=== PATIENT | female | born 1940 | race Asian ===

== ENCOUNTER → 2018-03-23 06:44 | Outpatient (CLI) | payer MEDICARE, MEDICAID, SELFPAY ==
[2018-03-23 08:31] LABS: Alanine Aminotransferase 22 IU/L (9-52); Albumin 4.2 g/dL (3.5-5.0); Albumin Globulin Ratio 1.2 (1.0-2.8); Alkaline Phosphatase 78 U/L (38-126); Aspartate Aminotransferase 28 IU/L (14-36); BUN Creatinine Ratio 18.9 (6-22); Bilirubin Total 0.5 mg/dL (0.2-1.3); Blood Urea Nitrogen 17 mg/dL (7-17); Calcium 9.2 mg/dL (8.4-10.2); Carbon Dioxide 31 mmol/L (22-32); Chloride 101 mmol/L (98-107); Cholesterol 142 mg/dL (140-199); Estimated Glomerular Filt Rate > 60.0 mL/min (>60); Globulin 3.6 g/dL (1.7-4.1); Glucose 82 mg/dL (80-110); HDL Cholesterol 64 mg/dL (40-60); HEMOLYSIS < 15 (0-50); LDL Cholesterol Calculated 62 mg/dL (<100); Potassium 5.1 mmol/L (3.4-5.1); Sodium 143 mmol/L (137-145); Total Protein 7.8 g/dL (6.3-8.2); Triglycerides 82 mg/dL (35-150)
[2018-03-23 08:46] LABS: Vitamin D 25 Hydroxy (D3) 63.8 ng/mL (30.0-100.0)
== END ==
PROVIDERS: Visit Provider Student in an Organized Health Care Education/Training Program
DX: M81.0 Age-related osteoporosis without current pathological fracture (principal); E05.00 Thyrotoxicosis with diffuse goiter without thyrotoxic crisis or storm; E55.9 Vitamin D deficiency, unspecified; I10 Essential (primary) hypertension; E78.5 Hyperlipidemia, unspecified; Z78.0 Asymptomatic menopausal state; Z79.899 Other long term (current) drug therapy
CPT/HCPCS: 36415; 77080; 80053; 80061; 82306; 84443

== ENCOUNTER → 2018-12-16 06:49 | Outpatient (CLI) | payer MEDICARE, MEDICAID, SELFPAY ==
[2018-12-16 08:34] LABS: BUN Creatinine Ratio 17.8 (6-22); Blood Urea Nitrogen 16 mg/dL (7-17); Carbon Dioxide 31 mmol/L (22-32); Chloride 101 mmol/L (98-107); Cholesterol 130 mg/dL (140-199); Estimated Glomerular Filt Rate > 60.0 mL/min (>60); Glucose 92 mg/dL (80-110); HDL Cholesterol 57 mg/dL (40-60); HEMOLYSIS < 15 (0-50); LDL Cholesterol Calculated 57 mg/dL (<100); Potassium 4.2 mmol/L (3.4-5.1); Sodium 139 mmol/L (137-145); Triglycerides 81 mg/dL (35-150)
[2018-12-16 08:43] LABS: Add Manual Diff / Slide Review NO; Basophils Absolute Auto 0 /uL (0-100); Basophils Percent Auto 0.7 % (0-2); Eosinophils Absolute Auto 100 /uL (0-450); Eosinophils Percent Auto 1.3 % (2-4); Hematocrit 39.6 % (36-46); Lymphocytes Absolute Auto 1100 /uL (1100-4500); Lymphocytes Percent Auto 19.6 % (25-40); Mean Corpuscular HGB Conc 32.9 % (30-36); Mean Corpuscular Hemoglobin 31.4 PG (26-34); Mean Corpuscular Volume 95.5 fL (80-100); Monocytes Absolute Auto 500 /uL (0-900); Monocytes Percent Auto 8.7 % (3-14); Neutrophils Absolute Auto 3800 /uL (1500-7000); Neutrophils Percent Auto 69.7 % (50-75); Platelet Count 146 X10^3/uL (150-400); Red Blood Cell Count 4.15 X10^6/uL (4.0-5.2); Red Cell Distribution Width 13.4 % (11.6-14.8); White Blood Cell Count 5.4 X10^3/uL (4.5-11.0)
== END ==
PROVIDERS: PCP Student in an Organized Health Care Education/Training Program; Visit Provider Internal Medicine Cardiovascular Disease
DX: I10 Essential (primary) hypertension (principal); E78.5 Hyperlipidemia, unspecified
CPT/HCPCS: 36415; 80048; 80061; 85025

== ENCOUNTER → 2019-11-03 11:20 | Outpatient (CLI) | payer MEDICARE, MEDICAID, SELFPAY ==
[2019-11-03 12:38] LABS: BUN Creatinine Ratio 21.2 (6-22); Blood Urea Nitrogen 22 mg/dL (7-17); Calcium 9.6 mg/dL (8.4-10.2); Carbon Dioxide 34 mmol/L (22-32); Chloride 102 mmol/L (98-107); Estimated Glomerular Filt Rate 51.4 mL/min (>60); Glucose 94 mg/dL (80-110); HEMOLYSIS < 15 (0-50); Potassium 4.8 mmol/L (3.4-5.1); Sodium 140 mmol/L (137-145)
== END ==
PROVIDERS: PCP Student in an Organized Health Care Education/Training Program; Referring Provider Student in an Organized Health Care Education/Training Program; Visit Provider Student in an Organized Health Care Education/Training Program
DX: I10 Essential (primary) hypertension (principal)
CPT/HCPCS: 36415; 80048

== ENCOUNTER → 2019-11-24 09:37 | Outpatient (CLI) | payer MEDICARE, MEDICAID, SELFPAY ==
[2019-11-24 10:52] LABS: BUN Creatinine Ratio 22.2 (6-22); Blood Urea Nitrogen 26 mg/dL (7-17); Estimated Glomerular Filt Rate 44.7 mL/min (>60)
== END ==
PROVIDERS: PCP Student in an Organized Health Care Education/Training Program; Referring Provider Student in an Organized Health Care Education/Training Program; Visit Provider Student in an Organized Health Care Education/Training Program
DX: N17.9 Acute kidney failure, unspecified (principal)
CPT/HCPCS: 36415; 82565; 84520

== ENCOUNTER → 2019-12-28 10:15 | Outpatient (CLI) | payer MEDICARE, MEDICAID, SELFPAY ==
--- NOTE | 2019-12-28 10:18 | DI.RAD.S_ITS ---
PROCEDURE: XR CLAVICLE RT INDICATIONS: bone deformity TECHNIQUE: 2 views of the clavicle were acquired. COMPARISON: None. FINDINGS: Bones: No fracture. AC and glenohumeral joint degeneration. Soft tissues: No suspicious soft tissue calcifications. IMPRESSION: Goxs-rr-thewiqwz right shoulder joint degeneration. If the patient's pain or other symptoms persist, consider further evaluation with MRI Dictated by: Doc Yanez M.D. on 12/28/2019 at 11:02 Approved by: Doc Yanez M.D. on 12/28/2019 at 11:04
== END ==
PROVIDERS: PCP Student in an Organized Health Care Education/Training Program; Referring Provider Student in an Organized Health Care Education/Training Program; Visit Provider Student in an Organized Health Care Education/Training Program
DX: M95.8 Other specified acquired deformities of musculoskeletal system (principal); M19.011 Primary osteoarthritis, right shoulder
CPT/HCPCS: 73000

== ENCOUNTER → 2020-01-10 09:57 | Outpatient (CLI) | payer MEDICARE, MEDICAID, SELFPAY ==
[2020-01-10 10:10] LABS: Bacteria Urine None Seen; RBC Urine None Seen (0-5/HPF); WBC Urine None Seen (0-5/HPF)
[2020-01-10 10:46] LABS: Add Manual Diff / Slide Review NO; Basophils Absolute Auto 0 /uL (0-100); Basophils Percent Auto 0.7 % (0-2); Eosinophils Absolute Auto 100 /uL (0-450); Eosinophils Percent Auto 1.4 % (2-4); Hematocrit 39.7 % (36-46); Hemoglobin 13.2 g/dL (12.0-16.0); Lymphocytes Absolute Auto 1100 /uL (1100-4500); Mean Corpuscular HGB Conc 33.3 % (30-36); Mean Corpuscular Hemoglobin 31.9 PG (26-34); Mean Corpuscular Volume 95.9 fL (80-100); Monocytes Absolute Auto 600 /uL (0-900); Monocytes Percent Auto 8.4 % (3-14); Neutrophils Absolute Auto 5000 /uL (1500-7000); Neutrophils Percent Auto 73.5 % (50-75); Platelet Count 152 X10^3/uL (150-400); Red Blood Cell Count 4.14 X10^6/uL (4.0-5.2); Red Cell Distribution Width 13.5 % (11.6-14.8); White Blood Cell Count 6.8 X10^3/uL (4.5-11.0)
[2020-01-10 10:52] LABS: Alanine Aminotransferase 20 IU/L (<35); Albumin 4.2 g/dL (3.5-5.0); Albumin Globulin Ratio 1.2 (1.0-2.8); Alkaline Phosphatase 80 U/L (38-126); Aspartate Aminotransferase 29 IU/L (14-36); BUN Creatinine Ratio 18.5 (6-22); Bilirubin Total 0.6 mg/dL (0.2-1.3); Blood Urea Nitrogen 17 mg/dL (7-17); Calcium 9.2 mg/dL (8.4-10.2); Carbon Dioxide 31 mmol/L (22-32); Chloride 97 mmol/L (98-107); Globulin 3.5 g/dL (1.7-4.1); Glucose 97 mg/dL (80-110); HEMOLYSIS < 15 (0-50); Phosphorous 4.6 mg/dL (2.8-4.1); Potassium 4.7 mmol/L (3.4-5.1); Sodium 135 mmol/L (137-145); Total Protein 7.7 g/dL (6.3-8.2)
[2020-01-10 11:05] LABS: Vitamin D 25 Hydroxy (D3) 80.1 ng/mL (30.0-100.0)
[2020-01-10 11:43] LABS: Appearance Urine UA CLEAR; Bilirubin Urine UA NEGATIVE (NEGATIVE); Color Urine UA YELLOW; Glucose Urine UA NEGATIVE (Negative); Ketones Urine UA NEGATIVE (NEGATIVE); Leukocyte Esterase Urine UA NEGATIVE (NEGATIVE); Nitrite Urine UA NEGATIVE (Negative); Occult Blood Urine UA NEGATIVE (Negative); Protein Urine UA NEGATIVE (Negative); Urobilinogen Urine UA 0.2 E.U./dL (0.2)
[2020-01-10 11:50] LABS: pH Urine UA 7.5 (4.5-8.0)
[2020-01-10 11:52] LABS: Culture Indicated Urine Cult Not Indicated; Urine Comments Microscopic Normal
[2020-01-10 12:11] LABS: Creatinine Urine Random 66.7 mg/dL
[2020-01-10 12:16] LABS: Microalbumi Creatinin Ratio Ur 16.4 ug/mg CR (<30); Microalbumin Urine Random 1.1 mg/dL (0-1.6)
[2020-01-11 07:39] LABS: Parathyroid Hormone Int 30 pg/mL (15-65)
== END ==
PROVIDERS: PCP Student in an Organized Health Care Education/Training Program; Referring Provider Internal Medicine; Visit Provider Internal Medicine
DX: N18.3 Chronic kidney disease, stage 3 (moderate) (principal)
CPT/HCPCS: 36415; 80053; 81001; 82043; 82306; 82570; 83970; 84100; 85025

== ENCOUNTER → 2020-02-09 09:54 | Outpatient (CLI) | payer MEDICARE, MEDICAID, SELFPAY ==
--- NOTE | 2020-02-09 | DI.US.S_ITS ---
PROCEDURE: US RENAL COMPLETE INDICATIONS: CHRONIC KIDNEY DISEASE STAGE 3 TECHNIQUE: Real-time scanning was performed of the kidneys and bladder, with image documentation. COMPARISON: None. FINDINGS: Kidneys: Kidneys are normal in size. The kidneys demonstrate a generalized echogenic appearance, which is consistent with the known history of medical renal disease. Right kidney measures 9.4 cm long; left kidney measures 11 cm long. Right renal cortical thickness is 1.2 cm; left renal cortical thickness is 1.4 cm. Renal cortical echotexture is normal. No nephrolithiasis. No suspicious solid mass lesions. Minimal to mild right-sided hydronephrosis is seen. Bladder: Pre-void bladder volume is 223 mL. Post-void residual is 13 mL. Pre-void images demonstrate no intraluminal masses or stones. On pre-void images, neither of the ureteral jets are noted with color Doppler interrogation. (Of note, ureteral jets may not be detectable in up to 25% of cases due to insufficient differences in specific gravity between ureteral and bladder urine). Miscellaneous: No free pelvic fluid. IMPRESSION: Minimal to mild right-sided hydronephrosis. Mild postvoid residual, 13 cc. Dictated by: Hugh Chino M.D. on 02/09/2020 at 11:21 Approved by: Hugh Chino M.D. on 02/09/2020 at 11:22
== END ==
PROVIDERS: PCP Student in an Organized Health Care Education/Training Program; Referring Provider Student in an Organized Health Care Education/Training Program; Visit Provider Internal Medicine
DX: N18.30 Chronic kidney disease, stage 3 unspecified (principal)
CPT/HCPCS: 76770

== ENCOUNTER → 2020-02-14 10:23 | Outpatient (CLI) | payer MEDICARE, MEDICAID, SELFPAY ==
[2020-02-14 10:58] LABS: RBC Urine None Seen (0-5/HPF)
[2020-02-14 13:25] LABS: Appearance Urine UA CLEAR; Bilirubin Urine UA NEGATIVE (NEGATIVE); Color Urine UA YELLOW; Glucose Urine UA NEGATIVE (Negative); Ketones Urine UA NEGATIVE (NEGATIVE); Leukocyte Esterase Urine UA TRACE (NEGATIVE); Nitrite Urine UA NEGATIVE (Negative); Occult Blood Urine UA NEGATIVE (Negative); Protein Urine UA NEGATIVE (Negative); Urobilinogen Urine UA 0.2 E.U./dL (0.2)
[2020-02-14 13:40] LABS: Bacteria Urine Occasional (0-1); Culture Indicated Urine Specimen Cultured; Squamous Epithelial Cell Urine 0-1 /HPF (0-5/HPF); WBC Urine 1-5/HPF (0-5/HPF)
[2020-02-14 14:17] LABS: Blood Urea Nitrogen 19 mg/dL (7-17); Calcium 9.1 mg/dL (8.4-10.2); Carbon Dioxide 32 mmol/L (22-32); Chloride 100 mmol/L (98-107); Estimated Glomerular Filt Rate 56.9 mL/min (>60); Glucose 85 mg/dL (80-110); HEMOLYSIS < 15 (0-50); Potassium 4.7 mmol/L (3.4-5.1); Sodium 137 mmol/L (137-145)
[2020-02-14 15:39] LABS: Creatinine Urine Random 83.7 mg/dL; Microalbumi Creatinin Ratio Ur 7.1 ug/mg CR (<30); Microalbumin Urine Random 0.6 mg/dL (0-1.6)
== END ==
PROVIDERS: PCP Student in an Organized Health Care Education/Training Program; Referring Provider Internal Medicine; Visit Provider Internal Medicine
DX: N18.31 Chronic kidney disease, stage 3a (principal)
CPT/HCPCS: 36415; 80048; 81001; 82043; 82570; 87086

== ENCOUNTER → 2020-12-27 13:36 | Outpatient (CLI) | payer MEDICARE, MEDICAID, SELFPAY ==
--- NOTE | 2020-12-27 | DI.ECHO.S_ITS ---
[place] +---------+ Hospital +---------+ : : [address] : : : : [id number] : : : : Phone: [phone]---------+ Echocardiogram Report + + :Name: ABRAM ADAMS Study Date: 12/27/2020 Height: 66 in : :[facility] ReadingLocation: Weight: 184 lb : : Gender: Female BSA: 1.9 m2 : :: 1940 Age: 80 yrs BP: 135/90 mmHg: :Reason For Study: OTHER SPECIFIED DISORDERS OF ARTERIES AND : :ARTERIOLS : :Ordering Physician: FRANKLIN, : :LOW Performed By: Angy Ahuja : :Referring: LOW LANDRY : + + Interpretation Summary 1) Normal left ventricular thickness, size, wall motion, and systolic function (EF 55-65%). 2) Normal right ventricular size and function grossly. 3) Both atria are markedly dilated. 4) There is mild to moderate tricuspid regurgitation. 5) There is mild aortic regurgitation. 6) There is mild mitral regurgitation. 7) The ascending aorta is mildly enlarged at 4.2cm. 8) Compared to the Echo done 02/04/2019, tricuspid regurgitation is slightly worse. Procedure: A two-dimensional transthoracic echocardiogram with color flow and Doppler was performed. The study quality was technically adequate. Comparison is made with the echocardiogram of 02/04/2019. The patient was in atrial fibrillation with heart rates between 74-96 bpm during the exam. Left Ventricle: The left ventricle is normal in size and wall thickness. The ejection fraction is estimated to be 60-65%. Diastolic function could not be accurately assessed due to atrial fibrillation. Right Ventricle: The right ventricle is normal in size and function. Atria: Both atria are severely dilated. There is no Doppler evidence for an interatrial shunt. Mitral Valve: The mitral valve leaflets appear mildly thickened, but open well. There is mild mitral regurgitation. Aortic Valve: The aortic valve is trileaflet. The aortic valve opens well. There is no aortic valve stenosis. There is mild aortic regurgitation. Tricuspid Valve: The tricuspid valve leaflets are thin and pliable. There is mild to moderate tricuspid regurgitation. The right ventricular systolic pressure is estimated to be at least 35 mmHg based on an estimated right atrial pressure of 3 mm Hg. Pulmonic Valve: The pulmonic valve leaflets are thin and pliable; valve motion is normal. There is mild pulmonic regurgitation. Great Vessels: The aortic root is normal size. The ascending aorta is mildly enlarged. The IVC is of normal diameter and collapses greater than 50% with a sniff. This suggests a low right atrial pressure of 3 mm Hg. Pericardium/ Pleura There is no pericardial effusion. There is no pleural effusion. MMode/2D Measurements & Calculations LVIDd: 4.6 cm LVOT diam: 2.0 cm LVIDs: 2.9 cm Ao root diam: 3.6 cm FS: 38.2 % asc Aorta Diam: 4.2 cm IVSd: 0.78 cm Ao Arch Diam (Prox Trans): 3.6 cm LVPWd: 1.1 cm LV castaneda. diameter/BSA (cm/m^2): 2.4 LV sys. diameter/BSA (cm/m^2): 1.5 LA A2 area: 46.1 cm2 RA long axis: 8.5 cm LA A4 area: 39.1 cm2 RA area: 47.0 cm2 LA length (vol): 8.7 cm RA vol: 221.6 ml LA vol: 176.6 ml RA : 114.8 ml/m2 LA vol index: 91.5 ml/m2 IVC diam: 2.0 cm RVD1 (basal): 3.7 cm TAPSE: 2.0 cm Doppler Measurements & Calculations Ao V2 max: 126.1 cm/sec LVOT Max José Miguel: 86.9 cm/sec Ao V2 mean: 84.2 cm/sec LV V1 max P.0 mmHg Ao max P.4 mmHg LV V1 VTI: 18.2 cm Ao mean P.2 mmHg LIBBY(I,D): 2.6 cm2 Ao V2 VTI: 22.1 cm LIBBY(V,D): 2.2 cm2 sev ratio: 0.82 LIBBY indexed to BSA (cm^2/m^2): 1.3 MV E max josé miguel: 90.4 cm/sec TR max josé miguel: 281.1 cm/sec MV A max josé miguel: 2.9 cm/sec TR max P.6 mmHg MV E/A: 31.6 PA V2 max: 94.0 cm/sec Med Peak E' José Miguel: 10.2 cm/sec PA V2 mean: 62.4 cm/sec E/E' med: 8.9 PA mean P.8 mmHg Lat Peak E' José Miguel: 11.8 cm/sec PA pr(Accel): 43.0 mmHg E/E' lat: 7.7 E/e' average: 8.3 MV dec time: 0.16 sec SV(OT): 57.5 ml Reading Physician:06:11 PM
== END ==
PROVIDERS: PCP Student in an Organized Health Care Education/Training Program; Referring Provider Internal Medicine Cardiovascular Disease; Visit Provider Internal Medicine Cardiovascular Disease
DX: I77.89 Other specified disorders of arteries and arterioles (principal); I07.1 Rheumatic tricuspid insufficiency; I35.1 Nonrheumatic aortic (valve) insufficiency; I34.0 Nonrheumatic mitral (valve) insufficiency; I51.7 Cardiomegaly
CPT/HCPCS: 93306

== ENCOUNTER → 2021-01-12 09:26 | Outpatient (CLI) | payer MEDICARE, MEDICAID, SELFPAY ==
[2021-01-12 10:13] LABS: Add Manual Diff / Slide Review NO; Basophils Absolute Auto 100 /uL (0-100); Basophils Percent Auto 0.9 % (0-2); Eosinophils Absolute Auto 400 /uL (0-450); Eosinophils Percent Auto 6.2 % (2-4); Hematocrit 40.9 % (36-46); Hemoglobin 13.4 g/dL (12.0-16.0); Lymphocytes Absolute Auto 1200 /uL (1100-4500); Lymphocytes Percent Auto 20.6 % (25-40); Mean Corpuscular HGB Conc 32.7 % (30-36); Mean Corpuscular Hemoglobin 31.5 PG (26-34); Mean Corpuscular Volume 96.1 fL (80-100); Monocytes Absolute Auto 400 /uL (0-900); Monocytes Percent Auto 7.7 % (3-14); Neutrophils Absolute Auto 3700 /uL (1500-7000); Neutrophils Percent Auto 64.6 % (50-75); Platelet Count 150 X10^3/uL (150-400); Red Blood Cell Count 4.26 X10^6/uL (4.0-5.2); White Blood Cell Count 5.7 X10^3/uL (4.5-11.0)
[2021-01-12 10:29] LABS: BUN Creatinine Ratio 21.3 (6-22); Blood Urea Nitrogen 20 mg/dL (7-17); Calcium 9.2 mg/dL (8.4-10.2); Carbon Dioxide 36 mmol/L (22-32); Chloride 100 mmol/L (98-107); Cholesterol 142 mg/dL (140-199); Estimated Glomerular Filt Rate 57.4 mL/min (>60); Glucose 108 mg/dL (80-110); HDL Cholesterol 68 mg/dL (40-60); HEMOLYSIS < 15 (0-50); LDL Cholesterol Calculated 58 mg/dL (<100); Potassium 4.9 mmol/L (3.4-5.1); Sodium 138 mmol/L (137-145); Triglycerides 82 mg/dL (35-150)
== END ==
PROVIDERS: PCP Student in an Organized Health Care Education/Training Program; Referring Provider Internal Medicine Cardiovascular Disease; Visit Provider Internal Medicine Cardiovascular Disease
DX: E78.5 Hyperlipidemia, unspecified (principal); I10 Essential (primary) hypertension
CPT/HCPCS: 36415; 80048; 80061; 85025

== ENCOUNTER → 2021-12-10 08:54 | Outpatient (CLI) | payer MEDICARE, MEDICAID, SELFPAY ==
[2021-12-10 11:09] LABS: Add Manual Diff / Slide Review NO; Basophils Absolute Auto 0 /uL (0-100); Basophils Percent Auto 0.9 % (0-2); Eosinophils Absolute Auto 100 /uL (0-450); Eosinophils Percent Auto 2.5 % (2-4); Hematocrit 40.2 % (36-46); Hemoglobin 13.6 g/dL (12.0-16.0); Lymphocytes Absolute Auto 1200 /uL (1100-4500); Lymphocytes Percent Auto 24.2 % (25-40); Mean Corpuscular HGB Conc 33.9 % (30-36); Mean Corpuscular Hemoglobin 32.1 PG (26-34); Mean Corpuscular Volume 94.7 fL (80-100); Monocytes Absolute Auto 400 /uL (0-900); Monocytes Percent Auto 8.8 % (3-14); Neutrophils Absolute Auto 3200 /uL (1500-7000); Neutrophils Percent Auto 63.6 % (50-75); Platelet Count 143 X10^3/uL (150-400); Red Blood Cell Count 4.24 X10^6/uL (4.0-5.2); Red Cell Distribution Width 13.7 % (11.6-14.8)
[2021-12-10 11:12] LABS: BUN Creatinine Ratio 22.3 (6-22); Blood Urea Nitrogen 21 mg/dL (7-17); Calcium 8.8 mg/dL (8.4-10.2); Carbon Dioxide 35 mmol/L (22-32); Chloride 99 mmol/L (98-107); Cholesterol 149 mg/dL (140-199); Estimated Glomerular Filt Rate > 60 mL/min (>60); Glucose 108 mg/dL (80-110); HDL Cholesterol 60 mg/dL (40-60); HEMOLYSIS < 15 (0-50); LDL Cholesterol Calculated 75 mg/dL (<100); Potassium 4.7 mmol/L (3.4-5.1); Sodium 136 mmol/L (137-145); Triglycerides 70 mg/dL (35-150)
== END ==
PROVIDERS: PCP Student in an Organized Health Care Education/Training Program; Referring Provider Internal Medicine Cardiovascular Disease; Visit Provider Internal Medicine Cardiovascular Disease
DX: I10 Essential (primary) hypertension (principal); E78.5 Hyperlipidemia, unspecified
CPT/HCPCS: 36415; 80048; 80061; 85025

== ENCOUNTER → 2021-12-19 07:40 | Outpatient (CLI) | payer MEDICARE, MEDICAID, SELFPAY ==
--- NOTE | 2021-12-19 | DI.ECHO.S_ITS ---
[place] +---------+ Hospital +---------+ : : [address] : : : : [id number] : : : : Phone: [phone]+ Echocardiogram Report + + :Name: ABRAM ADAMS Study Date: 12/19/2021 Height: 66 in : :[facility] ReadingLocation: Weight: 180 lb : : Gender: Female BSA: 1.9 m2 : :: 1940 Age: 81 yrs BP: 157/93 mmHg: :Reason For Study: CHEST PAIN : :Ordering Physician: FRANKLIN, : :LOW Performed By: Angy Ahuja : :Referring: LOW LANDRY : + + Interpretation Summary 1) Normal left ventricular thickness, size, wall motion, and systolic function (EF 60-65%). 2) Normal right ventricular size and function. 3) Both atria are severely dilated. 4) There is mild tricuspid regurgitation. 5) There is mild aortic regurgitation. 6) There is mild mitral regurgitation. 7) The ascending aorta is mildly enlarged at 4.2cm. 8) Compared to the Echo done 12/27/2020, no significant change. Procedure: A two-dimensional transthoracic echocardiogram with color flow and Doppler was performed. The study quality was technically adequate. Comparison is made with the echocardiogram of 12/27/2020. The patient was in sinus rhythm with heart rates between 62-80 bpm during the exam. Left Ventricle: The left ventricle is normal in size and wall thickness. The ejection fraction is estimated to be 60-65%. Left ventricular systolic function appears normal without focal wall motion abnormalities. Right Ventricle: The right ventricle is normal in size and function. Atria: Both atria are severely dilated. There is no Doppler evidence for an interatrial shunt. Mitral Valve: The mitral valve leaflets appear mildly thickened, but open well. There is mild mitral regurgitation. Aortic Valve: The aortic valve is trileaflet. There is no aortic valve stenosis. There is mild aortic regurgitation. Tricuspid Valve: The tricuspid valve leaflets are thin and pliable. There is mild tricuspid regurgitation. The right ventricular systolic pressure is estimated to be at least 36 mmHg based on an estimated right atrial pressure of 3 mm Hg. Pulmonic Valve: The pulmonic valve leaflets are thin and pliable; valve motion is normal. There is mild pulmonic regurgitation. Great Vessels: The aortic root is normal size. The ascending aorta is mildly enlarged. The IVC is of normal diameter and collapses greater than 50% with a sniff. This suggests a low right atrial pressure of 3 mm Hg. Pericardium/ Pleura There is no pericardial effusion. There is no pleural effusion. MMode/2D Measurements & Calculations LVIDd: 4.7 cm LVOT diam: 2.0 cm LVIDs: 3.0 cm Ao root diam: 3.7 cm FS: 36.2 % asc Aorta Diam: 4.2 cm IVSd: 0.77 cm Ao Arch Diam (Prox Trans): 3.1 cm LVPWd: 1.1 cm LV castaneda. diameter/BSA (cm/m^2): 2.5 LV sys. diameter/BSA (cm/m^2): 1.6 LA A2 area: 34.5 cm2 RA long axis: 8.7 cm LA A4 area: 41.1 cm2 RA area: 39.0 cm2 LA length (vol): 8.6 cm RA vol: 147.8 ml LA vol: 140.0 ml RA : 77.3 ml/m2 LA vol index: 73.2 ml/m2 IVC diam: 1.6 cm RVD1 (basal): 3.4 cm RVD2 (mid): 2.4 cm TAPSE: 1.8 cm Doppler Measurements & Calculations Ao V2 max: 124.3 cm/sec LVOT Max José Miguel: 94.2 cm/sec Ao V2 mean: 81.9 cm/sec LV V1 max P.6 mmHg Ao max P.2 mmHg LV V1 VTI: 19.3 cm Ao mean P.1 mmHg LIBBY(I,D): 2.4 cm2 Ao V2 VTI: 25.9 cm LIBBY(V,D): 2.4 cm2 sev ratio: 0.74 LIBBY indexed to BSA (cm^2/m^2): 1.2 MV E max josé miguel: 96.1 cm/sec TR max josé miguel: 287.8 cm/sec MV A max josé miguel: 1.4 cm/sec TR max P.1 mmHg MV E/A: 66.7 PA V2 max: 69.2 cm/sec Med Peak E' José Miguel: 9.5 cm/sec PA V2 mean: 43.2 cm/sec E/E' med: 10.1 PA mean P.90 mmHg Lat Peak E' José Miguel: 10.5 cm/sec PA pr(Accel): 37.9 mmHg E/E' lat: 9.1 E/e' average: 9.6 MV dec time: 0.16 sec SV(LVOT): 61.0 ml Reading Physician:02:26 PM
--- NOTE | 2021-12-19 | DI.NM.S_ITS ---
PROCEDURE: NM BENNIE PERF SPECT R&S PHARM Rest and pharmacological stress myocardial perfusion SPECT with gated imaging and ejection fraction RADIOPHARMACEUTICAL: 12.9 mCi Tc-99m tetrafosmin IV at rest and 26.1 mCi Tc-99m tetrafosmin IV at peak effect of pharmacological stress. Scl-mng-icenvswq was performed. INDICATIONS: Chest pain, unspecified TECHNIQUE: Radiopharmaceutical was injected at peak stress test, and also at rest. SPECT images were obtained. SPECT myocardial perfusion images were displayed in short axis, horizontal long axis, and vertical long axis views. Gated images were reviewed using BMEYE software. COMPARISON: None. CARDIAC STRESS: A pharmacologic stress test was performed under the supervision of an attending staff, using an infusion of lexiscan 0.4mg IV X1. Hemodynamic data: There is normal blood pressure and heart rate response to pharmacologic stress. Symptoms: The patient denied anginal chest pain. Aminophylline: none EKG: No diagnostic changes of ischemia; no ectopy. FINDINGS: Raw data: There is good myocardial uptake of radiotracer. No significant motion artifacts. Hosi-yv-udizl ratio is 0.32 (normal is less than 0.38 for tetrafosmin tracer). Left ventricle function: Gated images demonstrate normal left ventricular wall thickening. No segmental wall motion abnormalities. No transient ischemic dilation; TID is 0.95 (normal less than 1.3). Left ventricle resting end diastolic volume is 87 mL. Left ventricle stress ejection fraction is 69%; normal range is above 45%. Myocardial perfusion: There is normal distribution of activity in the right and left ventricular myocardium. No fixed or reversible perfusion defects. IMPRESSION: Low risk, normal pharmaceutical nuclear stress test 1) No perfusion evidence of ischemia or infarction. 2) Normal left ventricular size, wall motion, and systolic function (EF post stress 69%). 3) No angina during the study. 4) No ST changes with lexsican. 5) No prior nuclear stress test available for comparison. Dictated by: Jose Landry MD on 12/20/2021 at 13:19 Approved by: Jose Landry MD on 12/20/2021 at 13:20
[2021-12-19 12:07] LABS: COVID19 -Nasal RAPID Negative (Negative)
== END ==
PROVIDERS: PCP Student in an Organized Health Care Education/Training Program; Referring Provider Internal Medicine Cardiovascular Disease; Visit Provider Internal Medicine Cardiovascular Disease
DX: R07.9 Chest pain, unspecified (principal); I77.89 Other specified disorders of arteries and arterioles; I36.1 Nonrheumatic tricuspid (valve) insufficiency; Z20.822 Contact with and (suspected) exposure to COVID-19
CPT/HCPCS: 78452; 87635; 93017; 93306; C9803; A9502; J2785

== ENCOUNTER → 2022-11-22 09:38 | Outpatient (CLI) | payer MEDICARE, MEDICAID, SELFPAY ==
--- NOTE | 2022-11-22 09:38 | DI.RAD.S_ITS ---
Bone Density Report Name: ABRAM ADAMS Age: 82 Sex: Female Ethnicity: Date of : 1940 Indication: postmenopausal; screening for osteoporosis; Referring Provider: KENNETH RUSSELL Study: Bone densitometry was performed. Exam Date: November 22, 2022 Accession number: [id number] Bone Density: Region BMD T-score Z-score Classification AP Spine(L1-L4) 0.901 -1.3 1.4 Osteopenia Femoral Neck (Left) 0.603 -2.2 0.1 Osteopenia Total Hip (Left) 0.758 -1.5 0.6 Osteopenia Femoral Neck (Right) 0.552 -2.7 -0.3 Osteoporosis Total Hip (Right) 0.700 -2.0 0.1 Osteopenia Total Hip Mean 0.729 -1.8 0.4 Osteopenia World Health Organization criteria for BMD impression classify patients as: Normal (T-score at or above -1.0), Osteopenia (T-score between -1.0 and -2.5), or Osteoporosis (T-score at or below -2.5). 10-year Fracture Risk: FRAX not reported because: Some T-score for Spine Total or Hip Total or Femoral Neck at or below -2.5 Treated for osteoporosis Impression: The patient has osteoporosis, based on the Right Femoral Neck T-score. Discussion: It is important to ask patients whether they are taking their medications and to encourage continued and appropriate compliance with their osteoporosis therapies to reduce fracture risk. It is also important to review their risk factors and encourage appropriate calcium and vitamin D intakes, exercise, fall prevention and other lifestyle measures. Follow-Up: Consider a repeat BMD and Vertebral Fracture Assessment (VFA) exam in 2 years or sooner if medically necessary, to reassess this patient's status. Reported by: AYDEE MCGUIRE M.D. on 11/22/2022 10:12:00 AM.
== END ==
PROVIDERS: PCP Pediatrics; Referring Provider Pediatrics; Visit Provider Pediatrics
DX: M81.0 Age-related osteoporosis without current pathological fracture (principal); Z13.820 Encounter for screening for osteoporosis; Z78.0 Asymptomatic menopausal state
CPT/HCPCS: 77080

== ENCOUNTER 2023-01-06 10:36 | Inpatient (IN) | payer MEDICARE, MEDICAID, SELFPAY ==
[2023-01-06] VITALS (127 sets, daily range): BP systolic 89–154; BP diastolic 50–92; PULSE 54–97; RESP 12–40; TEMP 35.8–36.5; O2SAT 84–100; BMI 31.0
--- NOTE | 2023-01-06 10:44 | DI.RAD.S_ITS ---
PROCEDURE: XR CHEST 1V INDICATIONS: SOB TECHNIQUE: One view of the chest was acquired. COMPARISON: None FINDINGS: Surgical changes and devices: None. Lungs and pleura: Mild pulmonary edema. No pleural effusions or pneumothorax. Mediastinum: Mediastinal contours appear normal. Marked cardiomegaly. Bones and chest wall: No suspicious bony lesions. Overlying soft tissues appear unremarkable. IMPRESSION: Marked cardiomegaly, mild pulmonary edema. Comment: If suspect pericardial effusion, consider CT chest or ECHO. Dictated by: Santi Cook M.D. on 01/06/2023 at 11:16 Approved by: Santi Cook M.D. on 01/06/2023 at 11:18
--- NOTE | 2023-01-06 10:55 | ED_ITS ---
HPI - General Adult General Chief complaint: Unresponsive Stated complaint: resp distress / unresponsive. Time Seen by Provider: 01/06/23 10:42 Source: family and EMS Mode of arrival: EMS Limitations: altered mental status History of Present Illness HPI narrative: Patient is an 82-year-old female. He is a full code per her who is at bedside. She has a history of asthma for which she uses daily inhaler and also has a history of CHF. No prior history of heart attack. No prior history of a stroke. She is on anticoagulation. thinks this is because of atrial fibrillation. states that for the past couple days the patient has had increasing problems with shortness of breath on exertion. He states that normally she can get around with just her umbrella that she uses somewhat like a cane or a walking stick. He states that the past couple days she is become very fatigued with any sort of exertion. He stated that she is normally alert and oriented and he told his that when she felt like she needed to come in to be evaluated that is when they would bring her in. He stated that this morning she thought that she needed to come in. They went to the walk-in clinic. Has reported the walk-in clinic that the patient was unresponsive, had oxygen saturations in the 40% range. denies the patient has had any fevers or cough. He thinks that her presentation today is what she has been like over the past couple days. He did not think that she was particularly worse this morning than the past couple days. Related Data Previous Rx's Medication Instructions Recorded albuterol sulfate 90 mcg/actuation 1 puff inhalation Q4-6H PRN 02/13/22 aerosol inhaler (Ventolin HFA) shortness of breath or wheezing #18 grams furosemide 40 mg tablet 40 mg PO DAILY PRN edema/weight 02/13/22 gain #10 tabs carvedilol 25 mg tablet 25 mg PO BID #180 tabs 06/05/22 losartan 100 mg tablet 100 mg PO DAILY #90 tabs 06/05/22 pravastatin 40 mg tablet 40 mg PO DAILY #90 tabs 06/05/22 apixaban 5 mg tablet (Eliquis) See Rx Instructions .Route 08/06/22 .COMPLEX #180 tabs amlodipine 5 mg tablet (Norvasc) 5 mg PO DAILY #90 tabs 10/25/22 diazepam 5 mg tablet 10 mg PO BEDTIME PRN sleep #30 tabs 10/25/22 potassium chloride 10 mEq See Rx Instructions .Route 11/11/22 tablet,extended release .COMPLEX #90 tabs calcium carbonate 500 mg calcium 500 mg PO BID #180 tabs 11/13/22 (1,250 mg) tablet (Oyster Shell Calcium) Allergies Allergy/AdvReac Type Severity Reaction Status Date / Time No Known Drug Allergies Allergy Verified 01/06/23 10:09 Review of Systems Review of Systems Narrative: Review of systems mostly provided by Constitutional Constitutional: Reports system reviewed and no additional complaints, except as documented Cardiovascular Cardiovascular: Reports system reviewed and no additional complaints, except as documented Respiratory Respiratory: Reports system reviewed and no additional complaints, except as documented Gastrointestinal Gastrointestinal: Reports system reviewed and no additional complaints, except as documented Integumentary/Breasts Skin/Breast: Reports system reviewed and no additional complaints, except as documented Neurologic Neurologic: Reports system reviewed and no additional complaints, except as documented Hematologic/Lymphatic On Anticoagulants: Yes Patient History Medical History Acquired clavicle deformity Asthma Cataracts, bilateral (1994) Chronic atrial fibrillation Essential hypertension Gout Hyperlipidemia Hyperthyroidism (1971) Osteoporosis Surgical History Toxic goiter (1971) Family History Father No problems noted. Mother No problems noted. Social History household members: significant other Smoking Status: Never smoker alcohol intake: never substance use type: does not use Smoking Status: Never smoker alcohol intake frequency: 0-2 drinks per day Substance Use Type: does not use Exam Initial Vital Signs Initial Vital Signs: Vital Signs Temperature 96.5 F L 01/06/23 10:38 Pulse Rate 68 01/06/23 10:38 Respiratory Rate 40 H 01/06/23 10:38 Blood Pressure 136/84 01/06/23 10:38 Pulse Oximetry 94 01/06/23 10:38 Oxygen Delivery Method Non -Rebreather 01/06/23 10:38 Oxygen Flow Rate 15 01/06/23 10:38 HENMT Head: normal to inspection and normocephalic Resp Effort & Inspection: no cough and not labored Auscultation: diminished lung sounds and no wheezes Cardio Rate: regular rate Rhythm: regular rhythm GI Inspection: normal to inspection Palpation: No firm Neuro General: patient alert and patient awake Other: Patient does follow commands but occasionally answers in one-word sentences. Extrem Other: Some lower extremity swelling but no gross deformities Procedures Intubation sedative: Etomidate Mg Given: 20 paralytic: Succinylcholine Mg Given: 120 Laryngoscope: other (Video) ET Tube Size: 7.5 ET Tube Uncuffed: No Tube Secured Depth (cm): 25 Tube Secured Location: teeth Tube Placement Confirmation: Visualized tube passing through cords, Equal breath sounds bilaterally, Confirmation by capnometry and Chest Xray Patient Tolerated Procedure: Well Intubation Complications: difficult intubation and hypoxia Additional Comments: Patient did become hypoxic into the upper 60s but responded very well to bag- valve mask. We were able to successfully intubate on 2nd attempt. Scores GCS Sharon coma scale eye opening: Spontaneous Morgan coma scale verbal response: Words Morgan coma scale motor response: Obey commands Morgan coma scale total score: 13 Course Orders Ordered: ED Orders 01/06/23 10:40 Complete Blood Count AUTO DIFF Stat 01/06/23 10:44 XR chest 1V Stat Arterial Blood Gas Stat EKG-12 Lead Stat RT Consult Eval and Treat Now 01/06/23 10:50 Blood Culture Stat Respiratory Panel (Film Array) Stat 01/06/23 11:10 Comprehensive Metabolic Panel Stat Ethanol (ETOH) Stat Lactate (Lactic Acid) Stat Lipase Stat Magnesium Stat NT-proBNP (BNP-Adult 18+) Stat PTT Partial Thromboplastin Luis Stat Procalcitonin Stat Prothrombin Time INR Stat Troponin & CK Cardiac Panel Stat 01/06/23 11:20 XR chest 1V Stat Albuterol/Ipratropium (Albuterol/Ipratropium 3 Ml Ampul) 3 ml INH RTBID ANTONY Chlorhexidine Gluconate (Chlorhexidine Gluconate 15 Ml Cup) 15 ml PO Q6HR ANTONY Famotidine (Famotidine 20 Mg/2 Ml Vial) 20 mg IV DAILY ANTONY Fentanyl (Fentanyl 100 Mcg/2 Ml Inj) 31 mcg 0.35 mcg/kg (31 mcg) IV Q1HR PRN PRN Reason: Pain, Severe (7-10) Heparin Sodium (Porcine) (Heparin 5,000 Unit/Ml Vial) 5,000 unit SUBCUT BID ANTONY Fentanyl 1,000 mcg/ Dextrose 250 mls @ 15.733 mls/hr IV TITRATE ANTONY; Protocol Last Titration: 01/06/23 12:33 Dose: 1 mcg/kg/hr, 22.476 mls/hr Documented By: Admin: 01/06/23 11:50 Dose: 0.7 mcg/kg/hr, 15.733 mls/hr Documented By: ST Sodium Chloride (Normal Saline 0.9%) 1,000 mls @ 75 mls/hr IV BOLUS ONE Stop: 01/07/23 00:39 Last Infusion: 01/06/23 13:20 Dose: 0 mls/hr Documented By: Admin: 01/06/23 12:01 Dose: 75 mls/hr Documented By: ST Propofol (Propofol) 1,000 mg in 100 mls @ 2.697 mls/hr IV TITRATE ANTONY; Protocol Last Admin: 01/06/23 14:55 Dose: 30 mcg/kg/min, 16.182 mls/hr Documented By: ANDREA Ceftriaxone Sodium 2,000 mg/ (Sodium Chloride) 100 mls @ 200 mls/hr IV Q24H [facility] Last Infusion: 01/06/23 15:57 Dose: 0 mls/hr Documented By: Admin: 01/06/23 15:07 Dose: 200 mls/hr Documented By: ANDREA Doxycycline Hyclate 100 mg/ (Sodium Chloride) 100 mls @ 100 mls/hr IV Q12H [facility] Last Infusion: 01/06/23 16:16 Dose: 0 mls/hr Documented By: Admin: 01/06/23 15:11 Dose: 100 mls/hr Documented By: ANDREA Naloxone HCl (Naloxone 0.4 Mg/Ml Vial) 0.2 mg IV Q2MIN PRN PRN Reason: Opiate Reversal Discontinued Medications Bumetanide (Bumetanide 1 Mg/4 Ml Vial) 1 mg IV NOW ONE Stop: 01/06/23 14:21 Last Admin: 01/06/23 15:06 Dose: 1 mg Documented By: ANDREA Chlorhexidine Gluconate (Chlorhexidine Gluconate 15 Ml Cup) 15 ml PO Q6HR [facility] Last Admin: 01/06/23 16:16 Dose: Not Given Documented By: ANDREA Etomidate (Etomidate 2 Mg/Ml 10 Ml Vial) 20 mg IV NOW ONE Stop: 01/06/23 11:12 Last Admin: 01/06/23 11:15 Dose: 20 mg Documented By: CORBIN Etomidate (Etomidate 2 Mg/Ml 10 Ml Vial) 20 mg IV NOW ONE Stop: 01/06/23 11:25 Last Admin: 01/06/23 11:26 Dose: Not Given Documented By: CORBIN Famotidine (Famotidine 20 Mg/2 Ml Vial) 20 mg IV BID [facility] Last Admin: 01/06/23 14:49 Dose: 20 mg Documented By: ANDREA Fentanyl (Fentanyl 100 Mcg/2 Ml Inj) 31 mcg 0.35 mcg/kg (31 mcg) IV Q1HR PRN PRN Reason: Pain, Severe (7-10) Fentanyl (Fentanyl 100 Mcg/2 Ml Inj) 50 mcg IV Q30MIN PRN PRN Reason: pain/agitiation Furosemide 60 mg/ Sodium (Chloride) 56 mls @ 112 mls/hr IV NOW ONE Stop: 01/06/23 11:08 Last Admin: 01/06/23 12:02 Dose: 112 mls/hr Documented By: Propofol (Propofol) 1,000 mg in 100 mls @ 2.697 mls/hr IV TITRATE [facility]; Protocol Last Titration: 01/06/23 14:52 Dose: 7 mcg/kg/min, 3.776 mls/hr Documented By: Titration: 01/06/23 13:08 Dose: 7 mcg/kg/min, 3.776 mls/hr Documented By: Titration: 01/06/23 12:25 Dose: 6 mcg/kg/min, 3.236 mls/hr Documented By: Admin: 01/06/23 11:25 Dose: 5 mcg/kg/min, 2.697 mls/hr Documented By: CORBIN Ondansetron HCl (Ondansetron 4 Mg/2 Ml Inj) 4 mg IV NOW ONE Stop: 01/06/23 10:53 Last Admin: 01/06/23 11:27 Dose: 4 mg Documented By: CORBIN Succinylcholine Chloride (Succinylcholine 200 Mg/10 Ml Vial) 120 mg IV NOW ONE Stop: 01/06/23 11:12 Last Admin: 01/06/23 11:16 Dose: 120 mg Documented By: CORBIN Succinylcholine Chloride (Succinylcholine 200 Mg/10 Ml Vial) 120 mg IV NOW ONE Stop: 01/06/23 11:26 Last Admin: 01/06/23 11:26 Dose: Not Given Documented By: CORBIN Vital Signs Vital signs: Vital Signs - 8 hr 01/06/23 10:38 01/06/23 10:42 01/06/23 10:43 Temperature 96.5 F L Pulse Rate 68 80 Respiratory Rate 40 H 26 H Blood Pressure 136/84 136/84 Pulse Oximetry 94 94 Oxygen Delivery Method Non -Rebreather Oxygen Flow Rate 15 01/06/23 10:43 01/06/23 10:48 01/06/23 10:49 Temperature Pulse Rate 81 88 Respiratory Rate 25 H 31 H Blood Pressure 144/75 H Pulse Oximetry 93 93 Oxygen Delivery Method Oxygen Flow Rate 01/06/23 11:05 01/06/23 11:06 01/06/23 11:06 Temperature Pulse Rate 86 87 Respiratory Rate 27 H 27 H Blood Pressure 154/69 H Pulse Oximetry 87 L 95 Oxygen Delivery Method Oxygen Flow Rate 01/06/23 11:10 01/06/23 11:10 01/06/23 11:12 Temperature Pulse Rate 75 Respiratory Rate 28 H Blood Pressure 149/68 H 142/70 H Pulse Oximetry 94 Oxygen Delivery Method Oxygen Flow Rate 01/06/23 11:12 01/06/23 11:15 01/06/23 11:15 Temperature Pulse Rate 87 96 H Respiratory Rate 22 17 Blood Pressure 143/73 H Pulse Oximetry 91 84 L Oxygen Delivery Method Oxygen Flow Rate 01/06/23 11:19 01/06/23 11:19 01/06/23 11:20 Temperature Pulse Rate 93 H 79 Respiratory Rate 17 16 Blood Pressure 152/71 H Pulse Oximetry 99 100 Oxygen Delivery Method Oxygen Flow Rate 01/06/23 11:21 01/06/23 11:21 01/06/23 11:24 Temperature Pulse Rate 91 H 73 Respiratory Rate 14 12 Blood Pressure 135/60 Pulse Oximetry 100 100 Oxygen Delivery Method Oxygen Flow Rate 01/06/23 11:24 01/06/23 11:25 01/06/23 11:27 Temperature Pulse Rate 78 Respiratory Rate 16 Blood Pressure 132/64 121/65 Pulse Oximetry 100 Oxygen Delivery Method Oxygen Flow Rate 01/06/23 11:27 01/06/23 11:30 01/06/23 11:30 Temperature Pulse Rate 66 68 Respiratory Rate 22 22 Blood Pressure 121/64 Pulse Oximetry 100 99 Oxygen Delivery Method Oxygen Flow Rate 01/06/23 11:34 01/06/23 11:34 01/06/23 11:35 Temperature Pulse Rate 77 75 Respiratory Rate 22 22 Blood Pressure 131/78 Pulse Oximetry 99 98 Oxygen Delivery Method Oxygen Flow Rate 01/06/23 11:40 01/06/23 11:40 01/06/23 11:43 Temperature Pulse Rate 67 Respiratory Rate 22 Blood Pressure 133/92 H 117/59 L Pulse Oximetry 97 Oxygen Delivery Method Oxygen Flow Rate 01/06/23 11:43 01/06/23 11:45 01/06/23 11:46 Temperature Pulse Rate 62 67 66 Respiratory Rate 22 24 22 Blood Pressure Pulse Oximetry 98 98 97 Oxygen Delivery Method Oxygen Flow Rate 01/06/23 11:46 01/06/23 11:50 01/06/23 11:53 Temperature Pulse Rate 68 Respiratory Rate 23 Blood Pressure 110/78 100/58 L Pulse Oximetry 94 Oxygen Delivery Method Oxygen Flow Rate 01/06/23 11:53 01/06/23 11:55 01/06/23 12:00 Temperature Pulse Rate 65 64 Respiratory Rate 22 22 Blood Pressure 98/51 L Pulse Oximetry 91 93 Oxygen Delivery Method Oxygen Flow Rate 01/06/23 12:00 01/06/23 12:05 Temperature Pulse Rate 65 62 Respiratory Rate 22 22 Blood Pressure Pulse Oximetry 92 91 Oxygen Delivery Method Oxygen Flow Rate Medical Decision Making Medical Records Medical records reviewed: Yes I reviewed the patient's medical records. Lab Data 01/06/23 15:30 01/06/23 13:00 Labs: Lab Results 01/06/23 01/06/23 01/06/23 Range/Units 10:40 10:44 10:50 WBC 6.5 (4.5-11.0) X10^3/uL RBC 4.41 (4.0-5.2) X10^6/uL Hgb 14.5 (12.0-16.0) g/dL Hct 43.8 (36-46) % MCV 99.3 (80-100) fL MCH 32.8 (26-34) PG MCHC 33.1 (30-36) % RDW 15.2 H (11.6-14.8) % Plt Count 92 L (150-400) X10^3/uL Neut % (Auto) 75.6 H (50-75) % Lymph % (Auto) 16.0 L (25-40) % Bowie % (Auto) 7.6 (3-14) % Eos % (Auto) 0.2 L (2-4) % Baso % (Auto) 0.6 (0-2) % Neut # (Auto) 4900 (0683-0350) /uL Lymph # (Auto) 1000 L (5370-8952) /uL Bowie # (Auto) 500 (0-900) /uL Eos # (Auto) 0 (0-450) /uL Baso # (Auto) 0 (0-100) /uL PT (10.1-12.7) SECONDS INR (0.9-1.3) APTT (26-36) SECONDS ABG pH 7.11 L* (7.35-7.45) ABG pCO2 114.9 H* (35-45) mmHg ABG pO2 95 (80-100) mmHg ABG HCO3 36 H (23-27) mmol/L ABG Total CO2 40 H (23-27) mmol/L ABG O2 Saturation 93 L (95-100) % ABG Base Excess 7.0 H (-2-3) mmol/L FiO2 100 Sodium (137-145) mmol/L Potassium (3.4-5.1) mmol/L Chloride (98-107) mmol/L Carbon Dioxide (22-32) mmol/L BUN (7-17) mg/dL Creatinine (0.52-1.04) mg/dL Estimated GFR (>60) mL/min BUN/Creatinine Ratio (6-22) Glucose (80-110) mg/dL Lactate (0.7-2.1) mmol/L Calcium (8.4-10.2) mg/dL Magnesium (1.6-2.3) mg/dL Total Bilirubin (0.2-1.3) mg/dL AST (14-36) IU/L ALT (<35) IU/L Alkaline Phosphatase (38-126) U/L Total Creatine Kinase (30-135) U/L Troponin I (0.01-0.034) ng/mL NT-Pro-B Natriuret Pep (<450) pg/mL Total Protein (6.3-8.2) g/dL Albumin (3.5-5.0) g/dL Globulin (1.7-4.1) g/dL Albumin/Globulin Ratio (1.0-2.8) Lipase (23-300) U/L Procalcitonin (<0.5) ng/mL Ethyl Alcohol ( - 10) mg/dL Chlamy pneumoniae PCR Not detected (Not Detect) Adenovirus (PCR) Not detected (Not Detect) B. pertussis DNA (PCR) Not detected (Not Detecte) B.parapertussis DNA PCR Not detected (Not Detecte) Coronavirus OC43 (PCR) Not detected (Not Detect) Coronavirus HKU1 (PCR) Not detected (Not Detect) Coronavirus 229E (PCR) Not detected (Not Detect) SARS-CoV-2 (PCR) Not detected (Not Detecte) Coronavirus NL63 (PCR) Not detected (Not Detect) Human Metapneumovir PCR Not detected (Not Detect) Influenza Type A (PCR) Not detected (Not Detect) Influenza Type B (PCR) Not detected (Not Detect) M. pneumoniae (PCR) Not detected (Not Detect) Parainfluenza 1 (PCR) Not detected (Not Detect) Parainfluenza 2 (PCR) Not detected (Not Detect) Parainfluenza 3 (PCR) Not detected (Not Detect) Parainfluenza 4 (PCR) Not detected (Not Detect) RSV (PCR) Not detected (Not Detect) Entero/Rhino (PCR) Not detected (Not Detect) 01/06/23 01/06/23 01/06/23 Range/Units 11:10 11:10 11:10 WBC (4.5-11.0) X10^3/uL RBC (4.0-5.2) X10^6/uL Hgb (12.0-16.0) g/dL Hct (36-46) % MCV (80-100) fL MCH (26-34) PG MCHC (30-36) % RDW (11.6-14.8) % Plt Count (150-400) X10^3/uL Neut % (Auto) (50-75) % Lymph % (Auto) (25-40) % Bowie % (Auto) (3-14) % Eos % (Auto) (2-4) % Baso % (Auto) (0-2) % Neut # (Auto) (3138-9863) /uL Lymph # (Auto) (4445-3179) /uL Bowie # (Auto) (0-900) /uL Eos # (Auto) (0-450) /uL Baso # (Auto) (0-100) /uL PT 23.4 H (10.1-12.7) SECONDS INR 2.0 H (0.9-1.3) APTT 37 H (26-36) SECONDS ABG pH (7.35-7.45) ABG pCO2 (35-45) mmHg ABG pO2 (80-100) mmHg ABG HCO3 (23-27) mmol/L ABG Total CO2 (23-27) mmol/L ABG O2 Saturation (95-100) % ABG Base Excess (-2-3) mmol/L FiO2 Sodium 128 L (137-145) mmol/L Potassium 5.4 H (3.4-5.1) mmol/L Chloride 88 L (98-107) mmol/L Carbon Dioxide 34 H (22-32) mmol/L BUN 24 H (7-17) mg/dL Creatinine 1.07 H (0.52-1.04) mg/dL Estimated GFR 52 L (>60) mL/min BUN/Creatinine Ratio 22.4 H (6-22) Glucose 236 H (80-110) mg/dL Lactate 1.4 (0.7-2.1) mmol/L Calcium 9.0 (8.4-10.2) mg/dL Magnesium 2.1 (1.6-2.3) mg/dL Total Bilirubin 0.9 (0.2-1.3) mg/dL AST 56 H (14-36) IU/L ALT 69 H (<35) IU/L Alkaline Phosphatase 93 (38-126) U/L Total Creatine Kinase 46 (30-135) U/L Troponin I < 0.012 (0.01-0.034) ng/mL NT-Pro-B Natriuret Pep 3280 H (<450) pg/mL Total Protein 7.7 (6.3-8.2) g/dL Albumin 4.1 (3.5-5.0) g/dL Globulin 3.6 (1.7-4.1) g/dL Albumin/Globulin Ratio 1.1 (1.0-2.8) Lipase 130 (23-300) U/L Procalcitonin 0.06 (<0.5) ng/mL Ethyl Alcohol < 10 ( - 10) mg/dL Chlamy pneumoniae PCR (Not Detect) Adenovirus (PCR) (Not Detect) B. pertussis DNA (PCR) (Not Detecte) B.parapertussis DNA PCR (Not Detecte) Coronavirus OC43 (PCR) (Not Detect) Coronavirus HKU1 (PCR) (Not Detect) Coronavirus 229E (PCR) (Not Detect) SARS-CoV-2 (PCR) (Not Detecte) Coronavirus NL63 (PCR) (Not Detect) Human Metapneumovir PCR (Not Detect) Influenza Type A (PCR) (Not Detect) Influenza Type B (PCR) (Not Detect) M. pneumoniae (PCR) (Not Detect) Parainfluenza 1 (PCR) (Not Detect) Parainfluenza 2 (PCR) (Not Detect) Parainfluenza 3 (PCR) (Not Detect) Parainfluenza 4 (PCR) (Not Detect) RSV (PCR) (Not Detect) Entero/Rhino (PCR) (Not Detect) Imaging Data Chest x-ray: Radiologist's Impression: PROCEDURE:? XR CHEST 1V ? INDICATIONS:? SOB ? TECHNIQUE:? One view of the chest was acquired.? ? COMPARISON:? None ? FINDINGS:? ? Surgical changes and devices:? None.? ? Lungs and pleura:? Mild pulmonary edema.? No pleural effusions or pneumothorax.? ? Mediastinum:? Mediastinal contours appear normal.? Marked cardiomegaly. ? Bones and chest wall:? No suspicious bony lesions.? Overlying soft tissues appear unremarkable.? ? ? IMPRESSION:? Marked cardiomegaly, mild pulmonary edema. ? Comment:? If suspect pericardial effusion, consider CT chest or ECHO. Post intubation chest x-ray: Radiologist's Impression: PROCEDURE:? XR CHEST 1V ? INDICATIONS:? Flu like symptoms ? TECHNIQUE:? One view of the chest was acquired.? ? COMPARISON:? [facility], , XR CHEST 1V, 01/06/2023, 10:49. ? FINDINGS:? ? Surgical changes and devices:? ET tube, NG tube in satisfactory position ? Lungs and pleura:? Mild interstitial pulmonary edema.? No pleural effusions or pneumothorax.? ? Mediastinum:? Mediastinal contours appear normal.? Marked cardiomegaly. ? Bones and chest wall:? No suspicious bony lesions.? Overlying soft tissues appear unremarkable.? ? ? IMPRESSION:? Marked cardiomegaly, mild interstitial pulmonary edema, lines and tubes in satisfactory position. MDM Narrative Medical decision making narrative: Patient did arrive altered but she potentially has been like this for the past couple days per her who is at bedside. She was hypercarbic. Attempted BiPAP however the patient vomited into the BiPAP mask. It was then determined that the patient does need intubation given concern about maintaining airway. She was successfully intubated. She did have a period of hypoxia during this but it improved after the intubation. I discussed the case with Dr. Mahajan hospitalist on-call who will admit for further evaluation. Patient is not in overt heart failure. Her BNP was elevated. No prior to compare. She potentially go several days without taking her Lasix. Her is unsure whether not she is been taking Lasix. Diuresis began here in the ER. Will admit for further evaluation and treatment. Critical Care Time Critical Care Time Critical Care Time: Yes Total Critical Care Time: 40 Attestation: The high probability of a clinically significant, sudden or life threatening deterioration of the [respiratory] system(s) required my full and direct attention, intervention and personal management. The aggregate critical care time was [40] minutes. This time is in addition to time spent performing reported procedures but includes the following: [x] Data Review and interpretation [x] Patient assessment and monitoring of vital signs [x] Documentation [x] Medication orders and management Discharge Plan Departure Patient Disposition: Admitted As Inpatient Clinical Impression: Hypercapnic respiratory failure, Altered mental status Admit Date/Time: 01/06/23 12:08 Admit Provider: Remi Mahajan
[2023-01-06 11:00] LABS: Add Manual Diff / Slide Review NO; Basophils Absolute Auto 0 /uL (0-100); Basophils Percent Auto 0.6 % (0-2); Eosinophils Absolute Auto 0 /uL (0-450); Eosinophils Percent Auto 0.2 % (2-4); Hematocrit 43.8 % (36-46); Hemoglobin 14.5 g/dL (12.0-16.0); Lymphocytes Absolute Auto 1000 /uL (1100-4500); Mean Corpuscular HGB Conc 33.1 % (30-36); Mean Corpuscular Hemoglobin 32.8 PG (26-34); Mean Corpuscular Volume 99.3 fL (80-100); Monocytes Absolute Auto 500 /uL (0-900); Monocytes Percent Auto 7.6 % (3-14); Neutrophils Absolute Auto 4900 /uL (1500-7000); Neutrophils Percent Auto 75.6 % (50-75); Platelet Count 92 X10^3/uL (150-400); Red Blood Cell Count 4.41 X10^6/uL (4.0-5.2); Red Cell Distribution Width 15.2 % (11.6-14.8); White Blood Cell Count 6.5 X10^3/uL (4.5-11.0)
[2023-01-06 11:04] LABS: Fractionated Inspired Oxygen 100; HCO3 ABG 36 mmol/L (23-27); Oxygen Saturation ABG 93 % (95-100); PO2 ABG 95 mmHg (80-100); TCO2 ABG 40 mmol/L (23-27); pH ABG 7.11 (7.35-7.45)
[2023-01-06 11:05] LABS: PCO2 ABG 114.9 mmHg (35-45)
[2023-01-06] MEDS: ETOMIDATE 2 MG/ML 10 ML VIAL 20 MG IV (11:15)
[2023-01-06] MEDS: SUCCINYLCHOLINE 200 MG/10 ML VIAL 120 MG IV (11:16)
--- NOTE | 2023-01-06 11:20 | DI.RAD.S_ITS ---
PROCEDURE: XR CHEST 1V INDICATIONS: Flu like symptoms TECHNIQUE: One view of the chest was acquired. COMPARISON: [facility], CR, XR CHEST 1V, 01/06/2023, 10:49. FINDINGS: Surgical changes and devices: ET tube, NG tube in satisfactory position Lungs and pleura: Mild interstitial pulmonary edema. No pleural effusions or pneumothorax. Mediastinum: Mediastinal contours appear normal. Marked cardiomegaly. Bones and chest wall: No suspicious bony lesions. Overlying soft tissues appear unremarkable. IMPRESSION: Marked cardiomegaly, mild interstitial pulmonary edema, lines and tubes in satisfactory position. Dictated by: Santi Cook M.D. on 01/06/2023 at 11:57 Approved by: Santi Cook M.D. on 01/06/2023 at 11:58
[2023-01-06] MEDS: propofoL 1,000 MG/100 ML VIAL 2.697 MG IV (11:25)
[2023-01-06] MEDS: ONDANSETRON 4 MG/2 ML INJ IV (11:27)
[2023-01-06 11:31] LABS: Prothrombin Time 23.4 SECONDS (10.1-12.7)
[2023-01-06 11:33] LABS: PTT Partial Thromboplastin Tim 37 SECONDS (26-36)
[2023-01-06 11:35] LABS: Alanine Aminotransferase 69 IU/L (<35); Albumin 4.1 g/dL (3.5-5.0); Albumin Globulin Ratio 1.1 (1.0-2.8); Alkaline Phosphatase 93 U/L (38-126); Aspartate Aminotransferase 56 IU/L (14-36); BUN Creatinine Ratio 22.4 (6-22); Bilirubin Total 0.9 mg/dL (0.2-1.3); Blood Urea Nitrogen 24 mg/dL (7-17); Carbon Dioxide 34 mmol/L (22-32); Chloride 88 mmol/L (98-107); Creatine Kinase 46 U/L (30-135); Estimated Glomerular Filt Rate 52 mL/min (>60); Ethanol (ETOH) < 10 mg/dL; Globulin 3.6 g/dL (1.7-4.1); Glucose 236 mg/dL (80-110); HEMOLYSIS < 15 (0-50); Lipase 130 U/L (23-300); Magnesium 2.1 mg/dL (1.6-2.3); Sodium 128 mmol/L (137-145); Total Protein 7.7 g/dL (6.3-8.2)
[2023-01-06 11:36] LABS: Lactate (Lactic Acid) 1.4 mmol/L (0.7-2.1)
[2023-01-06 11:38] LABS: Potassium 5.4 mmol/L (3.4-5.1)
[2023-01-06 11:46] LABS: NT-proBNP (BNP-Adult 18+) 3280 pg/mL (<450); Troponin I < 0.012 ng/mL (0.01-0.034)
[2023-01-06] MEDS: fentaNYL 1,000 MCG in DEXTROSE 5% IN WATER 230 ML 15.733 MCG IV (11:50)
[2023-01-06 11:51] LABS: Procalcitonin 0.06 ng/mL (<0.5)
[2023-01-06] MEDS: SODIUM CHLORIDE 0.9% 1,000 ML 75 ML IV (12:01)
[2023-01-06] MEDS: FUROSEMIDE 60 MG in SODIUM CHLORIDE 0.9% 50 ML 112 MG IV (12:02)
[2023-01-06 12:28] LABS: Adenovirus Not Detected (Not Detect); B. parapertussis Not Detected (Not Detecte); Bordetella pertussis Not Detected (Not Detecte); Chlamydophila pneumoniae Not Detected (Not Detect); Coronavirus 229E Not Detected (Not Detect); Coronavirus HKU1 Not Detected (Not Detect); Coronavirus NL 63 Not Detected (Not Detect); Coronavirus OC43 Not Detected (Not Detect); Human Metapneumovirus Not Detected (Not Detect); Human Rhinovirus/Enterovirus Not Detected (Not Detect); Influenza A Not Detected (Not Detect); Influenza B Not Detected (Not Detect); Mycoplasma pneumoniae Not Detected (Not Detect); Parainfluenza Virus 1 Not Detected (Not Detect); Parainfluenza Virus 2 Not Detected (Not Detect); Parainfluenza Virus 3 Not Detected (Not Detect); Parainfluenza Virus 4 Not Detected (Not Detect); Respiratory Syncytial Virus Not Detected (Not Detect); SARS- CoV-2 Not Detected (Not Detecte)
--- NOTE | 2023-01-06 12:37 | DI.ECHO.S_ITS ---
[facility] +---------+ : : [address] : : : : [id number] : : : : Phone: [phone] Echocardiogram Report + + :Name: ABRAM ADAMS Study Date: 01/06/2023 Height: 67 in : :[facility] ReadingLocation: Weight: 198 lb : : Gender: Female BSA: 2.0 m2 : :: 1940 Age: 82 yrs BP: 117/65 mmHg: :Reason For Study: DYSPNEA : :Ordering Physician: JESUS, : :HALEY Wade Performed By: Angy Ahuja : :Referring: HALEY LEE : + + Interpretation Summary The patient was in atrial fibrillation with controlled ventricular rate during the exam. The left ventricle is normal in size and wall thickness. Left ventricular ejection fraction is estimated to be 55 +/- 5%. The right ventricle is mildly dilated. The right ventricular systolic function is normal. There is severe biatrial enlargement. Both atria have remained unchanged in size since the prior echo exam. There is mild to moderate mitral regurgitation. Compared to the prior echo study, there has been an increase in the severity of mitral regurgitation. There is moderate tricuspid regurgitation. Compared to the prior echo exam, there has been an increase in TR severity. Right ventricular systolic pressure is estimated to be 36 mmHg plus the clinically estimated CVP which cannot be estimated on this exam. The ascending aorta is mildly enlarged. Unchanged from the previous study. There is a trivial pericardial effusion noted. There is a small left-sided pleural effusion. Procedure: A two-dimensional transthoracic echocardiogram with color flow and Doppler was performed. The study quality was technically adequate. Comparison is made with the echocardiogram of 12/19/2021. The heart rate ranged between 59-76 bpm during the study. The patient was in atrial fibrillation with controlled ventricular rate during the exam. Left Ventricle: The left ventricle is normal in size and wall thickness. There is no thrombus. Left ventricular ejection fraction is estimated to be 55 +/- 5%. There are no focal wall motion abnormalities. Diastolic function could not be accurately assessed due to atrial fibrillation. Right Ventricle: The right ventricle is mildly dilated. The right ventricular systolic function is normal. Atria: The left atrium is severely dilated. There is severe biatrial enlargement. Both atria have remained unchanged in size since the prior echo exam. The right atrium is severely dilated. There is no Doppler evidence for an interatrial shunt. Mitral Valve: The mitral valve leaflets appear mildly thickened, but open well. The mitral valve leaflets are mildly calcified. There is mild to moderate mitral regurgitation. Compared to the prior echo study, there has been an increase in the severity of mitral regurgitation. Aortic Valve: The aortic valve is trileaflet. The aortic valve opens well. There is no aortic valve stenosis. There is mild aortic regurgitation. Compared to the prior echo study, there has been no change in the severity of aortic regurgitation. Tricuspid Valve: The tricuspid valve is normal. There is moderate tricuspid regurgitation. Right ventricular systolic pressure is estimated to be 36 mmHg plus the clinically estimated CVP which cannot be estimated on this exam. Compared to the prior echo exam, there has been an increase in TR severity. Pulmonic Valve: The pulmonic valve leaflets are thin and pliable; valve motion is normal. There is mild pulmonic regurgitation. Great Vessels: The aortic root is normal size. The ascending aorta is mildly enlarged. This is unchanged compared to the previous study. Inspiratory collapse cannot be assessed because of mechanical ventilation, thus CVP cannot be estimated.. Pericardium/ Pleura There is a trivial pericardial effusion noted. There are no echocardiographic indications of cardiac tamponade. There is a small left- sided pleural effusion. MMode/2D Measurements & Calculations LVIDd: 5.1 cm LVOT diam: 2.1 cm LVIDs: 3.3 cm Ao root diam: 3.7 cm FS: 34.8 % asc Aorta Diam: 4.2 cm IVSd: 0.82 cm LVPWd: 0.85 cm LV castaneda. diameter/BSA (cm/m^2): 2.5 LV sys. diameter/BSA (cm/m^2): 1.7 LA A2 area: 33.2 cm2 RA long axis: 8.7 cm LA A4 area: 41.4 cm2 RA area: 45.1 cm2 LA length (vol): 8.4 cm RA vol: 198.7 ml LA vol: 138.8 ml RA : 98.7 ml/m2 LA vol index: 68.9 ml/m2 RVD1 (basal): 4.1 cm RVD2 (mid): 3.2 cm TAPSE: 1.9 cm Doppler Measurements & Calculations Ao V2 max: 120.5 cm/sec LVOT Max José Miguel: 86.8 cm/sec Ao V2 mean: 83.4 cm/sec LV V1 max P.0 mmHg Ao max P.8 mmHg LV V1 VTI: 19.0 cm Ao mean P.1 mmHg LIBBY(I,D): 2.7 cm2 Ao V2 VTI: 24.4 cm LIBBY(V,D): 2.5 cm2 sev ratio: 0.78 LIBBY indexed to BSA (cm^2/m^2): 1.4 MV E max josé miguel: 93.5 cm/sec TR max josé miguel: 298.2 cm/sec MV A max josé miguel: 1.5 cm/sec TR max P.6 mmHg MV E/A: 64.4 PA V2 max: 70.9 cm/sec Med Peak E' José Miguel: 9.1 cm/sec PA V2 mean: 55.1 cm/sec E/E' med: 10.3 PA mean P.3 mmHg Lat Peak E' José Miguel: 10.0 cm/sec PA pr(Accel): 53.3 mmHg E/E' lat: 9.4 E/e' average: 9.8 MV dec time: 0.19 sec SV(LVOT): 66.9 ml Reading Physician:05:17 PM
--- NOTE | 2023-01-06 12:48 | PC.NURSE ---
Called report to MARANDA Arias in ICU
[2023-01-06 13:49] LABS: Troponin I < 0.012 ng/mL (0.01-0.034)
--- NOTE | 2023-01-06 13:55 | PC.NURSE ---
1225 and 1308: Pt restless, overbreathing vent, attemping to pull at lines and tubes. Propofol titrated.
--- NOTE | 2023-01-06 13:56 | PC.NURSE ---
1233: Pt restless, bucking vent. Fentanyl titrated.
--- NOTE | 2023-01-06 13:58 | P.HP_ITS ---
History of Present Illness History of Present Illness Chief complaint: resp distress / unresponsive Narrative: Patient is an 86 year old female with a H/O asthma, and CHF who presented to urgent care for 5 days of progressive dyspnea. She was found to be very ill and EMS was called to bring her to the ED. She had an ABG with a pCO2 of 111 and was placed on BiPAP. She failed BiPAP and was intubated. CXR is consistent with pulmonary edema. All history obtained from the emergency physician. The had noted 2 days of exertional dyspnea and also that she takes anticoagulation for possible AFib. The urgent care found her to be unresponsive and hypoxemic with SaO2 in the 40's. He denied any report of fevers, cough, or other URI symptoms to the ED. Previous ECHO (01/03) revealed normal LVEF and severe biatrial enlargement. Myocardial perfusion 01/03 was negative for ischemia. No history is obtainable from the patient as she is intubated. eICU consult placed. Recommends CAP antibiotic coverage for now. [facility] Medical History Acquired clavicle deformity Asthma Cataracts, bilateral (1994) Chronic atrial fibrillation Essential hypertension Gout Hyperlipidemia Hyperthyroidism (1971) Osteoporosis Surgical History Toxic goiter (1971) Family History Father No problems noted. Mother No problems noted. Social History household members: significant other Smoking Status: Never smoker alcohol intake: never substance use type: does not use Meds Home Medications and Allergies Home Medications Medication Instructions Recorded Confirmed Type albuterol sulfate 90 mcg/actuation 1 puff inhalation Q4-6H PRN 02/13/22 01/06/23 Rx aerosol inhaler (Ventolin HFA) shortness of breath or wheezing #18 grams furosemide 40 mg tablet 40 mg PO DAILY PRN edema/weight 02/13/22 01/06/23 Rx gain #10 tabs carvedilol 25 mg tablet 25 mg PO BID #180 tabs 06/05/22 01/06/23 Rx losartan 100 mg tablet 100 mg PO DAILY #90 tabs 06/05/22 01/06/23 Rx pravastatin 40 mg tablet 40 mg PO DAILY #90 tabs 06/05/22 01/06/23 Rx apixaban 5 mg tablet (Eliquis) See Rx Instructions .Route 08/06/22 01/06/23 Rx .COMPLEX #180 tabs amlodipine 5 mg tablet (Norvasc) 5 mg PO DAILY #90 tabs 10/25/22 01/06/23 Rx diazepam 5 mg tablet 10 mg PO BEDTIME PRN sleep #30 tabs 10/25/22 01/06/23 Rx potassium chloride 10 mEq See Rx Instructions .Route 11/11/22 01/06/23 Rx tablet,extended release .COMPLEX #90 tabs calcium carbonate 500 mg calcium 500 mg PO BID #180 tabs 11/13/22 01/06/23 Rx (1,250 mg) tablet (Oyster Shell Calcium) Allergies Allergy/AdvReac Type Severity Reaction Status Date / Time No Known Drug Allergies Allergy Verified 01/06/23 10:09 Review of Systems Review of Systems Narrative: Unobtainable, patient is intubated. Exam Vital Signs (past 8 hours): - 01/06/23 10:38 01/06/23 10:42 01/06/23 10:43 Temperature 96.5 F L Pulse Rate 68 80 Respiratory Rate 40 H 26 H Blood Pressure 136/84 136/84 Pulse Oximetry 94 94 Oxygen Delivery Method Non -Rebreather Oxygen Flow Rate 15 Fraction of Inspired Oxygen 01/06/23 10:43 01/06/23 10:48 01/06/23 10:49 Temperature Pulse Rate 81 88 Respiratory Rate 25 H 31 H Blood Pressure 144/75 H Pulse Oximetry 93 93 Oxygen Delivery Method Oxygen Flow Rate Fraction of Inspired Oxygen 01/06/23 11:05 01/06/23 11:06 01/06/23 11:06 Temperature Pulse Rate 86 87 Respiratory Rate 27 H 27 H Blood Pressure 154/69 H Pulse Oximetry 87 L 95 Oxygen Delivery Method Oxygen Flow Rate Fraction of Inspired Oxygen 01/06/23 11:10 01/06/23 11:10 01/06/23 11:12 Temperature Pulse Rate 75 Respiratory Rate 28 H Blood Pressure 149/68 H 142/70 H Pulse Oximetry 94 Oxygen Delivery Method Oxygen Flow Rate Fraction of Inspired Oxygen 01/06/23 11:12 01/06/23 11:15 01/06/23 11:15 Temperature Pulse Rate 87 96 H Respiratory Rate 22 17 Blood Pressure 143/73 H Pulse Oximetry 91 84 L Oxygen Delivery Method Oxygen Flow Rate Fraction of Inspired Oxygen 01/06/23 11:19 01/06/23 11:19 01/06/23 11:20 Temperature Pulse Rate 93 H 79 Respiratory Rate 17 16 Blood Pressure 152/71 H Pulse Oximetry 99 100 Oxygen Delivery Method Oxygen Flow Rate Fraction of Inspired Oxygen 01/06/23 11:21 01/06/23 11:21 01/06/23 11:24 Temperature Pulse Rate 91 H 73 Respiratory Rate 14 12 Blood Pressure 135/60 Pulse Oximetry 100 100 Oxygen Delivery Method Oxygen Flow Rate Fraction of Inspired Oxygen 01/06/23 11:24 01/06/23 11:25 01/06/23 11:27 Temperature Pulse Rate 78 Respiratory Rate 16 Blood Pressure 132/64 121/65 Pulse Oximetry 100 Oxygen Delivery Method Oxygen Flow Rate Fraction of Inspired Oxygen 01/06/23 11:27 01/06/23 11:30 01/06/23 11:30 Temperature Pulse Rate 66 68 Respiratory Rate 22 22 Blood Pressure 121/64 Pulse Oximetry 100 99 Oxygen Delivery Method Oxygen Flow Rate Fraction of Inspired Oxygen 01/06/23 11:34 01/06/23 11:34 01/06/23 11:35 Temperature Pulse Rate 77 75 Respiratory Rate 22 22 Blood Pressure 131/78 Pulse Oximetry 99 98 Oxygen Delivery Method Oxygen Flow Rate Fraction of Inspired Oxygen 01/06/23 11:40 01/06/23 11:40 01/06/23 11:43 Temperature Pulse Rate 67 Respiratory Rate 22 Blood Pressure 133/92 H 117/59 L Pulse Oximetry 97 Oxygen Delivery Method Oxygen Flow Rate Fraction of Inspired Oxygen 01/06/23 11:43 01/06/23 11:45 01/06/23 11:46 Temperature Pulse Rate 62 67 66 Respiratory Rate 22 24 22 Blood Pressure Pulse Oximetry 98 98 97 Oxygen Delivery Method Oxygen Flow Rate Fraction of Inspired Oxygen 01/06/23 11:46 01/06/23 11:50 01/06/23 11:53 Temperature Pulse Rate 68 Respiratory Rate 23 Blood Pressure 110/78 100/58 L Pulse Oximetry 94 Oxygen Delivery Method Oxygen Flow Rate Fraction of Inspired Oxygen 01/06/23 11:53 01/06/23 11:55 01/06/23 12:00 Temperature Pulse Rate 65 64 Respiratory Rate 22 22 Blood Pressure 98/51 L Pulse Oximetry 91 93 Oxygen Delivery Method Oxygen Flow Rate Fraction of Inspired Oxygen 01/06/23 12:00 01/06/23 12:05 01/06/23 12:10 Temperature Pulse Rate 65 62 63 Respiratory Rate 22 22 22 Blood Pressure Pulse Oximetry 92 91 91 Oxygen Delivery Method Oxygen Flow Rate Fraction of Inspired Oxygen 01/06/23 12:13 01/06/23 12:13 01/06/23 12:15 Temperature Pulse Rate 65 Respiratory Rate 22 Blood Pressure 92/58 L 92/54 L Pulse Oximetry 91 Oxygen Delivery Method Oxygen Flow Rate Fraction of Inspired Oxygen 01/06/23 12:15 01/06/23 12:20 01/06/23 12:25 Temperature Pulse Rate 62 66 Respiratory Rate 22 24 Blood Pressure 99/53 L Pulse Oximetry 92 93 Oxygen Delivery Method Oxygen Flow Rate Fraction of Inspired Oxygen 01/06/23 12:25 01/06/23 12:30 01/06/23 12:30 Temperature Pulse Rate 71 61 Respiratory Rate 22 22 Blood Pressure 93/52 L Pulse Oximetry 92 95 Oxygen Delivery Method Oxygen Flow Rate Fraction of Inspired Oxygen 01/06/23 12:35 01/06/23 12:35 01/06/23 12:40 Temperature Pulse Rate 63 Respiratory Rate 22 Blood Pressure 93/50 L 94/53 L Pulse Oximetry 97 Oxygen Delivery Method Oxygen Flow Rate Fraction of Inspired Oxygen 01/06/23 12:40 01/06/23 12:45 01/06/23 12:45 Temperature Pulse Rate 58 L 58 L Respiratory Rate 22 22 Blood Pressure 107/57 L Pulse Oximetry 97 97 Oxygen Delivery Method Oxygen Flow Rate Fraction of Inspired Oxygen 01/06/23 12:50 01/06/23 12:50 01/06/23 12:55 Temperature Pulse Rate 58 L Respiratory Rate 22 Blood Pressure 105/52 L 112/57 L Pulse Oximetry 96 Oxygen Delivery Method Oxygen Flow Rate Fraction of Inspired Oxygen 01/06/23 12:55 01/06/23 13:00 01/06/23 13:00 Temperature Pulse Rate 60 63 Respiratory Rate 22 22 Blood Pressure 105/58 L Pulse Oximetry 94 95 Oxygen Delivery Method Oxygen Flow Rate Fraction of Inspired Oxygen 01/06/23 13:05 01/06/23 13:05 01/06/23 13:10 Temperature Pulse Rate 65 Respiratory Rate 22 Blood Pressure 119/60 110/55 L Pulse Oximetry 96 Oxygen Delivery Method Oxygen Flow Rate Fraction of Inspired Oxygen 01/06/23 13:10 01/06/23 13:20 01/06/23 13:43 Temperature Pulse Rate 65 63 54 L Respiratory Rate 13 20 20 Blood Pressure 104/61 Pulse Oximetry 95 100 98 Oxygen Delivery Method Oxygen Flow Rate Fraction of Inspired Oxygen 01/06/23 13:44 01/06/23 13:44 01/06/23 13:45 Temperature Pulse Rate 60 59 L Respiratory Rate 20 20 Blood Pressure 117/65 Pulse Oximetry 98 98 Oxygen Delivery Method Oxygen Flow Rate Fraction of Inspired Oxygen 01/06/23 12:43 Temperature Pulse Rate Respiratory Rate Blood Pressure Pulse Oximetry Oxygen Delivery Method Oxygen Flow Rate Fraction of Inspired Oxygen 1.0 Fraction of Inspired Oxygen 1.0 Oxygen Delivery Method Non -Rebreather Oxygen Flow Rate 15 Narrative Exam Narrative: She is intubated and sedated with ET and fonseca in place. A CVL was placed right IJ by anesthesia. Atraumatic head. Symmetric pupils. Conjugate gaze. Neck supple, midline trachea. Lungs clear anteriorly CV RRR without MGR Abdomen ND and with normal BT's Legs free of edema. Good peripheral pulses. Objective Imaging Chest x-ray: My impression: Pulmonary edema. Bilateral infiltrates. Radiologist's impression: CHF with good line placement. ET at ariadne. and NGT in good position. Labs 01/06/23 15:30 01/06/23 13:00 Labs: Laboratory Results - last 24 hr 01/06/23 01/06/23 01/06/23 10:40 10:44 10:50 WBC 6.5 RBC 4.41 Hgb 14.5 Hct 43.8 MCV 99.3 MCH 32.8 MCHC 33.1 RDW 15.2 H Plt Count 92 L Neut % (Auto) 75.6 H Lymph % (Auto) 16.0 L Jennings % (Auto) 7.6 Eos % (Auto) 0.2 L Baso % (Auto) 0.6 Neut # (Auto) 4900 Lymph # (Auto) 1000 L Jennings # (Auto) 500 Eos # (Auto) 0 Baso # (Auto) 0 PT INR APTT ABG pH 7.11 L* ABG pCO2 114.9 H* ABG pO2 95 ABG HCO3 36 H ABG Total CO2 40 H ABG O2 Saturation 93 L ABG Base Excess 7.0 H FiO2 100 Sodium Potassium Chloride Carbon Dioxide BUN Creatinine Estimated GFR BUN/Creatinine Ratio Glucose Lactate Calcium Magnesium Total Bilirubin AST ALT Alkaline Phosphatase Total Creatine Kinase Troponin I NT-Pro-B Natriuret Pep Total Protein Albumin Globulin Albumin/Globulin Ratio Lipase Procalcitonin Ethyl Alcohol Chlamy pneumoniae PCR Not detected Adenovirus (PCR) Not detected B. pertussis DNA (PCR) Not detected B.parapertussis DNA PCR Not detected Coronavirus OC43 (PCR) Not detected Coronavirus HKU1 (PCR) Not detected Coronavirus 229E (PCR) Not detected SARS-CoV-2 (PCR) Not detected Coronavirus NL63 (PCR) Not detected Human Metapneumovir PCR Not detected Influenza Type A (PCR) Not detected Influenza Type B (PCR) Not detected M. pneumoniae (PCR) Not detected Parainfluenza 1 (PCR) Not detected Parainfluenza 2 (PCR) Not detected Parainfluenza 3 (PCR) Not detected Parainfluenza 4 (PCR) Not detected RSV (PCR) Not detected Entero/Rhino (PCR) Not detected 01/06/23 01/06/23 01/06/23 11:10 11:10 11:10 WBC RBC Hgb Hct MCV MCH MCHC RDW Plt Count Neut % (Auto) Lymph % (Auto) Jennings % (Auto) Eos % (Auto) Baso % (Auto) Neut # (Auto) Lymph # (Auto) Jennings # (Auto) Eos # (Auto) Baso # (Auto) PT 23.4 H INR 2.0 H APTT 37 H ABG pH ABG pCO2 ABG pO2 ABG HCO3 ABG Total CO2 ABG O2 Saturation ABG Base Excess FiO2 Sodium 128 L Potassium 5.4 H Chloride 88 L Carbon Dioxide 34 H BUN 24 H Creatinine 1.07 H Estimated GFR 52 L BUN/Creatinine Ratio 22.4 H Glucose 236 H Lactate 1.4 Calcium 9.0 Magnesium 2.1 Total Bilirubin 0.9 AST 56 H ALT 69 H Alkaline Phosphatase 93 Total Creatine Kinase 46 Troponin I < 0.012 NT-Pro-B Natriuret Pep 3280 H Total Protein 7.7 Albumin 4.1 Globulin 3.6 Albumin/Globulin Ratio 1.1 Lipase 130 Procalcitonin 0.06 Ethyl Alcohol < 10 Chlamy pneumoniae PCR Adenovirus (PCR) B. pertussis DNA (PCR) B.parapertussis DNA PCR Coronavirus OC43 (PCR) Coronavirus HKU1 (PCR) Coronavirus 229E (PCR) SARS-CoV-2 (PCR) Coronavirus NL63 (PCR) Human Metapneumovir PCR Influenza Type A (PCR) Influenza Type B (PCR) M. pneumoniae (PCR) Parainfluenza 1 (PCR) Parainfluenza 2 (PCR) Parainfluenza 3 (PCR) Parainfluenza 4 (PCR) RSV (PCR) Entero/Rhino (PCR) 01/06/23 13:00 WBC RBC Hgb Hct MCV MCH MCHC RDW Plt Count Neut % (Auto) Lymph % (Auto) Jennings % (Auto) Eos % (Auto) Baso % (Auto) Neut # (Auto) Lymph # (Auto) Jennings # (Auto) Eos # (Auto) Baso # (Auto) PT INR APTT ABG pH ABG pCO2 ABG pO2 ABG HCO3 ABG Total CO2 ABG O2 Saturation ABG Base Excess FiO2 Sodium Potassium Chloride Carbon Dioxide BUN Creatinine Estimated GFR BUN/Creatinine Ratio Glucose Lactate Calcium Magnesium Total Bilirubin AST ALT Alkaline Phosphatase Total Creatine Kinase Troponin I < 0.012 NT-Pro-B Natriuret Pep Total Protein Albumin Globulin Albumin/Globulin Ratio Lipase Procalcitonin Ethyl Alcohol Chlamy pneumoniae PCR Adenovirus (PCR) B. pertussis DNA (PCR) B.parapertussis DNA PCR Coronavirus OC43 (PCR) Coronavirus HKU1 (PCR) Coronavirus 229E (PCR) SARS-CoV-2 (PCR) Coronavirus NL63 (PCR) Human Metapneumovir PCR Influenza Type A (PCR) Influenza Type B (PCR) M. pneumoniae (PCR) Parainfluenza 1 (PCR) Parainfluenza 2 (PCR) Parainfluenza 3 (PCR) Parainfluenza 4 (PCR) RSV (PCR) Entero/Rhino (PCR) Assessment & Plan Assessment & Plan narrative: 1. Acute hypoxic and hypercarbic respiratory failure, POA and Active. -Vent support with propofol and fentanyl infusions. Oral care, head of bed up. DVT and GI prophylaxis. -dw ICU doc, consider CTPA. 2. Acute pulmonary edema, POA and active. -diuresis with IV lasix 40 Q 12 3. Possible CAP (pneumonia), POA and active. -start antibiotics wtih Ceftriaxone and doxycycline. 4. Hyponatremia, POA and active. -monitor q12hr BMP with diuresis. 5. Thromocytopenia, POA and active. -Monitor. 6. Atrial fibrillation (coumadin), NPOA and stable. -hold warfarin and follow. May need IV rate control. 7. Metabolic encephalopathy, POA and active. -monitor mental status wtih SBT in AM. Full code. is proxy decision maker. Spent 45 min critical care time. Patient critically ill with life threatening medical issues. Time Spent With Patient Time with patient: 30 to 49 minutes with 50% spent counseling/coordinating care Quality VTE Deep Vein Thrombosis/Pulmonary Embolism Present on Admission: No MIPS - Admit I confirm the patient?s Advance Care Plan is present, Code status is documented, Surrogate decision maker is in patient?s record [If Yes, STOP here]: Yes
--- NOTE | 2023-01-06 13:58 | PC.NURSE ---
11:15: RT and MD at bedside, RT setting up BiPAP when pt vomits and becomes unresponsive to stimulus. RSI protocol initiated and pt intubated.
--- NOTE | 2023-01-06 14:09 | PM.CN.EICU ---
History of Present Illness Consult details IF CAMERA ACTIVATED, patient seen via real-time interactive audiovisual communication: Camera activated Date Patient Seen: 01/06/23 Chief complaint: resp distress / unresponsive Reason for consult: Acute on chronic hypercarbia respiratory failure Consent obtained for tele-clinical rn care: Yes Patient Location: ICU Provider location (State): [place] Other participants/roles: Bedside RN Narrative: Patient is a 86 year old female with history of HTN, A fib, asthma, and hyperlipidemia who presents from urgent care with complaints of shortness of breath for the past 5 days. Transferred to ER and found to have pH 7.11/114. She was placed on BiPAP and emergently intubated. CXR showed bilateral airspace disease. Anesthesia consulted fro CVC placement. Intensvisit consulted for vent management. FOR[facility], [facility] Medical History Acquired clavicle deformity Asthma Cataracts, bilateral (1994) Chronic atrial fibrillation Essential hypertension Gout Hyperlipidemia Hyperthyroidism (1971) Osteoporosis Surgical History (Updated 11/13/17 @ 15:29 by Gabrielle Mahajan LPN) Toxic goiter (1971) Family History Father No problems noted. Mother No problems noted. Social History household members: significant other Smoking Status: Never smoker alcohol intake: never substance use type: does not use Current Medications Current Medications Medications: Home Medications albuterol sulfate 90 mcg/actuation aerosol inhaler (Ventolin HFA) 1 puff inhalation Q4-6H PRN shortness of breath or wheezing #18 grams 02/13/22 [Rx Confirmed 01/06/23] furosemide 40 mg tablet 40 mg PO DAILY PRN edema/weight gain #10 tabs 02/13/22 [Rx Confirmed 01/06/23] carvedilol 25 mg tablet 25 mg PO BID #180 tabs 06/05/22 [Rx Confirmed 01/06/23] losartan 100 mg tablet 100 mg PO DAILY #90 tabs 06/05/22 [Rx Confirmed 01/06/23] pravastatin 40 mg tablet 40 mg PO DAILY #90 tabs 06/05/22 [Rx Confirmed 01/06/23] apixaban 5 mg tablet (Eliquis) See Rx Instructions .Route .COMPLEX #180 tabs 08/06/22 [Rx Confirmed 01/06/23] amlodipine 5 mg tablet (Norvasc) 5 mg PO DAILY #90 tabs 10/25/22 [Rx Confirmed 01/06/23] diazepam 5 mg tablet 10 mg PO BEDTIME PRN sleep #30 tabs 10/25/22 [Rx Confirmed 01/06/23] potassium chloride 10 mEq tablet,extended release See Rx Instructions .Route .COMPLEX #90 tabs 11/11/22 [Rx Confirmed 01/06/23] calcium carbonate 500 mg calcium (1,250 mg) tablet (Oyster Shell Calcium) 500 mg PO BID #180 tabs 11/13/22 [Rx Confirmed 01/06/23] Visit Medications (administered) Generic Name Dose Route Start Last Admin Trade Name Kalebq PRN Reason Stop Dose Admin Fentanyl 1,000 mcg/ Dextrose 250 mls @ 15.733 mls/hr 01/06/23 11:30 01/06/23 12:33 IV 1 mcg/kg/hr TITRATE ANTONY 22.476 mls/hr Titration Protocol 0.7 MCG/KG/HR Propofol 1,000 mg in 100 mls @ 2.697 mls/hr 01/06/23 11:30 01/06/23 13:08 Propofol IV 7 mcg/kg/min TITRATE ANTONY 3.776 mls/hr Titration Protocol 5 MCG/KG/MIN Sodium Chloride 1,000 mls @ 75 mls/hr 01/06/23 11:20 01/06/23 12:01 Normal Saline 0.9% IV 01/07/23 00:39 75 mls/hr BOLUS ONE Administration Exam Vital Signs (past 8 hours): - 01/06/23 10:38 01/06/23 10:42 01/06/23 10:43 Temperature 96.5 F L Pulse Rate 68 80 Respiratory Rate 40 H 26 H Blood Pressure 136/84 136/84 Pulse Oximetry 94 94 Oxygen Delivery Method Non -Rebreather Oxygen Flow Rate 15 Fraction of Inspired Oxygen 01/06/23 10:43 01/06/23 10:48 01/06/23 10:49 Temperature Pulse Rate 81 88 Respiratory Rate 25 H 31 H Blood Pressure 144/75 H Pulse Oximetry 93 93 Oxygen Delivery Method Oxygen Flow Rate Fraction of Inspired Oxygen 01/06/23 11:05 01/06/23 11:06 01/06/23 11:06 Temperature Pulse Rate 86 87 Respiratory Rate 27 H 27 H Blood Pressure 154/69 H Pulse Oximetry 87 L 95 Oxygen Delivery Method Oxygen Flow Rate Fraction of Inspired Oxygen 01/06/23 11:10 01/06/23 11:10 01/06/23 11:12 Temperature Pulse Rate 75 Respiratory Rate 28 H Blood Pressure 149/68 H 142/70 H Pulse Oximetry 94 Oxygen Delivery Method Oxygen Flow Rate Fraction of Inspired Oxygen 01/06/23 11:12 01/06/23 11:15 01/06/23 11:15 Temperature Pulse Rate 87 96 H Respiratory Rate 22 17 Blood Pressure 143/73 H Pulse Oximetry 91 84 L Oxygen Delivery Method Oxygen Flow Rate Fraction of Inspired Oxygen 01/06/23 11:19 01/06/23 11:19 01/06/23 11:20 Temperature Pulse Rate 93 H 79 Respiratory Rate 17 16 Blood Pressure 152/71 H Pulse Oximetry 99 100 Oxygen Delivery Method Oxygen Flow Rate Fraction of Inspired Oxygen 01/06/23 11:21 01/06/23 11:21 01/06/23 11:24 Temperature Pulse Rate 91 H 73 Respiratory Rate 14 12 Blood Pressure 135/60 Pulse Oximetry 100 100 Oxygen Delivery Method Oxygen Flow Rate Fraction of Inspired Oxygen 01/06/23 11:24 01/06/23 11:25 01/06/23 11:27 Temperature Pulse Rate 78 Respiratory Rate 16 Blood Pressure 132/64 121/65 Pulse Oximetry 100 Oxygen Delivery Method Oxygen Flow Rate Fraction of Inspired Oxygen 01/06/23 11:27 01/06/23 11:30 01/06/23 11:30 Temperature Pulse Rate 66 68 Respiratory Rate 22 22 Blood Pressure 121/64 Pulse Oximetry 100 99 Oxygen Delivery Method Oxygen Flow Rate Fraction of Inspired Oxygen 01/06/23 11:34 01/06/23 11:34 01/06/23 11:35 Temperature Pulse Rate 77 75 Respiratory Rate 22 22 Blood Pressure 131/78 Pulse Oximetry 99 98 Oxygen Delivery Method Oxygen Flow Rate Fraction of Inspired Oxygen 01/06/23 11:40 01/06/23 11:40 01/06/23 11:43 Temperature Pulse Rate 67 Respiratory Rate 22 Blood Pressure 133/92 H 117/59 L Pulse Oximetry 97 Oxygen Delivery Method Oxygen Flow Rate Fraction of Inspired Oxygen 01/06/23 11:43 01/06/23 11:45 01/06/23 11:46 Temperature Pulse Rate 62 67 66 Respiratory Rate 22 24 22 Blood Pressure Pulse Oximetry 98 98 97 Oxygen Delivery Method Oxygen Flow Rate Fraction of Inspired Oxygen 01/06/23 11:46 01/06/23 11:50 01/06/23 11:53 Temperature Pulse Rate 68 Respiratory Rate 23 Blood Pressure 110/78 100/58 L Pulse Oximetry 94 Oxygen Delivery Method Oxygen Flow Rate Fraction of Inspired Oxygen 01/06/23 11:53 01/06/23 11:55 01/06/23 12:00 Temperature Pulse Rate 65 64 Respiratory Rate 22 22 Blood Pressure 98/51 L Pulse Oximetry 91 93 Oxygen Delivery Method Oxygen Flow Rate Fraction of Inspired Oxygen 01/06/23 12:00 01/06/23 12:05 01/06/23 12:10 Temperature Pulse Rate 65 62 63 Respiratory Rate 22 22 22 Blood Pressure Pulse Oximetry 92 91 91 Oxygen Delivery Method Oxygen Flow Rate Fraction of Inspired Oxygen 01/06/23 12:13 01/06/23 12:13 01/06/23 12:15 Temperature Pulse Rate 65 Respiratory Rate 22 Blood Pressure 92/58 L 92/54 L Pulse Oximetry 91 Oxygen Delivery Method Oxygen Flow Rate Fraction of Inspired Oxygen 01/06/23 12:15 01/06/23 12:20 01/06/23 12:25 Temperature Pulse Rate 62 66 Respiratory Rate 22 24 Blood Pressure 99/53 L Pulse Oximetry 92 93 Oxygen Delivery Method Oxygen Flow Rate Fraction of Inspired Oxygen 01/06/23 12:25 01/06/23 12:30 01/06/23 12:30 Temperature Pulse Rate 71 61 Respiratory Rate 22 22 Blood Pressure 93/52 L Pulse Oximetry 92 95 Oxygen Delivery Method Oxygen Flow Rate Fraction of Inspired Oxygen 01/06/23 12:35 01/06/23 12:35 01/06/23 12:40 Temperature Pulse Rate 63 Respiratory Rate 22 Blood Pressure 93/50 L 94/53 L Pulse Oximetry 97 Oxygen Delivery Method Oxygen Flow Rate Fraction of Inspired Oxygen 01/06/23 12:40 01/06/23 12:45 01/06/23 12:45 Temperature Pulse Rate 58 L 58 L Respiratory Rate 22 22 Blood Pressure 107/57 L Pulse Oximetry 97 97 Oxygen Delivery Method Oxygen Flow Rate Fraction of Inspired Oxygen 01/06/23 12:50 01/06/23 12:50 01/06/23 12:55 Temperature Pulse Rate 58 L Respiratory Rate 22 Blood Pressure 105/52 L 112/57 L Pulse Oximetry 96 Oxygen Delivery Method Oxygen Flow Rate Fraction of Inspired Oxygen 01/06/23 12:55 01/06/23 13:00 01/06/23 13:00 Temperature Pulse Rate 60 63 Respiratory Rate 22 22 Blood Pressure 105/58 L Pulse Oximetry 94 95 Oxygen Delivery Method Oxygen Flow Rate Fraction of Inspired Oxygen 01/06/23 13:05 01/06/23 13:05 01/06/23 13:10 Temperature Pulse Rate 65 Respiratory Rate 22 Blood Pressure 119/60 110/55 L Pulse Oximetry 96 Oxygen Delivery Method Oxygen Flow Rate Fraction of Inspired Oxygen 01/06/23 13:10 01/06/23 13:20 01/06/23 13:43 Temperature Pulse Rate 65 63 54 L Respiratory Rate 13 20 20 Blood Pressure 104/61 Pulse Oximetry 95 100 98 Oxygen Delivery Method Oxygen Flow Rate Fraction of Inspired Oxygen 01/06/23 13:44 01/06/23 13:44 01/06/23 13:45 Temperature Pulse Rate 60 59 L Respiratory Rate 20 20 Blood Pressure 117/65 Pulse Oximetry 98 98 Oxygen Delivery Method Oxygen Flow Rate Fraction of Inspired Oxygen 01/06/23 12:43 Temperature Pulse Rate Respiratory Rate Blood Pressure Pulse Oximetry Oxygen Delivery Method Oxygen Flow Rate Fraction of Inspired Oxygen 1.0 Fraction of Inspired Oxygen 1.0 Oxygen Delivery Method Non -Rebreather Oxygen Flow Rate 15 Narrative Exam Narrative: Intubated and sedated Objective Labs 01/06/23 10:40 01/06/23 11:10 Labs: Laboratory Results - last 24 hr 01/06/23 01/06/23 01/06/23 10:40 10:44 10:50 WBC 6.5 RBC 4.41 Hgb 14.5 Hct 43.8 MCV 99.3 MCH 32.8 MCHC 33.1 RDW 15.2 H Plt Count 92 L Neut % (Auto) 75.6 H Lymph % (Auto) 16.0 L [place] % (Auto) 7.6 Eos % (Auto) 0.2 L Baso % (Auto) 0.6 Neut # (Auto) 4900 Lymph # (Auto) 1000 L [place] # (Auto) 500 Eos # (Auto) 0 Baso # (Auto) 0 PT INR APTT ABG pH 7.11 L* ABG pCO2 114.9 H* ABG pO2 95 ABG HCO3 36 H ABG Total CO2 40 H ABG O2 Saturation 93 L ABG Base Excess 7.0 H FiO2 100 Sodium Potassium Chloride Carbon Dioxide BUN Creatinine Estimated GFR BUN/Creatinine Ratio Glucose Lactate Calcium Magnesium Total Bilirubin AST ALT Alkaline Phosphatase Total Creatine Kinase Troponin I NT-Pro-B Natriuret Pep Total Protein Albumin Globulin Albumin/Globulin Ratio Lipase Procalcitonin Ethyl Alcohol Chlamy pneumoniae PCR Not detected Adenovirus (PCR) Not detected B. pertussis DNA (PCR) Not detected B.parapertussis DNA PCR Not detected Coronavirus OC43 (PCR) Not detected Coronavirus HKU1 (PCR) Not detected Coronavirus 229E (PCR) Not detected SARS-CoV-2 (PCR) Not detected Coronavirus NL63 (PCR) Not detected Human Metapneumovir PCR Not detected Influenza Type A (PCR) Not detected Influenza Type B (PCR) Not detected M. pneumoniae (PCR) Not detected Parainfluenza 1 (PCR) Not detected Parainfluenza 2 (PCR) Not detected Parainfluenza 3 (PCR) Not detected Parainfluenza 4 (PCR) Not detected RSV (PCR) Not detected Entero/Rhino (PCR) Not detected 01/06/23 01/06/23 01/06/23 11:10 11:10 11:10 WBC RBC Hgb Hct MCV MCH MCHC RDW Plt Count Neut % (Auto) Lymph % (Auto) [place] % (Auto) Eos % (Auto) Baso % (Auto) Neut # (Auto) Lymph # (Auto) [place] # (Auto) Eos # (Auto) Baso # (Auto) PT 23.4 H INR 2.0 H APTT 37 H ABG pH ABG pCO2 ABG pO2 ABG HCO3 ABG Total CO2 ABG O2 Saturation ABG Base Excess FiO2 Sodium 128 L Potassium 5.4 H Chloride 88 L Carbon Dioxide 34 H BUN 24 H Creatinine 1.07 H Estimated GFR 52 L BUN/Creatinine Ratio 22.4 H Glucose 236 H Lactate 1.4 Calcium 9.0 Magnesium 2.1 Total Bilirubin 0.9 AST 56 H ALT 69 H Alkaline Phosphatase 93 Total Creatine Kinase 46 Troponin I < 0.012 NT-Pro-B Natriuret Pep 3280 H Total Protein 7.7 Albumin 4.1 Globulin 3.6 Albumin/Globulin Ratio 1.1 Lipase 130 Procalcitonin 0.06 Ethyl Alcohol < 10 Chlamy pneumoniae PCR Adenovirus (PCR) B. pertussis DNA (PCR) B.parapertussis DNA PCR Coronavirus OC43 (PCR) Coronavirus HKU1 (PCR) Coronavirus 229E (PCR) SARS-CoV-2 (PCR) Coronavirus NL63 (PCR) Human Metapneumovir PCR Influenza Type A (PCR) Influenza Type B (PCR) M. pneumoniae (PCR) Parainfluenza 1 (PCR) Parainfluenza 2 (PCR) Parainfluenza 3 (PCR) Parainfluenza 4 (PCR) RSV (PCR) Entero/Rhino (PCR) 01/06/23 13:00 WBC RBC Hgb Hct MCV MCH MCHC RDW Plt Count Neut % (Auto) Lymph % (Auto) [place] % (Auto) Eos % (Auto) Baso % (Auto) Neut # (Auto) Lymph # (Auto) [place] # (Auto) Eos # (Auto) Baso # (Auto) PT INR APTT ABG pH ABG pCO2 ABG pO2 ABG HCO3 ABG Total CO2 ABG O2 Saturation ABG Base Excess FiO2 Sodium Potassium Chloride Carbon Dioxide BUN Creatinine Estimated GFR BUN/Creatinine Ratio Glucose Lactate Calcium Magnesium Total Bilirubin AST ALT Alkaline Phosphatase Total Creatine Kinase Troponin I < 0.012 NT-Pro-B Natriuret Pep Total Protein Albumin Globulin Albumin/Globulin Ratio dLipase Procalcitonin Ethyl Alcohol Chlamy pneumoniae PCR Adenovirus (PCR) B. pertussis DNA (PCR) B.parapertussis DNA PCR Coronavirus OC43 (PCR) Coronavirus HKU1 (PCR) Coronavirus 229E (PCR) SARS-CoV-2 (PCR) Coronavirus NL63 (PCR) Human Metapneumovir PCR Influenza Type A (PCR) Influenza Type B (PCR) M. pneumoniae (PCR) Parainfluenza 1 (PCR) Parainfluenza 2 (PCR) Parainfluenza 3 (PCR) Parainfluenza 4 (PCR) RSV (PCR) Entero/Rhino (PCR) Assessment & Plan Assessment & Plan narrative: NEURO: -- Intubated and sedated -- Start precedex and fentanyl gtt -- RASS goal -1 to 0 -- Seek earluy mobility RESP: # Acute hypercarbia/hypoxemia respiratory failure -- Seciondary to pulmonary edema cw/ superimposed PNA -- Start aggressive diuresis to seek net negative fluid balance -- Start CAP coverage -- Check resp cx -- Daily SAT and SBT -- HOB elevation -- Aspiration precaution -- Goal SpO2 > 88% CVS: # HTN -- Goal SBP<140 -- Holding BP meds given soft BP # Hx of A fib -- Restart eliquis -- High lytes goal ID: # Sepsis -- Unclear source -- Possible related to PNA -- On CAP coverage -- Fillow up cx data ENDO: -- Goal BS < 180 -- On ISS D/w bedside RN
--- NOTE | 2023-01-06 14:18 | DI.RAD.S_ITS ---
PROCEDURE: XR CHEST 1V INDICATIONS: Central line placement TECHNIQUE: One view of the chest was acquired. COMPARISON: [facility], CR, XR CHEST 1V, 01/06/2023, 11:17. FINDINGS: The patient is rotated and scoliotic. Surgical changes and devices: Right IJ central venous line is present. The tip is near the level of the ariadne. An endotracheal tube is newly present and this is also at the level of the ariadne. Nasogastric tube is in place. The tip is not seen as it is inferior to the diaphragm off the inferior portion of the film. Lungs and pleura: Retrocardiac opacity and hazy right infrahilar opacities, similar compared to prior. Mediastinum: Moderate, stable cardiomegaly and prominent central vasculature. Stable aortic contour. Calcified right hilar nodes. Bones and chest wall: No suspicious bony lesions. Overlying soft tissues appear unremarkable. IMPRESSION: 1. Endotracheal tube tip at the level of the ariadne. This should be withdrawn 2 cm. Findings conveyed to the ordering provider via secure chat at 15 25 hours. 2. Right IJ central venous line projecting in the expected location of the SVC given patient rotation. 3. Central vascular congestion and bibasilar opacities suggesting early pulmonary edema. 4. Stable cardiomegaly with findings suggesting CHF. Dictated by: Antonia Shah M.D. on 01/06/2023 at 15:20 Approved by: Antonia Shah M.D. on 01/06/2023 at 15:26
--- NOTE | 2023-01-06 14:38 | PM.AN.INVM ---
Invasive Monitor Note Procedure Procedure: Central Venous Catheter Insertion
[2023-01-06] MEDS: FAMOTIDINE 20 MG/2 ML VIAL IV (14:49)
--- NOTE | 2023-01-06 14:50 | PM.AN.INVM ---
Invasive Monitor Note Procedure Procedure: Central Venous Catheter Insertion Start Time: 14:10 Stop Time: 14:40 Indication: Medical Management Timeout: 14:15 Barrier Precautions Utilized: Cap, Mask, Hand Hygiene, 2% Chlorhexidine Cutaneous Antisepsis, Sterile Gloves, Sterile Gown, Large Sterile Drape Sheet and Maintenance of Sterile Field Vessel Utilized: Internal Jugular Vein: Right Lines Catheters Utilized: 7.5 [place] Triple Lumen Catheter Insertion Site Care: Sterile Occlusive Dressing Applied Clinical indicators suggest catheter tip resides in: Right Internal Jugular Ultrasound Ultrasound Guidance Utilized: Yes Ultrasound was used to identify the vessel. Assessed vessel was patent.: Internal Jugular Vein (Right) Ultrasound was used to visualize vascular needle entry into the: Internal Jugular Vein (Right) Limited exam reveals anatomically normal vessel with no apparent abnormal findings.: Yes Permanent ultrasound image obtained and interpretation documented.: No Complications Complications: none (CXR obtained post-procedure. Line appears in good position; no PTX. All three ports confirmed to draw back and flush without resistance. )
[2023-01-06 14:54] LABS: Alanine Aminotransferase 61 IU/L (<35); Albumin 3.5 g/dL (3.5-5.0); Albumin Globulin Ratio 1.1 (1.0-2.8); Alkaline Phosphatase 78 U/L (38-126); Aspartate Aminotransferase 61 IU/L (14-36); BUN Creatinine Ratio 23.1 (6-22); Bilirubin Total 0.9 mg/dL (0.2-1.3); Blood Urea Nitrogen 25 mg/dL (7-17); Calcium 8.8 mg/dL (8.4-10.2); Carbon Dioxide 33 mmol/L (22-32); Chloride 89 mmol/L (98-107); Estimated Glomerular Filt Rate 52 mL/min (>60); Globulin 3.1 g/dL (1.7-4.1); Glucose 162 mg/dL (80-110); HEMOLYSIS 35 (0-50); Potassium 5.3 mmol/L (3.4-5.1); Sodium 128 mmol/L (137-145); Total Protein 6.6 g/dL (6.3-8.2)
[2023-01-06] MEDS: propofoL 1,000 MG/100 ML VIAL 16.182 MG IV (14:55)
[2023-01-06] MEDS: BUMETANIDE 1 MG/4 ML VIAL IV (15:06)
[2023-01-06] MEDS: cefTRIAXone 2,000 MG in SODIUM CHLORIDE 0.9% 100 ML 200 MG IV (15:07)
[2023-01-06] MEDS: DOXYCYCLINE 100 MG in SODIUM CHLORIDE 0.9% 100 ML IV (15:11)
[2023-01-06 15:36] LABS: Add Manual Diff / Slide Review NO; Basophils Absolute Auto 0 /uL (0-100); Basophils Percent Auto 0.3 % (0-2); Eosinophils Absolute Auto 0 /uL (0-450); Eosinophils Percent Auto 0.1 % (2-4); Hematocrit 40.9 % (36-46); Hemoglobin 13.7 g/dL (12.0-16.0); Lymphocytes Absolute Auto 400 /uL (1100-4500); Lymphocytes Percent Auto 6.7 % (25-40); Mean Corpuscular HGB Conc 33.4 % (30-36); Mean Corpuscular Hemoglobin 32.3 PG (26-34); Mean Corpuscular Volume 96.5 fL (80-100); Monocytes Absolute Auto 400 /uL (0-900); Monocytes Percent Auto 5.6 % (3-14); Neutrophils Absolute Auto 5600 /uL (1500-7000); Neutrophils Percent Auto 87.3 % (50-75); Platelet Count 78 X10^3/uL (150-400); Red Blood Cell Count 4.23 X10^6/uL (4.0-5.2); Red Cell Distribution Width 14.6 % (11.6-14.8); White Blood Cell Count 6.5 X10^3/uL (4.5-11.0)
[2023-01-06 15:51] LABS: Fractionated Inspired Oxygen 50; HCO3 ABG 35 mmol/L (23-27); Oxygen Saturation ABG 93 % (95-100); PCO2 ABG 50.9 mmHg (35-45); PO2 ABG 66 mmHg (80-100); TCO2 ABG 36 mmol/L (23-27); pH ABG 7.44 (7.35-7.45)
[2023-01-06 15:55] LABS: MRSA (Nasal) PCR Not Detected (Not Detect)
--- NOTE | 2023-01-06 18:38 | PC.NURSE ---
Addendum entered by Juana Vásquez R.N. 01/06/23 18:51: Room number mistaken previously, Pt admitted to room 230. Original Note: Admit: Pt admitted to room 231 from ED via ED stretcher, transferred from stretcher to bed with slide board. RT set up ventilator, settings 50 % FiO2, rate 20, PEEP 5. Soft restraints established per provider order to prevent removal of medically necessary equipment by pt. at bedside. Anesthesia at bedside to start central, central line started. Pt fists clenched, eyes watering, knees drawn during placement confirmation chest x-ray. Sedation titrated (see MAR). Frothy, pink secretions via ET tube. Provider aware. Care ongoing. Will continue to monitor.
[2023-01-06] MEDS: ALBUTEROL/IPRATROPIUM 3 ML AMPUL INH (19:00)
[2023-01-06 19:18] LABS: Alanine Aminotransferase 59 IU/L (<35); Albumin 3.4 g/dL (3.5-5.0); Albumin Globulin Ratio 1.2 (1.0-2.8); Alkaline Phosphatase 88 U/L (38-126); Aspartate Aminotransferase 55 IU/L (14-36); BUN Creatinine Ratio 24.3 (6-22); Bilirubin Total 1.1 mg/dL (0.2-1.3); Blood Urea Nitrogen 27 mg/dL (7-17); Carbon Dioxide 34 mmol/L (22-32); Chloride 89 mmol/L (98-107); Estimated Glomerular Filt Rate 50 mL/min (>60); Globulin 2.9 g/dL (1.7-4.1); Glucose 96 mg/dL (80-110); HEMOLYSIS 30 (0-50); Potassium 4.9 mmol/L (3.4-5.1); Sodium 129 mmol/L (137-145); Total Protein 6.3 g/dL (6.3-8.2)
--- NOTE | 2023-01-06 20:19 | PM.ICURNDS ---
- Date Patient Seen: 01/06/23 Time Patient Seen: 20:20 :: This patient was seen via real time interactive two-way audiovisual telecommunication. Note: Repeat ABG showed improved hypercarbia. Cont diuresis as tolerated and check SAT/SBT in the morning. D/w bedside RN.
[2023-01-06 20:40] LABS: Troponin I < 0.012 ng/mL (0.01-0.034)
[2023-01-06] MEDS: fentaNYL 1,000 MCG in DEXTROSE 5% IN WATER 230 ML 33.713 MCG IV (21:00)
[2023-01-06] MEDS: HEPARIN 5,000 UNIT/ML VIAL 5000 UNIT SUBCUT (21:07)
[2023-01-06] MEDS: METOPROLOL IR 25 MG TABLET PO (21:07)
[2023-01-06] MEDS: propofoL 1,000 MG/100 ML VIAL 13.485 MG IV (21:09)
[2023-01-07] VITALS (118 sets, daily range): BP systolic 66–150; BP diastolic 36–104; PULSE 59–164; RESP 0–29; TEMP 36.7–37.7; O2SAT 89–100
[2023-01-07] MEDS: CHLORHEXIDINE GLUCONATE 15 ML CUP PO ×5 (00:23→23:46)
[2023-01-07] MEDS: DOXYCYCLINE 100 MG in SODIUM CHLORIDE 0.9% 100 ML IV ×2 (01:49→15:03)
[2023-01-07] MEDS: propofoL 1,000 MG/100 ML VIAL 16.182 MG IV (01:50)
[2023-01-07 05:30] LABS: Add Manual Diff / Slide Review NO; Basophils Absolute Auto 0 /uL (0-100); Basophils Percent Auto 0.2 % (0-2); Eosinophils Absolute Auto 0 /uL (0-450); Eosinophils Percent Auto 0.2 % (2-4); Hematocrit 38.5 % (36-46); Hemoglobin 12.8 g/dL (12.0-16.0); Lymphocytes Absolute Auto 900 /uL (1100-4500); Lymphocytes Percent Auto 8.4 % (25-40); Mean Corpuscular HGB Conc 33.3 % (30-36); Mean Corpuscular Hemoglobin 32.1 PG (26-34); Mean Corpuscular Volume 96.4 fL (80-100); Monocytes Absolute Auto 700 /uL (0-900); Monocytes Percent Auto 6.2 % (3-14); Neutrophils Absolute Auto 9000 /uL (1500-7000); Platelet Count 77 X10^3/uL (150-400); Red Blood Cell Count 3.99 X10^6/uL (4.0-5.2); Red Cell Distribution Width 14.9 % (11.6-14.8); White Blood Cell Count 10.6 X10^3/uL (4.5-11.0)
[2023-01-07 05:48] LABS: BUN Creatinine Ratio 18.4 (6-22); Blood Urea Nitrogen 27 mg/dL (7-17); Calcium 8.1 mg/dL (8.4-10.2); Carbon Dioxide 35 mmol/L (22-32); Chloride 88 mmol/L (98-107); Estimated Glomerular Filt Rate 36 mL/min (>60); Glucose 76 mg/dL (80-110); HEMOLYSIS 19 (0-50); Potassium 3.6 mmol/L (3.4-5.1); Sodium 128 mmol/L (137-145)
--- NOTE | 2023-01-07 07:00 | DI.RAD.S_ITS ---
PROCEDURE: XR CHEST 1V INDICATIONS: dyspnea TECHNIQUE: One view of the chest was acquired. COMPARISON: [facility], CR, XR CHEST 1V, 01/06/2023, 14:16. [facility], CR, XR CHEST 1V, 01/06/2023, 11:17. FINDINGS: Surgical changes and devices: ET tube terminates in the lower trachea. Enteric tube terminates beyond the field of view. Central line terminates in the SVC. Lungs and pleura: Slightly increased moderate diffuse lung disease. Suspected small effusions are present. Mediastinum: Cardiomegaly Bones and chest wall: No suspicious bony lesions. Overlying soft tissues appear unremarkable. IMPRESSION: Slightly increased diffuse lung disease. ET tube terminates in the lower trachea. Small pleural effusions are suspected. Cardiomegaly. Consider future imaging surveillance to assess for resolution. Dictated by: Marquis Ruiz M.D. on 01/07/2023 at 14:15 Approved by: Marquis Ruiz M.D. on 01/07/2023 at 14:16
--- NOTE | 2023-01-07 08:09 | P.PN_ITS ---
Subjective Subjective Interval history: Intubated, narrative not obtainable. Exam Vital Signs (past 8 hours): - 01/07/23 00:31 01/07/23 00:31 01/07/23 00:34 Temperature Pulse Rate 74 72 Respiratory Rate 15 15 Blood Pressure 87/48 L Pulse Oximetry 93 93 Oxygen Delivery Method Fraction of Inspired Oxygen 01/07/23 01:00 01/07/23 01:00 01/07/23 01:03 Temperature Pulse Rate 74 74 Respiratory Rate 15 15 Blood Pressure 83/49 L Pulse Oximetry 96 96 Oxygen Delivery Method Fraction of Inspired Oxygen 01/07/23 01:03 01/07/23 01:14 01/07/23 00:15 Temperature Pulse Rate 72 73 Respiratory Rate 15 15 Blood Pressure 90/51 L Pulse Oximetry 95 90 L Oxygen Delivery Method Fraction of Inspired Oxygen 01/07/23 00:30 01/07/23 00:45 01/07/23 01:15 Temperature Pulse Rate 75 73 72 Respiratory Rate 15 15 15 Blood Pressure Pulse Oximetry 92 94 95 Oxygen Delivery Method Fraction of Inspired Oxygen 01/07/23 02:00 01/07/23 01:30 01/07/23 01:30 Temperature Pulse Rate 70 73 Respiratory Rate 15 15 Blood Pressure 98/55 L 95/52 L Pulse Oximetry 95 97 Oxygen Delivery Method Fraction of Inspired Oxygen 40 01/07/23 01:45 01/07/23 02:00 01/07/23 02:00 Temperature Pulse Rate 72 76 Respiratory Rate 15 16 Blood Pressure 98/55 L Pulse Oximetry 95 98 Oxygen Delivery Method Fraction of Inspired Oxygen 01/07/23 02:15 01/07/23 03:00 01/07/23 02:31 Temperature Pulse Rate 71 70 Respiratory Rate 15 15 Blood Pressure Pulse Oximetry 94 92 Oxygen Delivery Method Mechanical Ventilation Fraction of Inspired Oxygen 01/07/23 02:31 01/07/23 03:00 01/07/23 03:00 Temperature Pulse Rate 70 Respiratory Rate 15 Blood Pressure 81/43 L 85/43 L Pulse Oximetry 89 L Oxygen Delivery Method Fraction of Inspired Oxygen 01/07/23 03:04 01/07/23 03:04 01/07/23 04:00 Temperature Pulse Rate 72 71 Respiratory Rate 15 15 Blood Pressure 93/47 L Pulse Oximetry 90 L 94 Oxygen Delivery Method Fraction of Inspired Oxygen 01/07/23 04:00 01/07/23 04:26 01/07/23 05:00 Temperature 98.4 F Pulse Rate 70 69 Respiratory Rate 15 15 Blood Pressure 101/53 L Pulse Oximetry 94 95 Oxygen Delivery Method Fraction of Inspired Oxygen 01/07/23 05:00 01/07/23 05:15 01/07/23 06:00 Temperature Pulse Rate 70 Respiratory Rate 15 Blood Pressure 97/51 L 92/52 L Pulse Oximetry 95 Oxygen Delivery Method Fraction of Inspired Oxygen 01/07/23 06:00 01/07/23 07:00 01/07/23 07:00 Temperature Pulse Rate 70 70 Respiratory Rate 15 15 Blood Pressure 72/41 L Pulse Oximetry 94 95 Oxygen Delivery Method Fraction of Inspired Oxygen 01/07/23 07:04 01/07/23 07:04 Temperature Pulse Rate 73 Respiratory Rate 15 Blood Pressure 94/56 L Pulse Oximetry 95 Oxygen Delivery Method Fraction of Inspired Oxygen Fraction of Inspired Oxygen 40 SaO2/FiO2 Ratio 184 Oxygen Delivery Method Mechanical Ventilation Oxygen Flow Rate 15 Narrative Exam Narrative: Intubated and on vent. Sedated and relaxed. OGT in place Atraumatic head, symmetric pupils. Neck supple and midline trachea. Lungs CTA, anterior. Heart RRR, without murmur, gallop, or rub. Abdomen Soft, NT, ND No leg edema. No skin rash. Objective Labs 01/07/23 05:00 01/07/23 05:00 Labs: Laboratory Results - last 24 hr 01/06/23 01/06/23 01/06/23 10:40 10:44 10:50 WBC 6.5 RBC 4.41 Hgb 14.5 Hct 43.8 MCV 99.3 MCH 32.8 MCHC 33.1 RDW 15.2 H Plt Count 92 L Neut % (Auto) 75.6 H Lymph % (Auto) 16.0 L [place] % (Auto) 7.6 Eos % (Auto) 0.2 L Baso % (Auto) 0.6 Neut # (Auto) 4900 Lymph # (Auto) 1000 L [place] # (Auto) 500 Eos # (Auto) 0 Baso # (Auto) 0 PT INR APTT ABG pH 7.11 L* ABG pCO2 114.9 H* ABG pO2 95 ABG HCO3 36 H ABG Total CO2 40 H ABG O2 Saturation 93 L ABG Base Excess 7.0 H FiO2 100 Sodium Potassium Chloride Carbon Dioxide BUN Creatinine Estimated GFR BUN/Creatinine Ratio Glucose Lactate Calcium Magnesium Total Bilirubin AST ALT Alkaline Phosphatase Total Creatine Kinase Troponin I NT-Pro-B Natriuret Pep Total Protein Albumin Globulin Albumin/Globulin Ratio Lipase Procalcitonin Nasal Screen MRSA (PCR) Ethyl Alcohol Chlamy pneumoniae PCR Not detected Adenovirus (PCR) Not detected B. pertussis DNA (PCR) Not detected B.parapertussis DNA PCR Not detected Coronavirus OC43 (PCR) Not detected Coronavirus HKU1 (PCR) Not detected Coronavirus 229E (PCR) Not detected SARS-CoV-2 (PCR) Not detected Coronavirus NL63 (PCR) Not detected Human Metapneumovir PCR Not detected Influenza Type A (PCR) Not detected Influenza Type B (PCR) Not detected M. pneumoniae (PCR) Not detected Parainfluenza 1 (PCR) Not detected Parainfluenza 2 (PCR) Not detected Parainfluenza 3 (PCR) Not detected Parainfluenza 4 (PCR) Not detected RSV (PCR) Not detected Entero/Rhino (PCR) Not detected 01/06/23 01/06/23 01/06/23 11:10 11:10 11:10 WBC RBC Hgb Hct MCV MCH MCHC RDW Plt Count Neut % (Auto) Lymph % (Auto) [place] % (Auto) Eos % (Auto) Baso % (Auto) Neut # (Auto) Lymph # (Auto) [place] # (Auto) Eos # (Auto) Baso # (Auto) PT 23.4 H INR 2.0 H APTT 37 H ABG pH ABG pCO2 ABG pO2 ABG HCO3 ABG Total CO2 ABG O2 Saturation ABG Base Excess FiO2 Sodium 128 L Potassium 5.4 H Chloride 88 L Carbon Dioxide 34 H BUN 24 H Creatinine 1.07 H Estimated GFR 52 L BUN/Creatinine Ratio 22.4 H Glucose 236 H Lactate 1.4 Calcium 9.0 Magnesium 2.1 Total Bilirubin 0.9 AST 56 H ALT 69 H Alkaline Phosphatase 93 Total Creatine Kinase 46 Troponin I < 0.012 NT-Pro-B Natriuret Pep 3280 H Total Protein 7.7 Albumin 4.1 Globulin 3.6 Albumin/Globulin Ratio 1.1 Lipase 130 Procalcitonin 0.06 Nasal Screen MRSA (PCR) Ethyl Alcohol < 10 Chlamy pneumoniae PCR Adenovirus (PCR) B. pertussis DNA (PCR) B.parapertussis DNA PCR Coronavirus OC43 (PCR) Coronavirus HKU1 (PCR) Coronavirus 229E (PCR) SARS-CoV-2 (PCR) Coronavirus NL63 (PCR) Human Metapneumovir PCR Influenza Type A (PCR) Influenza Type B (PCR) M. pneumoniae (PCR) Parainfluenza 1 (PCR) Parainfluenza 2 (PCR) Parainfluenza 3 (PCR) Parainfluenza 4 (PCR) RSV (PCR) Entero/Rhino (PCR) 01/06/23 01/06/23 01/06/23 13:00 13:00 13:40 WBC RBC Hgb Hct MCV MCH MCHC RDW Plt Count Neut % (Auto) Lymph % (Auto) [place] % (Auto) Eos % (Auto) Baso % (Auto) Neut # (Auto) Lymph # (Auto) [place] # (Auto) Eos # (Auto) Baso # (Auto) PT INR APTT ABG pH ABG pCO2 ABG pO2 ABG HCO3 ABG Total CO2 ABG O2 Saturation ABG Base Excess FiO2 Sodium 128 L Potassium 5.3 H Chloride 89 L Carbon Dioxide 33 H BUN 25 H Creatinine 1.08 H Estimated GFR 52 L BUN/Creatinine Ratio 23.1 H Glucose 162 H Lactate Calcium 8.8 Magnesium Total Bilirubin 0.9 AST 61 H ALT 61 H Alkaline Phosphatase 78 Total Creatine Kinase Troponin I < 0.012 NT-Pro-B Natriuret Pep Total Protein 6.6 Albumin 3.5 Globulin 3.1 Albumin/Globulin Ratio 1.1 Lipase Procalcitonin Nasal Screen MRSA (PCR) Not detected Ethyl Alcohol Chlamy pneumoniae PCR Adenovirus (PCR) B. pertussis DNA (PCR) B.parapertussis DNA PCR Coronavirus OC43 (PCR) Coronavirus HKU1 (PCR) Coronavirus 229E (PCR) SARS-CoV-2 (PCR) Coronavirus NL63 (PCR) Human Metapneumovir PCR Influenza Type A (PCR) Influenza Type B (PCR) M. pneumoniae (PCR) Parainfluenza 1 (PCR) Parainfluenza 2 (PCR) Parainfluenza 3 (PCR) Parainfluenza 4 (PCR) RSV (PCR) Entero/Rhino (PCR) 01/06/23 01/06/23 01/06/23 14:45 15:30 15:30 WBC 6.5 RBC 4.23 Hgb 13.7 Hct 40.9 MCV 96.5 MCH 32.3 MCHC 33.4 RDW 14.6 Plt Count 78 L Neut % (Auto) 87.3 H Lymph % (Auto) 6.7 L [place] % (Auto) 5.6 Eos % (Auto) 0.1 L Baso % (Auto) 0.3 Neut # (Auto) 5600 Lymph # (Auto) 400 L [place] # (Auto) 400 Eos # (Auto) 0 Baso # (Auto) 0 PT INR APTT ABG pH 7.44 ABG pCO2 50.9 H ABG pO2 66 L ABG HCO3 35 H ABG Total CO2 36 H ABG O2 Saturation 93 L ABG Base Excess 11.0 H FiO2 50 Sodium 129 L Potassium 4.9 Chloride 89 L Carbon Dioxide 34 H BUN 27 H Creatinine 1.11 H Estimated GFR 50 L BUN/Creatinine Ratio 24.3 H Glucose 96 Lactate Calcium 9.0 Magnesium Total Bilirubin 1.1 AST 55 H ALT 59 H Alkaline Phosphatase 88 Total Creatine Kinase Troponin I NT-Pro-B Natriuret Pep Total Protein 6.3 Albumin 3.4 L Globulin 2.9 Albumin/Globulin Ratio 1.2 Lipase Procalcitonin Nasal Screen MRSA (PCR) Ethyl Alcohol Chlamy pneumoniae PCR Adenovirus (PCR) B. pertussis DNA (PCR) B.parapertussis DNA PCR Coronavirus OC43 (PCR) Coronavirus HKU1 (PCR) Coronavirus 229E (PCR) SARS-CoV-2 (PCR) Coronavirus NL63 (PCR) Human Metapneumovir PCR Influenza Type A (PCR) Influenza Type B (PCR) M. pneumoniae (PCR) Parainfluenza 1 (PCR) Parainfluenza 2 (PCR) Parainfluenza 3 (PCR) Parainfluenza 4 (PCR) RSV (PCR) Entero/Rhino (PCR) 01/06/23 01/07/23 01/07/23 20:00 05:00 05:00 WBC 10.6 D RBC 3.99 L Hgb 12.8 Hct 38.5 MCV 96.4 MCH 32.1 MCHC 33.3 RDW 14.9 H Plt Count 77 L Neut % (Auto) 85.0 H Lymph % (Auto) 8.4 L [place] % (Auto) 6.2 Eos % (Auto) 0.2 L Baso % (Auto) 0.2 Neut # (Auto) 9000 H Lymph # (Auto) 900 L [place] # (Auto) 700 Eos # (Auto) 0 Baso # (Auto) 0 PT INR APTT ABG pH ABG pCO2 ABG pO2 ABG HCO3 ABG Total CO2 ABG O2 Saturation ABG Base Excess FiO2 Sodium 128 L Potassium 3.6 D Chloride 88 L Carbon Dioxide 35 H BUN 27 H Creatinine 1.47 H Estimated GFR 36 L BUN/Creatinine Ratio 18.4 Glucose 76 L Lactate Calcium 8.1 L Magnesium Total Bilirubin AST ALT Alkaline Phosphatase Total Creatine Kinase Troponin I < 0.012 NT-Pro-B Natriuret Pep Total Protein Albumin Globulin Albumin/Globulin Ratio Lipase Procalcitonin Nasal Screen MRSA (PCR) Ethyl Alcohol Chlamy pneumoniae PCR Adenovirus (PCR) B. pertussis DNA (PCR) B.parapertussis DNA PCR Coronavirus OC43 (PCR) Coronavirus HKU1 (PCR) Coronavirus 229E (PCR) SARS-CoV-2 (PCR) Coronavirus NL63 (PCR) Human Metapneumovir PCR Influenza Type A (PCR) Influenza Type B (PCR) M. pneumoniae (PCR) Parainfluenza 1 (PCR) Parainfluenza 2 (PCR) Parainfluenza 3 (PCR) Parainfluenza 4 (PCR) RSV (PCR) Entero/Rhino (PCR) [facility] Medical History Acquired clavicle deformity Asthma Cataracts, bilateral (1994) Chronic atrial fibrillation Essential hypertension Gout Hyperlipidemia Hyperthyroidism (1971) Osteoporosis Surgical History Toxic goiter (1971) Family History Father No problems noted. Mother No problems noted. Social History household members: significant other Smoking Status: Never smoker alcohol intake: never substance use type: does not use Assessment & Plan Assessment & Plan narrative: 1. Acute hypoxic and hypercarbic respiratory failure, POA and Active. -Vent support with propofol and fentanyl infusions. Oral care, head of bed up. DVT and GI prophylaxis. -sedation wean, assess mental status, and SBT. Discuss [facility] doc regarding readiness for extubation. 2. Acute pulmonary edema, POA and active. -diuresis with IV lasix 40 Q 12, will continue. 3. Possible CAP (pneumonia), POA and active. -start antibiotics wtih Ceftriaxone and doxycycline. Continue antibiotics (5 day course). 4. Hyponatremia, POA and active. -monitor q12hr BMP with diuresis. 5. Thromocytopenia, POA and active. -Monitor. PLT 77 today. 6. Atrial fibrillation (coumadin), NPOA and stable. -hold warfarin and follow. May need IV rate control. Daily INR. 7. Metabolic encephalopathy, POA and active. -monitor mental status . Full code. is proxy decision maker. Time Spent With Patient Time with patient: 30 to 49 minutes with 50% spent counseling/coordinating care Quality VTE Deep Vein Thrombosis/Pulmonary Embolism Present on Admission: No
[2023-01-07] MEDS: ALBUTEROL/IPRATROPIUM 3 ML AMPUL INH ×2 (08:15→20:01)
--- NOTE | 2023-01-07 08:30 | PM.PN.EICU ---
Subjective Subjective IF CAMERA ACTIVATED, patient seen via real-time interactive audiovisual communication: Camera activated Date Patient Seen: 01/07/23 Consent obtained for tele-freight claim investigator care: Yes Patient Location: ICU Provider location (State): [place] Other participants/roles: bedside RN, hospitalist Interval history: Diuresed yestereday.- neg neg >2 L. Holding today for hypotension (MAP in 50's) levophed gtt started. Albumin bolus ordered Holding SQ heparin given platelets 77K and some bleeding noted when suctioning oropharynx, mild hgb drop Current Medications Current Medications Medications: Home Medications albuterol sulfate 90 mcg/actuation aerosol inhaler (Ventolin HFA) 1 puff inhalation Q4-6H PRN shortness of breath or wheezing #18 grams 02/13/22 [Rx Confirmed 01/06/23] furosemide 40 mg tablet 40 mg PO DAILY PRN edema/weight gain #10 tabs 02/13/22 [Rx Confirmed 01/06/23] carvedilol 25 mg tablet 25 mg PO BID #180 tabs 06/05/22 [Rx Confirmed 01/06/23] losartan 100 mg tablet 100 mg PO DAILY #90 tabs 06/05/22 [Rx Confirmed 01/06/23] pravastatin 40 mg tablet 40 mg PO DAILY #90 tabs 06/05/22 [Rx Confirmed 01/06/23] apixaban 5 mg tablet (Eliquis) See Rx Instructions .Route .COMPLEX #180 tabs 08/06/22 [Rx Confirmed 01/06/23] amlodipine 5 mg tablet (Norvasc) 5 mg PO DAILY #90 tabs 10/25/22 [Rx Confirmed 01/06/23] diazepam 5 mg tablet 10 mg PO BEDTIME PRN sleep #30 tabs 10/25/22 [Rx Confirmed 01/06/23] potassium chloride 10 mEq tablet,extended release See Rx Instructions .Route .COMPLEX #90 tabs 11/11/22 [Rx Confirmed 01/06/23] calcium carbonate 500 mg calcium (1,250 mg) tablet (Oyster Shell Calcium) 500 mg PO BID #180 tabs 11/13/22 [Rx Confirmed 01/06/23] Visit Medications (administered) Generic Name Dose Route Start Last Admin Trade Name Freq PRN Reason Stop Dose Admin Albuterol/Ipratropium 3 ml 01/06/23 20:00 01/06/23 19:00 Albuterol/Ipratropium 3 Ml Ampul INH 3 ml RTBID ANTONY Administration Chlorhexidine Gluconate 15 ml 01/06/23 18:00 01/07/23 06:22 Chlorhexidine Gluconate 15 Ml Cup PO 15 ml Q6HR ANTONY Administration Heparin Sodium (Porcine) 5,000 unit 01/06/23 21:00 01/06/23 21:07 Heparin 5,000 Unit/Ml Vial SUBCUT 5,000 unit BID ANTONY Administration Fentanyl 1,000 mcg/ Dextrose 250 mls @ 15.733 mls/hr 01/06/23 11:30 01/07/23 08:17 IV 0 mcg/kg/hr TITRATE ANTONY 0 mls/hr Titration Protocol 0.7 MCG/KG/HR Propofol 1,000 mg in 100 mls @ 2.697 mls/hr 01/06/23 12:45 01/07/23 08:13 Propofol IV 15 mcg/kg/min TITRATE ANTONY 8.091 mls/hr Titration Protocol 5 MCG/KG/MIN Ceftriaxone Sodium 2,000 mg/ 100 mls @ 200 mls/hr 01/06/23 14:30 01/06/23 15:57 Sodium Chloride IV Infused Q24H ANTONY Infusion Doxycycline Hyclate 100 mg/ 100 mls @ 100 mls/hr 01/06/23 14:30 01/07/23 02:50 Sodium Chloride IV Infused Q12H ANTONY Infusion Metoprolol Tartrate 25 mg 01/06/23 21:00 01/06/23 21:07 Metoprolol Ir 25 Mg Tablet PO 25 mg BID ANTONY Administration Objective Ventilator Parameters: Ventilator Settings FiO2 45 RT Vent Frequency 15 Ventilator Tidal Volume 420 Exhaled Positive End Expiratory 5 Pressure Ventilator Pressure Support 55 Inspiratory Phase Time 0.8 I:E Ratio 1:4 Patient Position HOB >= 30 degrees Labs 01/07/23 05:00 01/07/23 05:00 Labs: Laboratory Results - last 24 hr 01/06/23 01/06/23 01/06/23 10:40 10:44 10:50 WBC 6.5 RBC 4.41 Hgb 14.5 Hct 43.8 MCV 99.3 MCH 32.8 MCHC 33.1 RDW 15.2 H Plt Count 92 L Neut % (Auto) 75.6 H Lymph % (Auto) 16.0 L [place] % (Auto) 7.6 Eos % (Auto) 0.2 L Baso % (Auto) 0.6 Neut # (Auto) 4900 Lymph # (Auto) 1000 L [place] # (Auto) 500 Eos # (Auto) 0 Baso # (Auto) 0 PT INR APTT ABG pH 7.11 L* ABG pCO2 114.9 H* ABG pO2 95 ABG HCO3 36 H ABG Total CO2 40 H ABG O2 Saturation 93 L ABG Base Excess 7.0 H FiO2 100 Sodium Potassium Chloride Carbon Dioxide BUN Creatinine Estimated GFR BUN/Creatinine Ratio Glucose Lactate Calcium Magnesium Total Bilirubin AST ALT Alkaline Phosphatase Total Creatine Kinase Troponin I NT-Pro-B Natriuret Pep Total Protein Albumin Globulin Albumin/Globulin Ratio Lipase Procalcitonin Nasal Screen MRSA (PCR) Ethyl Alcohol Chlamy pneumoniae PCR Not detected Adenovirus (PCR) Not detected B. pertussis DNA (PCR) Not detected B.parapertussis DNA PCR Not detected Coronavirus OC43 (PCR) Not detected Coronavirus HKU1 (PCR) Not detected Coronavirus 229E (PCR) Not detected SARS-CoV-2 (PCR) Not detected Coronavirus NL63 (PCR) Not detected Human Metapneumovir PCR Not detected Influenza Type A (PCR) Not detected Influenza Type B (PCR) Not detected M. pneumoniae (PCR) Not detected Parainfluenza 1 (PCR) Not detected Parainfluenza 2 (PCR) Not detected Parainfluenza 3 (PCR) Not detected Parainfluenza 4 (PCR) Not detected RSV (PCR) Not detected Entero/Rhino (PCR) Not detected 01/06/23 01/06/23 01/06/23 11:10 11:10 11:10 WBC RBC Hgb Hct MCV MCH MCHC RDW Plt Count Neut % (Auto) Lymph % (Auto) [place] % (Auto) Eos % (Auto) Baso % (Auto) Neut # (Auto) Lymph # (Auto) [place] # (Auto) Eos # (Auto) Baso # (Auto) PT 23.4 H INR 2.0 H APTT 37 H ABG pH ABG pCO2 ABG pO2 ABG HCO3 ABG Total CO2 ABG O2 Saturation ABG Base Excess FiO2 Sodium 128 L Potassium 5.4 H Chloride 88 L Carbon Dioxide 34 H BUN 24 H Creatinine 1.07 H Estimated GFR 52 L BUN/Creatinine Ratio 22.4 H Glucose 236 H Lactate 1.4 Calcium 9.0 Magnesium 2.1 Total Bilirubin 0.9 AST 56 H ALT 69 H Alkaline Phosphatase 93 Total Creatine Kinase 46 Troponin I < 0.012 NT-Pro-B Natriuret Pep 3280 H Total Protein 7.7 Albumin 4.1 Globulin 3.6 Albumin/Globulin Ratio 1.1 Lipase 130 Procalcitonin 0.06 Nasal Screen MRSA (PCR) Ethyl Alcohol < 10 Chlamy pneumoniae PCR Adenovirus (PCR) B. pertussis DNA (PCR) B.parapertussis DNA PCR Coronavirus OC43 (PCR) Coronavirus HKU1 (PCR) Coronavirus 229E (PCR) SARS-CoV-2 (PCR) Coronavirus NL63 (PCR) Human Metapneumovir PCR Influenza Type A (PCR) Influenza Type B (PCR) M. pneumoniae (PCR) Parainfluenza 1 (PCR) Parainfluenza 2 (PCR) Parainfluenza 3 (PCR) Parainfluenza 4 (PCR) RSV (PCR) Entero/Rhino (PCR) 01/06/23 01/06/23 01/06/23 13:00 13:00 13:40 WBC RBC Hgb Hct MCV MCH MCHC RDW Plt Count Neut % (Auto) Lymph % (Auto) [place] % (Auto) Eos % (Auto) Baso % (Auto) Neut # (Auto) Lymph # (Auto) [place] # (Auto) Eos # (Auto) Baso # (Auto) PT INR APTT ABG pH ABG pCO2 ABG pO2 ABG HCO3 ABG Total CO2 ABG O2 Saturation ABG Base Excess FiO2 Sodium 128 L Potassium 5.3 H Chloride 89 L Carbon Dioxide 33 H BUN 25 H Creatinine 1.08 H Estimated GFR 52 L BUN/Creatinine Ratio 23.1 H Glucose 162 H Lactate Calcium 8.8 Magnesium Total Bilirubin 0.9 AST 61 H ALT 61 H Alkaline Phosphatase 78 Total Creatine Kinase Troponin I < 0.012 NT-Pro-B Natriuret Pep Total Protein 6.6 Albumin 3.5 Globulin 3.1 Albumin/Globulin Ratio 1.1 Lipase Procalcitonin Nasal Screen MRSA (PCR) Not detected Ethyl Alcohol Chlamy pneumoniae PCR Adenovirus (PCR) B. pertussis DNA (PCR) B.parapertussis DNA PCR Coronavirus OC43 (PCR) Coronavirus HKU1 (PCR) Coronavirus 229E (PCR) SARS-CoV-2 (PCR) Coronavirus NL63 (PCR) Human Metapneumovir PCR Influenza Type A (PCR) Influenza Type B (PCR) M. pneumoniae (PCR) Parainfluenza 1 (PCR) Parainfluenza 2 (PCR) Parainfluenza 3 (PCR) Parainfluenza 4 (PCR) RSV (PCR) Entero/Rhino (PCR) 01/06/23 01/06/23 01/06/23 14:45 15:30 15:30 WBC 6.5 RBC 4.23 Hgb 13.7 Hct 40.9 MCV 96.5 MCH 32.3 MCHC 33.4 RDW 14.6 Plt Count 78 L Neut % (Auto) 87.3 H Lymph % (Auto) 6.7 L [place] % (Auto) 5.6 Eos % (Auto) 0.1 L Baso % (Auto) 0.3 Neut # (Auto) 5600 Lymph # (Auto) 400 L [place] # (Auto) 400 Eos # (Auto) 0 Baso # (Auto) 0 PT INR APTT ABG pH 7.44 ABG pCO2 50.9 H ABG pO2 66 L ABG HCO3 35 H ABG Total CO2 36 H ABG O2 Saturation 93 L ABG Base Excess 11.0 H FiO2 50 Sodium 129 L Potassium 4.9 Chloride 89 L Carbon Dioxide 34 H BUN 27 H Creatinine 1.11 H Estimated GFR 50 L BUN/Creatinine Ratio 24.3 H Glucose 96 Lactate Calcium 9.0 Magnesium Total Bilirubin 1.1 AST 55 H ALT 59 H Alkaline Phosphatase 88 Total Creatine Kinase Troponin I NT-Pro-B Natriuret Pep Total Protein 6.3 Albumin 3.4 L Globulin 2.9 Albumin/Globulin Ratio 1.2 Lipase Procalcitonin Nasal Screen MRSA (PCR) Ethyl Alcohol Chlamy pneumoniae PCR Adenovirus (PCR) B. pertussis DNA (PCR) B.parapertussis DNA PCR Coronavirus OC43 (PCR) Coronavirus HKU1 (PCR) Coronavirus 229E (PCR) SARS-CoV-2 (PCR) Coronavirus NL63 (PCR) Human Metapneumovir PCR Influenza Type A (PCR) Influenza Type B (PCR) M. pneumoniae (PCR) Parainfluenza 1 (PCR) Parainfluenza 2 (PCR) Parainfluenza 3 (PCR) Parainfluenza 4 (PCR) RSV (PCR) Entero/Rhino (PCR) 01/06/23 01/07/23 01/07/23 20:00 05:00 05:00 WBC 10.6 D RBC 3.99 L Hgb 12.8 Hct 38.5 MCV 96.4 MCH 32.1 MCHC 33.3 RDW 14.9 H Plt Count 77 L Neut % (Auto) 85.0 H Lymph % (Auto) 8.4 L [place] % (Auto) 6.2 Eos % (Auto) 0.2 L Baso % (Auto) 0.2 Neut # (Auto) 9000 H Lymph # (Auto) 900 L [place] # (Auto) 700 Eos # (Auto) 0 Baso # (Auto) 0 PT INR APTT ABG pH ABG pCO2 ABG pO2 ABG HCO3 ABG Total CO2 ABG O2 Saturation ABG Base Excess FiO2 Sodium 128 L Potassium 3.6 D Chloride 88 L Carbon Dioxide 35 H BUN 27 H Creatinine 1.47 H Estimated GFR 36 L BUN/Creatinine Ratio 18.4 Glucose 76 L Lactate Calcium 8.1 L Magnesium Total Bilirubin AST ALT Alkaline Phosphatase Total Creatine Kinase Troponin I < 0.012 NT-Pro-B Natriuret Pep Total Protein Albumin Globulin Albumin/Globulin Ratio Lipase Procalcitonin Nasal Screen MRSA (PCR) Ethyl Alcohol Chlamy pneumoniae PCR Adenovirus (PCR) B. pertussis DNA (PCR) B.parapertussis DNA PCR Coronavirus OC43 (PCR) Coronavirus HKU1 (PCR) Coronavirus 229E (PCR) SARS-CoV-2 (PCR) Coronavirus NL63 (PCR) Human Metapneumovir PCR Influenza Type A (PCR) Influenza Type B (PCR) M. pneumoniae (PCR) Parainfluenza 1 (PCR) Parainfluenza 2 (PCR) Parainfluenza 3 (PCR) Parainfluenza 4 (PCR) RSV (PCR) Entero/Rhino (PCR) Exam Vital Signs (past 8 hours): - 01/07/23 00:31 01/07/23 00:31 01/07/23 00:34 Temperature Pulse Rate 74 72 Respiratory Rate 15 15 Blood Pressure 87/48 L Pulse Oximetry 93 93 Oxygen Delivery Method Fraction of Inspired Oxygen 01/07/23 01:00 01/07/23 01:00 01/07/23 01:03 Temperature Pulse Rate 74 74 Respiratory Rate 15 15 Blood Pressure 83/49 L Pulse Oximetry 96 96 Oxygen Delivery Method Fraction of Inspired Oxygen 01/07/23 01:03 01/07/23 01:14 01/07/23 00:45 Temperature Pulse Rate 72 73 Respiratory Rate 15 15 Blood Pressure 90/51 L Pulse Oximetry 95 94 Oxygen Delivery Method Fraction of Inspired Oxygen 01/07/23 01:15 01/07/23 02:00 01/07/23 01:30 Temperature Pulse Rate 72 70 Respiratory Rate 15 15 Blood Pressure 98/55 L 95/52 L Pulse Oximetry 95 95 Oxygen Delivery Method Fraction of Inspired Oxygen 40 01/07/23 01:30 01/07/23 01:45 01/07/23 02:00 Temperature Pulse Rate 73 72 Respiratory Rate 15 15 Blood Pressure 98/55 L Pulse Oximetry 97 95 Oxygen Delivery Method Fraction of Inspired Oxygen 01/07/23 02:00 01/07/23 02:15 01/07/23 03:00 Temperature Pulse Rate 76 71 Respiratory Rate 16 15 Blood Pressure Pulse Oximetry 98 94 Oxygen Delivery Method Mechanical Ventilation Fraction of Inspired Oxygen 01/07/23 02:31 01/07/23 02:31 01/07/23 03:00 Temperature Pulse Rate 70 Respiratory Rate 15 Blood Pressure 81/43 L 85/43 L Pulse Oximetry 92 Oxygen Delivery Method Fraction of Inspired Oxygen 01/07/23 03:00 01/07/23 03:04 01/07/23 03:04 Temperature Pulse Rate 70 72 Respiratory Rate 15 15 Blood Pressure 93/47 L Pulse Oximetry 89 L 90 L Oxygen Delivery Method Fraction of Inspired Oxygen 01/07/23 04:00 01/07/23 04:00 01/07/23 04:26 Temperature 98.4 F Pulse Rate 71 70 Respiratory Rate 15 15 Blood Pressure 101/53 L Pulse Oximetry 94 94 Oxygen Delivery Method Fraction of Inspired Oxygen 01/07/23 05:00 01/07/23 05:00 01/07/23 05:15 Temperature Pulse Rate 69 70 Respiratory Rate 15 15 Blood Pressure 97/51 L Pulse Oximetry 95 95 Oxygen Delivery Method Fraction of Inspired Oxygen 01/07/23 06:00 01/07/23 06:00 01/07/23 07:00 Temperature Pulse Rate 70 Respiratory Rate 15 Blood Pressure 92/52 L 72/41 L Pulse Oximetry 94 Oxygen Delivery Method Fraction of Inspired Oxygen 01/07/23 07:00 01/07/23 07:04 01/07/23 07:04 Temperature Pulse Rate 70 73 Respiratory Rate 15 15 Blood Pressure 94/56 L Pulse Oximetry 95 95 Oxygen Delivery Method Fraction of Inspired Oxygen Fraction of Inspired Oxygen 40 SaO2/FiO2 Ratio 184 Oxygen Delivery Method Mechanical Ventilation Oxygen Flow Rate 15 Narrative Exam Narrative: intubated, sedated Quality TeleICU VTE Deep Vein Thrombosis/Pulmonary Embolism Present on Admission: No Stress Ulcer Stress ulcer prophylaxis: yes Assessment & Plan Assessment and plan (1) Hypercapnic respiratory failure: Status: Acute (2) Altered mental status: Status: Acute (3) Peripheral edema: Status: Acute (4) Essential hypertension: Status: Chronic (5) Chronic atrial fibrillation: Status: Chronic (6) Pulmonary edema: Status: Acute (7) Asthma: Qualifiers: Asthma severity: mild Asthma persistence: intermittent Asthma complication type: uncomplicated Qualified Code(s): J45.20 - Mild intermittent asthma, uncomplicated Status: Acute Plan NEURO: -- Intubated and sedated -- continue precedex and fentanyl gtt -- RASS goal -1 to 0, daily SAT -- early mobility RESP: # Acute hypercarbia/hypoxemia respiratory failure -- Secondary to pulmonary edema cw/ superimposed PNA -- diuresed > 2L net neg yesterday. Hold today given hypotension and Cr bump. Goal even -- CAP coverage- ceftriaxone and doxy -- f/u resp cx -- Daily SAT and SBT -- HOB elevation -- Aspiration precaution -- Goal SpO2 > 88% --ABG today showing combined resp and metabolic acidosis. RR to 12 on vent, diamox dose x 1. will repeat ABG at 4 PM CVS: # HTN -- Goal SBP<140 -- Holding BP meds given hypotension this morning -- albumin bolus ordered and levophed gtt started. goal map >65 # Hx of A fib -- Can restart eliquis if HGB stable and tolerating SQ Heparin- Heparin on hold given thrombocytopenia (plt 76K) and noted bleeding from oropharynx. Repeat CBC at noon -- lytes goal- K >4, MG >2 40 meq K this am, repeat Mg and K this afternoon ID: # Sepsis -- Possible related to PNA -- On CAP coverage -- F/u cx data -- thrombocytopenia likely secondary to sepsis ENDO: -- Goal BS < 180 -- On ISS PPX: has been on heparin sq, however held this am given thrombocytopenia and some bleeding noted from oropharynx/suctioning trauma if stable and plt improving can likely be restarted SCD's on Protonix ordered for GI ppx, given thrombocytopenia, avoiding H2- D/w bedside RN Time Spent With Patient Time with patient: 30 to 49 minutes with 50% spent counseling/coordinating care
[2023-01-07] MEDS: NOREPINEPHRINE BITARTRATE/D5W 4 MG/250 ML PLAST..BAG 15.619 MG IV (08:53)
[2023-01-07] MEDS: fentaNYL 1,000 MCG in DEXTROSE 5% IN WATER 230 ML 11.238 MCG IV (09:01)
--- NOTE | 2023-01-07 09:02 | PC.NURSE ---
wasted 25ml fentanyl gtt with Jennifer Thakur PharmD
[2023-01-07] MEDS: propofoL 1,000 MG/100 ML VIAL 13.485 MG IV ×2 (09:04→22:00)
[2023-01-07] MEDS: ALBUMIN HUMAN 12.5 GM/50 ML VIAL IV (09:06)
[2023-01-07 09:28] LABS: HCO3 ABG 32 mmol/L (23-27); Oxygen Saturation ABG 96 % (95-100); PCO2 ABG 35.1 mmHg (35-45); PO2 ABG 67 mmHg (80-100); TCO2 ABG 33 mmol/L (23-27)
[2023-01-07 09:29] LABS: Fractionated Inspired Oxygen 45; pH ABG 7.56 (7.35-7.45)
[2023-01-07] MEDS: PANTOPRAZOLE 40 MG VIAL IV (09:47)
--- NOTE | 2023-01-07 10:05 | PC.NURSE ---
BG 108 with am check
[2023-01-07] MEDS: POTASSIUM CHLORIDE 20 MEQ/15 ML UDC 40 MEQ PO (10:26)
[2023-01-07] MEDS: acetaZOLAMIDE 250 MG TABLET PO (10:26)
--- NOTE | 2023-01-07 10:28 | CM.DANOTE ---
DCP: Case received, EMR reviewed and checked on patient. Patient is currently intubated. Spouse arrived, out in the hallway. Was able to obtain information in order to complete DCP assessment. Patient is an 82 year old female who admitted yesterday afternoon to the care of the hospitalist team. PCP: Dr. Marie. Payer: confirmed: [facility]. Patient came to the hospital via ambulance secondary to having increased shortness of breath. Notes indicate that patient is a full code, has history of asthma, uses daily inhaler, also, history of CHF. Notes also indicate per spouse, that patient normally gets around with using her umbrella or cane, or walking stick, but fatigued and more short of breath upon any exertion. He then decided to take her to the walk in clinic, where her sats had been in the 40% range, and unresponsive. She was brought in ambulance. Patient ended up intubated, hypercarbic, BIPAP was attempted, but there were concerns about maintaining her airway. There were some concerns about patient not taking her Lasix, diuresis initiated in the ER. Met briefly with Josué, indicated, he is spouse. He was in the hallway next to patient's room. Patient is currently still intubated. Hospitalist indicated that she could potentially be extubated tomorrow. Confirmed that he and patient both reside in [place]. At her baseline, she does use a cane, or walking stick, stated, she has not driven in years. Did briefly mention this DC Golf Ball Trimmer's role, should she need prison when medically stable, and most likely will have P.T. orders then. P: Will follow patient for needs. Once extubated, and more medically cleared, will likely have P.T. orders, and can see if she will need skilled versus home health. Fide Nichole RN/Outpatient Surgery Rn Discharge Planning/Care Management CM Discharge Assessment Start: 01/07/23 10:24 Freq: Status: Active Protocol: Document 01/07/23 10:24 (Rec: 01/07/23 10:28 [id number]) Discharge Planning Assessment Assigned Bed And Breakfast Cook Fide Nichole RN/Outpatient Surgery Rn Advance Directives? No History Provided By Family Member,Medical Record Prior Living Arrangements Apartment/Condo Household Members significant other Type of transporation used prior to Relies on Others admit Comment Spouse indicated she has not driven in years. Independent with ADL's Yes Is patient alert and oriented? Yes Needs Assistance With Meal Prep,Home Chores / Shopping Caregiver for Another No DME Already Rented / Owned Cane Comment Discussed prison briefly with spouse. Barriers to Discharge No Comment Plan will be home versus prison. Discharge Plan [facility] Facility Transportation Arrangement Spouse or facility, should patient need skilled. Referrals Initiated Other Additional Comment Patient is currently intubated , will have to see once she is extubated, how she does. If patient plan is SNF: Has PASSR been No: It is early to tell is she completed? will need prison Whiteboard Updated in Patient Room with No name and ext. # of Bed And Breakfast Cook Comment Have not yet been in room, multiple staff members, will attempt to add name on board when able. Review Status In Process Next Review Type Continued Stay Review
--- NOTE | 2023-01-07 10:54 | DIET.CONS2 ---
Dietary Inpatient Consultation Note Admission Date: 01/06/2023 12:08 82y F admitted with respiratory distress directly from [facility]. RD consulted for TF reccs. Pt had emesis with placement of BIPAP, became unresponsive and intubated in ED. Pt diuresed yesterday >2L, MAP ~50 holding further diuresis with initiation of pressor support. OG in place, currently on LIS with dark green black bilious output per Nsg. Once MAP>60 recc initiation of continuous enteral nutrition via OG to support nutrition status. Propofol: 35mcg/kg/min (330 calories) Formula: Pivot 1.5 Starting Rate: 20mL/h Goal Rate: 35ml/h Increase feeding rate by 5mL q4h as tolerated to goal rate Free Water Flushes: 200mL q4h (1200mL/d) Goal feed plus fluids and propofol provides: 1590 kcals (24kcal/kg), 79g PRO (1.2g/kg), 145g CHO, 638mL feed water, 1838mL total fluids (22mL/kg actual body weight). Hospitalist/safety and health manager to manage any need for additional fluids secondary to pt being -2L after diuresis yesterday. Diet: 01/06/23 12:31 NPO Diet Diet Modifications: NPO Type: Strict Electronically Signed by: Gertrudis Lee 01/07/23 10:54 Clinical Dietitian [address] [address]
[2023-01-07 12:52] LABS: Add Manual Diff / Slide Review NO; Basophils Absolute Auto 0 /uL (0-100); Basophils Percent Auto 0.5 % (0-2); Eosinophils Absolute Auto 0 /uL (0-450); Eosinophils Percent Auto 0.4 % (2-4); Hematocrit 38.4 % (36-46); Hemoglobin 13.1 g/dL (12.0-16.0); Lymphocytes Absolute Auto 800 /uL (1100-4500); Mean Corpuscular Hemoglobin 32.6 PG (26-34); Mean Corpuscular Volume 95.8 fL (80-100); Monocytes Absolute Auto 800 /uL (0-900); Neutrophils Absolute Auto 8600 /uL (1500-7000); Neutrophils Percent Auto 83.1 % (50-75); Platelet Count 82 X10^3/uL (150-400); Red Blood Cell Count 4.01 X10^6/uL (4.0-5.2); Red Cell Distribution Width 15.3 % (11.6-14.8); White Blood Cell Count 10.3 X10^3/uL (4.5-11.0)
[2023-01-07 13:23] LABS: Magnesium 1.8 mg/dL (1.6-2.3)
[2023-01-07 13:48] LABS: Alanine Aminotransferase 40 IU/L (<35); Albumin 2.9 g/dL (3.5-5.0); Alkaline Phosphatase 67 U/L (38-126); Aspartate Aminotransferase 35 IU/L (14-36); Bilirubin Total 1.5 mg/dL (0.2-1.3); Blood Urea Nitrogen 24 mg/dL (7-17); Calcium 8.5 mg/dL (8.4-10.2); Carbon Dioxide 35 mmol/L (22-32); Chloride 91 mmol/L (98-107); Estimated Glomerular Filt Rate 27 mL/min (>60); Globulin 2.8 g/dL (1.7-4.1); Glucose 90 mg/dL (80-110); HEMOLYSIS < 15 (0-50); Potassium 4.1 mmol/L (3.4-5.1); Sodium 129 mmol/L (137-145); Total Protein 5.7 g/dL (6.3-8.2)
[2023-01-07 13:57] LABS: NT-proBNP (BNP-Adult 18+) 1800 pg/mL (<450)
[2023-01-07] MEDS: cefTRIAXone 2,000 MG in SODIUM CHLORIDE 0.9% 100 ML 200 MG IV (14:06)
--- NOTE | 2023-01-07 14:31 | PC.NURSE ---
Addendum entered by Kelsey Hollingsworth R.N. 01/07/23 18:55: ET tube measured to be at 23 at teeth, measured earlier in the day with RT. Addendum entered by Kelsey Hollingsworth R.N. 01/07/23 18:29: Spoke with pharmacy regarding question/discrepancy between pt current weight and weight for sedation infusion meds per MAR order. Pharmacy said discrepancy not important due to titrating per RASS/pain level, additionally very small difference in med delivered, and to use the weight in the MAR for the pumps. IV pumps reflect pharmacy guidance. Pt resting comfortably, VSS. Original Note: At 0800, pt BP was hypotensive (MAP <65). RN assessed pt and reassessed BP. BP remained hypotensive. RN weaned propofol and fentanyl to help increase the BP and during this process notified hospitalist and tele-ICU provider (BP 76/42 reported). Hospitalist ordered levophed and levophed was started. Albumin was ordered and given for BP and levophed weaned. During weaning of propofol and fentanyl, along with med pass and multiple staff in room (RT, hospitalist, nursing staff) pt began to wake up and RN assessed neuro status/sedation vacation. At this time pt moving/eyes open, RN gave commands, but pt unable to follow commands. With BP stable, propofol and fentanyl titrated to RASS -2. RN received permission from to communicate updates with son. During communication with providers, RN relayed that the restraint order needed to be renewed; provider assessed and placed order. Provider also gave order to hold heparin subcut injection and metoprolol. Communicated with team regarding potassium level. Replaced via OG tube. Throughout day RN started levophed several times when MAP <65, stopped when MAP >65.
[2023-01-07 14:46] LABS: INR 2.1 (0.9-1.3); Prothrombin Time 24.1 SECONDS (10.1-12.7)
[2023-01-07] MEDS: propofoL 1,000 MG/100 ML VIAL 10.788 MG IV (15:10)
[2023-01-07 16:17] LABS: Fractionated Inspired Oxygen 45; HCO3 ABG 30 mmol/L (23-27); Oxygen Saturation ABG 93 % (95-100); PCO2 ABG 37.3 mmHg (35-45); PO2 ABG 60 mmHg (80-100); TCO2 ABG 31 mmol/L (23-27); pH ABG 7.52 (7.35-7.45)
[2023-01-07 17:37] LABS: HEMOLYSIS < 15 (0-50); Potassium 3.4 mmol/L (3.4-5.1)
--- NOTE | 2023-01-07 20:30 | PM.ICURNDS ---
- Date Patient Seen: 01/07/23 Time Patient Seen: 20:30 :: This patient was seen via real time interactive two-way audiovisual telecommunication. Note: ABG showed metabolic alkalosis -> d/w RT and decrease RR to 12 and will repeat ABG in the morning. Diuresed and negative 1.3 liters. Restartedn back on levophed 0.025. Will cont titrating down levophed to seek MAP goal > 65. D/w bedside RN.
[2023-01-07] MEDS: HEPARIN 5,000 UNIT/ML VIAL 5000 UNIT SUBCUT (21:18)
[2023-01-08] VITALS (471 sets, daily range): BP systolic 80–175; BP diastolic 42–82; PULSE 58–153; RESP 0–45; TEMP 36.3–36.9; O2SAT 75–100
[2023-01-08] MEDS: DOXYCYCLINE 100 MG in SODIUM CHLORIDE 0.9% 100 ML IV ×2 (01:51→14:26)
[2023-01-08 05:29] LABS: Add Manual Diff / Slide Review NO; Basophils Absolute Auto 0 /uL (0-100); Basophils Percent Auto 0.4 % (0-2); Eosinophils Absolute Auto 100 /uL (0-450); Hematocrit 40.9 % (36-46); Hemoglobin 13.6 g/dL (12.0-16.0); Lymphocytes Absolute Auto 600 /uL (1100-4500); Lymphocytes Percent Auto 6.1 % (25-40); Mean Corpuscular HGB Conc 33.2 % (30-36); Mean Corpuscular Volume 96.3 fL (80-100); Monocytes Absolute Auto 500 /uL (0-900); Monocytes Percent Auto 5.3 % (3-14); Neutrophils Absolute Auto 8500 /uL (1500-7000); Neutrophils Percent Auto 87.2 % (50-75); Platelet Count 87 X10^3/uL (150-400); Red Blood Cell Count 4.25 X10^6/uL (4.0-5.2); Red Cell Distribution Width 15.3 % (11.6-14.8); White Blood Cell Count 9.8 X10^3/uL (4.5-11.0)
[2023-01-08] MEDS: CHLORHEXIDINE GLUCONATE 15 ML CUP PO ×4 (05:32→23:50)
[2023-01-08] MEDS: propofoL 1,000 MG/100 ML VIAL 13.485 MG IV (05:32)
[2023-01-08 05:47] LABS: Alanine Aminotransferase 34 IU/L (<35); Albumin 2.9 g/dL (3.5-5.0); Albumin Globulin Ratio 0.9 (1.0-2.8); Alkaline Phosphatase 76 U/L (38-126); Aspartate Aminotransferase 28 IU/L (14-36); BUN Creatinine Ratio 15.9 (6-22); Bilirubin Total 1.2 mg/dL (0.2-1.3); Blood Urea Nitrogen 25 mg/dL (7-17); Calcium 8.3 mg/dL (8.4-10.2); Carbon Dioxide 29 mmol/L (22-32); Chloride 96 mmol/L (98-107); Estimated Glomerular Filt Rate 33 mL/min (>60); Globulin 3.1 g/dL (1.7-4.1); Glucose 167 mg/dL (80-110); HEMOLYSIS 18 (0-50); Sodium 132 mmol/L (137-145)
[2023-01-08 08:07] LABS: Procalcitonin 0.46 ng/mL (<0.5)
[2023-01-08] MEDS: HEPARIN 5,000 UNIT/ML VIAL 5000 UNIT SUBCUT ×2 (08:10→20:56)
[2023-01-08] MEDS: PANTOPRAZOLE 40 MG VIAL IV (08:10)
[2023-01-08] MEDS: POTASSIUM CHLORIDE 20 MEQ/15 ML UDC 40 MEQ PO (08:10)
[2023-01-08] MEDS: fentaNYL 1,000 MCG in DEXTROSE 5% IN WATER 230 ML 10.35 MCG IV (08:10)
--- NOTE | 2023-01-08 08:28 | P.PN_ITS ---
Subjective Subjective Interval history: Intubated and sedated. Narrative not available. Exam Vital Signs (past 8 hours): - 01/08/23 00:30 01/08/23 00:30 01/08/23 00:45 Temperature Pulse Rate 73 Respiratory Rate 12 Blood Pressure 133/62 107/53 L Pulse Oximetry 97 Oxygen Delivery Method Fraction of Inspired Oxygen 01/08/23 00:45 01/08/23 01:00 01/08/23 01:00 Temperature Pulse Rate 69 71 Respiratory Rate 12 12 Blood Pressure 109/54 L Pulse Oximetry 95 95 Oxygen Delivery Method Fraction of Inspired Oxygen 01/08/23 01:15 01/08/23 01:15 01/08/23 01:30 Temperature Pulse Rate 68 Respiratory Rate 12 Blood Pressure 103/53 L 109/54 L Pulse Oximetry 95 Oxygen Delivery Method Fraction of Inspired Oxygen 01/08/23 01:30 01/08/23 01:45 01/08/23 01:45 Temperature Pulse Rate 67 66 Respiratory Rate 12 12 Blood Pressure 117/56 L Pulse Oximetry 95 96 Oxygen Delivery Method Fraction of Inspired Oxygen 01/08/23 02:00 01/08/23 02:00 01/08/23 03:00 Temperature Pulse Rate 89 Respiratory Rate 12 Blood Pressure 121/55 L Pulse Oximetry 98 Oxygen Delivery Method Mechanical Ventilation Fraction of Inspired Oxygen 01/08/23 03:00 01/08/23 02:15 01/08/23 02:15 Temperature 98.4 F Pulse Rate 69 75 Respiratory Rate 12 12 Blood Pressure 115/59 L 92/51 L Pulse Oximetry 98 98 Oxygen Delivery Method Fraction of Inspired Oxygen 01/08/23 02:30 01/08/23 02:30 01/08/23 02:34 Temperature Pulse Rate 75 74 Respiratory Rate 12 13 Blood Pressure 80/42 L Pulse Oximetry 98 99 Oxygen Delivery Method Fraction of Inspired Oxygen 01/08/23 02:34 01/08/23 02:45 01/08/23 02:45 Temperature Pulse Rate 73 Respiratory Rate 12 Blood Pressure 91/53 L 100/52 L Pulse Oximetry 99 Oxygen Delivery Method Fraction of Inspired Oxygen 01/08/23 03:00 01/08/23 03:00 01/08/23 03:15 Temperature Pulse Rate 69 Respiratory Rate 12 Blood Pressure 115/59 L 115/58 L Pulse Oximetry 98 Oxygen Delivery Method Fraction of Inspired Oxygen 01/08/23 03:15 01/08/23 03:30 01/08/23 03:30 Temperature Pulse Rate 67 66 Respiratory Rate 12 12 Blood Pressure 121/58 L Pulse Oximetry 96 95 Oxygen Delivery Method Fraction of Inspired Oxygen 01/08/23 03:45 01/08/23 03:45 01/08/23 04:00 Temperature Pulse Rate 68 Respiratory Rate 12 Blood Pressure 128/58 L 132/62 Pulse Oximetry 95 Oxygen Delivery Method Fraction of Inspired Oxygen 01/08/23 04:00 01/08/23 04:15 01/08/23 04:15 Temperature Pulse Rate 64 67 Respiratory Rate 12 12 Blood Pressure 141/65 H Pulse Oximetry 95 95 Oxygen Delivery Method Fraction of Inspired Oxygen 01/08/23 04:30 01/08/23 04:31 01/08/23 04:31 Temperature Pulse Rate 75 78 Respiratory Rate 12 13 Blood Pressure 164/74 H Pulse Oximetry 96 96 Oxygen Delivery Method Fraction of Inspired Oxygen 01/08/23 04:45 01/08/23 04:45 01/08/23 05:00 Temperature Pulse Rate 78 Respiratory Rate 12 Blood Pressure 142/59 H 139/60 Pulse Oximetry 95 Oxygen Delivery Method Fraction of Inspired Oxygen 01/08/23 05:00 01/08/23 05:15 01/08/23 05:16 Temperature Pulse Rate 79 78 78 Respiratory Rate 12 12 12 Blood Pressure Pulse Oximetry 96 95 95 Oxygen Delivery Method Fraction of Inspired Oxygen 01/08/23 05:16 01/08/23 05:30 01/08/23 05:30 Temperature Pulse Rate 79 Respiratory Rate 12 Blood Pressure 84/50 L 92/58 L Pulse Oximetry 96 Oxygen Delivery Method Fraction of Inspired Oxygen 01/08/23 05:45 01/08/23 05:45 01/08/23 06:00 Temperature Pulse Rate 67 Respiratory Rate 12 Blood Pressure 92/55 L 100/52 L Pulse Oximetry 96 Oxygen Delivery Method Fraction of Inspired Oxygen 01/08/23 06:00 01/08/23 06:15 01/08/23 06:15 Temperature Pulse Rate 65 60 Respiratory Rate 12 12 Blood Pressure 103/53 L Pulse Oximetry 95 95 Oxygen Delivery Method Fraction of Inspired Oxygen 01/08/23 06:30 01/08/23 06:30 01/08/23 06:45 Temperature Pulse Rate 61 Respiratory Rate 12 Blood Pressure 113/56 L 113/60 Pulse Oximetry 95 Oxygen Delivery Method Fraction of Inspired Oxygen 01/08/23 06:45 01/08/23 06:46 01/08/23 06:47 Temperature Pulse Rate 60 59 L 62 Respiratory Rate 12 12 12 Blood Pressure Pulse Oximetry 95 95 95 Oxygen Delivery Method Fraction of Inspired Oxygen 01/08/23 06:48 01/08/23 06:49 01/08/23 06:50 Temperature Pulse Rate 58 L 59 L 61 Respiratory Rate 12 12 12 Blood Pressure Pulse Oximetry 95 95 95 Oxygen Delivery Method Fraction of Inspired Oxygen 01/08/23 06:51 01/08/23 06:52 01/08/23 06:53 Temperature Pulse Rate 61 62 63 Respiratory Rate 12 12 12 Blood Pressure Pulse Oximetry 95 95 95 Oxygen Delivery Method Fraction of Inspired Oxygen 01/08/23 06:54 01/08/23 06:55 01/08/23 06:56 Temperature Pulse Rate 60 62 63 Respiratory Rate 12 12 12 Blood Pressure Pulse Oximetry 95 95 95 Oxygen Delivery Method Fraction of Inspired Oxygen 01/08/23 06:57 01/08/23 06:58 01/08/23 06:59 Temperature Pulse Rate 65 61 61 Respiratory Rate 12 12 12 Blood Pressure Pulse Oximetry 95 95 95 Oxygen Delivery Method Fraction of Inspired Oxygen 01/08/23 07:00 01/08/23 07:00 01/08/23 07:01 Temperature Pulse Rate 64 62 Respiratory Rate 12 12 Blood Pressure 120/59 L Pulse Oximetry 95 95 Oxygen Delivery Method Fraction of Inspired Oxygen 01/08/23 07:02 01/08/23 07:03 01/08/23 07:04 Temperature Pulse Rate 61 62 65 Respiratory Rate 12 12 12 Blood Pressure Pulse Oximetry 95 95 95 Oxygen Delivery Method Fraction of Inspired Oxygen 01/08/23 07:05 01/08/23 07:06 01/08/23 07:07 Temperature Pulse Rate 63 64 63 Respiratory Rate 12 12 12 Blood Pressure Pulse Oximetry 95 96 95 Oxygen Delivery Method Fraction of Inspired Oxygen 01/08/23 07:08 01/08/23 07:09 01/08/23 07:10 Temperature Pulse Rate 64 65 63 Respiratory Rate 12 12 12 Blood Pressure Pulse Oximetry 95 96 96 Oxygen Delivery Method Fraction of Inspired Oxygen 01/08/23 07:11 01/08/23 07:12 01/08/23 07:13 Temperature Pulse Rate 65 65 64 Respiratory Rate 12 12 12 Blood Pressure Pulse Oximetry 96 96 96 Oxygen Delivery Method Fraction of Inspired Oxygen 01/08/23 07:14 01/08/23 07:15 01/08/23 07:15 Temperature Pulse Rate 63 63 Respiratory Rate 12 12 Blood Pressure 128/60 Pulse Oximetry 96 96 Oxygen Delivery Method Fraction of Inspired Oxygen 01/08/23 07:16 01/08/23 07:17 01/08/23 07:18 Temperature Pulse Rate 64 65 64 Respiratory Rate 12 12 12 Blood Pressure Pulse Oximetry 96 96 96 Oxygen Delivery Method Fraction of Inspired Oxygen 01/08/23 07:19 01/08/23 07:20 01/08/23 07:21 Temperature Pulse Rate 64 63 61 Respiratory Rate 12 12 12 Blood Pressure Pulse Oximetry 96 96 96 Oxygen Delivery Method Fraction of Inspired Oxygen 01/08/23 07:22 01/08/23 07:23 01/08/23 07:24 Temperature Pulse Rate 63 64 64 Respiratory Rate 12 12 12 Blood Pressure Pulse Oximetry 96 96 96 Oxygen Delivery Method Fraction of Inspired Oxygen 01/08/23 07:25 01/08/23 07:26 01/08/23 07:27 Temperature Pulse Rate 64 64 63 Respiratory Rate 12 12 12 Blood Pressure Pulse Oximetry 96 96 96 Oxygen Delivery Method Fraction of Inspired Oxygen 01/08/23 07:28 01/08/23 07:29 01/08/23 07:30 Temperature Pulse Rate 64 63 Respiratory Rate 12 12 Blood Pressure 129/61 Pulse Oximetry 96 96 Oxygen Delivery Method Fraction of Inspired Oxygen 01/08/23 07:30 01/08/23 07:31 01/08/23 07:32 Temperature Pulse Rate 66 64 64 Respiratory Rate 12 12 12 Blood Pressure Pulse Oximetry 96 96 95 Oxygen Delivery Method Fraction of Inspired Oxygen 01/08/23 07:33 01/08/23 07:34 01/08/23 07:35 Temperature Pulse Rate 63 63 67 Respiratory Rate 12 12 12 Blood Pressure Pulse Oximetry 96 96 96 Oxygen Delivery Method Fraction of Inspired Oxygen 01/08/23 07:36 01/08/23 07:37 01/08/23 07:38 Temperature Pulse Rate 67 65 64 Respiratory Rate 12 12 12 Blood Pressure Pulse Oximetry 96 96 96 Oxygen Delivery Method Fraction of Inspired Oxygen 01/08/23 07:39 01/08/23 07:40 01/08/23 07:41 Temperature Pulse Rate 62 64 62 Respiratory Rate 12 12 12 Blood Pressure Pulse Oximetry 96 96 96 Oxygen Delivery Method Fraction of Inspired Oxygen Fraction of Inspired Oxygen 28 SaO2/FiO2 Ratio 184 Oxygen Delivery Method Mechanical Ventilation Oxygen Flow Rate 15 Narrative Exam Narrative: Intubated and on vent. Sedated and relaxed. OGT in place Atraumatic head, symmetric pupils. Neck supple and midline trachea. Lungs CTA, anterior. Heart RRR, without murmur, gallop, or rub. Abdomen Soft, NT, ND No leg edema. No skin rash. Objective Labs 01/08/23 05:20 01/08/23 05:20 Labs: Laboratory Results - last 24 hr 01/07/23 01/07/23 01/07/23 09:13 12:12 12:12 WBC 10.3 RBC 4.01 Hgb 13.1 Hct 38.4 MCV 95.8 MCH 32.6 MCHC 34.0 RDW 15.3 H Plt Count 82 L Neut % (Auto) 83.1 H Lymph % (Auto) 8.0 L [place] % (Auto) 8.0 Eos % (Auto) 0.4 L Baso % (Auto) 0.5 Neut # (Auto) 8600 H Lymph # (Auto) 800 L [place] # (Auto) 800 Eos # (Auto) 0 Baso # (Auto) 0 PT INR ABG pH 7.56 H ABG pCO2 35.1 ABG pO2 67 L ABG HCO3 32 H ABG Total CO2 33 H ABG O2 Saturation 96 ABG Base Excess 10.0 H FiO2 45 Sodium 129 L Potassium 4.1 Chloride 91 L Carbon Dioxide 35 H BUN 24 H Creatinine 1.84 H Estimated GFR 27 L BUN/Creatinine Ratio 13.0 Glucose 90 Calcium 8.5 Magnesium Total Bilirubin 1.5 H AST 35 ALT 40 H Alkaline Phosphatase 67 NT-Pro-B Natriuret Pep Total Protein 5.7 L Albumin 2.9 L Globulin 2.8 Albumin/Globulin Ratio 1.0 01/07/23 01/07/23 01/07/23 12:12 12:12 12:22 WBC RBC Hgb Hct MCV MCH MCHC RDW Plt Count Neut % (Auto) Lymph % (Auto) [place] % (Auto) Eos % (Auto) Baso % (Auto) Neut # (Auto) Lymph # (Auto) [place] # (Auto) Eos # (Auto) Baso # (Auto) PT 24.1 H INR 2.1 H ABG pH ABG pCO2 ABG pO2 ABG HCO3 ABG Total CO2 ABG O2 Saturation ABG Base Excess FiO2 Sodium Potassium Chloride Carbon Dioxide BUN Creatinine Estimated GFR BUN/Creatinine Ratio Glucose Calcium Magnesium 1.8 Total Bilirubin AST ALT Alkaline Phosphatase NT-Pro-B Natriuret Pep 1800 H Total Protein Albumin Globulin Albumin/Globulin Ratio 01/07/23 01/07/23 01/08/23 16:02 17:25 05:20 WBC 9.8 RBC 4.25 Hgb 13.6 Hct 40.9 MCV 96.3 MCH 32.0 MCHC 33.2 RDW 15.3 H Plt Count 87 L Neut % (Auto) 87.2 H Lymph % (Auto) 6.1 L [place] % (Auto) 5.3 Eos % (Auto) 1.0 L Baso % (Auto) 0.4 Neut # (Auto) 8500 H Lymph # (Auto) 600 L [place] # (Auto) 500 Eos # (Auto) 100 Baso # (Auto) 0 PT INR ABG pH 7.52 H ABG pCO2 37.3 ABG pO2 60 L ABG HCO3 30 H ABG Total CO2 31 H ABG O2 Saturation 93 L ABG Base Excess 7.0 H FiO2 45 Sodium Potassium 3.4 Chloride Carbon Dioxide BUN Creatinine Estimated GFR BUN/Creatinine Ratio Glucose Calcium Magnesium Total Bilirubin AST ALT Alkaline Phosphatase NT-Pro-B Natriuret Pep Total Protein Albumin Globulin Albumin/Globulin Ratio 01/08/23 05:20 WBC RBC Hgb Hct MCV MCH MCHC RDW Plt Count Neut % (Auto) Lymph % (Auto) [place] % (Auto) Eos % (Auto) Baso % (Auto) Neut # (Auto) Lymph # (Auto) [place] # (Auto) Eos # (Auto) Baso # (Auto) PT INR ABG pH ABG pCO2 ABG pO2 ABG HCO3 ABG Total CO2 ABG O2 Saturation ABG Base Excess FiO2 Sodium 132 L Potassium 3.0 L Chloride 96 L Carbon Dioxide 29 BUN 25 H Creatinine 1.57 H Estimated GFR 33 L BUN/Creatinine Ratio 15.9 Glucose 167 H Calcium 8.3 L Magnesium Total Bilirubin 1.2 AST 28 ALT 34 Alkaline Phosphatase 76 NT-Pro-B Natriuret Pep Total Protein 6.0 L Albumin 2.9 L Globulin 3.1 Albumin/Globulin Ratio 0.9 L [facility] Medical History Acquired clavicle deformity Asthma Cataracts, bilateral (1994) Chronic atrial fibrillation Essential hypertension Gout Hyperlipidemia Hyperthyroidism (1971) Osteoporosis Surgical History Toxic goiter (1971) Family History Father No problems noted. Mother No problems noted. Social History household members: significant other Smoking Status: Never smoker alcohol intake: never substance use type: does not use Assessment & Plan Assessment & Plan narrative: 1. Acute hypoxic and hypercarbic respiratory failure, POA and Active. -Vent support with propofol and fentanyl infusions. Oral care, head of bed up. DVT and GI prophylaxis. -sedation wean, assess mental status, and SBT. Discuss [facility] doc regarding readiness for extubation. She was too agitated and hypotensive on 01/07. She is down to FiO2 30 and PEEP 5 today. Hopeful to extube. 2. Acute pulmonary edema, POA and active. -diuresis with IV lasix 40 QAM, will continue. Had to hold 01/07 due to hypotension requiring norepinephrine (liekly sedation related). 3. Possible CAP (pneumonia), POA and active. -start antibiotics wtih Ceftriaxone and doxycycline. Continue antibiotics (5 day course). 4. Hyponatremia, POA and improving. -monitor BMP with diuresis. 5. Thromocytopenia, POA and active (stable). -Monitor. PLT 77 yest and 88 today. 6. P. Atrial fibrillation (coumadin), NPOA and stable. -hold warfarin and follow. May need IV rate control. Daily INR. 7. Metabolic encephalopathy, POA and active. -monitor mental status . 8. KANDACE, new and active. -monitor renal function. Additional plans: - eICU doctor -sedation drop and SBT. Full code. is proxy decision maker. Time Spent With Patient Time with patient: 30 to 49 minutes with 50% spent counseling/coordinating care Quality VTE Deep Vein Thrombosis/Pulmonary Embolism Present on Admission: No
[2023-01-08] MEDS: ALBUTEROL/IPRATROPIUM 3 ML AMPUL INH ×2 (08:30→20:51)
[2023-01-08 08:52] LABS: Fractionated Inspired Oxygen 28; HCO3 ABG 27 mmol/L (23-27); Oxygen Saturation ABG 94 % (95-100); PCO2 ABG 32.8 mmHg (35-45); PO2 ABG 62 mmHg (80-100); TCO2 ABG 28 mmol/L (23-27); pH ABG 7.52 (7.35-7.45)
--- NOTE | 2023-01-08 08:57 | PC.NURSE ---
Addendum entered by Ned Rolon R.N. 01/08/23 14:32: Patient rouses easily, still unable to follow commands. Agitation persists, straining to pull at medical equipment and ET tube. Addendum entered by Ned Rolon R.N. 01/08/23 10:27: Tube feedings restarted per Dr. Garces. Addendum entered by Ned Rolon R.N. 01/08/23 09:28: Patient failed SAT. Unable to follow any commands, extreme agitation. Dr Khalil and Dez made aware. Original Note: Tube feedings held per Dr. Garces.
--- NOTE | 2023-01-08 09:11 | PM.PN.EICU ---
Subjective Subjective IF CAMERA ACTIVATED, patient seen via real-time interactive audiovisual communication: Camera activated Consent obtained for tele-quality control technician care: Yes Patient Location: ICU Provider location (State): [place] Other participants/roles: Bedside RN, patient's family, ICU charge nurse. Interval history: Patient was examined using?two-way?interactive audiovisual equipment. Briefly, an 86 years old female with HTN, A.fib, Asthma, and hyperlipidemia who presented from urgent care with complaint of shortness of breath for 5 days, found to have acute hypercapnic respite failure with pH 7.11, PCO2 140, was placed on BiPAP without much improvement in ultimately required intubated.? Chest x-ray showed findings concerning for pulm edema and superimposed pneumonia.? She was started on diuresis and empiric antibiotics. Overnight, no acute issues reported.? Patient remains on ventilator, currently requiring minimal vent settings with VC plus, rate of 12, tidal volume 390, FiO2 28% and PEEP of 5.? She is on propofol gtt. and fentanyl gtt. for sedation and pain control.? She is also requiring low-dose norepinephrine gtt. to maintain MAP >65.? Remained afebrile.? Off Lasix but maintaing descent urine output (400cc sover last 2 hours).? Morning labs with serum potassium 3.0, replaced with 40 mg of IV KCl. Current Medications Current Medications Medications: Home Medications albuterol sulfate 90 mcg/actuation aerosol inhaler (Ventolin HFA) 1 puff inhalation Q4-6H PRN shortness of breath or wheezing #18 grams 02/13/22 [Rx Confirmed 01/06/23] furosemide 40 mg tablet 40 mg PO DAILY PRN edema/weight gain #10 tabs 02/13/22 [Rx Confirmed 01/06/23] carvedilol 25 mg tablet 25 mg PO BID #180 tabs 06/05/22 [Rx Confirmed 01/06/23] losartan 100 mg tablet 100 mg PO DAILY #90 tabs 06/05/22 [Rx Confirmed 01/06/23] pravastatin 40 mg tablet 40 mg PO DAILY #90 tabs 06/05/22 [Rx Confirmed 01/06/23] apixaban 5 mg tablet (Eliquis) See Rx Instructions .Route .COMPLEX #180 tabs 08/06/22 [Rx Confirmed 01/06/23] amlodipine 5 mg tablet (Norvasc) 5 mg PO DAILY #90 tabs 10/25/22 [Rx Confirmed 01/06/23] diazepam 5 mg tablet 10 mg PO BEDTIME PRN sleep #30 tabs 10/25/22 [Rx Confirmed 01/06/23] potassium chloride 10 mEq tablet,extended release See Rx Instructions .Route .COMPLEX #90 tabs 11/11/22 [Rx Confirmed 01/06/23] calcium carbonate 500 mg calcium (1,250 mg) tablet (Oyster Shell Calcium) 500 mg PO BID #180 tabs 11/13/22 [Rx Confirmed 01/06/23] Visit Medications (administered) Generic Name Dose Route Start Last Admin Trade Name Freq PRN Reason Stop Dose Admin Albuterol/Ipratropium 3 ml 01/06/23 20:00 01/08/23 08:30 Albuterol/Ipratropium 3 Ml Ampul INH 3 ml RTBID ANTONY Administration Chlorhexidine Gluconate 15 ml 01/06/23 18:00 01/08/23 05:32 Chlorhexidine Gluconate 15 Ml Cup PO 15 ml Q6HR ANTONY Administration Heparin Sodium (Porcine) 5,000 unit 01/06/23 21:00 01/08/23 08:10 Heparin 5,000 Unit/Ml Vial SUBCUT 5,000 unit BID ANTONY Administration Propofol 1,000 mg in 100 mls @ 2.697 mls/hr 01/06/23 12:45 01/08/23 08:45 Propofol IV 10 mcg/kg/min TITRATE ANTONY 5.394 mls/hr Titration Protocol 5 MCG/KG/MIN Ceftriaxone Sodium 2,000 mg/ 100 mls @ 200 mls/hr 01/06/23 14:30 01/07/23 14:48 Sodium Chloride IV 01/10/23 14:59 Infused Q24H ANTONY Infusion Doxycycline Hyclate 100 mg/ 100 mls @ 100 mls/hr 01/06/23 14:30 01/08/23 01:51 Sodium Chloride IV 01/11/23 03:29 100 mls/hr Q12H ANTONY Administration NOREPINEPHRINE BITARTRATE/D5W 4 mg in 250 mls @ 31.238 mls/hr 01/07/23 08:24 01/07/23 21:47 Levophed IV 0.04 mcg/kg/min TITRATE ANTONY 12.495 mls/hr Titration Protocol 0.1 MCG/KG/MIN Fentanyl 1,000 mcg/ Dextrose 250 mls @ 14.49 mls/hr 01/08/23 08:00 01/08/23 08:45 IV 0.2 mcg/kg/hr TITRATE ANTONY 4.14 mls/hr Titration Protocol 0.7 MCG/KG/HR Pantoprazole Sodium 40 mg 01/07/23 09:00 01/08/23 08:10 Pantoprazole 40 Mg Vial IV 40 mg DAILY ANTONY Administration Objective Ventilator Parameters: Ventilator Settings FiO2 28 RT Vent Frequency 12 Ventilator Tidal Volume 390 Exhaled Vt/kg IBW 6 Positive End Expiratory 5 Pressure Ventilator Pressure Support 55 Inspiratory Phase Time 1.4 I:E Ratio 1:2.6 Patient Position HOB >= 30 degrees Labs 01/08/23 05:20 01/08/23 05:20 Labs: Laboratory Results - last 24 hr 01/07/23 01/07/23 01/07/23 09:13 12:12 12:12 WBC 10.3 RBC 4.01 Hgb 13.1 Hct 38.4 MCV 95.8 MCH 32.6 MCHC 34.0 RDW 15.3 H Plt Count 82 L Neut % (Auto) 83.1 H Lymph % (Auto) 8.0 L [place] % (Auto) 8.0 Eos % (Auto) 0.4 L Baso % (Auto) 0.5 Neut # (Auto) 8600 H Lymph # (Auto) 800 L [place] # (Auto) 800 Eos # (Auto) 0 Baso # (Auto) 0 PT INR ABG pH 7.56 H ABG pCO2 35.1 ABG pO2 67 L ABG HCO3 32 H ABG Total CO2 33 H ABG O2 Saturation 96 ABG Base Excess 10.0 H FiO2 45 Sodium 129 L Potassium 4.1 Chloride 91 L Carbon Dioxide 35 H BUN 24 H Creatinine 1.84 H Estimated GFR 27 L BUN/Creatinine Ratio 13.0 Glucose 90 Calcium 8.5 Magnesium Total Bilirubin 1.5 H AST 35 ALT 40 H Alkaline Phosphatase 67 NT-Pro-B Natriuret Pep Total Protein 5.7 L Albumin 2.9 L Globulin 2.8 Albumin/Globulin Ratio 1.0 Procalcitonin 01/07/23 01/07/23 01/07/23 12:12 12:12 12:22 WBC RBC Hgb Hct MCV MCH MCHC RDW Plt Count Neut % (Auto) Lymph % (Auto) [place] % (Auto) Eos % (Auto) Baso % (Auto) Neut # (Auto) Lymph # (Auto) [place] # (Auto) Eos # (Auto) Baso # (Auto) PT 24.1 H INR 2.1 H ABG pH ABG pCO2 ABG pO2 ABG HCO3 ABG Total CO2 ABG O2 Saturation ABG Base Excess FiO2 Sodium Potassium Chloride Carbon Dioxide BUN Creatinine Estimated GFR BUN/Creatinine Ratio Glucose Calcium Magnesium 1.8 Total Bilirubin AST ALT Alkaline Phosphatase NT-Pro-B Natriuret Pep 1800 H Total Protein Albumin Globulin Albumin/Globulin Ratio Procalcitonin 01/07/23 01/07/23 01/08/23 16:02 17:25 05:20 WBC 9.8 RBC 4.25 Hgb 13.6 Hct 40.9 MCV 96.3 MCH 32.0 MCHC 33.2 RDW 15.3 H Plt Count 87 L Neut % (Auto) 87.2 H Lymph % (Auto) 6.1 L [place] % (Auto) 5.3 Eos % (Auto) 1.0 L Baso % (Auto) 0.4 Neut # (Auto) 8500 H Lymph # (Auto) 600 L [place] # (Auto) 500 Eos # (Auto) 100 Baso # (Auto) 0 PT INR ABG pH 7.52 H ABG pCO2 37.3 ABG pO2 60 L ABG HCO3 30 H ABG Total CO2 31 H ABG O2 Saturation 93 L ABG Base Excess 7.0 H FiO2 45 Sodium Potassium 3.4 Chloride Carbon Dioxide BUN Creatinine Estimated GFR BUN/Creatinine Ratio Glucose Calcium Magnesium Total Bilirubin AST ALT Alkaline Phosphatase NT-Pro-B Natriuret Pep Total Protein Albumin Globulin Albumin/Globulin Ratio Procalcitonin 01/08/23 01/08/23 01/08/23 05:20 05:20 08:24 WBC RBC Hgb Hct MCV MCH MCHC RDW Plt Count Neut % (Auto) Lymph % (Auto) [place] % (Auto) Eos % (Auto) Baso % (Auto) Neut # (Auto) Lymph # (Auto) [place] # (Auto) Eos # (Auto) Baso # (Auto) PT INR ABG pH 7.52 H ABG pCO2 32.8 L ABG pO2 62 L ABG HCO3 27 ABG Total CO2 28 H ABG O2 Saturation 94 L ABG Base Excess 4.0 H FiO2 28 Sodium 132 L Potassium 3.0 L Chloride 96 L Carbon Dioxide 29 BUN 25 H Creatinine 1.57 H Estimated GFR 33 L BUN/Creatinine Ratio 15.9 Glucose 167 H Calcium 8.3 L Magnesium Total Bilirubin 1.2 AST 28 ALT 34 Alkaline Phosphatase 76 NT-Pro-B Natriuret Pep Total Protein 6.0 L Albumin 2.9 L Globulin 3.1 Albumin/Globulin Ratio 0.9 L Procalcitonin 0.46 Exam Vital Signs (past 8 hours): - 01/08/23 01:15 01/08/23 01:15 01/08/23 01:30 Temperature Pulse Rate 68 Respiratory Rate 12 Blood Pressure 103/53 L 109/54 L Pulse Oximetry 95 Oxygen Delivery Method Fraction of Inspired Oxygen 01/08/23 01:30 01/08/23 01:45 01/08/23 01:45 Temperature Pulse Rate 67 66 Respiratory Rate 12 12 Blood Pressure 117/56 L Pulse Oximetry 95 96 Oxygen Delivery Method Fraction of Inspired Oxygen 01/08/23 02:00 01/08/23 02:00 01/08/23 03:00 Temperature Pulse Rate 89 Respiratory Rate 12 Blood Pressure 121/55 L Pulse Oximetry 98 Oxygen Delivery Method Mechanical Ventilation Fraction of Inspired Oxygen 01/08/23 03:00 01/08/23 02:15 01/08/23 02:15 Temperature 98.4 F Pulse Rate 69 75 Respiratory Rate 12 12 Blood Pressure 115/59 L 92/51 L Pulse Oximetry 98 98 Oxygen Delivery Method Fraction of Inspired Oxygen 01/08/23 02:30 01/08/23 02:30 01/08/23 02:34 Temperature Pulse Rate 75 74 Respiratory Rate 12 13 Blood Pressure 80/42 L Pulse Oximetry 98 99 Oxygen Delivery Method Fraction of Inspired Oxygen 01/08/23 02:34 01/08/23 02:45 01/08/23 02:45 Temperature Pulse Rate 73 Respiratory Rate 12 Blood Pressure 91/53 L 100/52 L Pulse Oximetry 99 Oxygen Delivery Method Fraction of Inspired Oxygen 01/08/23 03:00 01/08/23 03:00 01/08/23 03:15 Temperature Pulse Rate 69 Respiratory Rate 12 Blood Pressure 115/59 L 115/58 L Pulse Oximetry 98 Oxygen Delivery Method Fraction of Inspired Oxygen 01/08/23 03:15 01/08/23 03:30 01/08/23 03:30 Temperature Pulse Rate 67 66 Respiratory Rate 12 12 Blood Pressure 121/58 L Pulse Oximetry 96 95 Oxygen Delivery Method Fraction of Inspired Oxygen 01/08/23 03:45 01/08/23 03:45 01/08/23 04:00 Temperature Pulse Rate 68 Respiratory Rate 12 Blood Pressure 128/58 L 132/62 Pulse Oximetry 95 Oxygen Delivery Method Fraction of Inspired Oxygen 01/08/23 04:00 01/08/23 04:15 01/08/23 04:15 Temperature Pulse Rate 64 67 Respiratory Rate 12 12 Blood Pressure 141/65 H Pulse Oximetry 95 95 Oxygen Delivery Method Fraction of Inspired Oxygen 01/08/23 04:30 01/08/23 04:31 01/08/23 04:31 Temperature Pulse Rate 75 78 Respiratory Rate 12 13 Blood Pressure 164/74 H Pulse Oximetry 96 96 Oxygen Delivery Method Fraction of Inspired Oxygen 01/08/23 04:45 01/08/23 04:45 01/08/23 05:00 Temperature Pulse Rate 78 Respiratory Rate 12 Blood Pressure 142/59 H 139/60 Pulse Oximetry 95 Oxygen Delivery Method Fraction of Inspired Oxygen 01/08/23 05:00 01/08/23 05:15 01/08/23 05:16 Temperature Pulse Rate 79 78 78 Respiratory Rate 12 12 12 Blood Pressure Pulse Oximetry 96 95 95 Oxygen Delivery Method Fraction of Inspired Oxygen 01/08/23 05:16 01/08/23 05:30 01/08/23 05:30 Temperature Pulse Rate 79 Respiratory Rate 12 Blood Pressure 84/50 L 92/58 L Pulse Oximetry 96 Oxygen Delivery Method Fraction of Inspired Oxygen 01/08/23 05:45 01/08/23 05:45 01/08/23 06:00 Temperature Pulse Rate 67 Respiratory Rate 12 Blood Pressure 92/55 L 100/52 L Pulse Oximetry 96 Oxygen Delivery Method Fraction of Inspired Oxygen 01/08/23 06:00 01/08/23 06:15 01/08/23 06:15 Temperature Pulse Rate 65 60 Respiratory Rate 12 12 Blood Pressure 103/53 L Pulse Oximetry 95 95 Oxygen Delivery Method Fraction of Inspired Oxygen 01/08/23 06:30 01/08/23 06:30 01/08/23 06:45 Temperature Pulse Rate 61 Respiratory Rate 12 Blood Pressure 113/56 L 113/60 Pulse Oximetry 95 Oxygen Delivery Method Fraction of Inspired Oxygen 01/08/23 06:45 01/08/23 06:46 01/08/23 06:47 Temperature Pulse Rate 60 59 L 62 Respiratory Rate 12 12 12 Blood Pressure Pulse Oximetry 95 95 95 Oxygen Delivery Method Fraction of Inspired Oxygen 01/08/23 06:48 01/08/23 06:49 01/08/23 06:50 Temperature Pulse Rate 58 L 59 L 61 Respiratory Rate 12 12 12 Blood Pressure Pulse Oximetry 95 95 95 Oxygen Delivery Method Fraction of Inspired Oxygen 01/08/23 06:51 01/08/23 06:52 01/08/23 06:53 Temperature Pulse Rate 61 62 63 Respiratory Rate 12 12 12 Blood Pressure Pulse Oximetry 95 95 95 Oxygen Delivery Method Fraction of Inspired Oxygen 01/08/23 06:54 01/08/23 06:55 01/08/23 06:56 Temperature Pulse Rate 60 62 63 Respiratory Rate 12 12 12 Blood Pressure Pulse Oximetry 95 95 95 Oxygen Delivery Method Fraction of Inspired Oxygen 01/08/23 06:57 01/08/23 06:58 01/08/23 06:59 Temperature Pulse Rate 65 61 61 Respiratory Rate 12 12 12 Blood Pressure Pulse Oximetry 95 95 95 Oxygen Delivery Method Fraction of Inspired Oxygen 01/08/23 07:00 01/08/23 07:00 01/08/23 07:01 Temperature Pulse Rate 64 62 Respiratory Rate 12 12 Blood Pressure 120/59 L Pulse Oximetry 95 95 Oxygen Delivery Method Fraction of Inspired Oxygen 01/08/23 07:02 01/08/23 07:03 01/08/23 07:04 Temperature Pulse Rate 61 62 65 Respiratory Rate 12 12 12 Blood Pressure Pulse Oximetry 95 95 95 Oxygen Delivery Method Fraction of Inspired Oxygen 01/08/23 07:05 01/08/23 07:06 01/08/23 07:07 Temperature Pulse Rate 63 64 63 Respiratory Rate 12 12 12 Blood Pressure Pulse Oximetry 95 96 95 Oxygen Delivery Method Fraction of Inspired Oxygen 01/08/23 07:08 01/08/23 07:09 01/08/23 07:10 Temperature Pulse Rate 64 65 63 Respiratory Rate 12 12 12 Blood Pressure Pulse Oximetry 95 96 96 Oxygen Delivery Method Fraction of Inspired Oxygen 01/08/23 07:11 01/08/23 07:12 01/08/23 07:13 Temperature Pulse Rate 65 65 64 Respiratory Rate 12 12 12 Blood Pressure Pulse Oximetry 96 96 96 Oxygen Delivery Method Fraction of Inspired Oxygen 01/08/23 07:14 01/08/23 07:15 01/08/23 07:15 Temperature Pulse Rate 63 63 Respiratory Rate 12 12 Blood Pressure 128/60 Pulse Oximetry 96 96 Oxygen Delivery Method Fraction of Inspired Oxygen 01/08/23 07:16 01/08/23 07:17 01/08/23 07:18 Temperature Pulse Rate 64 65 64 Respiratory Rate 12 12 12 Blood Pressure Pulse Oximetry 96 96 96 Oxygen Delivery Method Fraction of Inspired Oxygen 01/08/23 07:19 01/08/23 07:20 01/08/23 07:21 Temperature Pulse Rate 64 63 61 Respiratory Rate 12 12 12 Blood Pressure Pulse Oximetry 96 96 96 Oxygen Delivery Method Fraction of Inspired Oxygen 01/08/23 07:22 01/08/23 07:23 01/08/23 07:24 Temperature Pulse Rate 63 64 64 Respiratory Rate 12 12 12 Blood Pressure Pulse Oximetry 96 96 96 Oxygen Delivery Method Fraction of Inspired Oxygen 01/08/23 07:25 01/08/23 07:26 01/08/23 07:27 Temperature Pulse Rate 64 64 63 Respiratory Rate 12 12 12 Blood Pressure Pulse Oximetry 96 96 96 Oxygen Delivery Method Fraction of Inspired Oxygen 01/08/23 07:28 01/08/23 07:29 01/08/23 07:30 Temperature Pulse Rate 64 63 Respiratory Rate 12 12 Blood Pressure 129/61 Pulse Oximetry 96 96 Oxygen Delivery Method Fraction of Inspired Oxygen 01/08/23 07:30 01/08/23 07:31 01/08/23 07:32 Temperature Pulse Rate 66 64 64 Respiratory Rate 12 12 12 Blood Pressure Pulse Oximetry 96 96 95 Oxygen Delivery Method Fraction of Inspired Oxygen 01/08/23 07:33 01/08/23 07:34 01/08/23 07:35 Temperature Pulse Rate 63 63 67 Respiratory Rate 12 12 12 Blood Pressure Pulse Oximetry 96 96 96 Oxygen Delivery Method Fraction of Inspired Oxygen 01/08/23 07:36 01/08/23 07:37 01/08/23 07:38 Temperature Pulse Rate 67 65 64 Respiratory Rate 12 12 12 Blood Pressure Pulse Oximetry 96 96 96 Oxygen Delivery Method Fraction of Inspired Oxygen 01/08/23 07:39 01/08/23 07:40 01/08/23 07:41 Temperature Pulse Rate 62 64 62 Respiratory Rate 12 12 12 Blood Pressure Pulse Oximetry 96 96 96 Oxygen Delivery Method Fraction of Inspired Oxygen 01/08/23 07:56 01/08/23 07:57 01/08/23 07:58 Temperature Pulse Rate 63 64 64 Respiratory Rate 12 12 12 Blood Pressure Pulse Oximetry 95 96 96 Oxygen Delivery Method Fraction of Inspired Oxygen 01/08/23 07:59 01/08/23 08:00 01/08/23 08:00 Temperature Pulse Rate 63 64 Respiratory Rate 12 12 Blood Pressure 121/57 L Pulse Oximetry 96 96 Oxygen Delivery Method Fraction of Inspired Oxygen 01/08/23 08:01 01/08/23 08:02 01/08/23 08:03 Temperature Pulse Rate 64 63 64 Respiratory Rate 12 12 12 Blood Pressure Pulse Oximetry 95 95 95 Oxygen Delivery Method Fraction of Inspired Oxygen 01/08/23 08:04 01/08/23 08:05 01/08/23 08:06 Temperature Pulse Rate 63 65 64 Respiratory Rate 12 12 12 Blood Pressure Pulse Oximetry 95 95 95 Oxygen Delivery Method Fraction of Inspired Oxygen 01/08/23 08:07 01/08/23 08:08 01/08/23 08:09 Temperature Pulse Rate 65 62 66 Respiratory Rate 12 12 12 Blood Pressure Pulse Oximetry 95 95 95 Oxygen Delivery Method Fraction of Inspired Oxygen 01/08/23 08:10 01/08/23 08:11 01/08/23 08:12 Temperature Pulse Rate 62 65 63 Respiratory Rate 12 12 12 Blood Pressure Pulse Oximetry 95 95 95 Oxygen Delivery Method Fraction of Inspired Oxygen 01/08/23 08:13 01/08/23 08:14 01/08/23 08:15 Temperature Pulse Rate 62 61 Respiratory Rate 12 12 Blood Pressure 119/56 L Pulse Oximetry 95 95 Oxygen Delivery Method Fraction of Inspired Oxygen 01/08/23 08:15 01/08/23 08:16 01/08/23 08:17 Temperature Pulse Rate 63 65 66 Respiratory Rate 12 12 12 Blood Pressure Pulse Oximetry 95 95 96 Oxygen Delivery Method Fraction of Inspired Oxygen 01/08/23 08:18 01/08/23 08:19 01/08/23 08:20 Temperature Pulse Rate 66 66 68 Respiratory Rate 12 12 12 Blood Pressure Pulse Oximetry 96 95 95 Oxygen Delivery Method Fraction of Inspired Oxygen 01/08/23 08:21 01/08/23 08:22 01/08/23 08:23 Temperature Pulse Rate 67 68 66 Respiratory Rate 12 12 12 Blood Pressure Pulse Oximetry 95 94 94 Oxygen Delivery Method Fraction of Inspired Oxygen 01/08/23 08:24 01/08/23 08:25 01/08/23 08:26 Temperature Pulse Rate 66 63 63 Respiratory Rate 12 12 12 Blood Pressure Pulse Oximetry 94 94 94 Oxygen Delivery Method Fraction of Inspired Oxygen 01/08/23 08:27 01/08/23 08:28 01/08/23 08:29 Temperature Pulse Rate 67 65 66 Respiratory Rate 12 12 12 Blood Pressure Pulse Oximetry 93 94 93 Oxygen Delivery Method Fraction of Inspired Oxygen 01/08/23 08:30 01/08/23 08:30 01/08/23 08:31 Temperature Pulse Rate 65 64 Respiratory Rate 12 12 Blood Pressure 101/54 L Pulse Oximetry 93 94 Oxygen Delivery Method Fraction of Inspired Oxygen 01/08/23 08:32 01/08/23 08:33 01/08/23 08:34 Temperature Pulse Rate 67 67 65 Respiratory Rate 12 12 12 Blood Pressure Pulse Oximetry 94 94 94 Oxygen Delivery Method Fraction of Inspired Oxygen 01/08/23 08:35 01/08/23 08:36 01/08/23 08:37 Temperature Pulse Rate 66 65 66 Respiratory Rate 12 12 12 Blood Pressure Pulse Oximetry 94 94 94 Oxygen Delivery Method Fraction of Inspired Oxygen 01/08/23 08:38 01/08/23 08:39 01/08/23 08:40 Temperature Pulse Rate 65 65 65 Respiratory Rate 12 12 12 Blood Pressure Pulse Oximetry 95 95 95 Oxygen Delivery Method Fraction of Inspired Oxygen 01/08/23 08:41 01/08/23 08:42 01/08/23 07:00 Temperature Pulse Rate 66 65 Respiratory Rate 12 12 Blood Pressure Pulse Oximetry 95 95 Oxygen Delivery Method Mechanical Ventilation Fraction of Inspired Oxygen Fraction of Inspired Oxygen 28 SaO2/FiO2 Ratio 184 Oxygen Delivery Method Mechanical Ventilation Oxygen Flow Rate 15 Narrative Exam Narrative: Remains intubated, sedated. Comfortable on the vent. Doesn't follow commands. Neuro Other: Moving all 4 extremities. Quality TeleICU VTE Deep Vein Thrombosis/Pulmonary Embolism Present on Admission: No Stress Ulcer Stress ulcer prophylaxis: yes and on full treatment dose Assessment & Plan Assessment & Plan narrative: IMPRESSIONS: # Acute hypercapnic respiratory failure, multifactorial.? Likely from pulm edema with possibly a component of superimposed pneumonia # Acute metabolic encephalopathy # Shock, likely sedation induced # Acute Kidney Injury # Hypokalemia # Hyponatremia, improving # Chronic atrial fibrillation # History of hypertension # History of asthma PLAN: NEUROLOGY/PSYCHIATRY: # Acute encephalopathy, metabolic versus medication (sedation) induced. - On sedation with propofol gtt. and fentanyl gtt. Opens eyes, but does not follow commands. - Discontinue propofol gtt. and switch her to Precedex gtt. to prepare for extubation.? D/c fentanyl IV drip and switch to fentanyl IV pushes for pain control as needed.? RASS goal 0 to -1. - Failed SAT this morning. Minimize sedation as much as possible to reevaluate neuro exam/mental status more frequently. ? PULMONARY: # Acute hypercapnic respiratory failure, requiring mechanical ventilation. - Most of etiology, pulmonary edema with possible superimposed bacterial pneumonia. ? - Remains intubated this morning.? Vent settings reviewed.? On VC+, RR 12, TV 390, FiO2 28% PEEP of 5.? Will obtain stat ABG and adjust vent settings as needed. - C/w vent support per lung protective strategy (Keep TV 6 cc/kg, plat pres < 30, PaO2 60-80 mm Hg, FiO2 goal <60%, SaO2 88-92%) and c/w ABCDE bundle while intubated. - Diuretics on hold due to worsening KANDACE. Restart lasix when appropriate.? Goal to keep net negative fluid balance of -500 cc to -1 L/day.? Use Diamox as needed to counteract Lasix induced metabolic alkalosis. - Failed SAT today. Reevaluate tomorrow am. C/w daily sedation vacation, and spontaneous breathing trial with plan to extubate if meets criteria. - Continue [place] antibiotics ceftriaxone and doxycycline for CAP coverage. - Elevate head of bed to 30?, aspiration precautions, oral care with chlorhexidine - Once extubated, start incentive spirometry, PT/OT, swallow eval, out of bed to chair. ? CARDIOVASCULAR: # Hypotension with shock. - Likely sedation induced but cannot rule out sepsis at this point. - Continue vasopressors (norepinephrine gtt.) to maintain MAP >65. - Order albumin boluses to replace volume as needed. Minimize crystalloids due to concern for worsening pulm edema/fluid overload. - Monitor markers of tissue perfusion (lactate clearance, base deficit, urine out). - Hold antihypertensives. # History of chronic atrial fibrillation: - Heart rate controlled.? On Eliquis at home but currently on hold due to KANDACE.? Continue subcu heparin (hold if platelet count <80). - Plan to resume Eliquis in the next 24 hours if H&H remained stable (bleeding from oropharynx) - Order TTE if no recent echo in the last 3 months. ? GASTROENTEROLOGY: - Tolerating tube feeding.? We will hold tube feeds for possible extubation today. - Protonix for GI prophylaxis. ? RENAL/ELECTROLYTES/ACID-BASE DISORDERS: # Acute kidney injury, likely ATN. - Creatinine slowly steadily uptrending to 1.57 this AM.? Diuretics currently on hold. - F/up BMP to assess for renal functions.? Consider further work-up including renal ultrasound and nephrology consultation if no improvement in renal functions. - Replace lytes as necessary. Strict I & Os. Monitor urine output. - Avoid nephrotoxic agents and renally dose medications. # Hypokalemia, replaced with KCl 40 mEq this morning. # Hyponatremia, improving with serum sodium 132 this AM. ? INFECTIOUTS DISEASE: # Shock, possibly from underlying sepsis secondary superimposed pneumonia. - Follow-up on final blood cultures X 2, sputum cultures, and procalcitonin.? So far cultures negative to date. - Monitor markers of tissue perfusion (lactate clearance, base deficit, mental status, urine out). - Continue empiric antibiotics (ceftriaxone and doxycycline) for CAP coverage pending cultures. - Titrate pressors (Norepinephrine) to keep MAP > 65. Add vasopressin if necessary. - Afebrile, has no leukocytosis.? Monitor WBC and fever curves. ? HEMATOLOGIC/ONCOLOGIC DISORDERS: - Monitor H&H with daily CBC, and transfuse if hemoglobin less than 7.0 ? ENDOCRINE: - No known history of diabetes. - Avoid hypoglycemia, and start SSI if BG > 140. ? # FEN: NPO for now. Replace electrolytes aggressively.? Minimize IV fluids due to pulmonary edema. # Glucose: Fairly controlled. C/w SSI, accucheck q 6 hours. BG goal 140-180 # Prophylaxis: Heparin subcu and SCDs for DVT prophylaxis, Protonix for stress ulcer prophylaxis # Lines/tubes: PIV, Bruce, CVC # CODE STATUS: Full code # Disposition: Remains in ICU. # Prognosis: Guarded ? Above plan was discussed with rounding team including hospitalist, bedside RN, respiratory therapist, dietitian and pharmacist during tele-ICU multidisciplinary rounds this morning.? We will continue to follow.? Please call us if any additional questions.
--- NOTE | 2023-01-08 09:43 | DI.RAD.S_ITS ---
PROCEDURE: XR CHEST 1V INDICATIONS: Intubated patient TECHNIQUE: One view of the chest was acquired. COMPARISON: [facility], CR, XR CHEST 1V, 01/07/2023, 5:58. [facility], CR, XR CHEST 1V, 01/06/2023, 14:16. FINDINGS: Surgical changes and devices: Endotracheal tube tip projects over the midthoracic trachea. Gastric tube passes below diaphragm. Right IJ central venous catheter tip projects over the mid SVC. Lungs and pleura: Moderate pleural effusions with bibasilar atelectasis. Decreasing bilateral mid lung airspace opacities. Mediastinum: Mediastinal contours appear normal. Heart size is normal. Bones and chest wall: No suspicious bony lesions. Overlying soft tissues appear unremarkable. IMPRESSION: Appropriately positioned support devices. Stable moderate pleural effusions with bibasilar atelectasis/consolidation. Decreasing bilateral mid lung zone opacities. Dictated by: Twin Nolan M.D. on 01/08/2023 at 10:08 Approved by: Twin Nolan M.D. on 01/08/2023 at 10:09
[2023-01-08] MEDS: NOREPINEPHRINE BITARTRATE/D5W 4 MG/250 ML PLAST..BAG 12.495 MG IV (10:10)
[2023-01-08] MEDS: dexmedeTOMIDine in 0.9 % NaCL 400 MCG/100 ML PLAST..BAG 10.35 MCG IV (10:11)
--- NOTE | 2023-01-08 11:02 | CM.DPC ---
DCP Cont: Per MD and RN, pt failed breathing trial this morning and not yet stable to attempt extubation today and will restart tube feeding and remain intubated and will attempt breathing trial again tomorrow. Plan: SW to follow for PT/OT eval needed when pt more medically appropriate to determine likely SNF vs HH with spouse and any further identified discharge planning needs. WHITNEY Mary
[2023-01-08] MEDS: fentaNYL 100 MCG/2 ML INJ 25 MCG IV ×2 (13:21→18:47)
[2023-01-08] MEDS: cefTRIAXone 2,000 MG in SODIUM CHLORIDE 0.9% 100 ML 200 MG IV (13:45)
[2023-01-08] MEDS: dexmedeTOMIDine in 0.9 % NaCL 400 MCG/100 ML PLAST..BAG 31.05 MCG IV ×3 (14:08→20:03)
--- NOTE | 2023-01-08 18:54 | PM.ICURNDS ---
- Date Patient Seen: 01/08/23 Time Patient Seen: 18:54 :: This patient was seen via real time interactive two-way audiovisual telecommunication. Note: RN at bedside, along with RT. Patient has been weaning off sedative gtts today in anticipation of extubation in am. She is more awake, but not purposeful enough for extubation currently and is intermittently very agitated. Will continue precedex gtt. Will increase fentanyl PRN frequency, 0.5 mg ativan PRN added as 3rd line option. melatonin ordered for tonight. Will hold all sedation in am for SAT, SBT, anticipate extubation in am
[2023-01-08] MEDS: LORazepam 2 MG/ML INJ 0.5 MG IV (19:20)
[2023-01-08] MEDS: MELATONIN 3 MG TABLET 6 MG PO (20:56)
[2023-01-08] MEDS: dexmedeTOMIDine in 0.9 % NaCL 400 MCG/100 ML PLAST..BAG 20.7 MCG IV (23:51)
[2023-01-09] VITALS (50 sets, daily range): BP systolic 113–149; BP diastolic 58–93; PULSE 56–112; RESP 0–64; TEMP 36.3–36.4; O2SAT 90–98
[2023-01-09] MEDS: LORazepam 2 MG/ML INJ 0.5 MG IV (01:18)
[2023-01-09] MEDS: DOXYCYCLINE 100 MG in SODIUM CHLORIDE 0.9% 100 ML IV ×2 (02:21→15:15)
[2023-01-09] MEDS: dexmedeTOMIDine in 0.9 % NaCL 400 MCG/100 ML PLAST..BAG 20.7 MCG IV (04:29)
[2023-01-09 04:49] LABS: Add Manual Diff / Slide Review NO; Basophils Absolute Auto 0 /uL (0-100); Basophils Percent Auto 0.4 % (0-2); Eosinophils Absolute Auto 200 /uL (0-450); Eosinophils Percent Auto 2.3 % (2-4); Hematocrit 42.9 % (36-46); Hemoglobin 14.4 g/dL (12.0-16.0); Lymphocytes Absolute Auto 700 /uL (1100-4500); Lymphocytes Percent Auto 9.1 % (25-40); Mean Corpuscular HGB Conc 33.5 % (30-36); Mean Corpuscular Hemoglobin 32.2 PG (26-34); Monocytes Absolute Auto 600 /uL (0-900); Monocytes Percent Auto 7.1 % (3-14); Neutrophils Absolute Auto 6500 /uL (1500-7000); Neutrophils Percent Auto 81.1 % (50-75); Platelet Count 90 X10^3/uL (150-400); Red Blood Cell Count 4.46 X10^6/uL (4.0-5.2); Red Cell Distribution Width 15.5 % (11.6-14.8)
[2023-01-09 04:58] LABS: Magnesium 1.6 mg/dL (1.6-2.3)
[2023-01-09 04:59] LABS: Alanine Aminotransferase 29 IU/L (<35); Alkaline Phosphatase 82 U/L (38-126); Aspartate Aminotransferase 25 IU/L (14-36); Bilirubin Total 1.1 mg/dL (0.2-1.3); Calcium 8.3 mg/dL (8.4-10.2); Carbon Dioxide 27 mmol/L (22-32); Chloride 102 mmol/L (98-107); Glucose 125 mg/dL (80-110); Potassium 3.1 mmol/L (3.4-5.1); Sodium 136 mmol/L (137-145)
[2023-01-09 05:01] LABS: Albumin Globulin Ratio 0.9 (1.0-2.8); Blood Urea Nitrogen 17 mg/dL (7-17); Estimated Glomerular Filt Rate 53 mL/min (>60); Globulin 3.4 g/dL (1.7-4.1); HEMOLYSIS 16 (0-50); Total Protein 6.4 g/dL (6.3-8.2)
--- NOTE | 2023-01-09 05:04 | PC.NURSE ---
0500- Patient wakes and is very agitated. Patient able to understand and will nod yes/no. Patient has had 2 doses of Ativan .5mg over this shift. Precedex titrated back up to 1.5 to try and not medicate with Ativan. Will monitor.
[2023-01-09] MEDS: CHLORHEXIDINE GLUCONATE 15 ML CUP PO ×3 (06:07→17:59)
[2023-01-09] MEDS: dexmedeTOMIDine in 0.9 % NaCL 400 MCG/100 ML PLAST..BAG 31.05 MCG IV ×2 (07:34→11:25)
[2023-01-09] MEDS: ALBUTEROL/IPRATROPIUM 3 ML AMPUL INH ×2 (07:42→19:50)
--- NOTE | 2023-01-09 09:50 | PC.NURSE ---
Addendum entered by Ned Rolon R.N. 01/09/23 12:17: Multiple bouts of agitation requiring several staff members in room to prevent patient from harming self and/or damaging medical devices. Patient does not follow commands during these episodes. Propofol drip restarted per Dr. Thomas. Original Note: 0830 - SAT passed. Patient initially agitated and not following commands, slowly relaxed and was generally cooperative as sedation was titrated down. Failed breathing trial per RT, Dr. Perrin in room on portable equipment during breathing trial, decision made to keep patient intubated. remains at bedside.
[2023-01-09] MEDS: POTASSIUM CHLORIDE 20 MEQ/15 ML UDC 40 MEQ PO ×2 (10:15→11:22)
[2023-01-09] MEDS: HEPARIN 5,000 UNIT/ML VIAL 5000 UNIT SUBCUT (10:15)
[2023-01-09] MEDS: PANTOPRAZOLE 40 MG VIAL IV (10:15)
[2023-01-09] MEDS: MAGNESIUM SULFATE 2 GM/50 ML PIGGYBACK IV (10:15)
[2023-01-09] MEDS: fentaNYL 100 MCG/2 ML INJ 25 MCG IV (10:47)
--- NOTE | 2023-01-09 11:01 | P.PN_ITS ---
Subjective Subjective Interval history: Very agitated despite max precedex on the vent. Propofol added. Failed attempt to wean sedation today. Exam Vital Signs (past 8 hours): - 01/09/23 03:30 01/09/23 03:30 01/09/23 04:00 Temperature Pulse Rate 67 74 Respiratory Rate 12 23 Blood Pressure 147/75 H Pulse Oximetry 95 94 Oxygen Delivery Method 01/09/23 04:01 01/09/23 04:01 01/09/23 04:15 Temperature 97.5 F L Pulse Rate 73 Respiratory Rate 21 Blood Pressure 140/79 Pulse Oximetry 95 Oxygen Delivery Method Mechanical Ventilation 01/09/23 04:31 01/09/23 04:31 01/09/23 05:00 Temperature Pulse Rate 71 Respiratory Rate 16 Blood Pressure 130/72 148/93 H Pulse Oximetry 95 Oxygen Delivery Method 01/09/23 05:00 01/09/23 05:30 01/09/23 05:30 Temperature Pulse Rate 94 H 69 Respiratory Rate 24 21 Blood Pressure 137/74 Pulse Oximetry 95 94 Oxygen Delivery Method 01/09/23 06:00 01/09/23 06:01 01/09/23 06:01 Temperature Pulse Rate 84 82 Respiratory Rate 26 H 23 Blood Pressure 144/74 H Pulse Oximetry 94 96 Oxygen Delivery Method 01/09/23 07:32 01/09/23 06:31 01/09/23 06:31 Temperature Pulse Rate 73 Respiratory Rate 23 Blood Pressure 138/71 Pulse Oximetry 94 Oxygen Delivery Method Mechanical Ventilation 01/09/23 07:00 01/09/23 07:03 01/09/23 07:03 Temperature Pulse Rate 109 H 72 Respiratory Rate 64 H 21 Blood Pressure 145/70 H Pulse Oximetry 95 94 Oxygen Delivery Method 01/09/23 07:31 01/09/23 07:31 01/09/23 08:00 Temperature Pulse Rate 64 Respiratory Rate 18 Blood Pressure 132/64 127/74 Pulse Oximetry 95 Oxygen Delivery Method 01/09/23 08:00 01/09/23 09:16 01/09/23 09:00 Temperature Pulse Rate 63 Respiratory Rate 15 Blood Pressure 145/70 H Pulse Oximetry 95 93 Oxygen Delivery Method 01/09/23 09:00 01/09/23 09:30 01/09/23 09:30 Temperature Pulse Rate 81 72 Respiratory Rate 15 24 Blood Pressure 123/62 Pulse Oximetry 95 94 Oxygen Delivery Method 01/09/23 10:00 01/09/23 10:00 Temperature Pulse Rate 70 Respiratory Rate 15 Blood Pressure 132/76 Pulse Oximetry 97 Oxygen Delivery Method Fraction of Inspired Oxygen 0.28 SaO2/FiO2 Ratio 42019 Oxygen Delivery Method Mechanical Ventilation Oxygen Flow Rate 15 Narrative Exam Narrative: Intubated and on vent. Sedated and relaxed. OGT in place Atraumatic head, symmetric pupils. Neck supple and midline trachea. Lungs CTA, anterior. Heart RRR, without murmur, gallop, or rub. Abdomen Soft, NT, ND No leg edema. No skin rash. Objective Labs 01/09/23 04:25 01/09/23 04:25 Labs: Laboratory Results - last 24 hr 01/09/23 01/09/23 01/09/23 04:25 04:25 04:25 WBC 8.0 RBC 4.46 Hgb 14.4 Hct 42.9 MCV 96.0 MCH 32.2 MCHC 33.5 RDW 15.5 H Plt Count 90 L Neut % (Auto) 81.1 H Lymph % (Auto) 9.1 L [place] % (Auto) 7.1 Eos % (Auto) 2.3 Baso % (Auto) 0.4 Neut # (Auto) 6500 Lymph # (Auto) 700 L [place] # (Auto) 600 Eos # (Auto) 200 Baso # (Auto) 0 Sodium 136 L Potassium 3.1 L Chloride 102 Carbon Dioxide 27 BUN 17 Creatinine 1.06 H Estimated GFR 53 L BUN/Creatinine Ratio 16.0 Glucose 125 H Calcium 8.3 L Magnesium 1.6 Total Bilirubin 1.1 AST 25 ALT 29 Alkaline Phosphatase 82 Total Protein 6.4 Albumin 3.0 L Globulin 3.4 Albumin/Globulin Ratio 0.9 L [facility] Medical History Acquired clavicle deformity Asthma Cataracts, bilateral (1994) Chronic atrial fibrillation Essential hypertension Gout Hyperlipidemia Hyperthyroidism (1971) Osteoporosis Surgical History Toxic goiter (1971) Family History Father No problems noted. Mother No problems noted. Social History household members: significant other Smoking Status: Never smoker alcohol intake: never substance use type: does not use Assessment & Plan Assessment & Plan narrative: 1. Acute hypoxic and hypercarbic respiratory failure, POA and Active. -Vent support with propofol and fentanyl infusions. Oral care, head of bed up. DVT and GI prophylaxis. -sedation wean, assess mental status, and SBT. Discuss [facility] doc regarding readiness for extubation. She was too agitated on 01/07 and 01/08. She is down to FiO2 30 and PEEP 5 . Hopeful to extubate tomorrow. 2. Acute pulmonary edema, POA and active. -diuresis with IV lasix 40 QAM. Had to hold 01/07 due to hypotension requiring norepinephrine (liekly sedation related). -echo with EF 55%, mod MR and TR which are worse from prior -holding lasix until renal function improves and BP stable 3. Possible CAP (pneumonia), POA and active. -started antibiotics wtih Ceftriaxone and doxycycline. Continue antibiotics (5 day course). -changed rocephin to cefepime on 01/09 due to sputum culture with GNB 4. Hyponatremia, POA and improving. -monitor BMP with diuresis. 5. Thromocytopenia, POA and active (stable). -Monitor. PLT 77 yest and 88 today. 6. P. Atrial fibrillation (coumadin), NPOA and stable. -hold warfarin and follow. May need IV rate control. Daily INR. 7. Metabolic encephalopathy, POA and active. -monitor mental status -holding ativan and melatonin 8. KANDACE, new and active. Improving -monitor renal function. Full code. is proxy decision maker. Time Spent With Patient Time with patient: 30 to 49 minutes with 50% spent counseling/coordinating care Quality VTE Deep Vein Thrombosis/Pulmonary Embolism Present on Admission: No
--- NOTE | 2023-01-09 11:11 | PM.PN.EICU ---
Subjective Subjective IF CAMERA ACTIVATED, patient seen via real-time interactive audiovisual communication: Camera activated Consent obtained for tele-vice president commercial bank care: Yes Patient Location: ICU Provider location (State): [place] Other participants/roles: Dr. Thomas bedside nursing team Interval history: no acute evnts overnight sat/sbt this am pt with low lung volumes not ready for extubation Current Medications Current Medications Medications: Home Medications albuterol sulfate 90 mcg/actuation aerosol inhaler (Ventolin HFA) 1 puff inhalation Q4-6H PRN shortness of breath or wheezing #18 grams 02/13/22 [Rx Confirmed 01/06/23] furosemide 40 mg tablet 40 mg PO DAILY PRN edema/weight gain #10 tabs 02/13/22 [Rx Confirmed 01/06/23] carvedilol 25 mg tablet 25 mg PO BID #180 tabs 06/05/22 [Rx Confirmed 01/06/23] losartan 100 mg tablet 100 mg PO DAILY #90 tabs 06/05/22 [Rx Confirmed 01/06/23] pravastatin 40 mg tablet 40 mg PO DAILY #90 tabs 06/05/22 [Rx Confirmed 01/06/23] apixaban 5 mg tablet (Eliquis) See Rx Instructions .Route .COMPLEX #180 tabs 08/06/22 [Rx Confirmed 01/06/23] amlodipine 5 mg tablet (Norvasc) 5 mg PO DAILY #90 tabs 10/25/22 [Rx Confirmed 01/06/23] diazepam 5 mg tablet 10 mg PO BEDTIME PRN sleep #30 tabs 10/25/22 [Rx Confirmed 01/06/23] potassium chloride 10 mEq tablet,extended release See Rx Instructions .Route .COMPLEX #90 tabs 11/11/22 [Rx Confirmed 01/06/23] calcium carbonate 500 mg calcium (1,250 mg) tablet (Oyster Shell Calcium) 500 mg PO BID #180 tabs 11/13/22 [Rx Confirmed 01/06/23] Visit Medications (administered) Generic Name Dose Route Start Last Admin Trade Name Freq PRN Reason Stop Dose Admin Albuterol/Ipratropium 3 ml 01/06/23 20:00 01/09/23 07:42 Albuterol/Ipratropium 3 Ml Ampul INH 3 ml RTBID ANTONY Administration Chlorhexidine Gluconate 15 ml 01/06/23 18:00 01/09/23 06:07 Chlorhexidine Gluconate 15 Ml Cup PO 15 ml Q6HR ANTONY Administration Fentanyl 25 mcg 01/08/23 18:53 01/09/23 10:47 Fentanyl 100 Mcg/2 Ml Inj IV 25 mcg Q30MIN PRN Administration Pain, Severe (7-10) Heparin Sodium (Porcine) 5,000 unit 01/06/23 21:00 01/09/23 10:15 Heparin 5,000 Unit/Ml Vial SUBCUT 5,000 unit BID ANTONY Administration Propofol 1,000 mg in 100 mls @ 2.697 mls/hr 01/06/23 12:45 01/08/23 12:19 Propofol IV 0 mcg/kg/min TITRATE ANTONY 0 mls/hr Titration Protocol 5 MCG/KG/MIN Ceftriaxone Sodium 2,000 mg/ 100 mls @ 200 mls/hr 01/06/23 14:30 01/08/23 16:42 Sodium Chloride IV 01/10/23 14:59 Infused Q24H ANTONY Infusion Doxycycline Hyclate 100 mg/ 100 mls @ 100 mls/hr 01/06/23 14:30 01/09/23 04:14 Sodium Chloride IV 01/11/23 03:29 Infused Q12H ANTONY Infusion NOREPINEPHRINE BITARTRATE/D5W 4 mg in 250 mls @ 31.238 mls/hr 01/07/23 08:24 01/08/23 12:05 Levophed IV 0 mcg/kg/min TITRATE ANTONY 0 mls/hr Titration Protocol 0.1 MCG/KG/MIN Fentanyl 1,000 mcg/ Dextrose 250 mls @ 14.49 mls/hr 01/08/23 08:00 01/08/23 13:36 IV 0 mcg/kg/hr TITRATE ANTONY 0 mls/hr Titration Protocol 0.7 MCG/KG/HR dexmedeTOMIDine in 0.9 % NaCL 400 mcg in 100 mls @ 4.14 mls/hr 01/08/23 09:45 01/09/23 10:14 Precedex IV 1 mcg/kg/hr TITRATE ANTONY 20.7 mls/hr Titration Protocol 0.2 MCG/KG/HR Pantoprazole Sodium 40 mg 01/07/23 09:00 01/09/23 10:15 Pantoprazole 40 Mg Vial IV 40 mg DAILY ANTONY Administration Objective Ventilator Parameters: Ventilator Settings FiO2 28 RT Vent Frequency 15 Ventilator Tidal Volume 340 Exhaled Vt/kg IBW 6 Positive End Expiratory 5 Pressure Ventilator Pressure Support 55 Inspiratory Phase Time 0.9 I:E Ratio 1:3.4 Patient Position HOB >= 30 degrees Labs 01/09/23 04:25 01/09/23 04:25 Labs: Laboratory Results - last 24 hr 01/09/23 01/09/23 01/09/23 04:25 04:25 04:25 WBC 8.0 RBC 4.46 Hgb 14.4 Hct 42.9 MCV 96.0 MCH 32.2 MCHC 33.5 RDW 15.5 H Plt Count 90 L Neut % (Auto) 81.1 H Lymph % (Auto) 9.1 L [place] % (Auto) 7.1 Eos % (Auto) 2.3 Baso % (Auto) 0.4 Neut # (Auto) 6500 Lymph # (Auto) 700 L [place] # (Auto) 600 Eos # (Auto) 200 Baso # (Auto) 0 Sodium 136 L Potassium 3.1 L Chloride 102 Carbon Dioxide 27 BUN 17 Creatinine 1.06 H Estimated GFR 53 L BUN/Creatinine Ratio 16.0 Glucose 125 H Calcium 8.3 L Magnesium 1.6 Total Bilirubin 1.1 AST 25 ALT 29 Alkaline Phosphatase 82 Total Protein 6.4 Albumin 3.0 L Globulin 3.4 Albumin/Globulin Ratio 0.9 L Exam Vital Signs (past 8 hours): - 01/09/23 03:30 01/09/23 03:30 01/09/23 04:00 Temperature Pulse Rate 67 74 Respiratory Rate 12 23 Blood Pressure 147/75 H Pulse Oximetry 95 94 Oxygen Delivery Method 01/09/23 04:01 01/09/23 04:01 01/09/23 04:15 Temperature 97.5 F L Pulse Rate 73 Respiratory Rate 21 Blood Pressure 140/79 Pulse Oximetry 95 Oxygen Delivery Method Mechanical Ventilation 01/09/23 04:31 01/09/23 04:31 01/09/23 05:00 Temperature Pulse Rate 71 Respiratory Rate 16 Blood Pressure 130/72 148/93 H Pulse Oximetry 95 Oxygen Delivery Method 01/09/23 05:00 01/09/23 05:30 01/09/23 05:30 Temperature Pulse Rate 94 H 69 Respiratory Rate 24 21 Blood Pressure 137/74 Pulse Oximetry 95 94 Oxygen Delivery Method 01/09/23 06:00 01/09/23 06:01 01/09/23 06:01 Temperature Pulse Rate 84 82 Respiratory Rate 26 H 23 Blood Pressure 144/74 H Pulse Oximetry 94 96 Oxygen Delivery Method 01/09/23 07:32 01/09/23 06:31 01/09/23 06:31 Temperature Pulse Rate 73 Respiratory Rate 23 Blood Pressure 138/71 Pulse Oximetry 94 Oxygen Delivery Method Mechanical Ventilation 01/09/23 07:00 01/09/23 07:03 01/09/23 07:03 Temperature Pulse Rate 109 H 72 Respiratory Rate 64 H 21 Blood Pressure 145/70 H Pulse Oximetry 95 94 Oxygen Delivery Method 01/09/23 07:31 01/09/23 07:31 01/09/23 08:00 Temperature Pulse Rate 64 Respiratory Rate 18 Blood Pressure 132/64 127/74 Pulse Oximetry 95 Oxygen Delivery Method 01/09/23 08:00 01/09/23 09:16 01/09/23 09:00 Temperature Pulse Rate 63 Respiratory Rate 15 Blood Pressure 145/70 H Pulse Oximetry 95 93 Oxygen Delivery Method 01/09/23 09:00 01/09/23 09:30 01/09/23 09:30 Temperature Pulse Rate 81 72 Respiratory Rate 15 24 Blood Pressure 123/62 Pulse Oximetry 95 94 Oxygen Delivery Method 01/09/23 10:00 01/09/23 10:00 Temperature Pulse Rate 70 Respiratory Rate 15 Blood Pressure 132/76 Pulse Oximetry 97 Oxygen Delivery Method Fraction of Inspired Oxygen 0.28 SaO2/FiO2 Ratio 61496 Oxygen Delivery Method Mechanical Ventilation Oxygen Flow Rate 15 Quality TeleICU VTE Deep Vein Thrombosis/Pulmonary Embolism Present on Admission: No Assessment & Plan Assessment & Plan narrative: patient seen on camera chart/labs/imaging reviewed failing sbt this am due to low tidal volumes had multiple doses of ativan overnight 82 year old female admitted to ICU with severe sepsis w/septic shock acute resp failure AMS acute renal failure electrolytes abnormalities currently afebrile, HD stable intubated minimal vent settings plan -neurochecks/seizure precautions -goal RASS -1 -dc ativan -minimize sedation, use short acting if needed -vent supprt -lung protective therapy -check cxr/abg daily -wean to extubate as tolerated, low volume on sbt today, re-eval tomorrow -continue abx -check final cxs -monitor ins/outs -glucose 140-180s -gi/dvt ppx -please call eICU if condition changes Time Spent With Patient Time with patient: 30 to 49 minutes with 50% spent counseling/coordinating care
[2023-01-09] MEDS: propofoL 1,000 MG/100 ML VIAL 7.5 MG IV (12:15)
[2023-01-09] MEDS: cefTRIAXone 2,000 MG in SODIUM CHLORIDE 0.9% 100 ML 200 MG IV (14:07)
[2023-01-09] MEDS: dexmedeTOMIDine in 0.9 % NaCL 400 MCG/100 ML PLAST..BAG 18.63 MCG IV (15:07)
[2023-01-09] MEDS: CEFEPIME 2 GM in SODIUM CHLORIDE 0.9% 100 ML IV (16:50)
--- NOTE | 2023-01-09 20:22 | PM.ICURNDS ---
- :: This patient was seen via real time interactive two-way audiovisual telecommunication. Note: no acute events during the day minimize sedation sat/sbt in am
--- NOTE | 2023-01-09 22:04 | PC.NURSE ---
2200- Tube Feed residual 360cc. MD notified and order to hold TF x4hr then resume. Reglan 5mg IV Q8hr ordered. Will monitor.
[2023-01-09] MEDS: METOCLOPRAMIDE 10 MG/2 ML INJ 5 MG IV (22:51)
[2023-01-09] MEDS: propofoL 1,000 MG/100 ML VIAL 5.394 MG IV (22:55)
[2023-01-09] MEDS: dexmedeTOMIDine in 0.9 % NaCL 400 MCG/100 ML PLAST..BAG IV (22:56)
[2023-01-10] VITALS (81 sets, daily range): BP systolic 62–167; BP diastolic 41–116; PULSE 55–136; RESP 0–100; TEMP 36.6–37.1; O2SAT 85–100
[2023-01-10] MEDS: CHLORHEXIDINE GLUCONATE 15 ML CUP PO ×4 (00:06→23:21)
[2023-01-10] MEDS: DOXYCYCLINE 100 MG in SODIUM CHLORIDE 0.9% 100 ML IV ×2 (02:08→14:45)
[2023-01-10] MEDS: CEFEPIME 2 GM in SODIUM CHLORIDE 0.9% 100 ML IV ×2 (03:43→17:29)
[2023-01-10] MEDS: SODIUM CHLORIDE 0.9% 250 ML 21 ML IV ×2 (04:18→21:26)
[2023-01-10 04:45] LABS: Add Manual Diff / Slide Review NO; Basophils Absolute Auto 0 /uL (0-100); Basophils Percent Auto 0.7 % (0-2); Eosinophils Absolute Auto 200 /uL (0-450); Eosinophils Percent Auto 2.9 % (2-4); Hematocrit 43.3 % (36-46); Hemoglobin 14.6 g/dL (12.0-16.0); Lymphocytes Absolute Auto 600 /uL (1100-4500); Mean Corpuscular HGB Conc 33.7 % (30-36); Mean Corpuscular Volume 95.2 fL (80-100); Monocytes Absolute Auto 600 /uL (0-900); Monocytes Percent Auto 10.4 % (3-14); Neutrophils Absolute Auto 4600 /uL (1500-7000); Platelet Count 87 X10^3/uL (150-400); Red Blood Cell Count 4.55 X10^6/uL (4.0-5.2)
[2023-01-10 04:54] LABS: Alanine Aminotransferase 25 IU/L (<35); Albumin Globulin Ratio 0.9 (1.0-2.8); Alkaline Phosphatase 79 U/L (38-126); Aspartate Aminotransferase 23 IU/L (14-36); BUN Creatinine Ratio 20.8 (6-22); Bilirubin Total 1.1 mg/dL (0.2-1.3); Blood Urea Nitrogen 16 mg/dL (7-17); Calcium 8.6 mg/dL (8.4-10.2); Carbon Dioxide 22 mmol/L (22-32); Chloride 108 mmol/L (98-107); Estimated Glomerular Filt Rate > 60 mL/min (>60); Globulin 3.4 g/dL (1.7-4.1); Glucose 111 mg/dL (80-110); HEMOLYSIS < 15 (0-50); Magnesium 1.9 mg/dL (1.6-2.3); Potassium 3.4 mmol/L (3.4-5.1); Sodium 137 mmol/L (137-145); Total Protein 6.4 g/dL (6.3-8.2)
[2023-01-10] MEDS: METOCLOPRAMIDE 10 MG/2 ML INJ 5 MG IV ×2 (06:20→21:26)
[2023-01-10 06:29] LABS: PCO2 VBG 37.1 mmHg (45-50); PO2 VBG 37 mmHg (35-45); pH VBG 7.38 (7.33-7.43)
[2023-01-10 06:30] LABS: HCO3 VBG 22 mmol/L (24-28); Oxygen Saturation VBG 70 % (70-75); Total CO2 VBG 23 mmol/L (24-29)
[2023-01-10 06:36] LABS: Fractionated Inspired Oxygen 28
[2023-01-10] MEDS: propofoL 1,000 MG/100 ML VIAL 8.091 MG IV (07:25)
[2023-01-10] MEDS: ALBUTEROL/IPRATROPIUM 3 ML AMPUL INH ×2 (07:31→19:15)
[2023-01-10] MEDS: dexmedeTOMIDine in 0.9 % NaCL 400 MCG/100 ML PLAST..BAG 10.35 MCG IV (08:22)
[2023-01-10] MEDS: HEPARIN 5,000 UNIT/ML VIAL 5000 UNIT SUBCUT (09:00)
[2023-01-10] MEDS: PANTOPRAZOLE 40 MG VIAL IV (09:00)
--- NOTE | 2023-01-10 09:13 | PM.PN.EICU ---
Subjective Subjective IF CAMERA ACTIVATED, patient seen via real-time interactive audiovisual communication: Camera activated Consent obtained for tele-agriculture sales account manager care: Yes Patient Location: ICU Provider location (State): [place] Other participants/roles: bedside nursing team RT Dr. Thomas Interval history: no acute events overnight Current Medications Current Medications Medications: Home Medications albuterol sulfate 90 mcg/actuation aerosol inhaler (Ventolin HFA) 1 puff inhalation Q4-6H PRN shortness of breath or wheezing #18 grams 02/13/22 [Rx Confirmed 01/06/23] furosemide 40 mg tablet 40 mg PO DAILY PRN edema/weight gain #10 tabs 02/13/22 [Rx Confirmed 01/06/23] carvedilol 25 mg tablet 25 mg PO BID #180 tabs 06/05/22 [Rx Confirmed 01/06/23] losartan 100 mg tablet 100 mg PO DAILY #90 tabs 06/05/22 [Rx Confirmed 01/06/23] pravastatin 40 mg tablet 40 mg PO DAILY #90 tabs 06/05/22 [Rx Confirmed 01/06/23] apixaban 5 mg tablet (Eliquis) See Rx Instructions .Route .COMPLEX #180 tabs 08/06/22 [Rx Confirmed 01/06/23] amlodipine 5 mg tablet (Norvasc) 5 mg PO DAILY #90 tabs 10/25/22 [Rx Confirmed 01/06/23] diazepam 5 mg tablet 10 mg PO BEDTIME PRN sleep #30 tabs 10/25/22 [Rx Confirmed 01/06/23] potassium chloride 10 mEq tablet,extended release See Rx Instructions .Route .COMPLEX #90 tabs 11/11/22 [Rx Confirmed 01/06/23] calcium carbonate 500 mg calcium (1,250 mg) tablet (Oyster Shell Calcium) 500 mg PO BID #180 tabs 11/13/22 [Rx Confirmed 01/06/23] Visit Medications (administered) Generic Name Dose Route Start Last Admin Trade Name Freq PRN Reason Stop Dose Admin Albuterol/Ipratropium 3 ml 01/06/23 20:00 01/10/23 07:31 Albuterol/Ipratropium 3 Ml Ampul INH 3 ml RTBID ANTONY Administration Chlorhexidine Gluconate 15 ml 01/06/23 18:00 01/10/23 06:20 Chlorhexidine Gluconate 15 Ml Cup PO 15 ml Q6HR ANTONY Administration Fentanyl 25 mcg 01/08/23 18:53 01/09/23 10:47 Fentanyl 100 Mcg/2 Ml Inj IV 25 mcg Q30MIN PRN Administration Pain, Severe (7-10) Propofol 1,000 mg in 100 mls @ 2.697 mls/hr 01/06/23 12:45 01/10/23 08:56 Propofol IV 0 mcg/kg/min TITRATE ANTONY 0 mls/hr Titration Protocol 5 MCG/KG/MIN Doxycycline Hyclate 100 mg/ 100 mls @ 100 mls/hr 01/06/23 14:30 01/10/23 06:27 Sodium Chloride IV 01/11/23 03:29 Infused Q12H ANTONY Infusion dexmedeTOMIDine in 0.9 % NaCL 400 mcg in 100 mls @ 4.14 mls/hr 01/08/23 09:45 01/10/23 08:22 Precedex IV 0.5 mcg/kg/hr TITRATE ANTONY 10.35 mls/hr Administration Protocol 0.2 MCG/KG/HR Cefepime HCl 2 gm/ Sodium 100 mls @ 200 mls/hr 01/09/23 16:00 01/10/23 06:27 Chloride IV Infused Q12H ANTONY Infusion Sodium Chloride 250 mls @ 21 mls/hr 01/10/23 03:45 01/10/23 04:18 Normal Saline 0.9% IV 21 mls/hr Q24H PRN Administration Flush Metoclopramide HCl 5 mg 01/09/23 22:45 01/10/23 06:20 Metoclopramide 10 Mg/2 Ml Inj IV 5 mg Q8HR ANTONY Administration Pantoprazole Sodium 40 mg 01/07/23 09:00 01/09/23 10:15 Pantoprazole 40 Mg Vial IV 40 mg DAILY ANTONY Administration Objective Ventilator Parameters: Ventilator Settings FiO2 28 RT Vent Frequency 14 Ventilator Tidal Volume 240 Exhaled Vt/kg IBW 4.5 Positive End Expiratory 5 Pressure Ventilator Pressure Support 55 Inspiratory Phase Time 0.9 I:E Ratio 1:2.1 Patient Position HOB >= 30 degrees Labs 01/10/23 04:30 01/10/23 04:30 Labs: Laboratory Results - last 24 hr 01/10/23 01/10/23 01/10/23 04:30 04:30 05:30 WBC 6.0 RBC 4.55 Hgb 14.6 Hct 43.3 MCV 95.2 MCH 32.0 MCHC 33.7 RDW 15.0 H Plt Count 87 L Neut % (Auto) 76.0 H Lymph % (Auto) 10.0 L [place] % (Auto) 10.4 Eos % (Auto) 2.9 Baso % (Auto) 0.7 Neut # (Auto) 4600 Lymph # (Auto) 600 L [place] # (Auto) 600 Eos # (Auto) 200 Baso # (Auto) 0 VBG pH 7.38 VBG pCO2 37.1 L VBG pO2 37 VBG HCO3 22 L VBG Total CO2 23 L VBG O2 Saturation 70 VBG Base Excess -3.0 L FiO2 28 Sodium 137 Potassium 3.4 Chloride 108 H Carbon Dioxide 22 BUN 16 Creatinine 0.77 Estimated GFR > 60 BUN/Creatinine Ratio 20.8 Glucose 111 H Calcium 8.6 Magnesium 1.9 Total Bilirubin 1.1 AST 23 ALT 25 Alkaline Phosphatase 79 Total Protein 6.4 Albumin 3.0 L Globulin 3.4 Albumin/Globulin Ratio 0.9 L Exam Vital Signs (past 8 hours): - 01/10/23 04:00 01/10/23 02:00 01/10/23 02:01 Temperature Pulse Rate 68 Respiratory Rate 15 Blood Pressure 124/66 Pulse Oximetry 97 Oxygen Delivery Method Mechanical Ventilation 01/10/23 02:01 01/10/23 03:00 01/10/23 03:00 Temperature Pulse Rate 67 57 L Respiratory Rate 15 15 Blood Pressure 145/79 H Pulse Oximetry 97 97 Oxygen Delivery Method 01/10/23 04:00 01/10/23 04:00 01/10/23 05:00 Temperature Pulse Rate 57 L 62 Respiratory Rate 12 12 Blood Pressure 154/73 H Pulse Oximetry 96 97 Oxygen Delivery Method 01/10/23 05:01 01/10/23 05:01 01/10/23 06:00 Temperature Pulse Rate 59 L 55 L Respiratory Rate 12 12 Blood Pressure 137/70 Pulse Oximetry 97 97 Oxygen Delivery Method 01/10/23 06:01 01/10/23 06:01 01/10/23 07:00 Temperature Pulse Rate 56 L 58 L Respiratory Rate 12 12 Blood Pressure 132/67 Pulse Oximetry 97 97 Oxygen Delivery Method 01/10/23 07:01 01/10/23 07:01 01/10/23 08:00 Temperature Pulse Rate 55 L 64 Respiratory Rate 12 26 H Blood Pressure 131/61 Pulse Oximetry 98 96 Oxygen Delivery Method 01/10/23 08:01 01/10/23 08:01 01/10/23 08:00 Temperature 97.9 F Pulse Rate 65 Respiratory Rate 27 H Blood Pressure 106/56 L Pulse Oximetry 96 Oxygen Delivery Method Mechanical Ventilation Fraction of Inspired Oxygen 0.28 SaO2/FiO2 Ratio 94002 Oxygen Delivery Method Mechanical Ventilation Oxygen Flow Rate 15 Quality TeleICU VTE Deep Vein Thrombosis/Pulmonary Embolism Present on Admission: No Assessment & Plan Assessment & Plan narrative: patient seen on camera chart/labs/imaging reviewed more awake this am currently on SBT 82 year old female admitted to ICU with severe sepsis w/septic shock acute resp failure AMS acute renal failure electrolytes abnormalities currently afebrile, HD stable intubated minimal vent settings on sbt now wbc 14 cxs gram -ve baciili creat 10.7 plan -neurochecks/seizure precautions -goal RASS -1 -avoid long acting benzos -sat/sbt check abg, can extubate, mental status much improved -vent supprt -lung protective therapy -check cxr/abg daily -continue abx, dc doxy -check final cxs, gram -ve bacilli -acute renal failure resolved -monitor ins/outs -glucose 140-180s -gi/dvt ppx -please call eICU if condition changes -d/w Dr. Thomas Time Spent With Patient Time with patient: 30 to 49 minutes with 50% spent counseling/coordinating care
--- NOTE | 2023-01-10 09:41 | PC.NURSE ---
Addendum entered by Ned Rolon R.N. 01/10/23 18:35: OG tube set to LIS pending updated tube feeding orders. Addendum entered by Ned Rolon R.N. 01/10/23 17:09: 1355 - O2 sat. reading 80%, HR 135-145. Patient not responding, eyes fixed. Non-rebreather @15L placed. RT, Dr Cutler, and Dr Thomas called to bedside. O2 dropped and remained at roughly 75%. Call was made to reintubate patient. 1604 - 20mg Etomidate, 100mg succinylcholine administered per Dr. Beatty 1606 - ET (8mm) tube in place, 24cm at the lip 1612 - OG tube placed 1614 - Chest X-ray taken 165 - BP 71/45. Dr Cutler notified, ordered odalys-synephrine. Pharmacy notified and began mixing. Awaiting medication delivery. Addendum entered by Ned Rolon R.N. 01/10/23 15:37: HR 95-135, A. fib. Dr Cutler made aware, no new orders. Addendum entered by Ned Rolon R.N. 01/10/23 11:14: 1105 - Stood patient at bedside for approximately 30 seconds. 2 person assist with gait belt and front wheel walker. Weak and unsteady. Addendum entered by Ned Rolon R.N. 01/10/23 10:17: 1015 - Patient calm and comfortable. Difficult to understand speech, switching between coherent speech and questions to unintelligible noises. Vitals remain stable. Original Note: 899 - Patient passed awakening trial. Following simple commands. Slowly became more and more agitated and combative. Calmed down enough to perform and pass breathing trial. Agitation then ramped up and sustained, requiring multiple staff members to keep patient in bed and pulling at equipment. Dr Thomas called to bedside, Dr Perrin on monitor, call made to extubate patient. 924 - Patient extubated, tolerated well. Patient calmed down, opening eyes, and following simple commands. Placed on 3L [place], O2 95%. Resting comfortably with at bedside. Will continue to monitor.
[2023-01-10] MEDS: POTASSIUM CHLORIDE IN WATER 10 MEQ/100 ML PIGGYBACK 100 MEQ IV ×2 (10:45→12:14)
--- NOTE | 2023-01-10 10:56 | PM.PN.1 ---
Subjective Subjective Interval history: Patient successfully extubated this morning as she was following commands and did well with breathing trial. Sputum cultures resulted with pseudomonas sensitive to cefepime. Addendum: At approx 1600 patient began getting more altered with poor breathing effort and sats dropped to 85% despite oxymask. Decision was made to reintubate so Dr. Beatty from ED came up and successfully reintubated the patient. RT suctioned copious thick mucosy secretions. Exam Vital Signs (past 8 hours): - 01/10/23 04:00 01/10/23 03:00 01/10/23 03:00 Temperature Pulse Rate 57 L Respiratory Rate 15 Blood Pressure 145/79 H Pulse Oximetry 97 Oxygen Delivery Method Mechanical Ventilation 01/10/23 04:00 01/10/23 04:00 01/10/23 05:00 Temperature Pulse Rate 57 L 62 Respiratory Rate 12 12 Blood Pressure 154/73 H Pulse Oximetry 96 97 Oxygen Delivery Method 01/10/23 05:01 01/10/23 05:01 01/10/23 06:00 Temperature Pulse Rate 59 L 55 L Respiratory Rate 12 12 Blood Pressure 137/70 Pulse Oximetry 97 97 Oxygen Delivery Method 01/10/23 06:01 01/10/23 06:01 01/10/23 07:00 Temperature Pulse Rate 56 L 58 L Respiratory Rate 12 12 Blood Pressure 132/67 Pulse Oximetry 97 97 Oxygen Delivery Method 01/10/23 07:01 01/10/23 07:01 01/10/23 08:00 Temperature Pulse Rate 55 L 64 Respiratory Rate 12 26 H Blood Pressure 131/61 Pulse Oximetry 98 96 Oxygen Delivery Method 01/10/23 08:01 01/10/23 08:01 01/10/23 08:00 Temperature 97.9 F Pulse Rate 65 Respiratory Rate 27 H Blood Pressure 106/56 L Pulse Oximetry 96 Oxygen Delivery Method Mechanical Ventilation 01/10/23 09:06 01/10/23 09:00 01/10/23 10:00 Temperature Pulse Rate 70 105 H Respiratory Rate 22 31 H Blood Pressure Pulse Oximetry 97 97 97 Oxygen Delivery Method 01/10/23 10:14 01/10/23 10:14 Temperature Pulse Rate 114 H Respiratory Rate 48 H Blood Pressure 148/97 H Pulse Oximetry 96 Oxygen Delivery Method Fraction of Inspired Oxygen 0.28 SaO2/FiO2 Ratio 96831 Oxygen Delivery Method Mechanical Ventilation Oxygen Flow Rate 15 Narrative Exam Narrative: Intubated and on vent. Sedated and relaxed. OGT in place Atraumatic head, symmetric pupils. Neck supple and midline trachea. Lungs CTA, anterior. Heart RRR, without murmur, gallop, or rub. Abdomen Soft, NT, ND No leg edema. No skin rash. Objective Labs 01/10/23 04:30 01/10/23 04:30 Labs: Laboratory Results - last 24 hr 01/10/23 01/10/23 01/10/23 04:30 04:30 05:30 WBC 6.0 RBC 4.55 Hgb 14.6 Hct 43.3 MCV 95.2 MCH 32.0 MCHC 33.7 RDW 15.0 H Plt Count 87 L Neut % (Auto) 76.0 H Lymph % (Auto) 10.0 L [place] % (Auto) 10.4 Eos % (Auto) 2.9 Baso % (Auto) 0.7 Neut # (Auto) 4600 Lymph # (Auto) 600 L [place] # (Auto) 600 Eos # (Auto) 200 Baso # (Auto) 0 VBG pH 7.38 VBG pCO2 37.1 L VBG pO2 37 VBG HCO3 22 L VBG Total CO2 23 L VBG O2 Saturation 70 VBG Base Excess -3.0 L FiO2 28 Sodium 137 Potassium 3.4 Chloride 108 H Carbon Dioxide 22 BUN 16 Creatinine 0.77 Estimated GFR > 60 BUN/Creatinine Ratio 20.8 Glucose 111 H Calcium 8.6 Magnesium 1.9 Total Bilirubin 1.1 AST 23 ALT 25 Alkaline Phosphatase 79 Total Protein 6.4 Albumin 3.0 L Globulin 3.4 Albumin/Globulin Ratio 0.9 L [facility] Medical History Acquired clavicle deformity Asthma Cataracts, bilateral (1994) Chronic atrial fibrillation Essential hypertension Gout Hyperlipidemia Hyperthyroidism (1971) Osteoporosis Surgical History Toxic goiter (1971) Family History Father No problems noted. Mother No problems noted. Social History household members: significant other Smoking Status: Never smoker alcohol intake: never substance use type: does not use Assessment & Plan Assessment & Plan narrative: 1. Acute hypoxic and hypercarbic respiratory failure, POA and Active. -Vent support with propofol and fentanyl infusions. Oral care, head of bed up. DVT and GI prophylaxis. -extubated successfully the morning of 01/10, then worsened in the afternoon and needed reintubation -now back on vent as of 01/10 -RT pulm toilet due to copious secretions -will be difficult to get off vent at this point, partner Josué aware of this 2. Acute pulmonary edema, POA and active. -diuresis with IV lasix 40 QAM. Had to hold 01/07 due to hypotension requiring norepinephrine (liekly sedation related). -echo with EF 55%, mod MR and TR which are worse from prior -holding lasix until renal function improves and BP stable 3. Pseudomonal pneumonia, POA and active. -started antibiotics wtih Ceftriaxone and doxycycline. -changed rocephin to cefepime on 01/09 due to sputum culture with GNB -sputum showing pseudomonas susceptible to cefepime 4. Hyponatremia, POA and improving. -monitor BMP with diuresis. 5. Thromocytopenia, POA and active (stable). -Monitor. PLT 77 yest and 88 6. P. Atrial fibrillation (coumadin), NPOA and stable. -hold warfarin and follow. May need IV rate control. Daily INR. 7. Metabolic encephalopathy, POA and active. -monitor mental status -holding ativan and melatonin -head CT ordered, no intracranial pathology 8. KANDACE, new and active. Improving -monitor renal function. 9. Possible chronic sinusitis with fungal infection? -per CT maxillary sinuses completely opacified and could represent fungal infection -start fluconazole 100mg daily -will speak with ID Full code. is proxy decision maker. Dispo: Prognosis is guarded. Vented in ICU. Time Spent With Patient Time with patient: 30 to 49 minutes with 50% spent counseling/coordinating care Quality VTE Deep Vein Thrombosis/Pulmonary Embolism Present on Admission: No
--- NOTE | 2023-01-10 12:21 | DIET.PN1 ---
Dietary Progress Note Assessment: Pt extubated today. Awaiting speech therapy clearance and diet assignment. Ht: 170.18 cm Wt: 79.5 kg BMI: 31.0 UBW: Last BM: 01/06/23 (01/06/23 12:10) MNA: 12 Shaquille Score: 14 Diet: 01/07/23 Lunch Tube Feeding Diet Diet Modifications: TF Supplement type: Pivot 1.5 TF mode of delivery: Continuous Starting flow rate mL/hr: 20 Flow rate goal mL/hr: 35 Titration Schedule to reach Goal Rate: increase by 5mL q4h as tolerated Max total daily volume in mL: 2,000 Free fluid: 200 Free Water Frequency: Q4H Comment: start TF when indicated by provider and MAP >60 01/08/23 Lunch Courtesy Tray (Peds, comfort care) Diet Modifications: Nutrition Type of Feeding Tube NG/OG 01/10/23 08:34 Type of Feeding Tube NG/OG 01/09/23 21:54 Type of Feeding Tube NG/OG 01/09/23 12:29 Type of Feeding Tube NG/OG 01/09/23 05:33 Type of Feeding Tube NG/OG 01/08/23 19:11 Labs: RBC 4.55 X10^6/uL (4.0-5.2) 01/10/23 04:30 Hgb 14.6 g/dL (12.0-16.0) 01/10/23 04:30 Hct 43.3 % (36-46) 01/10/23 04:30 Creatinine 0.77 mg/dL (0.52-1.04) 01/10/23 04:30 Lactate 1.4 mmol/L (0.7-2.1) 01/06/23 11:10 NT-Pro-B Natriuret Pep 1800 pg/mL (<450) H 01/07/23 12:12 Nutrition Diagnosis: Interventions: EER: Monitoring/Evaluations: Electronically Signed by: Gertrudis Lee 01/10/23 12:21 Clinical Dietitian [address] [id number]
[2023-01-10] MEDS: ETOMIDATE 2 MG/ML 10 ML VIAL 20 MG IV (16:04)
--- NOTE | 2023-01-10 16:12 | DI.RAD.S_ITS ---
PROCEDURE: XR CHEST 1V INDICATIONS: re-intubated TECHNIQUE: One view of the chest was acquired. COMPARISON: [facility], CR, XR CHEST 1V, 01/08/2023, 9:42. [facility], CR, XR CHEST 1V, 01/07/2023, 5:58. FINDINGS: Surgical changes and devices: Endotracheal tube has been placed in normal position, esophagogastric tube remains positioned with side port below the EG junction and tip within the gastric body. Central line positioning remains normal. Lungs and pleura: Lungs are abnormal with bilateral left greater than right pneumonia. No pleural effusions or pneumothorax. Mediastinum: Mediastinal contours appear normal. Heart size is globally enlarged, to a mild degree.. Bones and chest wall: No suspicious bony lesions. Overlying soft tissues appear unremarkable. IMPRESSION: Endotracheal and esophagogastric tube positioning normal. Central line from right-sided approach extends into the distal SVC. Bilateral pneumonia persists, without improvement or worsening. Dictated by: Jose Lindo M.D. on 01/10/2023 at 16:43 Approved by: Jose Lindo M.D. on 01/10/2023 at 16:45
--- NOTE | 2023-01-10 16:13 | DI.CT.S_ITS ---
PROCEDURE: CT HEAD/BRAIN WO CON INDICATIONS: acute mental status changes TECHNIQUE: Noncontrast 4.5 mm thick angled axial sections acquired from the foramen magnum to the vertex, with coronal and sagittal reformats. For radiation dose reduction, the following was used: automated exposure control, adjustment of mA and/or kV according to patient size. COMPARISON: None. FINDINGS: Image quality: Excellent. CSF spaces: Basal cisterns are patent. No extra-axial fluid collections. Ventricles are normal in size and shape. Brain: No midline shift. No intracranial masses or hemorrhage. Maguire-white matter interface is normal. Moderate cerebral and cerebellar volume loss with multifocal white matter chronic ischemic change noted. Atherosclerotic calcification noted associated with cavernous segments of both internal carotid arteries. Skull and face: Calvarium and visualized facial bones are intact, without suspicious lesions. Bilateral intraocular lens replacements noted. Sinuses: Complete opacification of the bilateral maxillary sinus is present with increased density of internal contents as well as thickening of the maxillary kelly consistent with chronic sinusitis IMPRESSION: Atrophy and chronic ischemic change without intracranial hemorrhage or mass effect. Chronic bilateral maxillary sinusitis. Bilateral maxillary sinuses are completely opacified with high density material suggesting either low water content mucoid material or possibly fungal infection. Approved by: Pramod Serra M.D. on 01/10/2023 at 16:25
[2023-01-10] MEDS: SUCCINYLCHOLINE 200 MG/10 ML VIAL 100 MG IV (16:25)
[2023-01-10] MEDS: propofoL 1,000 MG/100 ML VIAL 7.155 MG IV (16:26)
[2023-01-10] MEDS: PHENYLEPHRINE 20,000 MCG in DEXTROSE 5% IN WATER 250 ML 75 MCG IV (17:26)
[2023-01-10 17:43] LABS: Fractionated Inspired Oxygen 80; HCO3 ABG 21 mmol/L (23-27); Oxygen Saturation ABG 91 % (95-100); PCO2 ABG 48.1 mmHg (35-45); PO2 ABG 70 mmHg (80-100); TCO2 ABG 22 mmol/L (23-27); pH ABG 7.25 (7.35-7.45)
[2023-01-10] MEDS: FLUCONAZOLE 100 MG/50 ML PIGGYBACK IV (18:20)
--- NOTE | 2023-01-10 18:54 | PC.NURSE ---
Non-violent restraint order for 01/09/23 timed for 1549 accidentally cancelled. Working on reactivating order.
--- NOTE | 2023-01-10 19:46 | P.PCN_ITS ---
Procedures Date/Time Date of procedure: 01/10/23 Time of procedure: 16:00 Intubation Time out performed: Yes Sedative: etomidate Mg given: 20 Paralytic: succinylcholine Mg given: 100 Laryngoscope: Varela ET tube size: 7.5 Tube secured depth (cm): 24 Tube secured location: lips Tube placement confirmation: visualized tube passing through cords, equal breath sounds bilaterally, no breath sounds over epigastrium and confirmation by capn ometry Patient tolerated procedure: well Intubation complications: none Additional comments: Called to ICU floor to assist in intubation
--- NOTE | 2023-01-10 21:00 | PM.ICURNDS ---
- :: This patient was seen via real time interactive two-way audiovisual telecommunication. pt seen this evening, she was poorly responsive on NRBM in respiratory dfistress. On my video eval pt was using accessory muscles and clealy encephalopathic. pt was emegertnly intubate.d Currently on propofol and synchronous with vent. BP was labile post intubation and is on neosynephrine now plan vent/sedation bundle trend abg CXR TF trend labs and monitro UO cont empirc abx may need trach eval
[2023-01-10] MEDS: propofoL 1,000 MG/100 ML VIAL 11.925 MG IV (23:57)
[2023-01-11] VITALS (38 sets, daily range): BP systolic 84–153; BP diastolic 51–81; PULSE 52–101; RESP 15–18; TEMP 36.2–36.8; O2SAT 93–97
[2023-01-11] MEDS: DEXTROSE 50 % IN WATER 25 GM/50 ML SYRINGE IV (01:30)
--- NOTE | 2023-01-11 01:56 | PC.NURSE ---
0130- Patient had elevated heart rate 110-120 AFib. Patient 2300 blood glucose was 77. Recheck of blood glucose at [address] Valencia called and order for 1/2 amp D50 received. Tube Feeding restarted Pivot not available so Dr. Valencia ordered Jevity 1.2 at 20cc trickle feed and 100cc/H20 flush every 4hrs. Repeat blood glucose after D50 115. Will monitor.
[2023-01-11] MEDS: DOXYCYCLINE 100 MG in SODIUM CHLORIDE 0.9% 100 ML IV (02:38)
[2023-01-11] MEDS: CEFEPIME 2 GM in SODIUM CHLORIDE 0.9% 100 ML IV ×2 (03:55→15:55)
[2023-01-11 05:05] LABS: Add Manual Diff / Slide Review NO; Basophils Absolute Auto 100 /uL (0-100); Basophils Percent Auto 1.2 % (0-2); Eosinophils Absolute Auto 100 /uL (0-450); Eosinophils Percent Auto 2.1 % (2-4); Hematocrit 39.6 % (36-46); Hemoglobin 13.2 g/dL (12.0-16.0); Lymphocytes Absolute Auto 700 /uL (1100-4500); Lymphocytes Percent Auto 10.8 % (25-40); Mean Corpuscular HGB Conc 33.3 % (30-36); Mean Corpuscular Volume 95.9 fL (80-100); Monocytes Absolute Auto 900 /uL (0-900); Monocytes Percent Auto 15.1 % (3-14); Neutrophils Absolute Auto 4400 /uL (1500-7000); Neutrophils Percent Auto 70.8 % (50-75); Platelet Count 100 X10^3/uL (150-400); Red Blood Cell Count 4.13 X10^6/uL (4.0-5.2); Red Cell Distribution Width 15.5 % (11.6-14.8); White Blood Cell Count 6.2 X10^3/uL (4.5-11.0)
[2023-01-11 05:10] LABS: Alanine Aminotransferase 28 IU/L (<35); Albumin 2.8 g/dL (3.5-5.0); Albumin Globulin Ratio 0.8 (1.0-2.8); Alkaline Phosphatase 81 U/L (38-126); Aspartate Aminotransferase 30 IU/L (14-36); BUN Creatinine Ratio 25.9 (6-22); Bilirubin Total 1.2 mg/dL (0.2-1.3); Blood Urea Nitrogen 21 mg/dL (7-17); Calcium 8.6 mg/dL (8.4-10.2); Carbon Dioxide 21 mmol/L (22-32); Chloride 110 mmol/L (98-107); Estimated Glomerular Filt Rate > 60 mL/min (>60); Globulin 3.3 g/dL (1.7-4.1); Glucose 90 mg/dL (80-110); HEMOLYSIS < 15 (0-50); Magnesium 1.8 mg/dL (1.6-2.3); Potassium 3.7 mmol/L (3.4-5.1); Sodium 136 mmol/L (137-145); Total Protein 6.1 g/dL (6.3-8.2)
[2023-01-11] MEDS: CHLORHEXIDINE GLUCONATE 15 ML CUP PO ×2 (06:20→12:35)
[2023-01-11] MEDS: METOCLOPRAMIDE 10 MG/2 ML INJ 5 MG IV ×3 (06:20→22:01)
[2023-01-11] MEDS: propofoL 1,000 MG/100 ML VIAL 14.31 MG IV ×2 (06:21→22:01)
[2023-01-11] MEDS: ALBUTEROL/IPRATROPIUM 3 ML AMPUL INH ×2 (07:19→19:42)
[2023-01-11 08:06] LABS: HCO3 ABG 19 mmol/L (23-27); Oxygen Saturation ABG 93 % (95-100); PCO2 ABG 30.8 mmHg (35-45); PO2 ABG 67 mmHg (80-100); TCO2 ABG 20 mmol/L (23-27); pH ABG 7.39 (7.35-7.45)
[2023-01-11 08:08] LABS: Fractionated Inspired Oxygen 30
[2023-01-11] MEDS: SODIUM CHLORIDE 0.9% 1,000 ML 250 ML IV (08:14)
--- NOTE | 2023-01-11 08:46 | PM.PN.EICU ---
Subjective Subjective Consent obtained for tele-training and development coordinator care: Yes Patient Location: ICU Current Medications Current Medications Medications: Home Medications albuterol sulfate 90 mcg/actuation aerosol inhaler (Ventolin HFA) 1 puff inhalation Q4-6H PRN shortness of breath or wheezing #18 grams 02/13/22 [Rx Confirmed 01/06/23] furosemide 40 mg tablet 40 mg PO DAILY PRN edema/weight gain #10 tabs 02/13/22 [Rx Confirmed 01/06/23] carvedilol 25 mg tablet 25 mg PO BID #180 tabs 06/05/22 [Rx Confirmed 01/06/23] losartan 100 mg tablet 100 mg PO DAILY #90 tabs 06/05/22 [Rx Confirmed 01/06/23] pravastatin 40 mg tablet 40 mg PO DAILY #90 tabs 06/05/22 [Rx Confirmed 01/06/23] apixaban 5 mg tablet (Eliquis) See Rx Instructions .Route .COMPLEX #180 tabs 08/06/22 [Rx Confirmed 01/06/23] amlodipine 5 mg tablet (Norvasc) 5 mg PO DAILY #90 tabs 10/25/22 [Rx Confirmed 01/06/23] diazepam 5 mg tablet 10 mg PO BEDTIME PRN sleep #30 tabs 10/25/22 [Rx Confirmed 01/06/23] potassium chloride 10 mEq tablet,extended release See Rx Instructions .Route .COMPLEX #90 tabs 11/11/22 [Rx Confirmed 01/06/23] calcium carbonate 500 mg calcium (1,250 mg) tablet (Oyster Shell Calcium) 500 mg PO BID #180 tabs 11/13/22 [Rx Confirmed 01/06/23] Visit Medications (administered) Generic Name Dose Route Start Last Admin Trade Name Freq PRN Reason Stop Dose Admin Albuterol/Ipratropium 3 ml 01/06/23 20:00 01/11/23 07:19 Albuterol/Ipratropium 3 Ml Ampul INH 3 ml RTBID ANTONY Administration Chlorhexidine Gluconate 15 ml 01/10/23 18:00 01/11/23 06:20 Chlorhexidine Gluconate 15 Ml Cup PO 15 ml Q6HR ANTONY Administration Fentanyl 25 mcg 01/08/23 18:53 01/09/23 10:47 Fentanyl 100 Mcg/2 Ml Inj IV 25 mcg Q30MIN PRN Administration Pain, Severe (7-10) Heparin Sodium (Porcine) 5,000 unit 01/10/23 09:00 01/10/23 09:00 Heparin 5,000 Unit/Ml Vial SUBCUT 5,000 unit DAILY ANTONY Administration dexmedeTOMIDine in 0.9 % NaCL 400 mcg in 100 mls @ 4.14 mls/hr 01/08/23 09:45 01/10/23 15:00 Precedex IV 0 mcg/kg/hr TITRATE ANTONY 0 mls/hr Titration Protocol 0.2 MCG/KG/HR Cefepime HCl 2 gm/ Sodium 100 mls @ 200 mls/hr 01/09/23 16:00 01/11/23 06:46 Chloride IV Infused Q12H ANTONY Infusion Sodium Chloride 250 mls @ 21 mls/hr 01/10/23 03:45 01/10/23 21:26 Normal Saline 0.9% IV 21 mls/hr Q24H PRN Administration Flush Propofol 1,000 mg in 100 mls @ 2.385 mls/hr 01/10/23 16:15 01/11/23 06:21 Propofol IV 30 mcg/kg/min TITRATE ANTONY 14.31 mls/hr Administration Protocol 5 MCG/KG/MIN Phenylephrine HCl 20,000 mcg/ 250 mls @ 75 mls/hr 01/10/23 17:04 01/10/23 17:37 Dextrose IV 0 mcg/min TITRATE ANTONY 0 mls/hr Titration Protocol 100 MCG/MIN Fluconazole 100 mg in 50 mls @ 100 mls/hr 01/10/23 17:34 01/10/23 20:27 Diflucan IV Infused Q24H ANTONY Infusion Metoclopramide HCl 5 mg 01/09/23 22:45 01/11/23 06:20 Metoclopramide 10 Mg/2 Ml Inj IV 5 mg Q8HR ANTONY Administration Pantoprazole Sodium 40 mg 01/07/23 09:00 01/10/23 09:00 Pantoprazole 40 Mg Vial IV 40 mg DAILY ANTONY Administration Objective Ventilator Parameters: Ventilator Settings FiO2 30 RT Vent Frequency 15 Ventilator Tidal Volume 360 Exhaled Vt/kg IBW 4.5 Positive End Expiratory 5 Pressure Ventilator Pressure Support 55 Inspiratory Phase Time 0.9 I:E Ratio 1:3 Patient Position HOB >= 30 degrees Labs 01/11/23 04:45 01/11/23 04:45 Labs: Laboratory Results - last 24 hr 01/10/23 01/11/23 01/11/23 17:26 04:45 04:45 WBC 6.2 RBC 4.13 Hgb 13.2 Hct 39.6 MCV 95.9 MCH 32.0 MCHC 33.3 RDW 15.5 H Plt Count 100 L Neut % (Auto) 70.8 Lymph % (Auto) 10.8 L [place] % (Auto) 15.1 H Eos % (Auto) 2.1 Baso % (Auto) 1.2 Neut # (Auto) 4400 Lymph # (Auto) 700 L [place] # (Auto) 900 Eos # (Auto) 100 Baso # (Auto) 100 ABG pH 7.25 L* ABG pCO2 48.1 H ABG pO2 70 L ABG HCO3 21 L ABG Total CO2 22 L ABG O2 Saturation 91 L ABG Base Excess -6.0 L FiO2 80 Sodium 136 L Potassium 3.7 Chloride 110 H Carbon Dioxide 21 L BUN 21 H Creatinine 0.81 Estimated GFR > 60 BUN/Creatinine Ratio 25.9 H Glucose 90 Calcium 8.6 Magnesium 1.8 Total Bilirubin 1.2 AST 30 ALT 28 Alkaline Phosphatase 81 Total Protein 6.1 L Albumin 2.8 L Globulin 3.3 Albumin/Globulin Ratio 0.8 L 01/11/23 07:35 WBC RBC Hgb Hct MCV MCH MCHC RDW Plt Count Neut % (Auto) Lymph % (Auto) [place] % (Auto) Eos % (Auto) Baso % (Auto) Neut # (Auto) Lymph # (Auto) [place] # (Auto) Eos # (Auto) Baso # (Auto) ABG pH 7.39 ABG pCO2 30.8 L ABG pO2 67 L ABG HCO3 19 L ABG Total CO2 20 L ABG O2 Saturation 93 L ABG Base Excess -6.0 L FiO2 30 Sodium Potassium Chloride Carbon Dioxide BUN Creatinine Estimated GFR BUN/Creatinine Ratio Glucose Calcium Magnesium Total Bilirubin AST ALT Alkaline Phosphatase Total Protein Albumin Globulin Albumin/Globulin Ratio Exam Vital Signs (past 8 hours): - 01/11/23 01:00 01/11/23 01:00 01/11/23 01:00 Temperature Pulse Rate 90 Respiratory Rate 16 Blood Pressure 123/55 L Pulse Oximetry 94 Oxygen Delivery Method Mechanical Ventilation 01/11/23 02:00 01/11/23 02:00 01/11/23 03:00 Temperature Pulse Rate 101 H Respiratory Rate 18 Blood Pressure 126/64 128/60 Pulse Oximetry 96 Oxygen Delivery Method 01/11/23 03:00 01/11/23 04:00 01/11/23 04:00 Temperature Pulse Rate 79 79 Respiratory Rate 15 15 Blood Pressure 95/52 L Pulse Oximetry 97 96 Oxygen Delivery Method 01/11/23 04:02 01/11/23 04:02 01/11/23 05:00 Temperature Pulse Rate 75 Respiratory Rate 15 Blood Pressure 94/53 L 92/51 L Pulse Oximetry 95 Oxygen Delivery Method 01/11/23 05:00 01/11/23 05:00 01/11/23 06:00 Temperature Pulse Rate 92 H Respiratory Rate 15 Blood Pressure 99/55 L Pulse Oximetry 97 Oxygen Delivery Method Mechanical Ventilation 01/11/23 06:00 01/11/23 06:00 01/11/23 02:00 Temperature 97.2 F L 98.2 F Pulse Rate 78 Respiratory Rate 15 Blood Pressure Pulse Oximetry 97 Oxygen Delivery Method 01/11/23 07:00 01/11/23 07:00 01/11/23 07:09 Temperature Pulse Rate 79 Respiratory Rate 15 Blood Pressure 84/51 L 135/57 L Pulse Oximetry 96 Oxygen Delivery Method 01/11/23 07:09 01/11/23 08:00 01/11/23 08:01 Temperature Pulse Rate 94 H 92 H 98 H Respiratory Rate 15 15 15 Blood Pressure Pulse Oximetry 96 97 96 Oxygen Delivery Method 01/11/23 08:01 Temperature 98.3 F Pulse Rate Respiratory Rate Blood Pressure 112/57 L Pulse Oximetry Oxygen Delivery Method Fraction of Inspired Oxygen 0.28 SaO2/FiO2 Ratio 80239 Oxygen Delivery Method Mechanical Ventilation Oxygen Flow Rate 15 [facility]/Pulmonary Embolism Present on Admission: No
[2023-01-11] MEDS: HEPARIN 5,000 UNIT/ML VIAL 5000 UNIT SUBCUT (09:09)
[2023-01-11] MEDS: PANTOPRAZOLE 40 MG VIAL IV (09:10)
--- NOTE | 2023-01-11 09:44 | PM.PN.EICU ---
Subjective Subjective IF CAMERA ACTIVATED, patient seen via real-time interactive audiovisual communication: Camera activated Consent obtained for tele-line construction superintendent care: Yes Patient Location: ICU Provider location (State): [place] Other participants/roles: Bedside RN, Respiratory therapist Interval history: Patient was examined using?two-way?interactive audiovisual equipment. Briefly, an 86 years old female with HTN, A.fib, Asthma, and hyperlipidemia who presented from urgent care with complaint of shortness of breath for 5 days, found to have acute hypercapnic respite failure with pH 7.11, PCO2 140, was placed on BiPAP without much improvement in ultimately required intubated.? Chest x-ray showed findings concerning for pulm edema and superimposed pneumonia.? She was started on diuresis and empiric antibiotics. She was requiring low dose norepinephrine gtt but was weaned off and eventually extubated on 01/09 am. However, overnight, she became more obtunded, encephalopathic, desaturated to 85% while on NRB mask. Decision was made to reintubate. She was reintubated approximately at 4:00 am local time. CTH wo contrast with Chronic bilateral maxillary sinusitis.? Bilateral maxillary sinuses are completely opacified with high density material suggesting either low water content mucoid material or possibly fungal infection. After reintubation early this am, patient was able to be weaned to FiO2 30%, PEEP 5 during my assessment at 09:00 am. She is on ACVC+, TV 360, RR 15. On propofol gtt and Fentanyl IV pushes PRN for sedation/pain control. After intubation, she briefly required pressors (neosynephrine) but was weaned off within a couple of hours. Now remains stable from hemodynamic stand point. Restarted on TF at 20cc/hr. Afebrile. Morning labs with serum potassium 3.0, replaced with 40 mg of IV KCl. Current Medications Current Medications Medications: Home Medications albuterol sulfate 90 mcg/actuation aerosol inhaler (Ventolin HFA) 1 puff inhalation Q4-6H PRN shortness of breath or wheezing #18 grams 02/13/22 [Rx Confirmed 01/06/23] furosemide 40 mg tablet 40 mg PO DAILY PRN edema/weight gain #10 tabs 02/13/22 [Rx Confirmed 01/06/23] carvedilol 25 mg tablet 25 mg PO BID #180 tabs 06/05/22 [Rx Confirmed 01/06/23] losartan 100 mg tablet 100 mg PO DAILY #90 tabs 06/05/22 [Rx Confirmed 01/06/23] pravastatin 40 mg tablet 40 mg PO DAILY #90 tabs 06/05/22 [Rx Confirmed 01/06/23] apixaban 5 mg tablet (Eliquis) See Rx Instructions .Route .COMPLEX #180 tabs 08/06/22 [Rx Confirmed 01/06/23] amlodipine 5 mg tablet (Norvasc) 5 mg PO DAILY #90 tabs 10/25/22 [Rx Confirmed 01/06/23] diazepam 5 mg tablet 10 mg PO BEDTIME PRN sleep #30 tabs 10/25/22 [Rx Confirmed 01/06/23] potassium chloride 10 mEq tablet,extended release See Rx Instructions .Route .COMPLEX #90 tabs 11/11/22 [Rx Confirmed 01/06/23] calcium carbonate 500 mg calcium (1,250 mg) tablet (Oyster Shell Calcium) 500 mg PO BID #180 tabs 11/13/22 [Rx Confirmed 01/06/23] Visit Medications (administered) Generic Name Dose Route Start Last Admin Trade Name Freq PRN Reason Stop Dose Admin Albuterol/Ipratropium 3 ml 01/06/23 20:00 01/11/23 07:19 Albuterol/Ipratropium 3 Ml Ampul INH 3 ml RTBID ANTONY Administration Chlorhexidine Gluconate 15 ml 01/10/23 18:00 01/11/23 06:20 Chlorhexidine Gluconate 15 Ml Cup PO 15 ml Q6HR ANTONY Administration Fentanyl 25 mcg 01/08/23 18:53 01/09/23 10:47 Fentanyl 100 Mcg/2 Ml Inj IV 25 mcg Q30MIN PRN Administration Pain, Severe (7-10) Heparin Sodium (Porcine) 5,000 unit 01/10/23 09:00 01/10/23 09:00 Heparin 5,000 Unit/Ml Vial SUBCUT 5,000 unit DAILY ANTONY Administration dexmedeTOMIDine in 0.9 % NaCL 400 mcg in 100 mls @ 4.14 mls/hr 01/08/23 09:45 01/10/23 15:00 Precedex IV 0 mcg/kg/hr TITRATE ANTONY 0 mls/hr Titration Protocol 0.2 MCG/KG/HR Cefepime HCl 2 gm/ Sodium 100 mls @ 200 mls/hr 01/09/23 16:00 01/11/23 06:46 Chloride IV Infused Q12H ANTONY Infusion Sodium Chloride 250 mls @ 21 mls/hr 01/10/23 03:45 01/10/23 21:26 Normal Saline 0.9% IV 21 mls/hr Q24H PRN Administration Flush Propofol 1,000 mg in 100 mls @ 2.385 mls/hr 01/10/23 16:15 01/11/23 06:21 Propofol IV 30 mcg/kg/min TITRATE ANTONY 14.31 mls/hr Administration Protocol 5 MCG/KG/MIN Phenylephrine HCl 20,000 mcg/ 250 mls @ 75 mls/hr 01/10/23 17:04 01/10/23 17:37 Dextrose IV 0 mcg/min TITRATE ANTONY 0 mls/hr Titration Protocol 100 MCG/MIN Fluconazole 100 mg in 50 mls @ 100 mls/hr 01/10/23 17:34 01/10/23 20:27 Diflucan IV Infused Q24H ANTONY Infusion Metoclopramide HCl 5 mg 01/09/23 22:45 01/11/23 06:20 Metoclopramide 10 Mg/2 Ml Inj IV 5 mg Q8HR ANTONY Administration Pantoprazole Sodium 40 mg 01/07/23 09:00 01/10/23 09:00 Pantoprazole 40 Mg Vial IV 40 mg DAILY ANTONY Administration Objective Ventilator Parameters: Ventilator Settings FiO2 30 RT Vent Frequency 15 Ventilator Tidal Volume 360 Exhaled Vt/kg IBW 4.5 Positive End Expiratory 5 Pressure Ventilator Pressure Support 55 Inspiratory Phase Time 0.9 I:E Ratio 1:3 Patient Position HOB >= [address] scan - head: Radiologist's impression: PROCEDURE:? CT HEAD/BRAIN WO CON ? INDICATIONS:? acute mental status changes ? IMPRESSION:? Atrophy and chronic ischemic change without intracranial hemorrhage or mass effect. Chronic bilateral maxillary sinusitis.? Bilateral maxillary sinuses are completely opacified with high density material suggesting either low water content mucoid material or possibly fungal infection. Labs 01/11/23 04:45 01/11/23 04:45 Labs: Laboratory Results - last 24 hr 01/10/23 01/11/23 01/11/23 17:26 04:45 04:45 WBC 6.2 RBC 4.13 Hgb 13.2 Hct 39.6 MCV 95.9 MCH 32.0 MCHC 33.3 RDW 15.5 H Plt Count 100 L Neut % (Auto) 70.8 Lymph % (Auto) 10.8 L [place] % (Auto) 15.1 H Eos % (Auto) 2.1 Baso % (Auto) 1.2 Neut # (Auto) 4400 Lymph # (Auto) 700 L [place] # (Auto) 900 Eos # (Auto) 100 Baso # (Auto) 100 ABG pH 7.25 L* ABG pCO2 48.1 H ABG pO2 70 L ABG HCO3 21 L ABG Total CO2 22 L ABG O2 Saturation 91 L ABG Base Excess -6.0 L FiO2 80 Sodium 136 L Potassium 3.7 Chloride 110 H Carbon Dioxide 21 L BUN 21 H Creatinine 0.81 Estimated GFR > 60 BUN/Creatinine Ratio 25.9 H Glucose 90 Calcium 8.6 Magnesium 1.8 Total Bilirubin 1.2 AST 30 ALT 28 Alkaline Phosphatase 81 Total Protein 6.1 L Albumin 2.8 L Globulin 3.3 Albumin/Globulin Ratio 0.8 L 01/11/23 07:35 WBC RBC Hgb Hct MCV MCH MCHC RDW Plt Count Neut % (Auto) Lymph % (Auto) [place] % (Auto) Eos % (Auto) Baso % (Auto) Neut # (Auto) Lymph # (Auto) [place] # (Auto) Eos # (Auto) Baso # (Auto) ABG pH 7.39 ABG pCO2 30.8 L ABG pO2 67 L ABG HCO3 19 L ABG Total CO2 20 L ABG O2 Saturation 93 L ABG Base Excess -6.0 L FiO2 30 Sodium Potassium Chloride Carbon Dioxide BUN Creatinine Estimated GFR BUN/Creatinine Ratio Glucose Calcium Magnesium Total Bilirubin AST ALT Alkaline Phosphatase Total Protein Albumin Globulin Albumin/Globulin Ratio Exam Vital Signs (past 8 hours): - 01/11/23 01:00 01/11/23 01:00 01/11/23 01:00 Temperature Pulse Rate 90 Respiratory Rate 16 Blood Pressure 123/55 L Pulse Oximetry 94 Oxygen Delivery Method Mechanical Ventilation 01/11/23 02:00 01/11/23 02:00 01/11/23 03:00 Temperature Pulse Rate 101 H Respiratory Rate 18 Blood Pressure 126/64 128/60 Pulse Oximetry 96 Oxygen Delivery Method 01/11/23 03:00 01/11/23 04:00 01/11/23 04:00 Temperature Pulse Rate 79 79 Respiratory Rate 15 15 Blood Pressure 95/52 L Pulse Oximetry 97 96 Oxygen Delivery Method 01/11/23 04:02 01/11/23 04:02 01/11/23 05:00 Temperature Pulse Rate 75 Respiratory Rate 15 Blood Pressure 94/53 L 92/51 L Pulse Oximetry 95 Oxygen Delivery Method 01/11/23 05:00 01/11/23 05:00 01/11/23 06:00 Temperature Pulse Rate 92 H Respiratory Rate 15 Blood Pressure 99/55 L Pulse Oximetry 97 Oxygen Delivery Method Mechanical Ventilation 01/11/23 06:00 01/11/23 06:00 01/11/23 02:00 Temperature 97.2 F L 98.2 F Pulse Rate 78 Respiratory Rate 15 Blood Pressure Pulse Oximetry 97 Oxygen Delivery Method 01/11/23 07:00 01/11/23 07:00 01/11/23 07:09 Temperature Pulse Rate 79 Respiratory Rate 15 Blood Pressure 84/51 L 135/57 L Pulse Oximetry 96 Oxygen Delivery Method 01/11/23 07:09 01/11/23 08:00 01/11/23 08:01 Temperature Pulse Rate 94 H 92 H 98 H Respiratory Rate 15 15 15 Blood Pressure Pulse Oximetry 96 97 96 Oxygen Delivery Method 01/11/23 08:01 Temperature 98.3 F Pulse Rate Respiratory Rate Blood Pressure 112/57 L Pulse Oximetry Oxygen Delivery Method Fraction of Inspired Oxygen 0.28 SaO2/FiO2 Ratio 59132 Oxygen Delivery Method Mechanical Ventilation Oxygen Flow Rate 15 Narrative Exam Narrative: Intubated, sedated, comfortable on the vent. Not following commands. Quality TeleICU VTE Deep Vein Thrombosis/Pulmonary Embolism Present on Admission: No Assessment & Plan Assessment & Plan narrative: IMPRESSIONS: # Acute hypercapnic respiratory failure, multifactorial.? Likely from pulm edema with possibly a component of superimposed pneumonia. Reintubated on 01/10 am. # Acute metabolic encephalopathy # Shock, likely sedation induced, now resolved. # Acute Kidney Injury # Hypokalemia, resolved. # Hyponatremia, improving # Chronic atrial fibrillation # History of hypertension # History of asthma PLAN: NEUROLOGY/PSYCHIATRY: # Acute encephalopathy, metabolic versus medication (sedation) induced. - CTH wo contrast on 01/10 with Chronic bilateral maxillary sinusitis.? Bilateral maxillary sinuses are completely opacified with high density material suggesting either low water content mucoid material or possibly fungal infection. - Started on Fluconazole for suspected fungal infection in the brain. Recommend to f/up above findings with MRI brain. - On sedation with propofol gtt. and fentanyl gtt. Opens eyes, but does not follow commands. RASS goal 0 to -1. - Failed SAT this morning.?Minimize sedation as much as possible to reevaluate neuro exam/mental status more frequently. ? PULMONARY: # Acute hypercapnic respiratory failure, requiring mechanical ventilation. - Required to be reintubated on 01/10 am due to worsening mental status and hypoxia. - Most likely etiology, pulmonary edema with possible superimposed bacterial pneumonia. ? - Remains intubated this morning.? Vent settings reviewed.? On VCAC, RR 15, TV 360, FiO2 30% PEEP of 5.?Post-intubation ABG reviewed (pH 7.39, PCO2 30.8, PaO2 67, Bicarb 19). Adjust vent settings as needed. - C/w vent support per lung protective strategy (Keep TV 6 cc/kg, plat pres < 30, PaO2 60-80 mm Hg, FiO2 goal <60%, SaO2 88-92%) and c/w ABCDE bundle while intubated. - Diuretics on hold due to KANDACE. Restart lasix when appropriate.? Goal to keep net negative fluid balance of -500 cc to -1 L/day.? Use Diamox as needed to counteract Lasix induced metabolic alkalosis. - Failed SAT today.? Reevaluate tomorrow am.? C/w daily sedation vacation, and spontaneous breathing trial with plan to extubate if and when meets criteria. Would ideally wait for MRI brain prior to extubation. - Continue [place] antibiotics Cefepime and Fluconazole. - Elevate head of bed to 30?, aspiration precautions, oral care with chlorhexidine - When extubated, start incentive spirometry, PT/OT, swallow eval, out of bed to chair. ? CARDIOVASCULAR: # Hypotension with shock. - Now resolved. Likely sedation induced but cannot rule out sepsis at this point. - Use vasopressors (norepinephrine gtt.) as needed to maintain MAP >65. - Order albumin boluses to replace volume as needed. Minimize crystalloids due to concern for worsening pulm edema/fluid overload. - Monitor markers of tissue perfusion (lactate clearance, base deficit, urine out). - Hold antihypertensives. # History of chronic atrial fibrillation: - Heart rate controlled.? On Eliquis at home but currently on hold due to KANDACE.? Continue subcu heparin (hold if platelet count <80). - Plan to resume Eliquis in the next 24 hours if H&H remained stable (bleeding from oropharynx) - Order TTE if no recent echo in the last 3 months. ? GASTROENTEROLOGY: - C/w tube feeding.? Per bedside RN, high residuals. On 20cc/hr. - Protonix for GI prophylaxis. ? RENAL/ELECTROLYTES/ACID-BASE DISORDERS: # Acute kidney injury, likely ATN. - Now Resolved. Creatinine down to 0.80 this AM.? Diuretics currently on hold. - F/up with daily BMP to assess for renal functions.? - Replace lytes as necessary. Strict I & Os. Monitor urine output. - Avoid nephrotoxic agents and renally dose medications. ? INFECTIOUTS DISEASE: # Shock, possibly from underlying sepsis secondary superimposed pneumonia / Maxillary sinuisities. - Sputum c/s with Psedomonas sensistive to Cefepime. - Follow-up on final blood cultures X 2, tredn procalcitonin.? - Monitor markers of tissue perfusion (lactate clearance, base deficit, mental status, urine out). - Continue empiric antibiotics (Cefepime) for Pseudomonas PNA and Fluconazole for ?fungal infection in maxillary sinuses. - Use pressors (Norepinephrine) as needed to keep MAP > 65. - Afebrile, has no leukocytosis.? Monitor WBC and fever curves. ? HEMATOLOGIC/ONCOLOGIC DISORDERS: - Monitor H&H with daily CBC, and transfuse if hemoglobin less than 7.0 ? ENDOCRINE: - No known history of diabetes. - Avoid hypoglycemia, and start SSI if BG > 140. ? # FEN: C/w TF. Replace electrolytes aggressively.? Minimize IV fluids due to pulmonary edema. # Glucose: Fairly controlled. C/w SSI, accucheck q 6 hours. BG goal 140-180 # Prophylaxis: Heparin subcu and SCDs for DVT prophylaxis, Protonix for stress ulcer prophylaxis # Lines/tubes: PIV, Bruce, CVC # CODE STATUS: Full code # Disposition: Remains in ICU. # Prognosis: Guarded ? Above plan was discussed with rounding team including hospitalist, bedside RN, respiratory therapist, dietitian and pharmacist during tele-ICU multidisciplinary rounds this morning.? We will continue to follow.? Please call us if any additional questions.
[2023-01-11] MEDS: dexmedeTOMIDine in 0.9 % NaCL 400 MCG/100 ML PLAST..BAG IV (10:34)
[2023-01-11] MEDS: propofoL 1,000 MG/100 ML VIAL 16.695 MG IV (11:44)
--- NOTE | 2023-01-11 15:49 | CM.DPC ---
DCP Cont Patient is currently intubated, and full code, did not have successful extubation yesterday. Patient is not , lives with partner, so next of kin is being contacted. Her son is in [facility], but is contacting patient's brother who is in [place], and attempting to get him to fly out here, hopefully in the next day or two, so she can be changed to DNR. Plan will be to then extubate her and keep her comfortable. P: DCP to continue to be available. Plan is for brother to come out here and change code status, and extubate. Patient currently is full code. Fide Nichole RN/[place] Program Coordinator
[2023-01-11] MEDS: SODIUM CHLORIDE 0.9% 250 ML 21 ML IV (15:59)
[2023-01-11] MEDS: propofoL 1,000 MG/100 ML VIAL 19.08 MG IV (16:06)
--- NOTE | 2023-01-11 17:58 | PM.PN.1 ---
Subjective Subjective Interval history: Patient still on vent. Precedex added to propofol due to agitation. Poor prognosis relayed to partner Josué and patient's sons who are on their way from out of state to see her. Exam Vital Signs (past 8 hours): - 01/11/23 10:00 01/11/23 10:00 01/11/23 11:00 Temperature Pulse Rate 86 Respiratory Rate 15 Blood Pressure 109/56 L 96/53 L Pulse Oximetry 95 Oxygen Delivery Method 01/11/23 11:00 01/11/23 12:00 01/11/23 12:00 Temperature Pulse Rate 77 75 Respiratory Rate 15 15 Blood Pressure 96/55 L Pulse Oximetry 97 97 Oxygen Delivery Method 01/11/23 12:18 01/11/23 13:00 01/11/23 13:00 Temperature 97.7 F Pulse Rate 67 Respiratory Rate 15 Blood Pressure 92/51 L Pulse Oximetry 93 Oxygen Delivery Method 01/11/23 13:00 01/11/23 14:00 01/11/23 14:00 Temperature Pulse Rate 63 Respiratory Rate 15 Blood Pressure 108/57 L Pulse Oximetry 95 Oxygen Delivery Method Mechanical Ventilation 01/11/23 15:00 01/11/23 15:00 01/11/23 16:00 Temperature 97.9 F Pulse Rate 66 Respiratory Rate 15 Blood Pressure 111/55 L 115/59 L Pulse Oximetry 94 Oxygen Delivery Method 01/11/23 16:00 01/11/23 17:00 01/11/23 17:00 Temperature Pulse Rate 64 62 Respiratory Rate 15 15 Blood Pressure 110/59 L Pulse Oximetry 94 96 Oxygen Delivery Method Fraction of Inspired Oxygen 0.28 SaO2/FiO2 Ratio 34819 Oxygen Delivery Method Mechanical Ventilation Oxygen Flow Rate 15 Narrative Exam Narrative: Intubated and on vent. Sedated and relaxed. OGT in place Atraumatic head, symmetric pupils. Neck supple and midline trachea. Lungs CTA, anterior. Heart RRR, without murmur, gallop, or rub. Abdomen Soft, NT, ND No leg edema. No skin rash. Objective Labs 01/11/23 04:45 01/11/23 04:45 Labs: Laboratory Results - last 24 hr 01/11/23 01/11/23 01/11/23 04:45 04:45 07:35 WBC 6.2 RBC 4.13 Hgb 13.2 Hct 39.6 MCV 95.9 MCH 32.0 MCHC 33.3 RDW 15.5 H Plt Count 100 L Neut % (Auto) 70.8 Lymph % (Auto) 10.8 L [place] % (Auto) 15.1 H Eos % (Auto) 2.1 Baso % (Auto) 1.2 Neut # (Auto) 4400 Lymph # (Auto) 700 L [place] # (Auto) 900 Eos # (Auto) 100 Baso # (Auto) 100 ABG pH 7.39 ABG pCO2 30.8 L ABG pO2 67 L ABG HCO3 19 L ABG Total CO2 20 L ABG O2 Saturation 93 L ABG Base Excess -6.0 L FiO2 30 Sodium 136 L Potassium 3.7 Chloride 110 H Carbon Dioxide 21 L BUN 21 H Creatinine 0.81 Estimated GFR > 60 BUN/Creatinine Ratio 25.9 H Glucose 90 Calcium 8.6 Magnesium 1.8 Total Bilirubin 1.2 AST 30 ALT 28 Alkaline Phosphatase 81 Total Protein 6.1 L Albumin 2.8 L Globulin 3.3 Albumin/Globulin Ratio 0.8 L PFSH Medical History Acquired clavicle deformity Asthma Cataracts, bilateral (1994) Chronic atrial fibrillation Essential hypertension Gout Hyperlipidemia Hyperthyroidism (1971) Osteoporosis Surgical History Toxic goiter (1971) Family History Father No problems noted. Mother No problems noted. Social History household members: significant other Smoking Status: Never smoker alcohol intake: never substance use type: does not use Assessment & Plan Assessment & Plan narrative: 1. Acute hypoxic and hypercarbic respiratory failure, POA and Active. -Vent support with propofol and fentanyl infusions. Oral care, head of bed up. DVT and GI prophylaxis. -extubated successfully the morning of 01/10, then worsened in the afternoon and needed reintubation -now back on vent as of 01/10 -RT pulm toilet due to copious secretions -will be difficult to get off vent at this point, partner Josué aware of this 2. Acute pulmonary edema, POA and active. -diuresis with IV lasix 40 QAM. Had to hold 01/07 due to hypotension requiring norepinephrine (liekly sedation related). -echo with EF 55%, mod MR and TR which are worse from prior -holding lasix until renal function improves and BP stable 3. Pseudomonal pneumonia, POA and active. -started antibiotics wtih Ceftriaxone and doxycycline. -changed rocephin to cefepime on 01/09 due to sputum culture with GNB -sputum showing pseudomonas susceptible to cefepime 4. Hyponatremia, POA and improving. -monitor BMP with diuresis. 5. Thromocytopenia, POA and active (stable). -Monitor. PLT 77 yest and 87 6. P. Atrial fibrillation (coumadin), NPOA and stable. -hold warfarin and follow. May need IV rate control. Daily INR. 7. Metabolic encephalopathy, POA and active. -monitor mental status -holding ativan and melatonin -head CT ordered, no intracranial pathology -patient may have anoxic injury from hypoxia prior to intubation, unable to obtain MRI to confirm at this hospital -now back on sedatives due to agitation on the vent 8. KANDACE, new and active. Improving -monitor renal function. 9. Possible chronic sinusitis with fungal infection? -per CT maxillary sinuses completely opacified and could represent fungal infection -start fluconazole 100mg daily -will speak with ID Full code. is proxy decision maker. Dispo: Patient's family understands poor prognosis. Sons are flying in from out of state. She will likely be extubated to comfort at that time. Time Spent With Patient Time with patient: 30 to 49 minutes with 50% spent counseling/coordinating care Quality VTE Deep Vein Thrombosis/Pulmonary Embolism Present on Admission: No
[2023-01-11] MEDS: FLUCONAZOLE 100 MG/50 ML PIGGYBACK IV (17:59)
--- NOTE | 2023-01-11 20:21 | PM.ICURNDS ---
- Date Patient Seen: 01/11/23 Time Patient Seen: 20:22 :: This patient was seen via real time interactive two-way audiovisual telecommunication. Note: Remains intubated and sedated. Currently on propofol 30 mcg and precedex 0.6 mcg. Failed SAT this morning. Will continue to minimize to sedatives and check daily SAT/cam ICU. Seek PT/OT and early mobility as tolerated. If remains hemodynamically stable then will start gentle diuresis to seek net negative fluid balance. D/w bedside MARANDA Schneider.
[2023-01-11] MEDS: dexmedeTOMIDine in 0.9 % NaCL 400 MCG/100 ML PLAST..BAG 12.42 MCG IV (22:00)
[2023-01-12] VITALS (37 sets, daily range): BP systolic 113–170; BP diastolic 59–86; PULSE 54–85; RESP 15–16; TEMP 36.2–36.5; O2SAT 94–98
[2023-01-12] MEDS: CHLORHEXIDINE GLUCONATE 15 ML CUP PO ×4 (00:04→23:57)
[2023-01-12] MEDS: propofoL 1,000 MG/100 ML VIAL 9.54 MG IV ×3 (02:49→22:53)
[2023-01-12] MEDS: CEFEPIME 2 GM in SODIUM CHLORIDE 0.9% 100 ML IV ×2 (04:10→16:13)
[2023-01-12] MEDS: SODIUM CHLORIDE 0.9% 250 ML 21 ML IV (04:14)
[2023-01-12 04:49] LABS: Add Manual Diff / Slide Review NO; Basophils Absolute Auto 100 /uL (0-100); Eosinophils Absolute Auto 200 /uL (0-450); Eosinophils Percent Auto 3.8 % (2-4); Hematocrit 40.7 % (36-46); Hemoglobin 13.6 g/dL (12.0-16.0); Lymphocytes Absolute Auto 800 /uL (1100-4500); Lymphocytes Percent Auto 12.5 % (25-40); Mean Corpuscular HGB Conc 33.3 % (30-36); Mean Corpuscular Hemoglobin 32.1 PG (26-34); Mean Corpuscular Volume 96.2 fL (80-100); Monocytes Absolute Auto 800 /uL (0-900); Monocytes Percent Auto 12.8 % (3-14); Neutrophils Absolute Auto 4200 /uL (1500-7000); Neutrophils Percent Auto 69.9 % (50-75); Platelet Count 110 X10^3/uL (150-400); Red Blood Cell Count 4.23 X10^6/uL (4.0-5.2); Red Cell Distribution Width 15.8 % (11.6-14.8)
[2023-01-12 04:53] LABS: Alanine Aminotransferase 32 IU/L (<35); Albumin 2.8 g/dL (3.5-5.0); Albumin Globulin Ratio 0.8 (1.0-2.8); Alkaline Phosphatase 89 U/L (38-126); Aspartate Aminotransferase 37 IU/L (14-36); BUN Creatinine Ratio 21.5 (6-22); Bilirubin Total 1.3 mg/dL (0.2-1.3); Blood Urea Nitrogen 17 mg/dL (7-17); Calcium 8.5 mg/dL (8.4-10.2); Carbon Dioxide 21 mmol/L (22-32); Chloride 113 mmol/L (98-107); Estimated Glomerular Filt Rate > 60 mL/min (>60); Globulin 3.4 g/dL (1.7-4.1); Glucose 125 mg/dL (80-110); HEMOLYSIS < 15 (0-50); Magnesium 1.7 mg/dL (1.6-2.3); Potassium 3.5 mmol/L (3.4-5.1); Sodium 139 mmol/L (137-145); Total Protein 6.2 g/dL (6.3-8.2)
[2023-01-12] MEDS: dexmedeTOMIDine in 0.9 % NaCL 400 MCG/100 ML PLAST..BAG 12.42 MCG IV (05:44)
[2023-01-12] MEDS: METOCLOPRAMIDE 10 MG/2 ML INJ 5 MG IV ×3 (05:44→21:25)
--- NOTE | 2023-01-12 05:50 | PC.NURSE ---
0545- Patient is less sedate now Rass is -2. Patient will withdraw to pain and grimace when stimulated. No stool and bowel tones are hypoactive but present. Secreatio
--- NOTE | 2023-01-12 05:55 | PC.NURSE ---
0645-Patient Rass is -2. Lungs remain coarse with occ. wheezes. 2+ dependent edema. Patient is afebrile. Will monitor.
--- NOTE | 2023-01-12 07:29 | P.PN_ITS ---
Subjective Subjective Interval history: Patient not following commands. Had to go back on propofol due to agitation. Possible seizure activity seen so given keppra load. Sons are en route from [place]. Exam Vital Signs (past 8 hours): - 01/12/23 00:00 01/12/23 00:00 01/12/23 01:00 Temperature Pulse Rate 57 L Respiratory Rate 15 Blood Pressure 153/72 H Pulse Oximetry 94 Oxygen Delivery Method Mechanical Ventilation 01/12/23 01:00 01/12/23 01:00 01/12/23 02:00 Temperature Pulse Rate 57 L Respiratory Rate 15 Blood Pressure 148/76 H 156/77 H Pulse Oximetry 94 Oxygen Delivery Method 01/12/23 02:00 01/12/23 03:00 01/12/23 03:00 Temperature Pulse Rate 59 L 62 Respiratory Rate 15 15 Blood Pressure 130/64 Pulse Oximetry 95 95 Oxygen Delivery Method 01/12/23 04:00 01/12/23 04:00 01/12/23 05:00 Temperature 97.3 F L Pulse Rate 58 L Respiratory Rate 15 Blood Pressure 147/72 H Pulse Oximetry 95 Oxygen Delivery Method Mechanical Ventilation 01/12/23 04:59 01/12/23 05:00 01/12/23 05:00 Temperature Pulse Rate 70 68 Respiratory Rate 15 15 Blood Pressure 113/63 Pulse Oximetry 97 97 Oxygen Delivery Method 01/12/23 06:00 01/12/23 06:00 Temperature Pulse Rate 60 Respiratory Rate 15 Blood Pressure 129/70 Pulse Oximetry 97 Oxygen Delivery Method Fraction of Inspired Oxygen 0.28 SaO2/FiO2 Ratio 72499 Oxygen Delivery Method Mechanical Ventilation Oxygen Flow Rate 15 Narrative Exam Narrative: Intubated and on vent. Sedated and intermittently agitated. OGT in place Atraumatic head, symmetric pupils. Neck supple and midline trachea. Lungs CTA, anterior. Heart RRR, without murmur, gallop, or rub. Abdomen Soft, NT, ND No leg edema. No skin rash. Objective Labs 01/12/23 04:30 01/12/23 04:30 Labs: Laboratory Results - last 24 hr 01/11/23 01/12/23 01/12/23 07:35 04:30 04:30 WBC 6.0 RBC 4.23 Hgb 13.6 Hct 40.7 MCV 96.2 MCH 32.1 MCHC 33.3 RDW 15.8 H Plt Count 110 L Neut % (Auto) 69.9 Lymph % (Auto) 12.5 L [place] % (Auto) 12.8 Eos % (Auto) 3.8 Baso % (Auto) 1.0 Neut # (Auto) 4200 Lymph # (Auto) 800 L [place] # (Auto) 800 Eos # (Auto) 200 Baso # (Auto) 100 ABG pH 7.39 ABG pCO2 30.8 L ABG pO2 67 L ABG HCO3 19 L ABG Total CO2 20 L ABG O2 Saturation 93 L ABG Base Excess -6.0 L FiO2 30 Sodium 139 Potassium 3.5 Chloride 113 H Carbon Dioxide 21 L BUN 17 Creatinine 0.79 Estimated GFR > 60 BUN/Creatinine Ratio 21.5 Glucose 125 H Calcium 8.5 Magnesium 1.7 Total Bilirubin 1.3 AST 37 H ALT 32 Alkaline Phosphatase 89 Total Protein 6.2 L Albumin 2.8 L Globulin 3.4 Albumin/Globulin Ratio 0.8 L PFSH Medical History Acquired clavicle deformity Asthma Cataracts, bilateral (1994) Chronic atrial fibrillation Essential hypertension Gout Hyperlipidemia Hyperthyroidism (1971) Osteoporosis Surgical History Toxic goiter (1971) Family History Father No problems noted. Mother No problems noted. Social History household members: significant other Smoking Status: Never smoker alcohol intake: never substance use type: does not use Assessment & Plan Assessment & Plan narrative: 1. Acute hypoxic and hypercarbic respiratory failure, POA and Active. -Vent support with propofol and fentanyl infusions. Oral care, head of bed up. DVT and GI prophylaxis. -extubated successfully the morning of 01/10, then worsened in the afternoon and needed reintubation -now back on vent as of 01/10 -RT pulm toilet due to copious secretions -will be difficult to get off vent at this point, partner Josué aware of this -sons coming in from [place] and understand her prognosis is poor 2. Acute pulmonary edema, POA and active. -diuresis with IV lasix 40 QAM. Had to hold 01/07 due to hypotension requiring norepinephrine (liekly sedation related). -echo with EF 55%, mod MR and TR which are worse from prior 3. Pseudomonal pneumonia, POA and active. -started antibiotics wtih Ceftriaxone and doxycycline. -changed rocephin to cefepime on 01/09 due to sputum culture with GNB -sputum showing pseudomonas susceptible to cefepime -copious secretions being suctioned 4. Hyponatremia, POA and improving. -monitor BMP with diuresis. 5. Thromocytopenia, POA and active (stable). -Monitor. PLT 78 yest and 88 6. P. Atrial fibrillation (coumadin), NPOA and stable. -hold warfarin and follow. May need IV rate control. Daily INR. 7. Metabolic encephalopathy, POA and active. -monitor mental status -holding ativan and melatonin -head CT ordered, no intracranial pathology -patient may have anoxic injury from hypoxia prior to intubation, unable to obtain MRI to confirm at this hospital -now back on sedatives due to agitation on the vent 8. KANDACE, new and active. Improving -monitor renal function. 9. Possible chronic sinusitis with fungal infection? -per CT maxillary sinuses completely opacified and could represent fungal infection -start fluconazole 100mg daily -will speak with ID Full code. is proxy decision maker. Dispo: Patient's family understands poor prognosis. Sons are flying in from [place] and will arrive on Fri. She will likely be extubated to comfort at that time. Time Spent With Patient Time with patient: 30 to 49 minutes with 50% spent counseling/coordinating care Quality VTE Deep Vein Thrombosis/Pulmonary Embolism Present on Admission: No
[2023-01-12] MEDS: MAGNESIUM SULFATE 2 GM/50 ML PIGGYBACK IV (08:25)
[2023-01-12] MEDS: PANTOPRAZOLE 40 MG VIAL IV (08:28)
[2023-01-12] MEDS: HEPARIN 5,000 UNIT/ML VIAL 5000 UNIT SUBCUT (08:28)
--- NOTE | 2023-01-12 09:00 | PM.PN.EICU ---
Subjective Subjective IF CAMERA ACTIVATED, patient seen via real-time interactive audiovisual communication: Camera activated Consent obtained for tele-communications department chairperson care: Yes Patient Location: ICU Provider location (State): [place] Other participants/roles: Bedside RN Interval history: [address] [address] Teleintensivist Progress Note Patient: Wilma Jackson MR#: [id number] : 1940 Acct:[id number] Age/Sex: 82 / F ? Date of Service: 01/06/23 Provider:?Stanislav Garces Subjective Subjective IF CAMERA ACTIVATED, patient seen via real-time interactive audiovisual communication: Camera activated Consent obtained for tele-communications department chairperson care: Yes Patient Location: ICU Provider location (State): [place] Other participants/roles: Bedside RN, Respiratory therapist Interval history: Patient was examined using?two-way?interactive audiovisual equipment. Briefly, an 86 years old female with HTN, A.fib, Asthma, and hyperlipidemia who presented from urgent care with complaint of shortness of breath for 5 days, found to have acute hypercapnic respite failure with pH 7.11, PCO2 140, failed BiPAP ultimately required intubated.? Chest x-ray showed findings concerning for pulm edema and superimposed pneumonia.? She was started on diuresis and empiric antibiotics. She was requiring low dose norepinephrine gtt but was weaned off and eventually extubated on 01/09 am. However, overnight, she became more obtunded, encephalopathic, desaturated to 85% while on NRB mask. She was reintubated approximately at 4:00 am on 01/11.? CTH wo contrast with Chronic bilateral maxillary sinusitis.? Bilateral maxillary sinuses are completely opacified with high density material suggesting either low water content mucoid material or possibly fungal infection. Overnight, no acute issues. This morning, remains intubated, on minimal vent settings. On VC/AC, FiO2 30%, PEEP 5, RR 15, TV 360cc during my assessment at 09:00 am. On propofol gtt. Precedex gtt. Currently, not on Fentanyl IV pushes PRN for ain control. Weaned off pressors (neosynephrine). Now remains stable from hemodynamic stand point. Tolerating TF at 20cc/hr.?Per RN, when sedation reduced this am, mental status remains poor. ? Current Medications Current Medications Medications: Home Medications albuterol sulfate 90 mcg/actuation aerosol inhaler (Ventolin HFA) 1 puff inhalation Q4-6H PRN shortness of breath or wheezing #18 grams 02/13/22 [Rx Confirmed 01/06/23] furosemide 40 mg tablet 40 mg PO DAILY PRN edema/weight gain #10 tabs 02/13/22 [Rx Confirmed 01/06/23] carvedilol 25 mg tablet 25 mg PO BID #180 tabs 06/05/22 [Rx Confirmed 01/06/23] losartan 100 mg tablet 100 mg PO DAILY #90 tabs 06/05/22 [Rx Confirmed 01/06/23] pravastatin 40 mg tablet 40 mg PO DAILY #90 tabs 06/05/22 [Rx Confirmed 01/06/23] apixaban 5 mg tablet (Eliquis) See Rx Instructions .Route .COMPLEX #180 tabs 08/06/22 [Rx Confirmed 01/06/23] amlodipine 5 mg tablet (Norvasc) 5 mg PO DAILY #90 tabs 10/25/22 [Rx Confirmed 01/06/23] diazepam 5 mg tablet 10 mg PO BEDTIME PRN sleep #30 tabs 10/25/22 [Rx Confirmed 01/06/23] potassium chloride 10 mEq tablet,extended release See Rx Instructions .Route .COMPLEX #90 tabs 11/11/22 [Rx Confirmed 01/06/23] calcium carbonate 500 mg calcium (1,250 mg) tablet ([place] Calcium) 500 mg PO BID #180 tabs 11/13/22 [Rx Confirmed 01/06/23] Visit Medications (administered) Generic Name Dose Route Start Last Admin Trade Name Freq PRN Reason Stop Dose Admin Albuterol/Ipratropium 3 ml 01/06/23 20:00 01/11/23 19:42 Albuterol/Ipratropium 3 Ml Ampul INH 3 ml RTBID ANTONY Administration Chlorhexidine Gluconate 15 ml 01/10/23 18:00 01/12/23 05:44 Chlorhexidine Gluconate 15 Ml Cup PO 15 ml Q6HR ANTONY Administration Fentanyl 25 mcg 01/08/23 18:53 01/09/23 10:47 Fentanyl 100 Mcg/2 Ml Inj IV 25 mcg Q30MIN PRN Administration Pain, Severe (7-10) Heparin Sodium (Porcine) 5,000 unit 01/10/23 09:00 01/12/23 08:28 Heparin 5,000 Unit/Ml Vial SUBCUT 5,000 unit DAILY ANTONY Administration Heparin Sodium (Porcine) 50 unit 01/11/23 09:41 01/12/23 04:39 Heparin Flush (Cl/Picc/Mid-Line) 50 Unit/5 Ml Syringe IV 50 unit PRN PRN Administration Flush dexmedeTOMIDine in 0.9 % NaCL 400 mcg in 100 mls @ 4.14 mls/hr 01/08/23 09:45 01/12/23 05:44 Precedex IV 0.6 mcg/kg/hr TITRATE ANTONY 12.42 mls/hr Administration Protocol 0.2 MCG/KG/HR Cefepime HCl 2 gm/ Sodium 100 mls @ 200 mls/hr 01/09/23 16:00 01/12/23 08:44 Chloride IV Infused Q12H ANTONY Infusion Sodium Chloride 250 mls @ 21 mls/hr 01/10/23 03:45 01/12/23 04:14 Normal Saline 0.9% IV 21 mls/hr Q24H PRN Administration Flush Propofol 1,000 mg in 100 mls @ 2.385 mls/hr 01/10/23 16:15 01/12/23 08:59 Propofol IV 15 mcg/kg/min TITRATE ANTONY 7.155 mls/hr Titration Protocol 5 MCG/KG/MIN Fluconazole 100 mg in 50 mls @ 100 mls/hr 01/10/23 17:34 01/11/23 19:35 Diflucan IV Infused Q24H ANTONY Infusion NOREPINEPHRINE BITARTRATE/D5W 4 mg in 250 mls @ 29.775 mls/hr 01/11/23 13:30 01/11/23 19:34 Levophed IV Not Given TITRATE ANTONY Protocol 0.1 MCG/KG/MIN Magnesium Sulfate 2 gm in 50 mls @ 25 mls/hr 01/12/23 08:15 01/12/23 08:25 Magnesium Sulfate IV 01/12/23 10:14 25 mls/hr NOW ONE Administration Metoclopramide HCl 5 mg 01/09/23 22:45 01/12/23 05:44 Metoclopramide 10 Mg/2 Ml Inj IV 5 mg Q8HR ANTONY Administration Pantoprazole Sodium 40 mg 01/07/23 09:00 01/12/23 08:28 Pantoprazole 40 Mg Vial IV 40 mg DAILY ANTONY Administration Objective Ventilator Parameters: Ventilator Settings FiO2 30 RT Vent Frequency 15 Ventilator Tidal Volume 360 Exhaled Vt/kg IBW 4.5 Positive End Expiratory 5 Pressure Ventilator Pressure Support 55 Inspiratory Phase Time 0.9 I:E Ratio 1:3.4 Patient Position HOB >= 30 degrees Labs 01/12/23 04:30 01/12/23 04:30 Labs: Laboratory Results - last 24 hr 01/12/23 01/12/23 04:30 04:30 WBC 6.0 RBC 4.23 Hgb 13.6 Hct 40.7 MCV 96.2 MCH 32.1 MCHC 33.3 RDW 15.8 H Plt Count 110 L Neut % (Auto) 69.9 Lymph % (Auto) 12.5 L [place] % (Auto) 12.8 Eos % (Auto) 3.8 Baso % (Auto) 1.0 Neut # (Auto) 4200 Lymph # (Auto) 800 L [place] # (Auto) 800 Eos # (Auto) 200 Baso # (Auto) 100 Sodium 139 Potassium 3.5 Chloride 113 H Carbon Dioxide 21 L BUN 17 Creatinine 0.79 Estimated GFR > 60 BUN/Creatinine Ratio 21.5 Glucose 125 H Calcium 8.5 Magnesium 1.7 Total Bilirubin 1.3 AST 37 H ALT 32 Alkaline Phosphatase 89 Total Protein 6.2 L Albumin 2.8 L Globulin 3.4 Albumin/Globulin Ratio 0.8 L Exam Vital Signs (past 8 hours): - 01/12/23 02:00 01/12/23 02:00 01/12/23 03:00 Temperature Pulse Rate 59 L Respiratory Rate 15 Blood Pressure 156/77 H 130/64 Pulse Oximetry 95 Oxygen Delivery Method 01/12/23 03:00 01/12/23 04:00 01/12/23 04:00 Temperature 97.3 F L Pulse Rate 62 58 L Respiratory Rate 15 15 Blood Pressure 147/72 H Pulse Oximetry 95 95 Oxygen Delivery Method 01/12/23 05:00 01/12/23 04:59 01/12/23 05:00 Temperature Pulse Rate 70 Respiratory Rate 15 Blood Pressure 113/63 Pulse Oximetry 97 Oxygen Delivery Method Mechanical Ventilation 01/12/23 05:00 01/12/23 06:00 01/12/23 06:00 Temperature Pulse Rate 68 60 Respiratory Rate 15 15 Blood Pressure 129/70 Pulse Oximetry 97 97 Oxygen Delivery Method 01/12/23 07:00 01/12/23 07:00 01/12/23 08:00 Temperature Pulse Rate 56 L Respiratory Rate 15 Blood Pressure 140/80 151/78 H Pulse Oximetry 98 Oxygen Delivery Method 01/12/23 08:00 01/12/23 08:26 Temperature 97.6 F Pulse Rate 61 Respiratory Rate 15 Blood Pressure Pulse Oximetry 98 Oxygen Delivery Method Fraction of Inspired Oxygen 0.28 SaO2/FiO2 Ratio 39418 Oxygen Delivery Method Mechanical Ventilation Oxygen Flow Rate 15 Narrative Exam Narrative: Remains intubated, sedated, comfortable on the vent. Quality TeleICU VTE Deep Vein Thrombosis/Pulmonary Embolism Present on Admission: No Assessment & Plan Assessment & Plan narrative: IMPRESSIONS: # Acute hypercapnic respiratory failure, multifactorial.? Likely from pulm edema with possibly a component of superimposed pneumonia. Reintubated on 01/11 am. # Acute metabolic encephalopathy # Shock, likely sedation induced, now resolved. # Acute Kidney Injury # Hypokalemia, resolved. # Hyponatremia, improving # Chronic atrial fibrillation # History of hypertension # History of asthma PLAN: NEUROLOGY/PSYCHIATRY: # Acute encephalopathy, metabolic versus medication (sedation) induced. - CTH wo contrast on 01/10 with Chronic bilateral maxillary sinusitis.? Bilateral maxillary sinuses are completely opacified with high density material suggesting either low water content mucoid material or possibly fungal infection. - Started on Fluconazole for suspected fungal infection in the brain. Recommend to f/up above findings with MRI brain when feasible. - On sedation with propofol gtt.Precedex gtt. Will discontinue Propofol gtt and addfentanyl IV pushes for additional sedation/pain control. Opens eyes, but does not follow commands. RASS goal 0 to -1. - Failed SAT this morning.?Minimize sedation as much as possible to reevaluate neuro exam/mental status more frequently. ? PULMONARY: # Acute hypercapnic respiratory failure, requiring mechanical ventilation. - Required to be reintubated on 01/11 am due to worsening mental status and hypoxia. - Most likely etiology, pulmonary edema with possible superimposed bacterial pneumonia. ? - Remains intubated this morning.? Vent settings reviewed.? On VC/AC, RR 15, TV 360, FiO2 30% PEEP of 5.?Post-intubation ABG reviewed (pH 7.39, PCO2 30.8, PaO2 67, Bicarb 19). Adjust vent settings as needed. - C/w vent support per lung protective strategy (Keep TV 6 cc/kg, plat pres < 30, PaO2 60-80 mm Hg, FiO2 goal <60%, SaO2 88-92%) and c/w ABCDE bundle while intubated. - Currently auto-diuresing (1600cc urine output overnight). Diuretics on hold. oal to keep net negative fluid balance of -500 cc to -1 L/day.? Use Diamox as needed to counteract Lasix induced metabolic alkalosis. - Failed SAT today.? Reevaluate tomorrow am.? C/w daily sedation vacation, and spontaneous breathing trial with plan to extubate if and when meets criteria.? Would ideally wait for MRI brain prior to extubation. - Continue [place] antibiotics Cefepime and Fluconazole. - Elevate head of bed to 30?, aspiration precautions, oral care with chlorhexidine - When extubated, start incentive spirometry, PT/OT, swallow eval, out of bed to chair. ? CARDIOVASCULAR: # Hypotension with shock. - Now resolved. Likely sedation induced but cannot rule out sepsis at this point. - Use vasopressors (norepinephrine gtt.) as needed to maintain MAP >65. - Order albumin boluses to replace volume as needed. Minimize crystalloids due to concern for worsening pulm edema/fluid overload. - Monitor markers of tissue perfusion (lactate clearance, base deficit, urine out). - Hold antihypertensives. # History of chronic atrial fibrillation: - Heart rate controlled.? On Eliquis at home but currently on hold due to KANDACE.? Continue subcu heparin (hold if platelet count <80). - Plan to resume Eliquis in the next 24 hours if H&H remained stable (bleeding from oropharynx) - Order TTE if no recent echo in the last 3 months. ? GASTROENTEROLOGY: - C/w tube feeding.? Per bedside RN, high residuals. On 20cc/hr. - Protonix for GI prophylaxis. ? RENAL/ELECTROLYTES/ACID-BASE DISORDERS: # Acute kidney injury, likely ATN. - Now Resolved. Creatinine down to 0.80 this AM.? Diuretics currently on hold. - F/up with daily BMP to assess for renal functions.? - Replace lytes as necessary. Strict I & Os. Monitor urine output. - Avoid nephrotoxic agents and renally dose medications. ? INFECTIOUTS DISEASE: # Shock, possibly from underlying sepsis secondary superimposed pneumonia / Maxillary sinuisities. - Sputum c/s with Psedomonas sensistive to Cefepime. - Follow-up on final blood cultures X 2, tredn procalcitonin.? - Monitor markers of tissue perfusion (lactate clearance, base deficit, mental status, urine out). - Continue empiric antibiotics (Cefepime) for Pseudomonas PNA and Fluconazole for ?fungal infection in maxillary sinuses. - Use pressors (Norepinephrine) as needed to keep MAP > 65. - Afebrile, has no leukocytosis.? Monitor WBC and fever curves. ? HEMATOLOGIC/ONCOLOGIC DISORDERS: - Monitor H&H with daily CBC, and transfuse if hemoglobin less than 7.0 ? ENDOCRINE: - No known history of diabetes. - Avoid hypoglycemia, and start SSI if BG > 140. ? # FEN: C/w TF, advance as tolerated. Replace electrolytes aggressively.? Minimize IV fluids due to pulmonary edema. # Glucose: Fairly controlled. C/w SSI, accucheck q 6 hours. BG goal 140-180 # Prophylaxis: Heparin subcu and SCDs for DVT prophylaxis, Protonix for stress ulcer prophylaxis # Lines/tubes: PIV, Bruce, CVC # CODE STATUS: Full code # Disposition: Remains in ICU. # Prognosis: Guarded ? Above plan was discussed with rounding team including hospitalist, bedside RN, respiratory therapist, dietitian and pharmacist during tele-ICU multidisciplinary rounds this morning.? We will continue to follow.? Please call us if any additional questions.
--- NOTE | 2023-01-12 09:14 | PC.NURSE ---
Addendum entered by Heather Sanchez R.N. 01/14/23 09:24: Plan with family is to hold pt intubated and sedated until son Joseph can get here from [facility]. Plan is to change pts code status prior to extubation on 01/15. Addendum entered by Heather Sanchez R.N. 01/12/23 14:02: Pt really not following commands as previously thought, she does nod head but it is not really responding to requests, unable to track with eyes, not following commands to squeeze hands, wiggle toes, etc. Pt has become more agitated, pulling at lines and restraints, thrashing in bed. Dr Thomas updated on pt and recommended titrating Propofol back up for pt comfort. VSS, will continue to monitor Addendum entered by Heather Sanchez R.N. 01/12/23 11:57: Pt responding to stimulation with head nods, and slight squeeze of hand, called Dr Thomas to bedside and was not able to see any of the pts responses. Will continue to monitor Addendum entered by Heather Sanchez R.N. 01/12/23 10:33: Spoke to Pt Son who is coming from [facility], as of right now, he and his family will not be able to get to the hospital before early Friday, all flights are booked. Original Note: 0910 Current RASS -2, (Quickly changed to +1) Vent settings Fi02 30%, TV 360, RR 15 PEEP 5, lungs are coarse with occasional wheezes, afebrile, +2 generalized dependant edema, sedation is Propofol at 15 mcg/kg/min (per e-ICU will begin titrating propofol to off) Precedex is 0.6 mcg/kg/hr and will begin using fentanyl IVP for pain control, pt pupils are non-reactive, pt roused and began moving chin up and down in a repetitive motion, nodding head no but not sure if it was purposeful, (possible seizure activity), unable to respond by squeezing hand or nodding in response to questions. Notified Dr Thomas of changes, will come to beside to evaluate, no new orders at this time, will continue to monitor. Dr Thomas at bedside, will try a loading dose of Keppra for possible seizure activity
[2023-01-12] MEDS: fentaNYL 100 MCG/2 ML INJ 25 MCG IV ×3 (09:46→21:25)
[2023-01-12] MEDS: levETIRAcetam 1,000 MG in SODIUM CHLORIDE 0.9% 100 ML 440 MG IV (09:54)
[2023-01-12] MEDS: ALBUTEROL/IPRATROPIUM 3 ML AMPUL INH ×2 (09:56→19:51)
[2023-01-12] MEDS: POTASSIUM CHLORIDE IN WATER 10 MEQ/100 ML PIGGYBACK 100 MEQ IV ×2 (10:22→11:45)
[2023-01-12] MEDS: dexmedeTOMIDine in 0.9 % NaCL 400 MCG/100 ML PLAST..BAG 16.56 MCG IV ×2 (12:40→18:41)
--- NOTE | 2023-01-12 15:49 | CM.DPC ---
Patient remains complexly critically ill, awaiting GOC with son from [facility] who may not arrive until Friday according to bedside MARANDA Romero. Other son is in [place] and may not be able to fly. CM team available for progression of care support when family are available. Patients SO is at bedside with her. No request for spiritual care support at this time.
[2023-01-12] MEDS: FLUCONAZOLE 100 MG/50 ML PIGGYBACK IV (17:22)
[2023-01-12] MEDS: dexmedeTOMIDine in 0.9 % NaCL 400 MCG/100 ML PLAST..BAG 12.015 MCG IV (20:09)
--- NOTE | 2023-01-12 20:50 | PM.ICURNDS ---
- :: This patient was seen via real time interactive two-way audiovisual telecommunication. pt remains intubated andf sedated on rpopofol and precedex. currntly on TF, no plan for SBT at this time given high chance of failure. [facility] for further GOC discussions. continue current care plan for now d/.w MARANDA
[2023-01-13] VITALS (53 sets, daily range): BP systolic 79–176; BP diastolic 42–109; PULSE 55–149; RESP 15–30; TEMP 36.4–37; O2SAT 90–100
[2023-01-13] MEDS: CEFEPIME 2 GM in SODIUM CHLORIDE 0.9% 100 ML IV ×3 (03:20→19:45)
[2023-01-13] MEDS: dexmedeTOMIDine in 0.9 % NaCL 400 MCG/100 ML PLAST..BAG 8.01 MCG IV (04:11)
[2023-01-13] MEDS: SODIUM CHLORIDE 0.9% 250 ML 21 ML IV ×2 (05:13→18:19)
[2023-01-13] MEDS: fentaNYL 100 MCG/2 ML INJ 25 MCG IV (05:14)
[2023-01-13] MEDS: METOCLOPRAMIDE 10 MG/2 ML INJ 5 MG IV ×3 (05:14→22:15)
[2023-01-13] MEDS: CHLORHEXIDINE GLUCONATE 15 ML CUP PO ×3 (05:15→17:26)
[2023-01-13 05:48] LABS: Magnesium 1.9 mg/dL (1.6-2.3)
[2023-01-13 05:49] LABS: Alanine Aminotransferase 40 IU/L (<35); Albumin 2.7 g/dL (3.5-5.0); Albumin Globulin Ratio 0.8 (1.0-2.8); Alkaline Phosphatase 128 U/L (38-126); Aspartate Aminotransferase 48 IU/L (14-36); BUN Creatinine Ratio 22.5 (6-22); Blood Urea Nitrogen 16 mg/dL (7-17); Calcium 7.8 mg/dL (8.4-10.2); Carbon Dioxide 20 mmol/L (22-32); Chloride 110 mmol/L (98-107); Estimated Glomerular Filt Rate > 60 mL/min (>60); Globulin 3.4 g/dL (1.7-4.1); Glucose 134 mg/dL (80-110); HEMOLYSIS 24 (0-50); Potassium 3.7 mmol/L (3.4-5.1); Sodium 137 mmol/L (137-145); Total Protein 6.1 g/dL (6.3-8.2)
[2023-01-13 05:51] LABS: Add Manual Diff / Slide Review NO; Basophils Absolute Auto 100 /uL (0-100); Basophils Percent Auto 0.9 % (0-2); Eosinophils Absolute Auto 200 /uL (0-450); Eosinophils Percent Auto 3.7 % (2-4); Hematocrit 39.7 % (36-46); Lymphocytes Absolute Auto 900 /uL (1100-4500); Lymphocytes Percent Auto 14.6 % (25-40); Mean Corpuscular HGB Conc 32.7 % (30-36); Mean Corpuscular Hemoglobin 31.5 PG (26-34); Mean Corpuscular Volume 96.4 fL (80-100); Monocytes Absolute Auto 700 /uL (0-900); Monocytes Percent Auto 11.4 % (3-14); Neutrophils Absolute Auto 4100 /uL (1500-7000); Neutrophils Percent Auto 69.4 % (50-75); Platelet Count 97 X10^3/uL (150-400); Red Blood Cell Count 4.12 X10^6/uL (4.0-5.2); Red Cell Distribution Width 15.1 % (11.6-14.8)
[2023-01-13] MEDS: propofoL 1,000 MG/100 ML VIAL 9.54 MG IV (06:45)
--- NOTE | 2023-01-13 08:04 | DI.RAD.S_ITS ---
PROCEDURE: XR CHEST 1V INDICATIONS: reassess after failing breathing trials TECHNIQUE: One view of the chest was acquired. COMPARISON: [facility], CR, XR CHEST 1V, 01/10/2023, 16:09. [facility], CR, XR CHEST 1V, 01/08/2023, 9:42. FINDINGS: Surgical changes and devices: Endotracheal tube is seen with the tip at the ariadne. Nasogastric tube is seen with the side port and tip in the stomach. Lungs and pleura: Lungs are clear. Interstitial prominence is unchanged compared to the prior study and is likely chronic. No pleural effusions or pneumothorax. Mediastinum: Mediastinal contours appear normal. Heart size is normal. Bones and chest wall: No suspicious bony lesions. Overlying soft tissues appear unremarkable. IMPRESSION: 1. Endotracheal tube is at the level of the ariadne, recommend withdrawal 2-3 cm. 2. Nasogastric tube appears well positioned. 3. Chronic appearing interstitial prominence in the lungs but no acute abnormality. Dictated by: Sundar Esparza M.D. on 01/13/2023 at 9:21 Approved by: Sundar Esparza M.D. on 01/13/2023 at 9:27
[2023-01-13] MEDS: ALBUTEROL/IPRATROPIUM 3 ML AMPUL INH ×2 (08:29→19:10)
--- NOTE | 2023-01-13 08:34 | PM.PN.1 ---
Subjective Subjective Date Patient Seen: 01/13/23 Time Patient Seen: 08:30 Interval history: Patient awakening with sedation vacation this morning. Intermittently follows commands. Being treated for pneumonia, volume overload, possible fungal infection as well. Continues to have lots of secretions. Repeat chest xray today compared to 01/10 similar in appearance, perhaps a bit less fluid. Discussed with teleintensivist, hesitant to extubate today, will continue to limit sedation medications as much as possible in attempts to have her ready for extubation over the coming days. Exam Vital Signs (past 8 hours): - 01/13/23 01:00 01/13/23 01:01 01/13/23 01:01 Temperature 97.7 F Pulse Rate 87 80 Respiratory Rate 15 15 Blood Pressure 121/55 L Pulse Oximetry 97 97 01/13/23 02:00 01/13/23 02:00 01/13/23 03:00 Temperature Pulse Rate 65 Respiratory Rate 15 Blood Pressure 116/60 134/69 Pulse Oximetry 96 01/13/23 03:00 01/13/23 04:00 01/13/23 04:00 Temperature Pulse Rate 60 59 L Respiratory Rate 15 15 Blood Pressure 140/79 Pulse Oximetry 97 97 01/13/23 05:00 01/13/23 05:00 01/13/23 06:00 Temperature Pulse Rate 69 Respiratory Rate 15 Blood Pressure 109/59 L 118/61 Pulse Oximetry 95 01/13/23 06:00 01/13/23 07:00 01/13/23 07:00 Temperature Pulse Rate 59 L 55 L Respiratory Rate 15 15 Blood Pressure 137/73 Pulse Oximetry 97 97 01/13/23 08:00 Temperature 97.5 F L Pulse Rate 55 L Respiratory Rate 15 Blood Pressure 140/69 Pulse Oximetry 97 Fraction of Inspired Oxygen 0.30 SaO2/FiO2 Ratio [id number] Oxygen Delivery Method Mechanical Ventilation Oxygen Flow Rate 15 Narrative Exam Narrative: Intubated and on vent. Sedated, on vacation this AM intermittently follows commands. OGT in place Atraumatic head, symmetric pupils. Neck supple and midline trachea. Lungs CTA, anterior. Heart RRR, without murmur, gallop, or rub. Abdomen Soft, NT, ND No leg edema. No skin rash. Objective Labs 01/13/23 05:30 01/13/23 05:30 Labs: Laboratory Results - last 24 hr 01/13/23 01/13/23 01/13/23 05:30 05:30 05:30 WBC 6.0 RBC 4.12 Hgb 13.0 Hct 39.7 MCV 96.4 MCH 31.5 MCHC 32.7 RDW 15.1 H Plt Count 97 L Neut % (Auto) 69.4 Lymph % (Auto) 14.6 L [place] % (Auto) 11.4 Eos % (Auto) 3.7 Baso % (Auto) 0.9 Neut # (Auto) 4100 Lymph # (Auto) 900 L [place] # (Auto) 700 Eos # (Auto) 200 Baso # (Auto) 100 Sodium 137 Potassium 3.7 Chloride 110 H Carbon Dioxide 20 L BUN 16 Creatinine 0.71 Estimated GFR > 60 BUN/Creatinine Ratio 22.5 H Glucose 134 H Calcium 7.8 L Magnesium 1.9 Total Bilirubin 1.0 AST 48 H ALT 40 H Alkaline Phosphatase 128 H Total Protein 6.1 L Albumin 2.7 L Globulin 3.4 Albumin/Globulin Ratio 0.8 L [facility] Medical History Acquired clavicle deformity Asthma Cataracts, bilateral (1994) Chronic atrial fibrillation Essential hypertension Gout Hyperlipidemia Hyperthyroidism (1971) Osteoporosis Surgical History Toxic goiter (1971) Family History Father No problems noted. Mother No problems noted. Social History household members: significant other Smoking Status: Never smoker alcohol intake: never substance use type: does not use Assessment & Plan Assessment & Plan narrative: 1. Septic shock with hypotension, Acute hypoxic and hypercarbic respiratory failure, thrombocytopenia.a POA and Active. -Vent support with propofol and fentanyl infusions. Limit as much as possible. Trialing abilify today along with precedex to see if improvement in delirium. Oral care, head of bed up. DVT and GI prophylaxis. -extubated successfully the morning of 01/10, then worsened in the afternoon and needed reintubation -now back on vent as of 01/10 -RT pulm toilet due to copious secretions -will be difficult to get off vent at this point, partner Josué aware of this -sons coming in from [facility] and understand her prognosis is poor --diuresis with IV lasix 40 QAM, initially. Had to hold 01/07 due to hypotension requiring norepinephrine and has continued to hold. Will not restart today as clinically does not appear volume overloaded on exam. -increase cefepime with improved renal function to 2g q8 for pseudomonas pneumonia -remains on fluconazole for possible fungal etiology as well per tele-exit booth agent service, appreciate their assistance with management. 2. Acute pulmonary edema, POA and active. -echo with EF 55%, mod MR and TR which are worse from prior. -diuresis has been held 01/07 for hypotension requiring levophed. -consider resuming today, though does not appear overloaded on exam and CXR with improved appearance. 3. Pseudomonal pneumonia, POA and active. -started antibiotics wtih Ceftriaxone and doxycycline. -changed rocephin to cefepime on 01/09 due to sputum culture with pseudomonas, increased with improving renal function today to 2g q8 hr. -copious secretions being suctioned 4. Hyponatremia, POA and improving. -following with daily BMP, low sodium now resolved. 5. Thromocytopenia, POA and active (stable). -likely due to sepsis. Improving thus far. 6. P. Atrial fibrillation (coumadin), NPOA and stable. -hold warfarin and follow. May need IV rate control. Daily INR. 7. Metabolic encephalopathy, POA and active. -monitor mental status -holding ativan and melatonin -head CT ordered, no intracranial pathology -patient may have anoxic injury from hypoxia prior to intubation, unable to obtain MRI to confirm at this hospital -now back on sedatives due to agitation on the vent 8. KANDACE, new and active. Improving -monitor renal function. 9. Possible chronic sinusitis with fungal infection? -per CT maxillary sinuses completely opacified and could represent fungal infection -started empirically on IV fluconazole 100mg daily, will continue today. Full code. is proxy decision maker. Dispo: Patient's family understands poor prognosis. Sons are flying in from [facility] and will arrive on Fri. May transition to comfort at that time depending on progress. Will continue to work on limiting sedation in hopes of extubation. I spent 35 minutes providing critical care management this patient. This excludes time spent in performing separately billed procedures. Time Spent With Patient Time with patient: 30 to 49 minutes with 50% spent counseling/coordinating care Quality VTE Deep Vein Thrombosis/Pulmonary Embolism Present on Admission: No MIPS - Admit I confirm the patient?s Advance Care Plan is present, Code status is documented, Surrogate decision maker is in patient?s record [If Yes, STOP here]: Yes
[2023-01-13] MEDS: PANTOPRAZOLE 40 MG VIAL IV (08:38)
[2023-01-13] MEDS: HEPARIN 5,000 UNIT/ML VIAL 5000 UNIT SUBCUT (08:38)
--- NOTE | 2023-01-13 09:31 | PM.PN.EICU ---
Subjective Subjective IF CAMERA ACTIVATED, patient seen via real-time interactive audiovisual communication: Camera activated Consent obtained for tele-obstetrics nurse practitioner care: Yes Patient Location: ICU Provider location (State): [place] Other participants/roles: Bedside RN and RT Interval history: -- No acute issues overnight -- Remains encephalopathic and agitated when off propofol -- Added abilify -- Net negative 1.1 liters over the last 24 hours -- On PEEP 5 and FiO2 30% Current Medications Current Medications Medications: Home Medications albuterol sulfate 90 mcg/actuation aerosol inhaler (Ventolin HFA) 1 puff inhalation Q4-6H PRN shortness of breath or wheezing #18 grams 02/13/22 [Rx Confirmed 01/06/23] furosemide 40 mg tablet 40 mg PO DAILY PRN edema/weight gain #10 tabs 02/13/22 [Rx Confirmed 01/06/23] carvedilol 25 mg tablet 25 mg PO BID #180 tabs 06/05/22 [Rx Confirmed 01/06/23] losartan 100 mg tablet 100 mg PO DAILY #90 tabs 06/05/22 [Rx Confirmed 01/06/23] pravastatin 40 mg tablet 40 mg PO DAILY #90 tabs 06/05/22 [Rx Confirmed 01/06/23] apixaban 5 mg tablet (Eliquis) See Rx Instructions .Route .COMPLEX #180 tabs 08/06/22 [Rx Confirmed 01/06/23] amlodipine 5 mg tablet (Norvasc) 5 mg PO DAILY #90 tabs 10/25/22 [Rx Confirmed 01/06/23] diazepam 5 mg tablet 10 mg PO BEDTIME PRN sleep #30 tabs 10/25/22 [Rx Confirmed 01/06/23] potassium chloride 10 mEq tablet,extended release See Rx Instructions .Route .COMPLEX #90 tabs 11/11/22 [Rx Confirmed 01/06/23] calcium carbonate 500 mg calcium (1,250 mg) tablet (Oyster Shell Calcium) 500 mg PO BID #180 tabs 11/13/22 [Rx Confirmed 01/06/23] Visit Medications (administered) Generic Name Dose Route Start Last Admin Trade Name Freq PRN Reason Stop Dose Admin Albuterol/Ipratropium 3 ml 01/06/23 20:00 01/13/23 08:29 Albuterol/Ipratropium 3 Ml Ampul INH 3 ml RTBID ANTONY Administration Chlorhexidine Gluconate 15 ml 01/10/23 18:00 01/13/23 05:15 Chlorhexidine Gluconate 15 Ml Cup PO 15 ml Q6HR ANTONY Administration Fentanyl 25 mcg 01/08/23 18:53 01/13/23 05:14 Fentanyl 100 Mcg/2 Ml Inj IV 25 mcg Q30MIN PRN Administration Pain, Severe (7-10) Heparin Sodium (Porcine) 5,000 unit 01/10/23 09:00 01/13/23 08:38 Heparin 5,000 Unit/Ml Vial SUBCUT 5,000 unit DAILY ANTONY Administration Heparin Sodium (Porcine) 50 unit 01/11/23 09:41 01/13/23 08:38 Heparin Flush (Cl/Picc/Mid-Line) 50 Unit/5 Ml Syringe IV 50 unit PRN PRN Administration Flush Sodium Chloride 250 mls @ 21 mls/hr 01/10/23 03:45 01/13/23 05:13 Normal Saline 0.9% IV 21 mls/hr Q24H PRN Administration Flush Propofol 1,000 mg in 100 mls @ 2.385 mls/hr 01/10/23 16:15 01/13/23 08:25 Propofol IV 10 mcg/kg/min TITRATE ANTONY 4.77 mls/hr Titration Protocol 5 MCG/KG/MIN Fluconazole 100 mg in 50 mls @ 100 mls/hr 01/10/23 17:34 01/12/23 17:22 Diflucan IV 100 mls/hr Q24H ANTONY Administration NOREPINEPHRINE BITARTRATE/D5W 4 mg in 250 mls @ 29.775 mls/hr 01/11/23 13:30 01/11/23 19:34 Levophed IV Not Given TITRATE ANTONY Protocol 0.1 MCG/KG/MIN dexmedeTOMIDine in 0.9 % NaCL 400 mcg in 100 mls @ 4.005 mls/hr 01/12/23 20:00 01/13/23 04:11 Precedex IV 0.4 mcg/kg/hr TITRATE ANTONY 8.01 mls/hr Administration Protocol 0.2 MCG/KG/HR Metoclopramide HCl 5 mg 01/09/23 22:45 01/13/23 05:14 Metoclopramide 10 Mg/2 Ml Inj IV 5 mg Q8HR ANTONY Administration Pantoprazole Sodium 40 mg 01/07/23 09:00 01/13/23 08:38 Pantoprazole 40 Mg Vial IV 40 mg DAILY ANTONY Administration Objective Ventilator Parameters: Ventilator Settings FiO2 30 RT Vent Frequency 15 Ventilator Tidal Volume 360 Exhaled Vt/kg IBW 4.5 Positive End Expiratory 5 Pressure Ventilator Pressure Support 55 Inspiratory Phase Time 0.9 I:E Ratio 1:3:4 Patient Position HOB >= 30 degrees Labs 01/13/23 05:30 01/13/23 05:30 Labs: Laboratory Results - last 24 hr 01/13/23 01/13/23 01/13/23 05:30 05:30 05:30 WBC 6.0 RBC 4.12 Hgb 13.0 Hct 39.7 MCV 96.4 MCH 31.5 MCHC 32.7 RDW 15.1 H Plt Count 97 L Neut % (Auto) 69.4 Lymph % (Auto) 14.6 L [place] % (Auto) 11.4 Eos % (Auto) 3.7 Baso % (Auto) 0.9 Neut # (Auto) 4100 Lymph # (Auto) 900 L [place] # (Auto) 700 Eos # (Auto) 200 Baso # (Auto) 100 Sodium 137 Potassium 3.7 Chloride 110 H Carbon Dioxide 20 L BUN 16 Creatinine 0.71 Estimated GFR > 60 BUN/Creatinine Ratio 22.5 H Glucose 134 H Calcium 7.8 L Magnesium 1.9 Total Bilirubin 1.0 AST 48 H ALT 40 H Alkaline Phosphatase 128 H Total Protein 6.1 L Albumin 2.7 L Globulin 3.4 Albumin/Globulin Ratio 0.8 L Exam Vital Signs (past 8 hours): - 01/13/23 02:00 01/13/23 02:00 01/13/23 03:00 Temperature Pulse Rate 65 Respiratory Rate 15 Blood Pressure 116/60 134/69 Pulse Oximetry 96 01/13/23 03:00 01/13/23 04:00 01/13/23 04:00 Temperature Pulse Rate 60 59 L Respiratory Rate 15 15 Blood Pressure 140/79 Pulse Oximetry 97 97 01/13/23 05:00 01/13/23 05:00 01/13/23 06:00 Temperature Pulse Rate 69 Respiratory Rate 15 Blood Pressure 109/59 L 118/61 Pulse Oximetry 95 01/13/23 06:00 01/13/23 07:00 01/13/23 07:00 Temperature Pulse Rate 59 L 55 L Respiratory Rate 15 15 Blood Pressure 137/73 Pulse Oximetry 97 97 01/13/23 08:00 Temperature 97.5 F L Pulse Rate 55 L Respiratory Rate 15 Blood Pressure 140/69 Pulse Oximetry 97 Fraction of Inspired Oxygen 0.30 SaO2/FiO2 Ratio 94393 Oxygen Delivery Method Mechanical Ventilation Oxygen Flow Rate 15 Narrative Exam Narrative: Intubated, on precedex 0.4 mcg. Not following commands. Moving head from side to side. GCS 9+. Quality TeleICU VTE Deep Vein Thrombosis/Pulmonary Embolism Present on Admission: No Assessment & Plan Assessment & Plan narrative: NEURO: # Acute encephalopathy -- Secondary to sepsis and ICU delirium -- On precedex 0.4 mcg - Will minimize sedatives -- Seek early mobility -- Cont frequent reorientation -- Added abilify RESP: # Acute hypoxemia respiratory failure -- Secondary to PNA w/ superimposed pulmonary edema -- Cont gentle diuresis to seek net negative fluid balance -- On cefepime for pseudmonas PNA -- HOB elevation -- SBT when passed SAT -- Seek early mobility as tolerated -- Aspiration precaution -- Goal SpO2 > 88% CVS: # HTN -- Secondary to agitation -- Consider restarting oral BP meds if remains above 160 -- Goal SBP < 160 ID: # Pseudmonas PNA -- On cefepime X 7 days ENDO: -- Goal BS < 180 -- On ISS VTE: Heparin SQ SUP: PPI D/w bedside RN/RT/Dr. Morales. Time Spent With Patient Time with patient: 30 to 49 minutes with 50% spent counseling/coordinating care
[2023-01-13] MEDS: ARIPiprazole 10 MG TABLET 5 MG PO (09:58)
--- NOTE | 2023-01-13 10:22 | CM.DPC ---
DCP Cont. Reviewed chart and team rounds for status updates. Pt continues to remain intubated, her 2-sons are travelling from [place] and [place], respectively. Plan is for a goals of care family meeting to determine continued plan of care. DCP will continue to monitor.
[2023-01-13] MEDS: dexmedeTOMIDine in 0.9 % NaCL 400 MCG/100 ML PLAST..BAG 28.035 MCG IV ×2 (11:24→14:21)
--- NOTE | 2023-01-13 12:30 | RT ---
Pt ET tube withdrawn 2 cm upon recommendation of CXR read. Checked initial intubation CXR and charting and confirmed at some point ET tube had been advanced to 26cm from 24cm. ET tube now sits at 24cm @ the teeth/gum.
[2023-01-13] MEDS: fentaNYL 100 MCG/2 ML INJ 50 MCG IV ×2 (13:22→17:36)
--- NOTE | 2023-01-13 14:01 | PC.NURSE ---
Off propofol since 0900 for weaning trial. Precidex increases to 1.4 per eICU Tabatha JC given however pt continues to be agitated and not following commands. Propofol reinstated to achieve RASS -1-2. Will atempt another wean trial in the AM
--- NOTE | 2023-01-13 16:53 | DIET.CONS2 ---
Dietary Inpatient Consultation Note Admission Date: 01/06/2023 12:08 Pt failed SBT over weekend. Pivot 1.5 unavailable, pt changed to formula Jevity 1.2. Recc continuing TF at goal until GOC is clear. Diet: 01/07/23 Lunch Tube Feeding Diet Diet Modifications: TF Supplement type: Jevity 1.2 TF mode of delivery: Continuous Starting flow rate mL/hr: 20 Flow rate goal mL/hr: 35 Titration Schedule to reach Goal Rate: increase by 5mL q4h as tolerated Max total daily volume in mL: 2,000 Free fluid: 200 Free Water Frequency: Q4H Comment: start TF when indicated by provider and MAP >60 01/08/23 Lunch Courtesy Alvaro (Peds, comfort care) Diet Modifications: Electronically Signed by: Gertrudis Lee 01/13/23 16:53 Clinical Dietitian [address] [address]
[2023-01-13] MEDS: FLUCONAZOLE 100 MG/50 ML PIGGYBACK IV (16:58)
[2023-01-13] MEDS: dexmedeTOMIDine in 0.9 % NaCL 400 MCG/100 ML PLAST..BAG 24.03 MCG IV (17:39)
[2023-01-13] MEDS: HYDRALAZINE 20 MG/ML VIAL 10 MG IV (22:15)
[2023-01-13] MEDS: dexmedeTOMIDine in 0.9 % NaCL 400 MCG/100 ML PLAST..BAG IV (22:15)
[2023-01-13] MEDS: NYSTATIN SUSP 500,000 UNIT/5 ML UDC 500000 UNIT PO (22:22)
[2023-01-14] VITALS (43 sets, daily range): BP systolic 96–167; BP diastolic 52–96; PULSE 60–74; RESP 0–27; TEMP 36.3–37.1; O2SAT 93–100
[2023-01-14] MEDS: CHLORHEXIDINE GLUCONATE 15 ML CUP PO ×5 (00:30→23:05)
[2023-01-14] MEDS: propofoL 1,000 MG/100 ML VIAL 20 MG IV ×2 (00:30→22:45)
[2023-01-14] MEDS: dexmedeTOMIDine in 0.9 % NaCL 400 MCG/100 ML PLAST..BAG 20.025 MCG IV ×5 (03:30→22:45)
[2023-01-14] MEDS: CEFEPIME 2 GM in SODIUM CHLORIDE 0.9% 100 ML IV ×3 (03:30→19:45)
[2023-01-14 05:50] LABS: Add Manual Diff / Slide Review NO; Basophils Absolute Auto 100 /uL (0-100); Basophils Percent Auto 1.1 % (0-2); Eosinophils Absolute Auto 200 /uL (0-450); Eosinophils Percent Auto 4.6 % (2-4); Hematocrit 42.4 % (36-46); Hemoglobin 14.2 g/dL (12.0-16.0); Lymphocytes Absolute Auto 900 /uL (1100-4500); Lymphocytes Percent Auto 17.2 % (25-40); Mean Corpuscular HGB Conc 33.5 % (30-36); Mean Corpuscular Volume 95.5 fL (80-100); Monocytes Absolute Auto 700 /uL (0-900); Monocytes Percent Auto 12.6 % (3-14); Neutrophils Absolute Auto 3400 /uL (1500-7000); Neutrophils Percent Auto 64.5 % (50-75); Platelet Count 131 X10^3/uL (150-400); Red Blood Cell Count 4.44 X10^6/uL (4.0-5.2); Red Cell Distribution Width 15.2 % (11.6-14.8); White Blood Cell Count 5.3 X10^3/uL (4.5-11.0)
[2023-01-14 06:01] LABS: INR 1.2 (0.9-1.3); Prothrombin Time 13.9 SECONDS (10.1-12.7)
[2023-01-14 06:05] LABS: Alanine Aminotransferase 53 IU/L (<35); Albumin Globulin Ratio 0.8 (1.0-2.8); Alkaline Phosphatase 141 U/L (38-126); Aspartate Aminotransferase 58 IU/L (14-36); BUN Creatinine Ratio 20.8 (6-22); Bilirubin Total 1.1 mg/dL (0.2-1.3); Blood Urea Nitrogen 15 mg/dL (7-17); Calcium 8.6 mg/dL (8.4-10.2); Carbon Dioxide 21 mmol/L (22-32); Chloride 110 mmol/L (98-107); Estimated Glomerular Filt Rate > 60 mL/min (>60); Globulin 3.7 g/dL (1.7-4.1); Glucose 111 mg/dL (80-110); HEMOLYSIS < 15 (0-50); Potassium 3.5 mmol/L (3.4-5.1); Sodium 138 mmol/L (137-145); Total Protein 6.7 g/dL (6.3-8.2)
[2023-01-14] MEDS: propofoL 1,000 MG/100 ML VIAL 25 MG IV ×2 (06:30→08:08)
[2023-01-14] MEDS: METOCLOPRAMIDE 10 MG/2 ML INJ 5 MG IV ×3 (06:37→21:00)
[2023-01-14] MEDS: SODIUM CHLORIDE 0.9% 250 ML 21 ML IV (06:39)
--- NOTE | 2023-01-14 08:30 | PM.PN.EICU ---
Subjective Subjective IF CAMERA ACTIVATED, patient seen via real-time interactive audiovisual communication: Camera activated Date Patient Seen: 01/14/23 Consent obtained for tele-museum registrar care: Yes Patient Location: ICU Provider location (State): [place] Other participants/roles: bedside RN, RT, pharmacist Interval history: patient remains intubated for altered mental status. Abilify added yesterday vent settings 30% fio2, peep 5 Family coming tomorrow from [facility]. plan is to turn off sedation and extubate after they arrive - they are planning for code status to be changed to DNI/DNR prior to extubation Current Medications Current Medications Medications: Home Medications albuterol sulfate 90 mcg/actuation aerosol inhaler (Ventolin HFA) 1 puff inhalation Q4-6H PRN shortness of breath or wheezing #18 grams 02/13/22 [Rx Confirmed 01/06/23] furosemide 40 mg tablet 40 mg PO DAILY PRN edema/weight gain #10 tabs 02/13/22 [Rx Confirmed 01/06/23] carvedilol 25 mg tablet 25 mg PO BID #180 tabs 06/05/22 [Rx Confirmed 01/06/23] losartan 100 mg tablet 100 mg PO DAILY #90 tabs 06/05/22 [Rx Confirmed 01/06/23] pravastatin 40 mg tablet 40 mg PO DAILY #90 tabs 06/05/22 [Rx Confirmed 01/06/23] apixaban 5 mg tablet (Eliquis) See Rx Instructions .Route .COMPLEX #180 tabs 08/06/22 [Rx Confirmed 01/06/23] amlodipine 5 mg tablet (Norvasc) 5 mg PO DAILY #90 tabs 10/25/22 [Rx Confirmed 01/06/23] diazepam 5 mg tablet 10 mg PO BEDTIME PRN sleep #30 tabs 10/25/22 [Rx Confirmed 01/06/23] potassium chloride 10 mEq tablet,extended release See Rx Instructions .Route .COMPLEX #90 tabs 11/11/22 [Rx Confirmed 01/06/23] calcium carbonate 500 mg calcium (1,250 mg) tablet (Oyster Shell Calcium) 500 mg PO BID #180 tabs 11/13/22 [Rx Confirmed 01/06/23] Visit Medications (administered) Generic Name Dose Route Start Last Admin Trade Name Freq PRN Reason Stop Dose Admin Albuterol/Ipratropium 3 ml 01/06/23 20:00 01/13/23 19:10 Albuterol/Ipratropium 3 Ml Ampul INH 3 ml RTBID ANTONY Administration Aripiprazole 5 mg 01/13/23 09:30 01/13/23 09:58 Aripiprazole 10 Mg Tablet PO 5 mg DAILY ANTONY Administration Chlorhexidine Gluconate 15 ml 01/10/23 18:00 01/14/23 06:37 Chlorhexidine Gluconate 15 Ml Cup PO 15 ml Q6HR ANTONY Administration Fentanyl 25 mcg 01/08/23 18:53 01/13/23 05:14 Fentanyl 100 Mcg/2 Ml Inj IV 25 mcg Q30MIN PRN Administration Pain, Severe (7-10) Fentanyl 50 mcg 01/12/23 12:07 01/13/23 17:36 Fentanyl 100 Mcg/2 Ml Inj IV 50 mcg Q1H PRN Administration Pain, Severe (7-10) Heparin Sodium (Porcine) 5,000 unit 01/10/23 09:00 01/13/23 08:38 Heparin 5,000 Unit/Ml Vial SUBCUT 5,000 unit DAILY ANTONY Administration Heparin Sodium (Porcine) 50 unit 01/11/23 09:41 01/13/23 08:38 Heparin Flush (Cl/Picc/Mid-Line) 50 Unit/5 Ml Syringe IV 50 unit PRN PRN Administration Flush Hydralazine HCl 10 mg 01/13/23 22:00 01/13/23 22:15 Hydralazine 20 Mg/Ml Vial IV 10 mg Q4HR PRN Administration Hypertension Sodium Chloride 250 mls @ 21 mls/hr 01/10/23 03:45 01/14/23 06:39 Normal Saline 0.9% IV 21 mls/hr Q24H PRN Administration Flush Propofol 1,000 mg in 100 mls @ 2.385 mls/hr 01/10/23 16:15 01/14/23 08:08 Propofol IV 52.41 mcg/kg/min TITRATE ANTONY 25 mls/hr Administration Protocol 5 MCG/KG/MIN Fluconazole 100 mg in 50 mls @ 100 mls/hr 01/10/23 17:34 01/13/23 18:15 Diflucan IV Infused Q24H ATNONY Infusion NOREPINEPHRINE BITARTRATE/D5W 4 mg in 250 mls @ 29.775 mls/hr 01/11/23 13:30 01/11/23 19:34 Levophed IV Not Given TITRATE ANTONY Protocol 0.1 MCG/KG/MIN dexmedeTOMIDine in 0.9 % NaCL 400 mcg in 100 mls @ 4.005 mls/hr 01/12/23 20:00 01/14/23 08:08 Precedex IV 1 mcg/kg/hr TITRATE ANTONY 20.025 mls/hr Administration Protocol 0.2 MCG/KG/HR Cefepime HCl 2 gm/ Sodium 100 mls @ 200 mls/hr 01/13/23 12:00 01/14/23 04:30 Chloride IV Infused Q8H ANTONY Infusion Metoclopramide HCl 5 mg 01/09/23 22:45 01/14/23 06:37 Metoclopramide 10 Mg/2 Ml Inj IV 5 mg Q8HR ANTONY Administration Nystatin 500,000 unit 01/13/23 22:00 01/13/23 22:22 Nystatin Susp 500,000 Unit/5 Ml Udc PO 500,000 unit QID ANTONY Administration Pantoprazole Sodium 40 mg 01/07/23 09:00 01/13/23 08:38 Pantoprazole 40 Mg Vial IV 40 mg DAILY ANTONY Administration Objective Ventilator Parameters: Ventilator Settings FiO2 21 RT Vent Frequency 15 Ventilator Tidal Volume 360 Exhaled Vt/kg IBW 4.5 Positive End Expiratory 5 Pressure Ventilator Pressure Support 55 Inspiratory Phase Time 0.9 I:E Ratio 1:3 Patient Position HOB >= 30 degrees Labs 01/14/23 05:35 01/14/23 05:35 Labs: Laboratory Results - last 24 hr 01/14/23 01/14/23 01/14/23 05:35 05:35 05:35 WBC 5.3 RBC 4.44 Hgb 14.2 Hct 42.4 MCV 95.5 MCH 32.0 MCHC 33.5 RDW 15.2 H Plt Count 131 L Neut % (Auto) 64.5 Lymph % (Auto) 17.2 L [place] % (Auto) 12.6 Eos % (Auto) 4.6 H Baso % (Auto) 1.1 Neut # (Auto) 3400 Lymph # (Auto) 900 L [place] # (Auto) 700 Eos # (Auto) 200 Baso # (Auto) 100 PT 13.9 H D INR 1.2 Sodium 138 Potassium 3.5 Chloride 110 H Carbon Dioxide 21 L BUN 15 Creatinine 0.72 Estimated GFR > 60 BUN/Creatinine Ratio 20.8 Glucose 111 H Calcium 8.6 Total Bilirubin 1.1 AST 58 H ALT 53 H Alkaline Phosphatase 141 H Total Protein 6.7 Albumin 3.0 L Globulin 3.7 Albumin/Globulin Ratio 0.8 L Exam Vital Signs (past 8 hours): - 01/14/23 01:00 01/14/23 01:00 01/14/23 02:00 Temperature Pulse Rate 67 Respiratory Rate 15 Blood Pressure 116/59 L 130/67 Pulse Oximetry 95 Oxygen Delivery Method 01/14/23 02:00 01/14/23 03:00 01/14/23 03:00 Temperature Pulse Rate 68 68 Respiratory Rate 15 15 Blood Pressure 117/60 Pulse Oximetry 95 94 Oxygen Delivery Method 01/14/23 03:00 01/14/23 04:00 01/14/23 04:00 Temperature Pulse Rate 65 Respiratory Rate 15 Blood Pressure 133/73 Pulse Oximetry 94 Oxygen Delivery Method Mechanical Ventilation 01/14/23 05:00 01/14/23 05:00 01/14/23 05:13 Temperature 98.8 F Pulse Rate 66 Respiratory Rate 15 Blood Pressure 147/83 H Pulse Oximetry 95 Oxygen Delivery Method 01/14/23 06:00 01/14/23 06:00 01/14/23 07:00 Temperature Pulse Rate 68 Respiratory Rate 15 Blood Pressure 143/63 H 128/62 Pulse Oximetry 94 Oxygen Delivery Method 01/14/23 07:00 01/14/23 07:00 01/14/23 08:00 Temperature 97.3 F L Pulse Rate 67 Respiratory Rate 15 Blood Pressure 138/70 Pulse Oximetry 94 Oxygen Delivery Method 01/14/23 08:00 Temperature Pulse Rate 60 Respiratory Rate 15 Blood Pressure Pulse Oximetry 95 Oxygen Delivery Method Fraction of Inspired Oxygen 0.30 SaO2/FiO2 Ratio 50641 Oxygen Delivery Method Mechanical Ventilation Oxygen Flow Rate 15 Narrative Exam Narrative: intubated. sedated in no distress this am intermittently moving around but not purposeful Quality TeleICU VTE Deep Vein Thrombosis/Pulmonary Embolism Present on Admission: No Stress Ulcer Stress ulcer prophylaxis: yes Assessment & Plan Assessment & Plan narrative: NEURO: # Acute encephalopathy -- Secondary to sepsis and ICU delirium -- head ct neg 01/10 -- unable to get MRI at [facility] to r/o HIE -- consider EEG to r/o NCSE, though less likely as when sedation is off patient does reportedly follow some commands. sx more c/w hyperactive delirium - Will minimize sedatives?- currently on propofol/precedex as needed. Goal RASS 0 to -1 -- Seek early mobility -- Cont frequent reorientation -- continue abilify, added on 01/13 -- would need to consider trach in coming days if mental status not improve to facilitate weaning off of sedatives and PT- however patient's status has been d/w family and per RN they are coming to bedside tomorrow to see patient, and plan for terminal extubation with change in code status to DNR/DNI RESP: # Acute hypoxemia respiratory failure- improved. -- Secondary to PNA w/ superimposed pulmonary edema -- Cont gentle diuresis PRN to seek net negative to even fluid balance -- On cefepime for pseudmonas PNA- repeat sputum culture today -- HOB elevation -- will trial PSV today -- Seek early mobility as tolerated -- Aspiration precaution -- Goal SpO2 > 88% -- family planning terminal extubation tomorrow CVS: # HTN -- Secondary to agitation, intermittent -- Consider restarting oral BP meds if remains above 160 -- Goal SBP < 160 ID: # Pseudmonas PNA -- On cefepime X 7 days --continue fluconazole started for c/f sinusitis/fungal infection - opacified maxillary sinus on CT ENDO: -- Goal BS < 180 -- On ISS VTE: Heparin SQ, currently ordered daily SQ. Can increase dosing today, plt 131K SUP: PPI Time Spent With Patient Time with patient: 30 to 49 minutes with 50% spent counseling/coordinating care
[2023-01-14] MEDS: ALBUTEROL/IPRATROPIUM 3 ML AMPUL INH ×2 (08:48→18:10)
[2023-01-14] MEDS: HEPARIN 5,000 UNIT/ML VIAL 5000 UNIT SUBCUT ×2 (09:50→20:10)
[2023-01-14] MEDS: PANTOPRAZOLE 40 MG VIAL IV (09:50)
[2023-01-14] MEDS: ARIPiprazole 10 MG TABLET 5 MG PO (09:50)
[2023-01-14] MEDS: NYSTATIN SUSP 500,000 UNIT/5 ML UDC 500000 UNIT PO ×4 (09:50→20:10)
[2023-01-14] MEDS: POTASSIUM CHLORIDE IN WATER 10 MEQ/100 ML PIGGYBACK 100 MEQ IV ×4 (09:51→14:04)
[2023-01-14 10:01] LABS: Magnesium 1.8 mg/dL (1.6-2.3)
[2023-01-14 10:01] LABS: Triglycerides 158 mg/dL (35-150)
--- NOTE | 2023-01-14 10:30 | PC.NURSE ---
Propofol titrated down, per Dr Mclaughlin's recommendation propofol note turned off, Precedex infusing at 1.0 mcg/kg/hr, attempted pressure support only to see if pt would initiate breaths, she failed with no breaths initiated, Propofol titrated back to 25 mcg/kg/min. Dr Morales updated on pt status. We are waiting until son Joseph arrives tomorrow, plan is to change code status prior to extubating pt, with that plan in mind well will begin titrating Propofol through the night, until it is off in the morning, using Fentanyl pushes to help with agitation and pain. Jevity 1.2 is running at 20cc due to high residuals at 35cc, Dr Morales to make changes to tube feed order to reflect changes. SO Josué at bedside, no further needs at this time, will continue to monitor
--- NOTE | 2023-01-14 11:28 | P.PN_ITS ---
Subjective Subjective Interval history: Continues to fail sedation vacations. Awaiting family before discussion of goals of care prior to decision for possible trach/PEG or palliative extubation with DNR. Remains hemodynamically stable otherwise. Exam Vital Signs (past 8 hours): - 01/14/23 04:00 01/14/23 04:00 01/14/23 05:00 Temperature Pulse Rate 65 Respiratory Rate 15 Blood Pressure 133/73 147/83 H Pulse Oximetry 94 Oxygen Delivery Method Fraction of Inspired Oxygen 01/14/23 05:00 01/14/23 05:13 01/14/23 06:00 Temperature 98.8 F Pulse Rate 66 Respiratory Rate 15 Blood Pressure 143/63 H Pulse Oximetry 95 Oxygen Delivery Method Fraction of Inspired Oxygen 01/14/23 06:00 01/14/23 07:00 01/14/23 07:00 Temperature Pulse Rate 68 67 Respiratory Rate 15 15 Blood Pressure 128/62 Pulse Oximetry 94 94 Oxygen Delivery Method Fraction of Inspired Oxygen 01/14/23 07:00 01/14/23 08:00 01/14/23 08:00 Temperature 97.3 F L Pulse Rate 60 Respiratory Rate 15 Blood Pressure 138/70 Pulse Oximetry 95 Oxygen Delivery Method Fraction of Inspired Oxygen 01/14/23 08:50 01/14/23 07:00 01/14/23 09:00 Temperature Pulse Rate Respiratory Rate Blood Pressure 114/58 L Pulse Oximetry 95 Oxygen Delivery Method Mechanical Ventilation Mechanical Ventilation Fraction of Inspired Oxygen 21 01/14/23 09:00 01/14/23 10:00 01/14/23 10:00 Temperature Pulse Rate 69 72 Respiratory Rate 15 15 Blood Pressure 136/66 Pulse Oximetry 95 94 Oxygen Delivery Method Fraction of Inspired Oxygen 01/14/23 11:00 01/14/23 11:00 Temperature Pulse Rate 60 Respiratory Rate 15 Blood Pressure 154/82 H Pulse Oximetry 95 Oxygen Delivery Method Fraction of Inspired Oxygen Fraction of Inspired Oxygen 21 SaO2/FiO2 Ratio 452 Oxygen Delivery Method Mechanical Ventilation Oxygen Flow Rate 15 Narrative Exam Narrative: Intubated and on vent. Sedated, on vacation this AM but no intentional movements OGT in place Atraumatic head, symmetric pupils. Neck supple and midline trachea. Lungs CTA, anterior. Heart RRR, without murmur, gallop, or rub. Abdomen Soft, NT, ND No leg edema. No skin rash. Objective Labs 01/14/23 05:35 01/14/23 05:35 Labs: Laboratory Results - last 24 hr 01/14/23 01/14/23 01/14/23 05:35 05:35 05:35 WBC 5.3 RBC 4.44 Hgb 14.2 Hct 42.4 MCV 95.5 MCH 32.0 MCHC 33.5 RDW 15.2 H Plt Count 131 L Neut % (Auto) 64.5 Lymph % (Auto) 17.2 L [place] % (Auto) 12.6 Eos % (Auto) 4.6 H Baso % (Auto) 1.1 Neut # (Auto) 3400 Lymph # (Auto) 900 L [place] # (Auto) 700 Eos # (Auto) 200 Baso # (Auto) 100 PT 13.9 H D INR 1.2 Sodium 138 Potassium 3.5 Chloride 110 H Carbon Dioxide 21 L BUN 15 Creatinine 0.72 Estimated GFR > 60 BUN/Creatinine Ratio 20.8 Glucose 111 H Calcium 8.6 Magnesium Total Bilirubin 1.1 AST 58 H ALT 53 H Alkaline Phosphatase 141 H Total Protein 6.7 Albumin 3.0 L Globulin 3.7 Albumin/Globulin Ratio 0.8 L Triglycerides 01/14/23 01/14/23 05:35 05:36 WBC RBC Hgb Hct MCV MCH MCHC RDW Plt Count Neut % (Auto) Lymph % (Auto) [place] % (Auto) Eos % (Auto) Baso % (Auto) Neut # (Auto) Lymph # (Auto) [place] # (Auto) Eos # (Auto) Baso # (Auto) PT INR Sodium Potassium Chloride Carbon Dioxide BUN Creatinine Estimated GFR BUN/Creatinine Ratio Glucose Calcium Magnesium 1.8 Total Bilirubin AST ALT Alkaline Phosphatase Total Protein Albumin Globulin Albumin/Globulin Ratio Triglycerides 158 H [facility] Medical History Acquired clavicle deformity Asthma Cataracts, bilateral (1994) Chronic atrial fibrillation Essential hypertension Gout Hyperlipidemia Hyperthyroidism (1971) Osteoporosis Surgical History Toxic goiter (1971) Family History Father No problems noted. Mother No problems noted. Social History household members: significant other Smoking Status: Never smoker alcohol intake: never substance use type: does not use Assessment & Plan Assessment & Plan narrative: 1. Septic shock with hypotension, Acute hypoxic and hypercarbic respiratory failure, thrombocytopenia. POA and Active. -Vent support with propofol and fentanyl infusions. Limit as much as possible. Trialing abilify today along with precedex to see if improvement in delirium. Oral care, head of bed up. DVT and GI prophylaxis. -extubated successfully the morning of 01/10, then worsened in the afternoon and needed reintubation -now back on vent as of 01/10 -RT pulm toilet due to copious secretions -will be difficult to get off vent at this point, partner Josué aware of this -sons coming in from [place] and understand her prognosis is poor --diuresis with IV lasix 40 QAM, initially. Had to hold 01/07 due to hypotension requiring norepinephrine and has continued to hold. Will not restart today as clinically does not appear volume overloaded on exam. -increased cefepime with improved renal function to 2g q8 for pseudomonas pneumonia -remains on fluconazole for possible fungal etiology as well per tele-card reader service, appreciate their assistance with management. 2. Acute pulmonary edema, POA and active. -echo with EF 55%, mod MR and TR which are worse from prior. -diuresis has been held 01/07 for hypotension requiring levophed. -consider resuming, though does not appear overloaded on exam and CXR with improved appearance. 3. Pseudomonal pneumonia, POA and active. -started antibiotics wtih Ceftriaxone and doxycycline. -changed rocephin to cefepime on 01/09 due to sputum culture with pseudomonas, increased with improving renal function today to 2g q8 hr. -copious secretions being suctioned 4. Hyponatremia, POA and improving. -following with daily BMP, low sodium now resolved. 5. Thromocytopenia, POA and active (stable). -likely due to sepsis. Improving thus far. 6. P. Atrial fibrillation (coumadin), NPOA and stable. -hold warfarin and follow. May need IV rate control. Daily INR. 7. Metabolic encephalopathy, POA and active. -monitor mental status -holding ativan and melatonin -head CT ordered, no intracranial pathology -patient may have anoxic injury from hypoxia prior to intubation, unable to obtain MRI to confirm at this hospital -now back on sedatives due to agitation on the vent 8. KANDACE,. resolved -monitor renal function. 9. Possible chronic sinusitis with fungal infection? -per CT maxillary sinuses completely opacified and could represent fungal infection -started empirically on IV fluconazole 100mg daily, will continue today. Full code. is proxy decision maker. Dispo: Patient's family understands poor prognosis. Sons are flying in from [place] and will arrive on Fri. May transition to comfort at that time depending on progress. Will continue to work on limiting sedation in hopes of extubation. I spent 30 minutes providing critical care management this patient. This excludes time spent in performing separately billed procedures. Time Spent With Patient Time with patient: 30 to 49 minutes with 50% spent counseling/coordinating care Quality VTE Deep Vein Thrombosis/Pulmonary Embolism Present on Admission: No
[2023-01-14] MEDS: FLUCONAZOLE 100 MG/50 ML PIGGYBACK IV (17:44)
--- NOTE | 2023-01-14 20:06 | PM.ICURNDS ---
- Date Patient Seen: 01/14/23 Time Patient Seen: 20:07 :: This patient was seen via real time interactive two-way audiovisual telecommunication. Note: Remains encephalopathic and not following commands. Agitated when propofol titrate down to 15 mcg. Currently on precedex 1 mcg and propofol 20 mcg. Will continue titrating precedex and propofol to seek RASS goial -1 to 0. D/w bedside RN.
[2023-01-15] VITALS (53 sets, daily range): BP systolic 147–175; BP diastolic 72–97; PULSE 62–128; RESP 1–21; TEMP 36.9–37.3; O2SAT 92–96
[2023-01-15] MEDS: CEFEPIME 2 GM in SODIUM CHLORIDE 0.9% 100 ML IV ×2 (03:15→11:55)
[2023-01-15] MEDS: dexmedeTOMIDine in 0.9 % NaCL 400 MCG/100 ML PLAST..BAG 20.025 MCG IV ×2 (03:20→07:56)
[2023-01-15] MEDS: propofoL 1,000 MG/100 ML VIAL 20 MG IV (03:21)
[2023-01-15] MEDS: CHLORHEXIDINE GLUCONATE 15 ML CUP PO ×3 (05:30→17:18)
[2023-01-15] MEDS: METOCLOPRAMIDE 10 MG/2 ML INJ 5 MG IV ×2 (05:30→15:32)
[2023-01-15 05:53] LABS: BUN Creatinine Ratio 20.3 (6-22); Blood Urea Nitrogen 14 mg/dL (7-17); Carbon Dioxide 22 mmol/L (22-32); Chloride 109 mmol/L (98-107); Estimated Glomerular Filt Rate > 60 mL/min (>60); Glucose 113 mg/dL (80-110); HEMOLYSIS 17 (0-50); Potassium 3.9 mmol/L (3.4-5.1); Sodium 138 mmol/L (137-145)
[2023-01-15 06:01] LABS: Add Manual Diff / Slide Review NO; Basophils Absolute Auto 0 /uL (0-100); Basophils Percent Auto 0.9 % (0-2); Eosinophils Absolute Auto 200 /uL (0-450); Eosinophils Percent Auto 4.5 % (2-4); Hematocrit 43.8 % (36-46); Hemoglobin 14.6 g/dL (12.0-16.0); Lymphocytes Absolute Auto 1000 /uL (1100-4500); Lymphocytes Percent Auto 20.7 % (25-40); Mean Corpuscular HGB Conc 33.4 % (30-36); Mean Corpuscular Volume 95.8 fL (80-100); Monocytes Absolute Auto 600 /uL (0-900); Monocytes Percent Auto 11.9 % (3-14); Neutrophils Absolute Auto 3000 /uL (1500-7000); Platelet Count 149 X10^3/uL (150-400); Red Blood Cell Count 4.57 X10^6/uL (4.0-5.2); Red Cell Distribution Width 15.1 % (11.6-14.8); White Blood Cell Count 4.9 X10^3/uL (4.5-11.0)
[2023-01-15 06:04] LABS: Magnesium 1.7 mg/dL (1.6-2.3)
[2023-01-15 06:21] LABS: INR 1.2 (0.9-1.3); Prothrombin Time 14.3 SECONDS (10.1-12.7)
[2023-01-15] MEDS: SODIUM CHLORIDE 0.9% 250 ML 21 ML IV (07:58)
[2023-01-15] MEDS: NYSTATIN SUSP 500,000 UNIT/5 ML UDC 500000 UNIT PO ×2 (09:12→17:18)
[2023-01-15] MEDS: PANTOPRAZOLE 40 MG VIAL IV (09:12)
[2023-01-15] MEDS: HEPARIN 5,000 UNIT/ML VIAL 5000 UNIT SUBCUT (09:13)
[2023-01-15] MEDS: ALBUTEROL/IPRATROPIUM 3 ML AMPUL INH (09:52)
--- NOTE | 2023-01-15 09:52 | PM.PN.EICU ---
Subjective Subjective IF CAMERA ACTIVATED, patient seen via real-time interactive audiovisual communication: Camera activated Consent obtained for tele-water superintendent care: Yes Patient Location: ICU Provider location (State): [place] Other participants/roles: Bedside nursing team Dr. Morales Interval history: no acute events overnight Current Medications Current Medications Medications: Home Medications albuterol sulfate 90 mcg/actuation aerosol inhaler (Ventolin HFA) 1 puff inhalation Q4-6H PRN shortness of breath or wheezing #18 grams 02/13/22 [Rx Confirmed 01/06/23] furosemide 40 mg tablet 40 mg PO DAILY PRN edema/weight gain #10 tabs 02/13/22 [Rx Confirmed 01/06/23] carvedilol 25 mg tablet 25 mg PO BID #180 tabs 06/05/22 [Rx Confirmed 01/06/23] losartan 100 mg tablet 100 mg PO DAILY #90 tabs 06/05/22 [Rx Confirmed 01/06/23] pravastatin 40 mg tablet 40 mg PO DAILY #90 tabs 06/05/22 [Rx Confirmed 01/06/23] apixaban 5 mg tablet (Eliquis) See Rx Instructions .Route .COMPLEX #180 tabs 08/06/22 [Rx Confirmed 01/06/23] amlodipine 5 mg tablet (Norvasc) 5 mg PO DAILY #90 tabs 10/25/22 [Rx Confirmed 01/06/23] diazepam 5 mg tablet 10 mg (2 x 5 mg) PO BEDTIME PRN sleep #30 tabs 10/25/22 [Rx Confirmed 01/06/23] potassium chloride 10 mEq tablet,extended release See Rx Instructions .Route .COMPLEX #90 tabs 11/11/22 [Rx Confirmed 01/06/23] calcium carbonate 500 mg calcium (1,250 mg) tablet (Oyster Shell Calcium) 500 mg PO BID #180 tabs 11/13/22 [Rx Confirmed 01/06/23] Visit Medications (administered) Generic Name Dose Route Start Last Admin Trade Name Freq PRN Reason Stop Dose Admin Albuterol/Ipratropium 3 ml 01/06/23 20:00 01/14/23 18:10 Albuterol/Ipratropium 3 Ml Ampul INH 3 ml RTBID ANTONY Administration Aripiprazole 5 mg 01/13/23 09:30 01/15/23 08:47 Aripiprazole 10 Mg Tablet PO Not Given DAILY ANTONY Chlorhexidine Gluconate 15 ml 01/10/23 18:00 01/15/23 05:30 Chlorhexidine Gluconate 15 Ml Cup PO 15 ml Q6HR ANTONY Administration Fentanyl 25 mcg 01/08/23 18:53 01/13/23 05:14 Fentanyl 100 Mcg/2 Ml Inj IV 25 mcg Q30MIN PRN Administration Pain, Severe (7-10) Fentanyl 50 mcg 01/12/23 12:07 01/13/23 17:36 Fentanyl 100 Mcg/2 Ml Inj IV 50 mcg Q1H PRN Administration Pain, Severe (7-10) Heparin Sodium (Porcine) 50 unit 01/11/23 09:41 01/13/23 08:38 Heparin Flush (Cl/Picc/Mid-Line) 50 Unit/5 Ml Syringe IV 50 unit PRN PRN Administration Flush Heparin Sodium (Porcine) 5,000 unit 01/14/23 09:44 01/15/23 09:13 Heparin 5,000 Unit/Ml Vial SUBCUT 5,000 unit BID ANTONY Administration Sodium Chloride 250 mls @ 21 mls/hr 01/10/23 03:45 01/15/23 07:58 Normal Saline 0.9% IV 21 mls/hr Q24H PRN Administration Flush Propofol 1,000 mg in 100 mls @ 2.385 mls/hr 01/10/23 16:15 01/15/23 08:44 Propofol IV 0 mcg/kg/min TITRATE ANTONY 0 mls/hr Titration Protocol 5 MCG/KG/MIN Fluconazole 100 mg in 50 mls @ 100 mls/hr 01/10/23 17:34 01/14/23 19:00 Diflucan IV Infused Q24H ANTONY Infusion NOREPINEPHRINE BITARTRATE/D5W 4 mg in 250 mls @ 29.775 mls/hr 01/11/23 13:30 01/11/23 19:34 Levophed IV Not Given TITRATE ANTONY Protocol 0.1 MCG/KG/MIN dexmedeTOMIDine in 0.9 % NaCL 400 mcg in 100 mls @ 4.005 mls/hr 01/12/23 20:00 01/15/23 07:58 Precedex IV 1.2 mcg/kg/hr TITRATE ANTONY 24.03 mls/hr Titration Protocol 0.2 MCG/KG/HR Cefepime HCl 2 gm/ Sodium 100 mls @ 200 mls/hr 01/13/23 12:00 01/15/23 04:20 Chloride IV Infused Q8H ANTONY Infusion Metoclopramide HCl 5 mg 01/09/23 22:45 01/15/23 05:30 Metoclopramide 10 Mg/2 Ml Inj IV 5 mg Q8HR ANTONY Administration Nystatin 500,000 unit 01/13/23 22:00 01/15/23 09:12 Nystatin Susp 500,000 Unit/5 Ml Udc PO 500,000 unit QID ANTONY Administration Pantoprazole Sodium 40 mg 01/07/23 09:00 01/15/23 09:12 Pantoprazole 40 Mg Vial IV 40 mg DAILY ANTONY Administration Objective Ventilator Parameters: Ventilator Settings FiO2 21 RT Vent Frequency 15 Ventilator Tidal Volume 360 Exhaled Vt/kg IBW 4.5 Positive End Expiratory 5 Pressure Ventilator Pressure Support 55 Inspiratory Phase Time 0.90 I:E Ratio 1:1.4 Patient Position HOB >= 30 degrees Labs 01/15/23 05:30 01/15/23 05:30 Labs: Laboratory Results - last 24 hr 01/14/23 01/14/23 01/15/23 05:35 05:36 05:30 WBC 4.9 RBC 4.57 Hgb 14.6 Hct 43.8 MCV 95.8 MCH 32.0 MCHC 33.4 RDW 15.1 H Plt Count 149 L Neut % (Auto) 62.0 Lymph % (Auto) 20.7 L [place] % (Auto) 11.9 Eos % (Auto) 4.5 H Baso % (Auto) 0.9 Neut # (Auto) 3000 Lymph # (Auto) 1000 L [place] # (Auto) 600 Eos # (Auto) 200 Baso # (Auto) 0 PT 14.3 H INR 1.2 Sodium 138 Potassium 3.9 Chloride 109 H Carbon Dioxide 22 BUN 14 Creatinine 0.69 Estimated GFR > 60 BUN/Creatinine Ratio 20.3 Glucose 113 H Calcium 9.0 Magnesium 1.8 1.7 Triglycerides 158 H Exam Vital Signs (past 8 hours): - 01/15/23 02:00 01/15/23 02:00 01/15/23 02:30 Temperature Pulse Rate 67 63 Respiratory Rate 15 15 Blood Pressure 155/84 H Pulse Oximetry 94 94 Oxygen Delivery Method 01/15/23 03:00 01/15/23 03:00 01/15/23 03:00 Temperature Pulse Rate 68 Respiratory Rate 15 Blood Pressure 155/87 H Pulse Oximetry 93 Oxygen Delivery Method Mechanical Ventilation 01/15/23 03:30 01/15/23 03:48 01/15/23 03:48 Temperature Pulse Rate 65 64 Respiratory Rate 15 15 Blood Pressure 153/78 H Pulse Oximetry 94 93 Oxygen Delivery Method 01/15/23 03:49 01/15/23 04:00 01/15/23 04:00 Temperature 99.1 F Pulse Rate 63 63 Respiratory Rate 15 15 Blood Pressure 153/78 H 147/72 H Pulse Oximetry 94 94 Oxygen Delivery Method 01/15/23 04:30 01/15/23 05:00 01/15/23 05:00 Temperature Pulse Rate 64 62 Respiratory Rate 15 15 Blood Pressure 157/74 H Pulse Oximetry 94 93 Oxygen Delivery Method 01/15/23 05:30 01/15/23 06:00 01/15/23 06:00 Temperature Pulse Rate 64 63 Respiratory Rate 15 15 Blood Pressure 162/76 H Pulse Oximetry 94 93 Oxygen Delivery Method 01/15/23 06:30 01/15/23 06:52 01/15/23 07:00 Temperature Pulse Rate 65 73 Respiratory Rate 15 15 Blood Pressure Pulse Oximetry 95 95 Oxygen Delivery Method Mechanical Ventilation 01/15/23 07:00 01/15/23 07:01 01/15/23 07:30 Temperature Pulse Rate 68 69 Respiratory Rate 15 15 Blood Pressure 164/89 H Pulse Oximetry 95 94 Oxygen Delivery Method 01/15/23 08:00 01/15/23 08:00 01/15/23 08:30 Temperature Pulse Rate 73 86 Respiratory Rate 15 19 Blood Pressure 157/75 H Pulse Oximetry 93 93 Oxygen Delivery Method 01/15/23 09:00 01/15/23 09:00 Temperature Pulse Rate 79 Respiratory Rate 15 Blood Pressure 175/80 H Pulse Oximetry 93 Oxygen Delivery Method Fraction of Inspired Oxygen 21 SaO2/FiO2 Ratio 452 Oxygen Delivery Method Mechanical Ventilation Oxygen Flow Rate 15 Quality TeleICU VTE Deep Vein Thrombosis/Pulmonary Embolism Present on Admission: No Assessment & Plan Assessment & Plan narrative: patient seen on camera chart/labs/imaging reviewed opening eyes moves extremities 82 year old female admitted to ICU with severe sepsis w/septic shock acute resp failure AMS acute renal failure electrolytes abnormalities currently afebrile, HD stable intubated minimal vent settings labs wnl abg pending plan -neurochecks/seizure precautions -dc all sedation and sedative meds -consider xfer for neuro eval to consider neuromuscular disease process. -LP/MRI -would likely still need/peg trach for prolonged weaning -goal RASS -1 -continue with vent support -lung protective therapy -continue cefepime/flucanozole -monitor ins/outs -glucose 140-180s -gi/dvt ppx -please call eICU if condition changes -d/w Dr. Morales Time Spent With Patient Time with patient: 30 to 49 minutes with 50% spent counseling/coordinating care
[2023-01-15] MEDS: fentaNYL 100 MCG/2 ML INJ 50 MCG IV (09:59)
[2023-01-15] MEDS: dexmedeTOMIDine in 0.9 % NaCL 400 MCG/100 ML PLAST..BAG 40.05 MCG IV ×2 (10:58→13:12)
[2023-01-15] MEDS: LORazepam 2 MG/ML INJ IV (11:26)
--- NOTE | 2023-01-15 12:58 | DI.CT.S_ITS ---
PROCEDURE: CT HEAD/BRAIN WO CON INDICATIONS: failing breathing trials, ? anoxic injury or large CVA TECHNIQUE: Noncontrast 4.5 mm thick angled axial sections acquired from the foramen magnum to the vertex, with coronal and sagittal reformats. For radiation dose reduction, the following was used: automated exposure control, adjustment of mA and/or kV according to patient size. COMPARISON: [facility], CT, CT HEAD/BRAIN WO CON, 01/10/2023, 16:32. FINDINGS: Image quality: Excellent. CSF spaces: Basal cisterns are patent. No extra-axial fluid collections. The ventricles are symmetric in size and shape. Brain: No intracranial bleeds or masses. There is cerebral volume loss for age, with resultant ventricular and sulcal prominence. There are periventricular and deep white matter chronic small vessel ischemic changes. There is intracranial internal carotid artery atherosclerosis. 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 When discovered in isolation, this is considered to be a developmental variant of no clinical consequence. Skull and face: Calvarium and visualized facial bones appear intact, without suspicious lesions. Sinuses: There is complete opacification of the maxillary sinuses. There is medial bowing and demineralization of the medial kelly of the maxillary sinuses. The paranasal sinuses otherwise appear clear. No abnormal fluid is seen within the mastoid air cells. IMPRESSION: No significant brain abnormality is identified, similar to prior. If there is strong clinical suspicion for an acute stroke, please consider a brain MRI for further evaluation, as it is more sensitive (assuming that there is no contraindication to MRI). Additional findings: Complete opacification of the maxillary sinuses, regarded to be chronic Dictated by: Hugh Chino M.D. on 01/15/2023 at 13:01 Approved by: Hugh Chino M.D. on 01/15/2023 at 13:02
--- NOTE | 2023-01-15 14:36 | PC.NURSE ---
1415 Transfer efforts initiated as requested by Dr. Morales.
--- NOTE | 2023-01-15 14:54 | PC.NURSE ---
Addendum entered by Heather Sanchez R.N. 01/15/23 19:46: 1945 Transport team arrive to transport pt to [place], all belongings with SO Josué including rings, pt being transported sedated and intubated with restraints to keep pt from pulling at tubes and lines. No further pt contact at this time Addendum entered by Heather Sanchez R.N. 01/15/23 17:30: Pt to transfer to [place], ICU room 336, ETA transport team at 1920, VSS will continue to monitor Original Note: 10 am Propofol and tube feeding titrated off in anticipation of possible extubation following family meeting 1015 Pt agitated, per Dr Morales titrate Precedex up, titrated to 2.0 mcg/kg/hr for agitation, unable to get pt to respond with any purpose. 1045 Pt remains agitated, Dr Morales ordered 2mg Ativan as pt takes 5 mg Diazepam at home for anxiety, pt responded well, still no purposeful movements or interactions. Pt opens eyes, does not track, no PERRLA noted, will move hands open and closed, not sure it is in response to being asked to squeeze hand, eyes fixed skyward, pt does blink, but no response to threat in all visual [place]. SO Josué has arrived at bedside and states that Sons and daughter in law will arrive shortly. 1145 Family has arrived 1215 Family meeting with this nurse, Dr Morales and family, all options were discussed, it was decided to obtain a follow-up head CT to see if there are any changes. 1300 Propofol restarted in anticipation of transport to CT, Pt transported to CT with Charge Nurse Charla, yehuda ansari, Jordi from [place] and Jordi from [place] 1355 Returned back to room [address] Morales at bedside to discuss findings of CT, family has decided to have pt transferred to higher level of care for MRI and Neuro consult. Dr Morales and Charge nurse to begin searching for accepting hospitals.
--- NOTE | 2023-01-15 15:23 | P.PN_ITS ---
Subjective Subjective Interval history: Continues to fail sedation vacations. Family arrived today. Patient continues to have intermittent responsiveness, though it is not entirely clear if purposeful or not. She quickly becomes agitated with sedation off. I spent 30 minutes In long discussion with family about goals of care and advanced care planning. they would like additional information, including discussion about transfer for formal neurology evaluation to make an informed decision regarding her diagnosis and if there is any chance of recovery. Attempted repeat head CT today to evaluate to see if anoxia evident or a large CVA but was unremarkable. Would benefit from MRI which cannot be performed here on a ventilated patient. They are hesitant to proceed with palliative extubation at this time. Exam Vital Signs (past 8 hours): - 01/15/23 07:30 01/15/23 08:00 01/15/23 08:00 Pulse Rate 69 73 Respiratory Rate 15 15 Blood Pressure 157/75 H Pulse Oximetry 94 93 Oxygen Delivery Method Fraction of Inspired Oxygen 01/15/23 08:30 01/15/23 09:00 01/15/23 09:00 Pulse Rate 86 79 Respiratory Rate 19 15 Blood Pressure 175/80 H Pulse Oximetry 93 93 Oxygen Delivery Method Fraction of Inspired Oxygen 01/15/23 09:30 01/15/23 09:52 01/15/23 10:00 Pulse Rate 83 128 H 88 Respiratory Rate 16 17 16 Blood Pressure Pulse Oximetry 93 92 93 Oxygen Delivery Method Mechanical Ventilation Fraction of Inspired Oxygen 21 01/15/23 10:01 01/15/23 10:01 01/15/23 10:30 Pulse Rate 86 94 H Respiratory Rate 16 15 Blood Pressure 158/75 H Pulse Oximetry 93 93 Oxygen Delivery Method Fraction of Inspired Oxygen 01/15/23 11:00 01/15/23 11:00 01/15/23 11:01 Pulse Rate 97 H Respiratory Rate 15 Blood Pressure 162/97 H Pulse Oximetry 93 Oxygen Delivery Method Mechanical Ventilation Fraction of Inspired Oxygen 01/15/23 11:01 01/15/23 11:30 01/15/23 12:00 Pulse Rate 118 H 83 80 Respiratory Rate 15 15 15 Blood Pressure Pulse Oximetry 93 92 93 Oxygen Delivery Method Fraction of Inspired Oxygen 01/15/23 12:00 01/15/23 12:30 01/15/23 13:00 Pulse Rate 77 Respiratory Rate 15 Blood Pressure 169/79 H 171/81 H Pulse Oximetry 94 Oxygen Delivery Method Fraction of Inspired Oxygen 01/15/23 13:00 01/15/23 13:57 01/15/23 13:57 Pulse Rate 85 79 Respiratory Rate 15 15 Blood Pressure 155/85 H Pulse Oximetry 94 94 Oxygen Delivery Method Fraction of Inspired Oxygen 01/15/23 14:00 01/15/23 14:00 01/15/23 14:30 Pulse Rate 79 74 Respiratory Rate 15 21 Blood Pressure 153/84 H Pulse Oximetry 94 95 Oxygen Delivery Method Fraction of Inspired Oxygen 01/15/23 15:00 01/15/23 15:00 Pulse Rate 74 Respiratory Rate 15 Blood Pressure 166/82 H Pulse Oximetry 94 Oxygen Delivery Method Fraction of Inspired Oxygen Fraction of Inspired Oxygen 21 SaO2/FiO2 Ratio 438 Oxygen Delivery Method Mechanical Ventilation Oxygen Flow Rate 15 Narrative Exam Narrative: Intubated and on vent. Sedated, on vacation this AM with occasional appropriate head nod and command following. OGT in place Atraumatic head, symmetric pupils. Neck supple and midline trachea. Lungs CTA, anterior. Heart RRR, without murmur, gallop, or rub. Abdomen Soft, NT, ND No leg edema. No skin rash. Objective Labs 01/15/23 05:30 01/15/23 05:30 Labs: Laboratory Results - last 24 hr 01/15/23 05:30 WBC 4.9 RBC 4.57 Hgb 14.6 Hct 43.8 MCV 95.8 MCH 32.0 MCHC 33.4 RDW 15.1 H Plt Count 149 L Neut % (Auto) 62.0 Lymph % (Auto) 20.7 L [place] % (Auto) 11.9 Eos % (Auto) 4.5 H Baso % (Auto) 0.9 Neut # (Auto) 3000 Lymph # (Auto) 1000 L [place] # (Auto) 600 Eos # (Auto) 200 Baso # (Auto) 0 PT 14.3 H INR 1.2 Sodium 138 Potassium 3.9 Chloride 109 H Carbon Dioxide 22 BUN 14 Creatinine 0.69 Estimated GFR > 60 BUN/Creatinine Ratio 20.3 Glucose 113 H Calcium 9.0 Magnesium 1.7 PFSH Medical History Acquired clavicle deformity Asthma Cataracts, bilateral (1994) Chronic atrial fibrillation Essential hypertension Gout Hyperlipidemia Hyperthyroidism (1971) Osteoporosis Surgical History Toxic goiter (1972) Family History Father No problems noted. Mother No problems noted. Social History household members: significant other Smoking Status: Never smoker alcohol intake: never substance use type: does not use Assessment & Plan Assessment & Plan narrative: #advanced care planning. I had prolonged discussion of about 30 minutes with family (spouse, 2 sons, and daughter in law) today about presentation and current diagnostic dilemma. Her mental status continues to wax and wane, though times even when she is responsive she only intermittently follows commands. Though each morning she has done a bit more. Multiple etiologies for this were discussed, including continued encephalopathy from sepsis and delirium, infection, anoxic brain injury, stroke, and neuromuscular processes possibly leading to diaphragmatic paralysis. Her infectious and cardiogenic sources appear nearly resolved yet she remains difficult to extubate due to continued failing of sedation trials. Head CT on 01/10 and again today show no obvious etiologies. Given uncertainty, family would like additional information about her prognosis, though this remains difficult as the etiology for her presentation remains uncertain. They are hesitant to persue trach and peg, especially if there is a low chance of recovery. They are in agreement that transfer for neurological consultation to add additional information would be helpful. Will work on discussion with other facilities today for possible transfer or neurology discussion. 1. Septic shock with hypotension, Acute hypoxic and hypercarbic respiratory failure, thrombocytopenia and metabolic encephalopathy. -Vent support with propofol and fentanyl infusions. Limit as much as possible. Trialing abilify today along with precedex to see if improvement in delirium. Oral care, head of bed up. DVT and GI prophylaxis. -extubated successfully the morning of 01/10, then worsened in the afternoon and needed reintubation due to apnea. -now back on vent as of 01/10. Continues to fail breathing trials. -RT pulm toilet due to copious secretions -will be difficult to get off vent at this point, partner Josué aware of this. Advanced care planning discussed below. -Given rapid decline on admission, along with marked hypoxia and hypercapnea on admission and apnea, it could be consistent with a neuromusclar etiology for her presentation. -Repeated head CT on 10/4, no obvious CVA or anoxic injury. --diuresis with IV lasix 40 QAM, initially. Had to hold 01/07 due to hypotension requiring norepinephrine and has continued to hold. Will not restart today as clinically does not appear volume overloaded on exam. -increased cefepime with improved renal function to 2g q8 for pseudomonas pneumonia -remains on fluconazole for possible fungal etiology as well per tele- landscape photographer service, appreciate their assistance with management. 2. Acute pulmonary edema, probable acute on chronic diastolic heart failure. improved -echo with EF 55%, mod MR and TR which are worse from prior. -diuresis has been held 01/07 for hypotension requiring levophed. -consider resuming, though does not appear overloaded on exam and CXR with improved appearance. 3. Pseudomonal pneumonia, POA and active. -started antibiotics wtih Ceftriaxone and doxycycline. -changed rocephin to cefepime on 01/09 due to sputum culture with pseudomonas, increased with improving renal function today to 2g q8 hr. -copious secretions being suctioned though improving. 4. Hyponatremia, POA and improving. -following with daily BMP, low sodium now resolved. 5. Thromocytopenia, POA and active (stable). -likely due to sepsis. Improving thus far. 6. P. Atrial fibrillation (coumadin), NPOA and stable. -hold warfarin and follow. May need IV rate control. Daily INR. 7. Metabolic encephalopathy, POA and active. -monitor mental status -holding ativan and melatonin -head CT ordered, no intracranial pathology -patient may have anoxic injury from hypoxia prior to intubation, unable to obtain MRI to confirm at this hospital -now back on sedatives due to agitation on the vent 8. KANDACE,. resolved -monitor renal function. 9. Possible chronic sinusitis with fungal infection? -per CT maxillary sinuses completely opacified and could represent fungal infection -started empirically on IV fluconazole 100mg daily, will continue today. Full code. is proxy decision maker. Dispo: Possible transfer for neurology consultation, additional imaging including ability to perform brain MRI. I spent 45 minutes providing critical care management this patient. This excludes time spent in performing separately billed procedures (advanced care planning noted above). Time Spent With Patient Time with patient: 30 to 49 minutes with 50% spent counseling/coordinating care Quality VTE Deep Vein Thrombosis/Pulmonary Embolism Present on Admission: No
--- NOTE | 2023-01-15 16:13 | PM.DS.1 ---
History of Present Illness History of Present Illness Date Patient Seen: 01/15/23 Time Patient Seen: 16:13 Chief complaint: resp distress / unresponsive Narrative: Per admitting provider, Patient is an 86 year old female with a H/O asthma, and CHF who presented to urgent care for 5 days of progressive dyspnea. She was found to be very ill and EMS was called to bring her to the ED. She had an ABG with a pCO2 of 111 and was placed on BiPAP. She failed BiPAP and was intubated. CXR is consistent with pulmonary edema. All history obtained from the emergency physician. The had noted 2 days of exertional dyspnea and also that she takes anticoagulation for possible AFib. The urgent care found her to be unresponsive and hypoxemic with SaO2 in the 40's. He denied any report of fevers, cough, or other URI symptoms to the ED. Previous ECHO (01/03) revealed normal LVEF and severe biatrial enlargement. Myocardial perfusion 01/03 was negative for ischemia. No history is obtainable from the patient as she is intubated. eICU consult placed. Recommends CAP antibiotic coverage for now. Discharge Providers Provider Date of admission: 01/06/23 12:08 Discharge Date: 01/15/23 Primary care physician: Renan Campos MD Consults: 01/06/23 12:29 Consult to Tele-clinical staff anesthesiologist Routine Comment: Consulting Provider: [facility] [employer] Reason for consultation: Hedge Trimmer services Has provider been notified: Yes 01/06/23 12:39 Consult to Dietitian, Adult Routine Comment: Reason For Exam: Enteral feedings Consult to Dietitian, Adult Routine Comment: Reason For Exam: Patient on Ventilator and NPO 01/06/23 14:19 Consult to Dietitian, Adult Routine Comment: Reason For Exam: Patient on Ventilator and NPO Discharge provider: Diego Morales DO Summary Hospital Course Discharge Diagnosis: Please see hospital course by problem list noted below Hospital Course: #advanced care planning. I had prolonged discussion of about 30 minutes with family (spouse, 2 sons, and daughter in law) today about presentation and current diagnostic dilemma. Her mental status continues to wax and wane, though times even when she is responsive she only intermittently follows commands and it is not entirely clear if this is purposeful. Though each morning she has done a bit more. Multiple etiologies for this were discussed, including continued encephalopathy from sepsis and delirium including ICU delirium, infection, anoxic brain injury, stroke, and neuromuscular processes. Her infectious and cardiogenic sources appear nearly resolved and remains on minimal vent settings yet she remains difficult to extubate due to continued failing of sedation trials. Head CT on 01/10 and again today show no obvious etiologies. Given uncertainty, family would like additional information about her prognosis, though this remains difficult as the etiology for her presentation remains uncertain. They are hesitant to persue trach and peg, especially if there is a low chance of recovery. They are in agreement that transfer for neurological consultation to add additional information would be helpful. Discussed with clinical staff anesthesiologist at [facility], agreeable for transfer to their facility. 1. Septic shock with hypotension, Acute hypoxic and hypercarbic respiratory failure, KANDACE, thrombocytopenia and metabolic encephalopathy. Nearly all resolved except for encephalopathy and resulting respiratory failure. -patient was intubated in the ER on 01/06 for hypercapnic and hypoxemic respiratory failure. -extubated successfully the morning of 01/10, then worsened in the afternoon after about 2 hours and needed reintubation due to apnea. Now continues to fail breathing trials with no initiation of spontaneous breathing. With sedation vacations she continues to be quite agitated. -Vent support with propofol and fentanyl initially for sedation. Now trying to limit as much as possible. Trialing abilify along with precedex to see if improvement in delirium. Over the last two days have been transitioning to precedex with intermittent propofol, less often small 25 mcg fentanyl pushes. -Patient also takes valium 5 mg BID prn at home -RT pulm toilet due to copious secretions, which have been improving. -Given rapid decline on admission, along with marked hypoxia and hypercapnea on admission and apnea, it could be consistent with a neuromusclar etiology for her presentation, but many more likely differentials discussed above. -Repeated head CT on 01/15, no obvious CVA or anoxic injury. --diuresis with IV lasix 40 QAM, initially. Had to hold 01/07 due to hypotension requiring norepinephrine and has continued to hold as volume status appears euvolemic. She is on minimal supportive vent settings as primary issue remains inability to initiate a breath. -increased cefepime on 01/13 with improved renal function to 2g q8 for pseudomonas pneumonia (end date for cefepime 7 day course is 01/16) -remains on fluconazole for possible fungal etiology (started 01/12) as well per tele-clinical staff anesthesiologist service, appreciate their assistance with management. 2. Acute pulmonary edema, probable acute on chronic diastolic heart failure. improved -echo with EF 55%, mod MR and TR which are worse from prior. -diuresis was held since 01/07 for hypotension requiring levophed. -consider resuming furosemide, though does not appear overloaded on exam and CXR with improved appearance last on 01/13. Remains on minimal vent settings. 3. Pseudomonal pneumonia, POA and active. -started antibiotics wtih Ceftriaxone and doxycycline initially. -changed rocephin to cefepime on 01/09 due to sputum culture with pseudomonas, increased 01/13 with improving renal function today to 2g q8 hr. Today is day 6 7 of antibiotic therapy. -copious secretions being suctioned though improving. 4. Hyponatremia, POA and improving. -following with daily BMP, low sodium now resolved. 5. Thromocytopenia, POA and active (stable). -likely due to sepsis. Improving thus far. Plt 149 today. 6. P. Atrial fibrillation (coumadin), NPOA and stable. -anticoagulation has been held since admission. Continued to hold today given plan for repeat head CT. Consider resuming via Lovenox injections or home apixaban at accepting facility. 7. Metabolic encephalopathy, POA and active. -head CT ordered, no intracranial pathology on 01/10 after re-intubation. Repeated on 01/15 given continued decline. If able, recommend MRI to evaulate for hypoxic injury or possible CVA. -patient may have anoxic injury from hypoxia prior to intubation, or reintubation. continued encephalopathy and delirium, or other etiologies discussed above. unable to obtain MRI to confirm at this hospital -now back on propofol and precedex for transfer. 8. KANDACE,. resolved -monitor renal function. Current Cr 0.69 on today's labs. 9. Possible chronic sinusitis with fungal infection? -per CT maxillary sinuses completely opacified and could represent fungal infection. -started empirically on IV fluconazole 100mg daily per tele-clinical staff anesthesiologist service, continues today started on 01/12. Consider cessation at accepting facility. Repeat CT on 01/15 continued opacification of sinuses. Lines - R central line (placed on admission 01/06), fonseca, ETT, OG tube. Code: Remains full Vent Settings (stable for days) - FiO2 21%, PEEP 5, Tv 360 RR 15 Contacts: Josué Bosch (significant other) (Primary #) (Secondary #) Joseph (youngest son) - [phone] Transfer to ICU at [facility], accepting physician is control room operator clinical staff anesthesiologist. Time Spent with Patient Time spent: Greater than 30 minutes Exam Vital Signs (past 8 hours): - 01/15/23 08:30 01/15/23 09:00 01/15/23 09:00 Pulse Rate 86 79 Respiratory Rate 19 15 Blood Pressure 175/80 H Pulse Oximetry 93 93 Oxygen Delivery Method Fraction of Inspired Oxygen 01/15/23 09:30 01/15/23 09:52 01/15/23 10:00 Pulse Rate 83 128 H 88 Respiratory Rate 16 17 16 Blood Pressure Pulse Oximetry 93 92 93 Oxygen Delivery Method Mechanical Ventilation Fraction of Inspired Oxygen 21 01/15/23 10:01 01/15/23 10:01 01/15/23 10:30 Pulse Rate 86 94 H Respiratory Rate 16 15 Blood Pressure 158/75 H Pulse Oximetry 93 93 Oxygen Delivery Method Fraction of Inspired Oxygen 01/15/23 11:00 01/15/23 11:00 01/15/23 11:01 Pulse Rate 97 H Respiratory Rate 15 Blood Pressure 162/97 H Pulse Oximetry 93 Oxygen Delivery Method Mechanical Ventilation Fraction of Inspired Oxygen 01/15/23 11:01 01/15/23 11:30 01/15/23 12:00 Pulse Rate 118 H 83 80 Respiratory Rate 15 15 15 Blood Pressure Pulse Oximetry 93 92 93 Oxygen Delivery Method Fraction of Inspired Oxygen 01/15/23 12:00 01/15/23 12:30 01/15/23 13:00 Pulse Rate 77 Respiratory Rate 15 Blood Pressure 169/79 H 171/81 H Pulse Oximetry 94 Oxygen Delivery Method Fraction of Inspired Oxygen 01/15/23 13:00 01/15/23 13:57 01/15/23 13:57 Pulse Rate 85 79 Respiratory Rate 15 15 Blood Pressure 155/85 H Pulse Oximetry 94 94 Oxygen Delivery Method Fraction of Inspired Oxygen 01/15/23 14:00 01/15/23 14:00 01/15/23 14:30 Pulse Rate 79 74 Respiratory Rate 15 21 Blood Pressure 153/84 H Pulse Oximetry 94 95 Oxygen Delivery Method Fraction of Inspired Oxygen 01/15/23 15:00 01/15/23 15:00 01/15/23 15:30 Pulse Rate 74 72 Respiratory Rate 15 15 Blood Pressure 166/82 H Pulse Oximetry 94 95 Oxygen Delivery Method Fraction of Inspired Oxygen 01/15/23 16:00 01/15/23 16:00 Pulse Rate 69 Respiratory Rate 15 Blood Pressure 168/87 H Pulse Oximetry 95 Oxygen Delivery Method Fraction of Inspired Oxygen Fraction of Inspired Oxygen 21 SaO2/FiO2 Ratio 438 Oxygen Delivery Method Mechanical Ventilation Oxygen Flow Rate 15 Narrative Exam Narrative: Intubated and on vent. Sedated, pinpoint pupils, unable to tell if reactive OGT in place Atraumatic head, symmetric pupils but pinpoint. Neck supple and midline trachea. Lungs CTA, anterior. Heart RRR, without murmur, gallop, or rub. Abdomen Soft, NT, ND No leg edema. No skin rash. Objective Labs 01/15/23 05:30 01/15/23 05:30 Labs: Laboratory Results - last 24 hr 01/15/23 05:30 WBC 4.9 RBC 4.57 Hgb 14.6 Hct 43.8 MCV 95.8 MCH 32.0 MCHC 33.4 RDW 15.1 H Plt Count 149 L Neut % (Auto) 62.0 Lymph % (Auto) 20.7 L [place] % (Auto) 11.9 Eos % (Auto) 4.5 H Baso % (Auto) 0.9 Neut # (Auto) 3000 Lymph # (Auto) 1000 L [place] # (Auto) 600 Eos # (Auto) 200 Baso # (Auto) 0 PT 14.3 H INR 1.2 Sodium 138 Potassium 3.9 Chloride 109 H Carbon Dioxide 22 BUN 14 Creatinine 0.69 Estimated GFR > 60 BUN/Creatinine Ratio 20.3 Glucose 113 H Calcium 9.0 Magnesium 1.7 PFSH Medical History Acquired clavicle deformity Asthma Cataracts, bilateral (1994) Chronic atrial fibrillation Essential hypertension Gout Hyperlipidemia Hyperthyroidism (1971) Osteoporosis Surgical History Toxic goiter (1971) Family History Father No problems noted. Mother No problems noted. Social History household members: significant other Smoking Status: Never smoker alcohol intake: never substance use type: does not use Discharge Plan Discharge Plan Patient Disposition: [facility] Provider Discharge Comment: Please see discharge summary Visit Report/Discharge Packet Instructions: Naloxone for Opiate Overdose - [facility] Stand Alone Forms: Naloxone Standing Order [facility] Discharge Data Primary Care Provider: Renan Campos VTE Deep Vein Thrombosis/Pulmonary Embolism Present on Admission: No
[2023-01-15] MEDS: propofoL 1,000 MG/100 ML VIAL 4.77 MG IV (16:24)
[2023-01-15] MEDS: FLUCONAZOLE 100 MG/50 ML PIGGYBACK IV (17:18)
[2023-01-15] MEDS: propofoL 1,000 MG/100 ML VIAL 7.155 MG IV (19:17)
[2023-01-15] MEDS: dexmedeTOMIDine in 0.9 % NaCL 400 MCG/100 ML PLAST..BAG 30.038 MCG IV (19:17)
== END 2023-01-15 19:49 | disposition short-term general hospital (02) | DRG 870 ==
LOC: ED 11:25 → AC 12:10 → ICU 13:19
PROVIDERS: Anesthesiology Critical Care Medicine; Internal Medicine; Internal Medicine Critical Care Medicine; Internal Medicine Pulmonary Disease; Student in an Organized Health Care Education/Training Program; Admitting Provider Hospitalist; Emergency Provider Emergency Medicine; PCP Pediatrics; Referring Provider Emergency Medicine; Visit Provider Hospitalist
DX: A41.52 Sepsis due to Pseudomonas (principal); G93.41 Metabolic encephalopathy; J96.02 Acute respiratory failure with hypercapnia; J18.9 Pneumonia, unspecified organism; J96.01 Acute respiratory failure with hypoxia; R65.21 Severe sepsis with septic shock; I50.33 Acute on chronic diastolic (congestive) heart failure; N17.9 Acute kidney failure, unspecified; E87.1 Hypo-osmolality and hyponatremia; I48.21 Permanent atrial fibrillation; B96.5 Pseudomonas (aeruginosa) (mallei) (pseudomallei) as the cause of diseases classified elsewhere; D69.59 Other secondary thrombocytopenia; J32.9 Chronic sinusitis, unspecified; I11.0 Hypertensive heart disease with heart failure; Z79.01 Long term (current) use of anticoagulants
CPT/HCPCS: 36415; 36592; 36600; 70450; 71045; 80048; 80053; 80320; 82550; 82805; 82962; 83605; 83690; 83735; 83880; 84132; 84145; 84478; 84484; 85025; 85610; 85730; 87040; 87070; 87077; 87186; 87205; 87633; 87797; 93306; 94002; 94003; 94010; 94640; 94799; 96374; 96375; 99233; 99285; 99291; C9113; J0330; J0360; J0692; J0696; J1450; J1642; J1644; J1940; J1953; J2060; J2405; J2704; J2765; J3010; J3475; P9041

== ENCOUNTER → 2023-05-10 17:57 | Outpatient (CLI) | payer MEDICARE, MEDICAID, SELFPAY ==
[2023-01-06 12:10] VITALS: BMI 31.0
[2023-01-15 14:02] VITALS: RESP 1
[2023-01-15 18:14] VITALS: PULSE 68; RESP 15; O2SAT 95
[2023-05-10 18:42] LABS: Influenza A - CEPHEID Flu A NEGATIVE (NEGATIVE); Influenza B - CEPHEID Flu B NEGATIVE (NEGATIVE); Respiratory Syncytial Virus Negative (Negative)
[2023-05-10 18:49] LABS: COVID-19 CEPHEID 4-PLEX PCR POSITIVE (Negative)
== END ==
PROVIDERS: PCP Family Medicine; Visit Provider Physician Assistant
DX: R05.1 Acute cough (principal)
CPT/HCPCS: 0241U

== ENCOUNTER 2023-05-11 15:35 | Emergency (ER) | payer MEDICARE, MEDICAID, SELFPAY ==
[2023-01-06 12:10] VITALS: BMI 31.0
[2023-01-15 14:02] VITALS: RESP 1
[2023-01-15 18:14] VITALS: PULSE 68; RESP 15; O2SAT 95
[2023-05-11 15:47] VITALS: BP 161/88; PULSE 90; RESP 20; TEMP 37.2; O2SAT 94; BMI 28.0
--- NOTE | 2023-05-11 17:03 | ED.URI ---
HPI - URI/Sore Throat <Shin Drake PA-C - Last Filed: 05/11/23 17:35> General Chief Complaint: Upper Respiratory Symptoms Stated Complaint: was here yesterday symptoms have worsened Time Seen by Provider: 05/11/23 15:37 Source: patient and family Mode of arrival: Ambulatory History of Present Illness HPI Narrative: This is a 82-year-old female presenting to the emergency department due to Two days of cough and tactile fevers reports significant coughing overnight causing her to come in. She was seen in the walk-in clinic yesterday and tested for COVID, flu, RSV. Has been taking Robitussin without significant relief. Related Data Home Medications Medication Instructions Recorded Confirmed carvedilol 25 mg tablet 12.5 mg PO BID 03/07/23 05/10/23 Previous Rx's Medication Instructions Recorded losartan 100 mg tablet 100 mg PO DAILY #90 tabs 06/05/22 potassium chloride 10 mEq See Rx Instructions .Route 11/11/22 tablet,extended release .COMPLEX #90 tabs calcium carbonate 500 mg calcium 500 mg PO BID #180 tabs 11/13/22 (1,250 mg) tablet (Oyster Shell Calcium) amlodipine 5 mg tablet (Norvasc) 5 mg PO DAILY #90 tabs 02/24/23 furosemide 40 mg tablet 40 mg PO DAILY PRN edema/weight 02/24/23 gain #10 tabs albuterol sulfate 90 mcg/actuation 1 puff PO Q4-6H PRN for wheezing 02/25/23 aerosol inhaler #8.5 grams ramelteon 8 mg tablet 8 mg PO BEDTIME PRN sleep #30 tabs 03/05/23 apixaban 5 mg tablet (Eliquis) See Rx Instructions .Route 03/11/23 .COMPLEX #180 tabs benzonatate 100 mg capsule 100 mg PO BID PRN cough #30 caps 05/11/23 Allergies Allergy/AdvReac Type Severity Reaction Status Date / Time No Known Drug Allergies Allergy Verified 05/11/23 15:55 Review of Systems <Shin Drake PA-C - Last Filed: 05/11/23 17:35> Review of Systems Narrative: GENERAL: Denies chills, fatigue, malaise, fever, sweats. HEENT: Denies sinus pain, ear pain, sore throat, difficulty swallowing, dizziness. RESPIRATORY: Reports cough Denies dyspnea, , wheezing, hemoptysis, sputum. CARDIOVASCULAR: Denies chest pain, palpitations, orthopnea, edema, GASTROINTESTINAL: Denies nausea, vomiting, abdominal pain, diarrhea, constipation, melena. : Denies dysuria, frequency, incontinence, hematuria, urinary retention. MUSCULOSKELETAL: denies weakness, joint pain, or bony pain SKIN: Denies rash, skin lesions, or other NEUROLOGIC: Denies weakness, headache, numbness, change in speech, confusion, seizures, incoordination. PSYCHIATRIC: No concerning psychosocial issues. 12 point review of systems is negative except for those stated above Patient History <Shin Drake PA-C - Last Filed: 05/11/23 17:35> Medical History (Updated 05/11/23 @ 17:34 by Shin Drake PA-C) Pulmonary edema (01/06/23) Altered mental status (01/06/23) Hypercapnic respiratory failure (01/06/23) Peripheral edema (01/06/23) Acquired clavicle deformity Asthma Gout Cataracts, bilateral (1994) Toxic goiter (1971) Hyperthyroidism (1971) Osteoporosis Essential hypertension Hyperlipidemia Chronic atrial fibrillation Family History Father No problems noted. Mother No problems noted. Social History household members: significant other Smoking Status: Never smoker alcohol intake: never substance use type: does not use Smoking Status: Never smoker alcohol intake frequency: 0-2 drinks per day Substance Use Type: does not use Exam <Shin Drake PA-C - Last Filed: 05/11/23 17:35> Narrative Exam Narrative: GENERAL: Well-developed patient, in mild distress. HEAD: Atraumatic. Normocephalic. EYES: Pupils equal round and reactive. Extraocular motions intact. No scleral icterus. No injection or drainage. ENT: Nose without bleeding, purulent drainage. Throat without erythema, tonsillar hypertrophy or exudate. Airway patent. NECK: Trachea midline. Non tender EXTREMITIES: No edema or joint tenderness. NEURO: AOx3. SKIN: No rash or erythema of visible areas CARDIOVASCULAR: Regular rate and rhythm without murmurs, gallops, or rubs. RESPIRATORY: Clear to auscultation. Breath sounds equal bilaterally. No wheezes, rales, or rhonchi. GASTROINTESTINAL: Abdomen soft, non-tender, nondistended. BACK: Nontender without deformity or crepitance. No flank tenderness. Initial Vital Signs Initial Vital Signs: Vital Signs Temperature 98.9 F 05/11/23 15:47 Pulse Rate 90 05/11/23 15:47 Respiratory Rate 20 05/11/23 15:47 Blood Pressure 161/88 H 05/11/23 15:47 Pulse Oximetry 94 05/11/23 15:47 Oxygen Delivery Method Room Air 05/11/23 15:47 <Darien Rushing DO - Last Filed: 05/11/23 17:40> Initial Vital Signs Initial Vital Signs: Vital Signs Temperature 98.9 F 05/11/23 15:47 Pulse Rate 90 05/11/23 15:47 Respiratory Rate 20 05/11/23 15:47 Blood Pressure 161/88 H 05/11/23 15:47 Pulse Oximetry 94 05/11/23 15:47 Oxygen Delivery Method Room Air 05/11/23 15:47 Course <LANI Rae Last Filed: 05/11/23 17:35> Vital Signs Vital signs: Vital Signs - 8 hr 05/11/23 15:47 05/11/23 17:23 Temperature 98.9 F 99.3 F Pulse Rate 90 83 Respiratory Rate 20 18 Blood Pressure 161/88 H 149/69 H Pulse Oximetry 94 96 Oxygen Delivery Method Room Air Room Air <DO Eve Guzman Last Filed: 05/11/23 17:40> Vital Signs Vital signs: Vital Signs - 8 hr 05/11/23 15:47 05/11/23 17:23 Temperature 98.9 F 99.3 F Pulse Rate 90 83 Respiratory Rate 20 18 Blood Pressure 161/88 H 149/69 H Pulse Oximetry 94 96 Oxygen Delivery Method Room Air Room Air MDM - URI/Sore Throat <LANI Rae Last Filed: 05/11/23 17:35> MDM Narrative Medical decision making narrative: ED course: This is a 82-year-old female presents to the emergency department due to a cough and fever for 2 days. Yesterday she was seen in the walk-in clinic and ordered a COVID flu RSV test. On examination of the results patient tested positive for COVID. Paxlovid considered but patient takes multiple medications that interact with this. Recommended supportive care. Vitals within normal limits. CC: Cough Complicating co-morbidities: AFib, hypertension, asthma Data collected from: Previous notes Medical records reviewed: Patient was seen in the walk-in clinic yesterday. History of hypertension and asthma. History of pulmonary edema, hypercapnic respiratory failure, hyperthyroidism, hypertension, chronic AFib. Patient was swabbed for COVID and tested positive. Differential considered, but not limited to: COVID, flu, RSV Exam documented above, pertinent findings include: Normal exam Lab Test results independently reviewed as above. Pertinent findings: Tested positive for COVID Imaging studies independently reviewed: None Scores Used: None MIPS Elements: None Consultations: None Treatments: None Re-evaluations: None Discussion: Discussed plan with the patient was comfortable with the plan Diagnosis: COVID Disposition: see below, along with detailed discharge instructions that have been reviewed with patient as well as indications for ED re-evaluation and additional outpatient follow up Discharge Plan Departure Patient Disposition: Home Clinical Impression: COVID Instructions: DI for COVID-19 (Suspected or Confirmed ) Activity Restrictions/Additional Instructions: Thank you for coming to the [facility] Emergency Department today. As discussed you tested positive for COVID-19 yesterday during her walk-in clinic visit. Please use Robitussin DM for the cough tonight. Please take the oral medications as prescribed when you are able to pick them up tomorrow. Please return to the emergency department if you develop any worsening shortness of breath, chest pain, or any other concerning signs or symptoms. I hope you feel better soon. Please follow up with your primary care provider within a week if your symptoms continue. If you do not have a primary care provider please contact the [facility] Resource line at [phone]. They will ask some questions about your medical history and help you get set up with a provider in the community. Prescriptions: New benzonatate 100 mg capsule 100 mg PO BID PRN (Reason: cough) Qty: 30 0RF No Action ramelteon 8 mg tablet 8 mg PO BEDTIME PRN (Reason: sleep) Qty: 30 1RF carvedilol 25 mg tablet 12.5 mg PO BID losartan 100 mg tablet 100 mg PO DAILY Qty: 90 2RF potassium chloride 10 mEq tablet extended release See Rx Instructions .ROUTE .COMPLEX Qty: 90 2RF Dose Instruction: TAKE 1 TABLET BY MOUTH DAILY Rx Instructions: TAKE 1 TABLET BY MOUTH DAILY calcium carbonate [Oyster Shell Calcium] 500 mg calcium (1,250 mg) tablet 500 mg PO BID Qty: 180 1RF amlodipine [Norvasc] 5 mg tablet 5 mg PO DAILY Qty: 90 3RF furosemide 40 mg tablet 40 mg PO DAILY PRN (Reason: edema/weight gain) Qty: 10 11RF Rx Instructions: Take 1 tab by mouth as needed for Edema//3lb weight gain albuterol sulfate 90 mcg/actuation HFA aerosol inhaler 1 puff PO Q4-6H PRN (Reason: for wheezing) Qty: 8.5 5RF Eliquis 5 mg tablet See Rx Instructions .ROUTE .COMPLEX Qty: 180 1RF Dose Instruction: TAKE 1 TABLET BY MOUTH TWICE DAILY Rx Instructions: TAKE 1 TABLET BY MOUTH TWICE DAILY Referrals: Carlos Eduardo Eid MD [Primary Care Provider] - Stand Alone Forms: Patient Portal/[facility] ED Sign-out <Darien Rushing, DO - Last Filed: 05/11/23 17:40> Cosign ED Attending Cosignature Attestation: Dr Rushing Co-Sign Statement: I was available for consultation during this patient's emergency department visit. This chart is signed by myself for administrative purposes only. I did not have direct contact with this patient during this visit. They were seen independently by the APC.
[2023-05-11 17:23] VITALS: BP 149/69; PULSE 83; RESP 18; TEMP 37.4; O2SAT 96
== END 2023-05-11 17:45 | disposition home or self-care (01) ==
PROVIDERS: Emergency Provider Physician Assistant Medical; PCP Family Medicine
DX: U07.1 COVID-19 (principal)
CPT/HCPCS: 99281; 99283

== ENCOUNTER → 2023-05-17 09:50 | Outpatient (CLI) | payer MEDICARE, MEDICAID, SELFPAY ==
[2023-01-06 12:10] VITALS: BMI 31.0
[2023-01-15 14:02] VITALS: RESP 1
[2023-01-15 18:14] VITALS: PULSE 68; RESP 15; O2SAT 95
[2023-05-17 10:30] LABS: Add Manual Diff / Slide Review NO; Basophils Absolute Auto 0 /uL (0-100); Basophils Percent Auto 0.6 % (0-2); Eosinophils Absolute Auto 600 /uL (0-450); Eosinophils Percent Auto 14.9 % (2-4); Hematocrit 41.8 % (36-46); Hemoglobin 13.9 g/dL (12.0-16.0); Lymphocytes Absolute Auto 1400 /uL (1100-4500); Lymphocytes Percent Auto 34.6 % (25-40); Mean Corpuscular HGB Conc 33.3 % (30-36); Mean Corpuscular Hemoglobin 32.2 PG (26-34); Mean Corpuscular Volume 96.6 fL (80-100); Monocytes Absolute Auto 500 /uL (0-900); Neutrophils Absolute Auto 1600 /uL (1500-7000); Neutrophils Percent Auto 37.9 % (50-75); Platelet Count 127 X10^3/uL (150-400); Red Blood Cell Count 4.33 X10^6/uL (4.0-5.2); Red Cell Distribution Width 13.9 % (11.6-14.8); White Blood Cell Count 4.1 X10^3/uL (4.5-11.0)
[2023-05-17 10:43] LABS: BUN Creatinine Ratio 26.7 (6-22); Blood Urea Nitrogen 20 mg/dL (7-17); Calcium 9.4 mg/dL (8.4-10.2); Carbon Dioxide 29 mmol/L (22-32); Chloride 101 mmol/L (98-107); Estimated Glomerular Filt Rate > 60 mL/min (>60); Glucose 111 mg/dL (80-110); HEMOLYSIS < 15 (0-50); Potassium 4.6 mmol/L (3.4-5.1); Sodium 136 mmol/L (137-145)
== END ==
PROVIDERS: PCP Family Medicine; Referring Provider Internal Medicine Cardiovascular Disease; Visit Provider Internal Medicine Cardiovascular Disease
DX: I10 Essential (primary) hypertension (principal)
CPT/HCPCS: 36415; 80048; 85025

== ENCOUNTER → 2023-07-30 09:41 | Outpatient (CLI) | payer MEDICARE, MEDICAID, SELFPAY ==
[2023-01-06 12:10] VITALS: BMI 31.0
[2023-01-15 14:02] VITALS: RESP 1
[2023-01-15 18:14] VITALS: PULSE 68; RESP 15; O2SAT 95
[2023-07-30 11:04] LABS: BUN Creatinine Ratio 25.6 (6-22); Blood Urea Nitrogen 22 mg/dL (7-17); Calcium 9.2 mg/dL (8.4-10.2); Carbon Dioxide 34 mmol/L (22-32); Chloride 100 mmol/L (98-107); Estimated Glomerular Filt Rate > 60 mL/min (>60); Glucose 84 mg/dL (80-110); HEMOLYSIS < 15 (0-50); Potassium 4.9 mmol/L (3.4-5.1); Sodium 137 mmol/L (137-145)
== END ==
LOC: LAB 09:43
PROVIDERS: PCP Family Medicine; Referring Provider Family Medicine; Visit Provider Family Medicine
DX: E87.6 Hypokalemia (principal)
CPT/HCPCS: 36415; 80048

== ENCOUNTER 2023-09-08 15:39 | Emergency (ER) | payer MEDICARE, MEDICAID, SELFPAY ==
[2023-01-06 12:10] VITALS: BMI 31.0
[2023-01-15 14:02] VITALS: RESP 1
[2023-01-15 18:14] VITALS: PULSE 68; RESP 15; O2SAT 95
[2023-09-08 15:43] VITALS: BP 169/79; PULSE 85; RESP 20; TEMP 36.6; O2SAT 94; BMI 28.7
--- NOTE | 2023-09-08 15:55 | PC.NURSE ---
This RN talked to provider about patient and agreed upon putting in chest pain order set to cover the broad spectrum of symptoms that patient is complaining of.
--- NOTE | 2023-09-08 15:57 | DI.RAD.S_ITS ---
PROCEDURE: XR CHEST 1V INDICATIONS: chest pain TECHNIQUE: One view of the chest was acquired. COMPARISON: [facility], CR, XR CHEST 1V, 01/13/2023, 8:00. FINDINGS: Surgical changes and devices: None. Lungs and pleura: Lungs are clear. No pleural effusions or pneumothorax. Mediastinum: Mediastinal contours appear normal. Heart size is enlarged. Aortic arch is calcified indicating atherosclerosis. Bones and chest wall: No suspicious bony lesions. Overlying soft tissues appear unremarkable. IMPRESSION: Cardiomegaly. No focal airspace consolidation. Approved by: Batsheva Jain M.D.,Ph.D. on 09/08/2023 at 15:59
[2023-09-08 16:16] LABS: Add Manual Diff / Slide Review NO; Basophils Absolute Auto 100 /uL (0-100); Eosinophils Absolute Auto 100 /uL (0-450); Eosinophils Percent Auto 1.8 % (2-4); Hematocrit 39.1 % (36-46); Hemoglobin 13.1 g/dL (12.0-16.0); Lymphocytes Absolute Auto 1200 /uL (1100-4500); Lymphocytes Percent Auto 18.3 % (25-40); Mean Corpuscular HGB Conc 33.5 % (30-36); Mean Corpuscular Hemoglobin 32.6 PG (26-34); Mean Corpuscular Volume 97.5 fL (80-100); Monocytes Absolute Auto 600 /uL (0-900); Monocytes Percent Auto 9.3 % (3-14); Neutrophils Absolute Auto 4400 /uL (1500-7000); Neutrophils Percent Auto 69.6 % (50-75); Platelet Count 158 X10^3/uL (150-400); Red Blood Cell Count 4.01 X10^6/uL (4.0-5.2); Red Cell Distribution Width 13.6 % (11.6-14.8); White Blood Cell Count 6.4 X10^3/uL (4.5-11.0)
[2023-09-08 16:24] LABS: INR 1.3 (0.9-1.3); Prothrombin Time 14.4 SECONDS (9.4-12.5)
[2023-09-08 16:26] LABS: PTT Partial Thromboplastin Tim 41 SECONDS (25.1-36.5)
[2023-09-08 16:28] LABS: Alanine Aminotransferase 32 IU/L (<35); Albumin 4.1 g/dL (3.5-5.0); Albumin Globulin Ratio 1.1 (1.0-2.8); Alkaline Phosphatase 99 U/L (38-126); Aspartate Aminotransferase 41 IU/L (14-36); BUN Creatinine Ratio 24.1 (6-22); Bilirubin Total 0.7 mg/dL (0.2-1.3); Blood Urea Nitrogen 19 mg/dL (7-17); Calcium 8.4 mg/dL (8.4-10.2); Carbon Dioxide 30 mmol/L (22-32); Chloride 94 mmol/L (98-107); Creatine Kinase 79 U/L (30-135); Estimated Glomerular Filt Rate > 60 mL/min (>60); Globulin 3.6 g/dL (1.7-4.1); Glucose 157 mg/dL (80-110); HEMOLYSIS < 15 (0-50); Lipase 114 U/L (23-300); Magnesium 1.9 mg/dL (1.6-2.3); Potassium 4.3 mmol/L (3.4-5.1); Sodium 128 mmol/L (137-145); Total Protein 7.7 g/dL (6.3-8.2)
[2023-09-08 16:39] LABS: Troponin I < 0.012 ng/mL (0.01-0.034)
[2023-09-08 19:39] VITALS: PULSE 87; O2SAT 82
[2023-09-08 19:40] VITALS: BP 182/86; PULSE 80; O2SAT 82
--- NOTE | 2023-09-08 20:08 | ED.DIZZY ---
HPI - Dizziness General Chief Complaint: Dizziness Stated Complaint: dizziness, hbp 220/190, nausea, left arm weakness Time Seen by Provider: 09/08/23 19:35 Source: patient Mode of arrival: Ambulatory History of Present Illness HPI Narrative: 82-year-old female with history of hypertension presents for evaluation of dizziness, elevated blood pressure, nausea yesterday. Triage note reports left arm weakness, however patient denies this to me on my evaluation. Patient states that her blood pressure is usually 130 5-145 systolic, however last night she noticed a blood pressure as high as systolic 220. Patient describes her dizziness yesterday as lightheadedness. Patient states that she feels normal today and has no symptoms, she states that she was here ?to make sure I am okay?. Patient reports numerous recent stressors, stating that 2 close family members have in the last several weeks. Related Data Previous Rx's Medication Instructions Recorded losartan 100 mg tablet 100 mg PO DAILY #90 tabs 06/05/22 potassium chloride 10 mEq See Rx Instructions .Route 11/11/22 tablet,extended release .COMPLEX #90 tabs amlodipine 5 mg tablet (Norvasc) 5 mg PO DAILY #90 tabs 02/24/23 albuterol sulfate 90 mcg/actuation 1 puff PO Q4-6H PRN for wheezing 02/25/23 aerosol inhaler #8.5 grams benzonatate 100 mg capsule 100 mg PO BID PRN cough #30 caps 05/11/23 carvedilol 25 mg tablet 12.5 mg (1/2 x 25 mg) PO BID #90 05/23/23 tabs calcium carbonate 500 mg calcium 500 mg PO BID #180 tabs 06/05/23 (1,250 mg) tablet (Oyster Shell Calcium) duloxetine 30 mg capsule,delayed 30 mg PO DAILY #30 caps 06/05/23 release daridorexant 25 mg tablet 25 mg PO BEDTIME #30 tabs 08/05/23 apixaban 5 mg tablet (Eliquis) 5 mg PO BID #180 tabs 09/02/23 diazepam 5 mg tablet See Rx Instructions PO BEDTIME PRN 09/05/23 anxiety #30 tabs furosemide 40 mg tablet 40 mg PO DAILY PRN edema/weight 09/05/23 gain #30 tabs Allergies Allergy/AdvReac Type Severity Reaction Status Date / Time No Known Drug Allergies Allergy Verified 09/05/23 10:27 Review of Systems Review of Systems Narrative: See HPI Patient History Medical History COVID Pulmonary edema (01/06/23) Altered mental status (01/06/23) Hypercapnic respiratory failure (01/06/23) Peripheral edema (01/06/23) Acquired clavicle deformity Asthma Gout Cataracts, bilateral (1994) Toxic goiter (1971) Hyperthyroidism (1971) Osteoporosis Essential hypertension Hyperlipidemia Chronic atrial fibrillation Family History Father No problems noted. Mother No problems noted. Social History household members: significant other Smoking Status: Never smoker alcohol intake: never substance use type: does not use Smoking Status: Never smoker alcohol intake frequency: 0-2 drinks per day Substance Use Type: does not use Exam Initial Vital Signs Initial Vital Signs: Vital Signs Temperature 97.8 F 09/08/23 15:43 Pulse Rate 85 09/08/23 15:43 Respiratory Rate 20 09/08/23 15:43 Blood Pressure 169/79 H 09/08/23 15:43 Pulse Oximetry 94 09/08/23 15:43 Oxygen Delivery Method Room Air 09/08/23 15:43 Const: Awake, alert, no acute distress, nontoxic appearing Cardiac: regular rate, regular rhythm RESP: unlabored, clear bilaterally, no wheezing GI: Soft, nontender, nondistended, no rebound, no guarding MSK: Atraumatic, full range of motion, pulses equal Skin: Warm, Dry, intact, no rashes Neuro: AO x3, CN II-XII grossly intact, moves all extremities Course Orders Ordered: Discontinued Medications Aspirin (Aspirin 81 Mg Chew Tab) 324 mg PO NOW ONE Stop: 09/08/23 15:57 Last Admin: 09/08/23 20:24 Dose: Not Given Documented By: VASQUEZ Sodium Chloride (Normal Saline 0.9%) 1,000 mls @ 1,000 mls/hr IV BOLUS ONE Stop: 09/08/23 20:58 Last Infusion: 09/08/23 20:49 Dose: Infused Documented By: Admin: 09/08/23 20:24 Dose: 1,000 mls/hr Documented By: VASQUEZ Vital Signs Vital signs: Vital Signs - 8 hr 09/08/23 19:39 09/08/23 19:40 09/08/23 19:40 Pulse Rate 87 80 Respiratory Rate Blood Pressure 182/86 H Pulse Oximetry 82 L 82 L Oxygen Delivery Method 09/08/23 20:50 Pulse Rate 85 Respiratory Rate 21 Blood Pressure 151/71 H Pulse Oximetry 93 Oxygen Delivery Method Room Air MDM - Dizziness Lab Data 09/08/23 16:06 09/08/23 16:06 Labs: Lab Results 09/08/23 Range/Units 16:06 WBC 6.4 (4.5-11.0) X10^3/uL RBC 4.01 (4.0-5.2) X10^6/uL Hgb 13.1 (12.0-16.0) g/dL Hct 39.1 (36-46) % MCV 97.5 (80-100) fL MCH 32.6 (26-34) PG MCHC 33.5 (30-36) % RDW 13.6 (11.6-14.8) % Plt Count 158 (150-400) X10^3/uL Neut % (Auto) 69.6 (50-75) % Lymph % (Auto) 18.3 L (25-40) % [place] % (Auto) 9.3 (3-14) % Eos % (Auto) 1.8 L (2-4) % Baso % (Auto) 1.0 (0-2) % Neut # (Auto) 4400 (7972-0642) /uL Lymph # (Auto) 1200 (4243-6321) /uL [place] # (Auto) 600 (0-900) /uL Eos # (Auto) 100 (0-450) /uL Baso # (Auto) 100 (0-100) /uL PT 14.4 H (9.4-12.5) SECONDS INR 1.3 (0.9-1.3) APTT 41 H (25.1-36.5) SECONDS Sodium 128 L (137-145) mmol/L Potassium 4.3 (3.4-5.1) mmol/L Chloride 94 L (98-107) mmol/L Carbon Dioxide 30 (22-32) mmol/L BUN 19 H (7-17) mg/dL Creatinine 0.79 (0.52-1.04) mg/dL Estimated GFR > 60 (>60) mL/min BUN/Creatinine Ratio 24.1 H (6-22) Glucose 157 H (80-110) mg/dL Calcium 8.4 (8.4-10.2) mg/dL Magnesium 1.9 (1.6-2.3) mg/dL Total Bilirubin 0.7 (0.2-1.3) mg/dL AST 41 H (14-36) IU/L ALT 32 (<35) IU/L Alkaline Phosphatase 99 (38-126) U/L Total Creatine Kinase 79 (30-135) U/L Troponin I < 0.012 (0.01-0.034) ng/mL Total Protein 7.7 (6.3-8.2) g/dL Albumin 4.1 (3.5-5.0) g/dL Globulin 3.6 (1.7-4.1) g/dL Albumin/Globulin Ratio 1.1 (1.0-2.8) Lipase 114 (23-300) U/L Urine Dip Bedside Urine Glucose Negative Bedside Urine Bilirubin - Negative Bedside Urine Ketone - Negative Urine Specific [place] 1.005 Bedside Urine Occult Blood - Negative Bedside Urine pH 7.0 Bedside Urine Protein - Negative Bedside Urine Urobilinogen - Negative Bedside Urine Nitrite - Negative Bedside Urine Leukocytes - Negative Esterase Imaging Data Chest x-ray: Radiologist's Impression: PROCEDURE: XR CHEST 1V INDICATIONS: chest pain TECHNIQUE: One view of the chest was acquired. COMPARISON: [facility], , XR CHEST 1V, 01/13/2023, 8:00. FINDINGS: Surgical changes and devices: None. Lungs and pleura: Lungs are clear. No pleural effusions or pneumothorax. Mediastinum: Mediastinal contours appear normal. Heart size is enlarged. Aortic arch is calcified indicating atherosclerosis. Bones and chest wall: No suspicious bony lesions. Overlying soft tissues appear unremarkable. IMPRESSION: Cardiomegaly. No focal airspace consolidation. Approved by: Batsheva Jain M.D.,Ph.D. on 09/08/2023 at 15:59 ECG Data Interpretation: Atrial fibrillation rate of 76 beats per minute, no ST T wave changes, no STEMI MDM Narrative Medical decision making narrative: Well-appearing patient with elevated blood pressure 1 day ago, asymptomatic today. Patient states she was here more for peace of mind, she has not had symptoms since she woke up this morning. Mildly hypertensive on arrival, however without any intervention blood pressure decreased to 150 systolic, which is close to patient's reported baseline. She was no focal neurologic deficits, she was ambulatory without assistance in the emergency department, abdomen soft, nontender, lungs clear to auscultation bilaterally. Laboratory work is reviewed, significant for very mild hyponatremia with sodium 128, however this is lower than the patient's usual sodium (135-139). Patient states that she has been restricting her salt intake due to lower extremity edema. Patient given small bolus of IV fluids, she was counseled that she may briefly increase her salt intake, however this may contribute to her blood pressure. ED return precautions discussed at bedside. PCP follow up advised. Discharge Plan Departure Patient Disposition: Home Clinical Impression: Hyponatremia Hypertension Qualifiers: Hypertension type: unspecified Qualified Code(s): I10 - Essential (primary) hypertension Instructions: DI for Dizziness-Nonvertigo Activity Restrictions/Additional Instructions: Your laboratory work today only shows a very mild low sodium. Follow up with your primary care physician. Take all of your medications as prescribed. Prescriptions: No Action daridorexant 25 mg tablet 25 mg PO BEDTIME Qty: 30 2RF duloxetine 30 mg capsule,delayed release(DR/EC) 30 mg PO DAILY Qty: 30 2RF diazepam 5 mg tablet See Rx Instructions PO BEDTIME PRN (Reason: anxiety) Qty: 30 0RF Rx Instructions: 1/2-1 tab orally bedtime PRN; furosemide 40 mg tablet 40 mg PO DAILY PRN (Reason: edema/weight gain) Qty: 30 11RF Rx Instructions: Take 1 tab by mouth as needed for edema or more than 3lb weight gain losartan 100 mg tablet 100 mg PO DAILY Qty: 90 2RF potassium chloride 10 mEq tablet extended release See Rx Instructions .ROUTE .COMPLEX Qty: 90 2RF Dose Instruction: TAKE 1 TABLET BY MOUTH DAILY Rx Instructions: TAKE 1 TABLET BY MOUTH DAILY amlodipine [Norvasc] 5 mg tablet 5 mg PO DAILY Qty: 90 3RF albuterol sulfate 90 mcg/actuation HFA aerosol inhaler 1 puff PO Q4-6H PRN (Reason: for wheezing) Qty: 8.5 5RF carvedilol 25 mg tablet 12.5 mg PO BID Qty: 90 3RF calcium carbonate [Oyster Shell Calcium] 500 mg calcium (1,250 mg) tablet 500 mg PO BID Qty: 180 1RF Eliquis 5 mg tablet 5 mg PO BID Qty: 180 1RF benzonatate 100 mg capsule 100 mg PO BID PRN (Reason: cough) Qty: 30 0RF Referrals: Carlos Eduardo Eid MD [Primary Care Provider] - Stand Alone Forms: Patient Portal/[facility]
[2023-09-08] MEDS: SODIUM CHLORIDE 0.9% 1,000 ML 1000 ML IV (20:24)
[2023-09-08 20:50] VITALS: BP 151/71; PULSE 85; RESP 21; O2SAT 93
== END 2023-09-08 20:52 | disposition home or self-care (01) ==
PROVIDERS: Emergency Medicine; Emergency Provider Emergency Medicine; PCP Family Medicine
DX: E87.1 Hypo-osmolality and hyponatremia (principal); I10 Essential (primary) hypertension
CPT/HCPCS: 71045; 80053; 81003; 82550; 83690; 83735; 84484; 85025; 85610; 85730; 93005; 99284

== ENCOUNTER → 2024-05-19 10:46 | Outpatient (CLI) | payer MEDICARE, MEDICAID, SELFPAY ==
[2023-01-06 12:10] VITALS: BMI 31.0
[2023-01-15 14:02] VITALS: RESP 1
[2023-01-15 18:14] VITALS: PULSE 68; RESP 15; O2SAT 95
[2024-05-19 12:13] LABS: Hematocrit 44.5 % (36-46); Hemoglobin 14.5 g/dL (12.0-16.0); Mean Corpuscular HGB Conc 32.6 % (30-36); Mean Corpuscular Hemoglobin 32.2 PG (26-34); Mean Corpuscular Volume 98.8 fL (80-100); Platelet Count 145 X10^3/uL (150-400); Red Cell Distribution Width 14.1 % (11.6-14.8); White Blood Cell Count 4.6 X10^3/uL (4.5-11.0)
[2024-05-19 12:35] LABS: BUN Creatinine Ratio 18.8 (6-22); Blood Urea Nitrogen 19 mg/dL (7-17); Carbon Dioxide 35 mmol/L (22-32); Chloride 92 mmol/L (98-107); Estimated Glomerular Filt Rate 56 mL/min (>60); Glucose 149 mg/dL (80-110); HEMOLYSIS < 15 (0-50); Potassium 4.6 mmol/L (3.4-5.1); Sodium 134 mmol/L (137-145)
== END ==
PROVIDERS: PCP Family Medicine; Referring Provider Internal Medicine Cardiovascular Disease; Visit Provider Internal Medicine Cardiovascular Disease
DX: E78.5 Hyperlipidemia, unspecified (principal)
CPT/HCPCS: 36415; 80048; 85027

== ENCOUNTER → 2024-05-22 09:53 | Outpatient (CLI) | payer MEDICARE, MEDICAID, SELFPAY ==
[2023-01-06 12:10] VITALS: BMI 31.0
[2023-01-15 14:02] VITALS: RESP 1
[2023-01-15 18:14] VITALS: PULSE 68; RESP 15; O2SAT 95
[2024-05-22 10:37] LABS: Hemoglobin 14.9 g/dL (12.0-16.0); Mean Corpuscular HGB Conc 33.1 % (30-36); Mean Corpuscular Hemoglobin 32.6 PG (26-34); Mean Corpuscular Volume 98.6 fL (80-100); Platelet Count 149 X10^3/uL (150-400); Red Blood Cell Count 4.57 X10^6/uL (4.0-5.2); White Blood Cell Count 4.8 X10^3/uL (4.5-11.0)
[2024-05-22 11:01] LABS: Creatinine Urine Random 95.64 mg/dL
[2024-05-22 11:06] LABS: Microalbumin Urine Random 4.1 mg/dL (0-1.6)
[2024-05-22 11:33] LABS: Alanine Aminotransferase 37 IU/L (<35); Albumin 4.1 g/dL (3.5-5.0); Alkaline Phosphatase 87 U/L (38-126); Aspartate Aminotransferase 36 IU/L (14-36); BUN Creatinine Ratio 20.5 (6-22); Bilirubin Total 0.9 mg/dL (0.2-1.3); Blood Urea Nitrogen 18 mg/dL (7-17); Carbon Dioxide 33 mmol/L (22-32); Chloride 97 mmol/L (98-107); Cholesterol 161 mg/dL (140-199); Estimated Glomerular Filt Rate > 60 mL/min (>60); Potassium 4.9 mmol/L (3.4-5.1); Sodium 134 mmol/L (137-145); Triglycerides 80 mg/dL (35-150)
[2024-05-22 11:35] LABS: Albumin Globulin Ratio 1.3 (1.0-2.8); Calcium 9.1 mg/dL (8.4-10.2); Globulin 3.1 g/dL (1.7-4.1); Glucose 112 mg/dL (80-110); HDL Cholesterol 72 mg/dL (40-60); HEMOLYSIS 20 (0-50); LDL Cholesterol Calculated 73 mg/dL (<100); Total Protein 7.2 g/dL (6.3-8.2)
== END ==
PROVIDERS: PCP Family Medicine; Referring Provider Internal Medicine Cardiovascular Disease; Visit Provider Internal Medicine Cardiovascular Disease
DX: E78.5 Hyperlipidemia, unspecified (principal); I10 Essential (primary) hypertension; E78.00 Pure hypercholesterolemia, unspecified
CPT/HCPCS: 36415; 80053; 80061; 82043; 82570; 85027

== ENCOUNTER 2024-06-08 22:58 | Inpatient (IN) | payer MEDICARE, MEDICAID, SELFPAY ==
[2023-01-06 12:10] VITALS: BMI 31.0
[2023-01-15 14:02] VITALS: RESP 1
[2023-01-15 18:14] VITALS: PULSE 68; RESP 15; O2SAT 95
[2024-06-08 23:00] VITALS: BP 160/80; PULSE 80; RESP 24; TEMP 36.7; O2SAT 96; BMI 27.6
--- NOTE | 2024-06-08 23:01 | DI.RAD.S_ITS ---
PROCEDURE: XR CHEST 1V INDICATIONS: sob TECHNIQUE: One view of the chest was acquired. COMPARISON: [facility], CR, XR CHEST 1V, 09/08/2023, 16:19. [facility], CR, XR CHEST 1V, 01/13/2023, 8:00. FINDINGS: Surgical changes and devices: None. Lungs and pleura: Lungs are clear. No pleural effusions or pneumothorax. Mediastinum: Mediastinal contours appear normal. Heart size is enlarged, stable. Bones and chest wall: No suspicious bony lesions. Overlying soft tissues appear unremarkable. IMPRESSION: Stable cardiomegaly. No acute pulmonary process. Dictated by: Lico Kraft M.D. on 06/08/2024 at 23:13 Approved by: Lico Kraft M.D. on 06/08/2024 at 23:13
--- NOTE | 2024-06-08 23:01 | EKG_ITS ---
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
[2024-06-08 23:02] VITALS: PULSE 81; O2SAT 95
--- NOTE | 2024-06-08 23:03 | ED_ITS ---
HPI - SOB/Dyspnea General Chief Complaint: Shortness of Breath/Dyspnea Stated Complaint: SOB-Vomiting Blood Time Seen by Provider: 06/08/24 23:01 History of Present Illness HPI Narrative: Patient is an 83-year-old female with a history of COPD CHF AFib on Eliquis comes into the ED via EMS from home for evaluation of shortness of breath and alleged hemoptysis. According to medics patient was 90% on room air but placed her on CPAP for work of breathing. Patient states that she was having some shortness of breath earlier yesterday worsening today therefore called EMS. Time of evaluation patient is speaking in full sentences protecting airway, not requiring any supplemental oxygen. She denies any recent travel no known sick contacts she denies any headache visual disturbances chest pain fever chills nausea vomiting abdominal pain or any other GI/ symptoms. Related Data Home Medications Medication Instructions Recorded Confirmed empagliflozin 10 mg tablet mg PO DAILY 05/28/24 05/28/24 (Jardiance) Previous Rx's Medication Instructions Recorded losartan 100 mg tablet 100 mg PO DAILY #90 tabs 06/05/22 furosemide 40 mg tablet 40 mg PO DAILY PRN edema/weight 09/05/23 gain #30 tabs potassium chloride 10 mEq 10 meq PO DAILY #90 tabs 09/16/23 tablet,extended release apixaban 5 mg tablet (Eliquis) 5 mg PO BID #180 tabs 02/26/24 calcium carbonate (Oyster Shell 500 mg PO BID #180 tabs 02/26/24 Calcium 500) diazepam 5 mg tablet See Rx Instructions .Route 04/08/24 .COMPLEX #30 tabs albuterol sulfate 90 mcg/actuation 1 puff PO Q4-6H PRN for wheezing 04/20/24 aerosol inhaler #8.5 grams amlodipine 5 mg tablet (Norvasc) 5 mg PO DAILY #90 tabs 05/14/24 carvedilol 25 mg tablet 12.5 mg (1/2 x 25 mg) PO BID #90 05/14/24 tabs inhalat.spacing dev,large mask #1 ea 05/28/24 (BreatheRite Spacer and Mask, Adult) beclomethasone dipropionate 40 1 inh inhalation BID #10.6 grams 06/03/24 mcg/actuation HFA breath activated aerosol (Qvar RediHaler) Allergies Allergy/AdvReac Type Severity Reaction Status Date / Time No Known Drug Allergies Allergy Verified 05/28/24 12:07 Review of Systems Review of Systems Narrative: General: Denies fever, chills, weight loss HEENT: Denies headache, eye drainage, eye irritation, head trauma, sore throat, voice change Cardiovascular: Denies any chest pain, palpitations, shortness of breath, tachycardia Respiratory: Positive cough shortness of breath, hemoptysis GI/: Denies any abdominal pain, nausea, vomiting, diarrhea, bright red blood per rectum, melanotic stools, urinary frequency, urinary retention, dysuria, hematuria MSK: Denies any joint pain, muscle pains, swelling Skin: Denies any rashes, lesions, discoloration Neuro: Denies any headache, lightheadedness, dizziness, fainting, weakness Psych: Denies SI/HI Patient History Medical History (Updated 06/09/24 @ 01:30 by Diego Zambrano DO) COVID Pulmonary edema (01/06/23) Altered mental status (01/06/23) Hypercapnic respiratory failure (01/06/23) Peripheral edema (01/06/23) Acquired clavicle deformity Asthma Gout Cataracts, bilateral (1994) Toxic goiter (1971) Hyperthyroidism (1971) Osteoporosis Essential hypertension Hyperlipidemia Chronic atrial fibrillation Family History Father No problems noted. Mother No problems noted. Social History household members: significant other Smoking Status: Never smoker alcohol intake: never substance use type: does not use Smoking Status: Never smoker alcohol intake frequency: 0-2 drinks per day Exam Narrative Exam Narrative: General: Cooperative, comfortable, well-developed, not in acute distress HEENT: Normocephalic, atraumatic, PERRLA, normal sclera, eyelids normal, Neck: Active full range of motion, atraumatic Chest: Normal to inspection, negative crepitus, no overlying erythema ecchymosis Respiratory: Patient on 2 L nasal cannula, speaking full sentences however dyspneic with conversation, expiratory wheezes in all lung [place], Cardiology: Regular rate rhythm negative gallop, murmur, rubs GI/: Normal to inspection, soft, nonrigid, no tenderness to palpation, exam deferred MSK: Full range of active range of motion of all 4 extremities, atraumatic Skin: No rashes lesions noted Neuro: Alert awake oriented x3, moves all 4 extremities spontaneously, cranial nerves intact, able to answer all questions appropriately follows commands appropriately Psych: Cooperative, negative suicidal or homicidal ideations Initial Vital Signs Initial Vital Signs: Vital Signs Temperature 98.1 F 06/08/24 23:00 Pulse Rate 80 06/08/24 23:00 Respiratory Rate 24 06/08/24 23:00 Blood Pressure 160/80 H 06/08/24 23:00 Pulse Oximetry 96 06/08/24 23:00 Oxygen Delivery Method Room Air 06/08/24 23:00 Course Orders Ordered: ED Orders 06/08/24 23:01 XR chest 1V Stat EKG-12 Lead Stat 06/08/24 23:06 Complete Blood Count AUTO DIFF Stat Comprehensive Metabolic Panel Stat Lipase Stat MAG [Magnesium] Stat NT-proBNP (BNP-Adult 18+) Stat PTT Partial Thromboplastin Luis Stat Prothrombin Time INR Stat Troponin & CK Cardiac Panel Stat 06/08/24 23:28 Respiratory Panel (Film Array) Stat 06/09/24 00:24 CT angio chest PE protocol Stat Discontinued Medications Albuterol (Albuterol 2.5 Mg/3 Ml Neb (Adult)) 2.5 mg INH NOW ONE Stop: 06/08/24 23:02 Last Admin: 06/08/24 23:10 Dose: 2.5 mg Documented By: PILY Albuterol/Ipratropium (Albuterol/Ipratropium 3 Ml Ampul) 3 ml INH NOW ONE Stop: 06/08/24 23:02 Last Admin: 06/08/24 23:10 Dose: 3 ml Documented By: PILY Methylprednisolone (Methylprednisolone 125 Mg/2 Ml Vial) 125 mg IV NOW ONE Stop: 06/08/24 23:02 Last Admin: 06/08/24 23:24 Dose: 125 mg Documented By: DALIA Vital Signs Vital signs: Vital Signs - 8 hr 06/08/24 23:00 06/08/24 23:02 06/08/24 23:10 Temperature 98.1 F Pulse Rate 80 81 101 H Respiratory Rate 24 24 Blood Pressure 160/80 H Pulse Oximetry 96 95 93 Oxygen Delivery Method Room Air Room Air Oxygen Flow Rate 0 Fraction of Inspired Oxygen 21 06/08/24 23:30 06/08/24 23:30 06/09/24 00:00 Temperature Pulse Rate 85 107 H Respiratory Rate 26 H 31 H Blood Pressure 152/95 H Pulse Oximetry 91 95 Oxygen Delivery Method Room Air Oxygen Flow Rate Fraction of Inspired Oxygen 06/09/24 00:01 06/09/24 00:07 06/09/24 00:30 Temperature Pulse Rate 83 Respiratory Rate 19 Blood Pressure Pulse Oximetry 79 L 97 98 Oxygen Delivery Method Room Air Nasal Cannula Oxygen Flow Rate 2 Fraction of Inspired Oxygen MDM - SOB/Dyspnea Differential Diagnosis Differential diagnosis: Likely acute exacerbation of chronic obstructive airways disease, congestive heart failure, community acquired pneumonia, asthma with exacerbation, pulmonary embolism and other (Electrolyte abnormality, pneumonia) Lab Data 06/08/24 23:06 06/08/24 23:06 Labs: Lab Results 06/08/24 06/08/24 Range/Units 23:06 23:28 WBC 6.3 (4.5-11.0) X10^3/uL RBC 4.67 (4.0-5.2) X10^6/uL Hgb 15.0 (12.0-16.0) g/dL Hct 46.3 H (36-46) % MCV 99.1 (80-100) fL MCH 32.1 (26-34) PG MCHC 32.4 (30-36) % RDW 14.0 (11.6-14.8) % Plt Count 133 L (150-400) X10^3/uL Neut % (Auto) 67.9 (50-75) % Lymph % (Auto) 18.7 L (25-40) % [place] % (Auto) 10.4 (3-14) % Eos % (Auto) 1.9 L (2-4) % Baso % (Auto) 1.1 (0-2) % Neut # (Auto) 4300 (3035-3167) /uL Lymph # (Auto) 1200 (4012-4560) /uL [place] # (Auto) 700 (0-900) /uL Eos # (Auto) 100 (0-450) /uL Baso # (Auto) 100 (0-100) /uL PT 15.2 H (9.4-12.5) SECONDS INR 1.3 (0.9-1.3) APTT 43 H (25.1-36.5) SECONDS Sodium 135 L (137-145) mmol/L Potassium 4.6 (3.4-5.1) mmol/L Chloride 96 L (98-107) mmol/L Carbon Dioxide 33 H (22-32) mmol/L BUN 28 H (7-17) mg/dL Creatinine 1.09 H (0.52-1.04) mg/dL Estimated GFR 51 L (>60) mL/min BUN/Creatinine Ratio 25.7 H (6-22) Glucose 112 H (80-110) mg/dL Calcium 9.1 (8.4-10.2) mg/dL Magnesium 2.1 (1.6-2.3) mg/dL Total Bilirubin 0.7 (0.2-1.3) mg/dL AST 37 H (14-36) IU/L ALT 22 (<35) IU/L Alkaline Phosphatase 99 (38-126) U/L Total Creatine Kinase 82 (30-135) U/L Troponin I < 0.012 (0.01-0.034) ng/mL NT-Pro-B Natriuret Pep 859 H (<450) pg/mL Total Protein 8.1 (6.3-8.2) g/dL Albumin 4.3 (3.5-5.0) g/dL Globulin 3.8 (1.7-4.1) g/dL Albumin/Globulin Ratio 1.1 (1.0-2.8) Lipase 143 (23-300) U/L Chlamy pneumoniae PCR Not detected (Not Detect) Adenovirus (PCR) Not detected (Not Detect) B. pertussis DNA (PCR) Not detected (Not Detect) B.parapertussis DNA PCR Not detected (Not Detecte) Coronavirus OC43 (PCR) Not detected (Not Detect) Coronavirus HKU1 (PCR) Not detected (Not Detect) Coronavirus 229E (PCR) Not detected (Not Detect) SARS-CoV-2 (PCR) Not detected (Not Detecte) Coronavirus NL63 (PCR) Not detected (Not Detect) Human Metapneumovir PCR Not detected (Not Detect) Influenza Type A (PCR) Not detected (Not Detect) Influenza Type B (PCR) Not detected (Not Detect) M. pneumoniae (PCR) Not detected (Not Detect) Parainfluenza 1 (PCR) Not detected (Not Detect) Parainfluenza 2 (PCR) Not detected (Not Detect) Parainfluenza 3 (PCR) Not detected (Not Detect) Parainfluenza 4 (PCR) Not detected (Not Detect) RSV (PCR) Not detected (Not Detect) Entero/Rhino (PCR) Not detected (Not Detect) Imaging Data Chest x-ray: Radiologist's Impression: [address] [address] XRay Report Signed Patient: Wilma Jackson MR#: [id number] : 1940 Acct:[id number] Age/Sex: 83 / F Date of Service: 06/08/24 Loc: ED Accession Number: [id number] Procedure: XR chest 1V Ordering Provider: Diego Zambrano D.O. PROCEDURE: XR CHEST 1V INDICATIONS: sob TECHNIQUE: One view of the chest was acquired. COMPARISON: [facility], CR, XR CHEST 1V, 09/08/2023, 16:19. [facility], CR, XR CHEST 1V, 01/13/2023, 8:00. FINDINGS: Surgical changes and devices: None. Lungs and pleura: Lungs are clear. No pleural effusions or pneumothorax. Mediastinum: Mediastinal contours appear normal. Heart size is enlarged, stable. Bones and chest wall: No suspicious bony lesions. Overlying soft tissues appear unremarkable. IMPRESSION: Stable cardiomegaly. No acute pulmonary process. CT scan - chest: Radiologist's Impression: [address] [address] [address] Scan Report Signed Patient: Wilma Jackson MR#: [id number] : 1940 Acct:[id number] Age/Sex: 83 / F Date of Service: 06/09/24 Loc: ED Accession Number: [id number] Procedure: CT angio chest PE protocol Ordering Provider: Diego Zambrano D.O. PROCEDURE: CT ANGIO CHEST PE PROTOCOL INDICATIONS: hypoxemia TECHNIQUE: After the administration of intravenous contrast, 2 mm thick sections acquired from the pulmonary apices to the posterior costophrenic angles. 3-dimensional maximum intensity projection (MIP) coronal and sagittal reformats were then acquired through the thorax. For radiation dose reduction, the following was used: automated exposure control, adjustment of mA and/or kV according to patient size. COMPARISON: None. FINDINGS: Image quality: Diagnostic. Pulmonary arteries: Main pulmonary artery is dilated measuring 3.7 cm, suggestive of pulmonary hypertension. No intraluminal filling defects to suggest central pulmonary embolism. Lower Neck: No enlarged lymph nodes. Thyroid: No thyroid nodules which require sonographic follow up, per consensus guidelines. Axillae: No enlarged lymph nodes. Chest Wall: Unremarkable. Bones: Likely chronic compression deformity of T8. Decreased osseous mineralization. Mild degenerative changes of the spine. Lungs and Pleura: No pneumothorax or pleural effusions. Bronchiectasis and bronchial wall thickening medially. Left upper lobe likely dilated bronchus versus nodule measuring 1.6 cm containing a small focus of gas (5/65). Emphysematous changes are noted. Scattered areas of linear atelectasis versus scarring. Heart: Heart size is enlarged min. Reflux of contrast into the IVC. No pericardial effusion. Thoracic Vessels: Dilatation of the ascending thoracic aorta measuring 4.5 cm. Atherosclerotic vascular calcifications. Mediastinum and Hyun: No enlarged lymph nodes. Esophagus: No wall thickening. No hiatal hernia. Upper Abdomen: Visualized upper abdomen solid organs and bowel loops appear normal. IMPRESSION: No pulmonary embolus. No acute cardiopulmonary process. Scattered areas of scarring as well as bronchiectasis and bronchial wall thickening. Likely dilated bronchus versus nodule within the left upper lobe measuring 1.6 cm containing a small focus of gas. Recommend follow-up chest CT in 3 months to assess stability or improvement. Dilated main pulmonary artery suggestive of pulmonary hypertension. Dilatation of the ascending thoracic aorta measuring 4.5 cm. ECG Data Interpretation: EKG interpreted ED physician atrial fibrillation 74 beats per minute QTC [address] changes no STEMI MDM Narrative Medical decision making narrative: 83-year-old female with a history of CHF COPD not chronically on supplemental oxygen, AFib on Eliquis, comes into the ED from home via EMS for evaluation of shortness of breath, hemoptysis. According to the patient she started having some shortness of breath yesterday got worse today had an episode of hemoptysis and worsening shortness of breath therefore decided call medics. According to medics patient was initially 90% on room air, however patient appeared dyspneic therefore CPAP was applied for work of breathing. On initial evaluation here patient requiring 2 L nasal cannula improved work of breathing however expiratory wheezes in all lung [place], Solu-Medrol albuterol DuoNeb ordered. With improvement of symptoms. However patient still requiring supplemental oxygen on ambulation patient dropped to 77%. CT scan without any signs of pulmonary embolism. Lab work without any leukocytosis, sodium 135, chloride 96, creatinine 1.09, troponin negative BNP only slightly elevated at 859, however imaging of the lungs do not show any pleural effusion therefore patient's hypoxia less likely secondary to CHF exacerbation and more likely due to acute COPD exacerbation. Patient had respiratory panel which was negative Given patient need for supplemental oxygen patient will require admission to the hospital call placed to hospitalist for admission The patient's management plan was discussed Dr. Soni, who agrees to admit the patient to their service and assumes care of this patient at this time. Full admission orders will be placed by the primary team. Discharge Plan Departure Patient Disposition: Home Clinical Impression: COPD exacerbation, Acute hypoxic respiratory failure
[2024-06-08 23:10] VITALS: PULSE 101; RESP 24; O2SAT 93
[2024-06-08] MEDS: ALBUTEROL/IPRATROPIUM 3 ML AMPUL INH (23:10)
[2024-06-08] MEDS: ALBUTEROL 2.5 MG/3 ML NEB (ADULT) INH (23:10)
[2024-06-08 23:13] LABS: Add Manual Diff / Slide Review NO; Basophils Absolute Auto 100 /uL (0-100); Basophils Percent Auto 1.1 % (0-2); Eosinophils Absolute Auto 100 /uL (0-450); Eosinophils Percent Auto 1.9 % (2-4); Hematocrit 46.3 % (36-46); Lymphocytes Absolute Auto 1200 /uL (1100-4500); Lymphocytes Percent Auto 18.7 % (25-40); Mean Corpuscular HGB Conc 32.4 % (30-36); Mean Corpuscular Hemoglobin 32.1 PG (26-34); Mean Corpuscular Volume 99.1 fL (80-100); Monocytes Absolute Auto 700 /uL (0-900); Monocytes Percent Auto 10.4 % (3-14); Neutrophils Absolute Auto 4300 /uL (1500-7000); Neutrophils Percent Auto 67.9 % (50-75); Platelet Count 133 X10^3/uL (150-400); Red Blood Cell Count 4.67 X10^6/uL (4.0-5.2); White Blood Cell Count 6.3 X10^3/uL (4.5-11.0)
[2024-06-08 23:23] LABS: INR 1.3 (0.9-1.3); Prothrombin Time 15.2 SECONDS (9.4-12.5)
[2024-06-08] MEDS: methylPREDNISolone 125 MG/2 ML VIAL IV (23:24)
[2024-06-08 23:26] LABS: Alanine Aminotransferase 22 IU/L (<35); Albumin 4.3 g/dL (3.5-5.0); Albumin Globulin Ratio 1.1 (1.0-2.8); Alkaline Phosphatase 99 U/L (38-126); Aspartate Aminotransferase 37 IU/L (14-36); BUN Creatinine Ratio 25.7 (6-22); Bilirubin Total 0.7 mg/dL (0.2-1.3); Blood Urea Nitrogen 28 mg/dL (7-17); Calcium 9.1 mg/dL (8.4-10.2); Carbon Dioxide 33 mmol/L (22-32); Chloride 96 mmol/L (98-107); Creatine Kinase 82 U/L (30-135); Estimated Glomerular Filt Rate 51 mL/min (>60); Globulin 3.8 g/dL (1.7-4.1); Glucose 112 mg/dL (80-110); HEMOLYSIS 18 (0-50); Lipase 143 U/L (23-300); PTT Partial Thromboplastin Tim 43 SECONDS (25.1-36.5); Potassium 4.6 mmol/L (3.4-5.1); Sodium 135 mmol/L (137-145); Total Protein 8.1 g/dL (6.3-8.2)
[2024-06-08 23:30] VITALS: BP 152/95; PULSE 85; RESP 26; O2SAT 91
[2024-06-08 23:38] LABS: Troponin I < 0.012 ng/mL (0.01-0.034)
[2024-06-08 23:45] LABS: Magnesium 2.1 mg/dL (1.6-2.3)
[2024-06-08 23:55] LABS: NT-proBNP (BNP-Adult 18+) 859 pg/mL (<450)
[2024-06-09] VITALS (20 sets, daily range): BP systolic 116–173; BP diastolic 59–82; PULSE 69–107; RESP 13–31; TEMP 35.9–36.2; O2SAT 79–98; BMI 27.6
--- NOTE | 2024-06-09 00:07 | PC.NURSE ---
Pt assisted to BSC with stand-by assist. SpO2 dropped to 79% RA. Pt helped back to bed, place don 2L NC SpO2 now 97%. Dr Zambrano notified of above.
[2024-06-09 00:21] LABS: Adenovirus Not Detected (Not Detect); B. parapertussis Not Detected (Not Detecte); Bordetella pertussis Not Detected (Not Detect); Chlamydophila pneumoniae Not Detected (Not Detect); Coronavirus 229E Not Detected (Not Detect); Coronavirus HKU1 Not Detected (Not Detect); Coronavirus NL 63 Not Detected (Not Detect); Coronavirus OC43 Not Detected (Not Detect); Human Metapneumovirus Not Detected (Not Detect); Human Rhinovirus/Enterovirus Not Detected (Not Detect); Influenza A Not Detected (Not Detect); Influenza B Not Detected (Not Detect); Mycoplasma pneumoniae Not Detected (Not Detect); Parainfluenza Virus 1 Not Detected (Not Detect); Parainfluenza Virus 2 Not Detected (Not Detect); Parainfluenza Virus 3 Not Detected (Not Detect); Parainfluenza Virus 4 Not Detected (Not Detect); Respiratory Syncytial Virus Not Detected (Not Detect); SARS- CoV-2 Not Detected (Not Detecte)
--- NOTE | 2024-06-09 00:24 | DI.CT.S_ITS ---
PROCEDURE: CT ANGIO CHEST PE PROTOCOL INDICATIONS: hypoxemia TECHNIQUE: After the administration of intravenous contrast, 2 mm thick sections acquired from the pulmonary apices to the posterior costophrenic angles. 3-dimensional maximum intensity projection (MIP) coronal and sagittal reformats were then acquired through the thorax. For radiation dose reduction, the following was used: automated exposure control, adjustment of mA and/or kV according to patient size. COMPARISON: None. FINDINGS: Image quality: Diagnostic. Pulmonary arteries: Main pulmonary artery is dilated measuring 3.7 cm, suggestive of pulmonary hypertension. No intraluminal filling defects to suggest central pulmonary embolism. Lower Neck: No enlarged lymph nodes. Thyroid: No thyroid nodules which require sonographic follow up, per consensus guidelines. Axillae: No enlarged lymph nodes. Chest Wall: Unremarkable. Bones: Likely chronic compression deformity of T8. Decreased osseous mineralization. Mild degenerative changes of the spine. Lungs and Pleura: No pneumothorax or pleural effusions. Bronchiectasis and bronchial wall thickening medially. Left upper lobe likely dilated bronchus versus nodule measuring 1.6 cm containing a small focus of gas (5/65). Emphysematous changes are noted. Scattered areas of linear atelectasis versus scarring. Heart: Heart size is enlarged min. Reflux of contrast into the IVC. No pericardial effusion. Thoracic Vessels: Dilatation of the ascending thoracic aorta measuring 4.5 cm. Atherosclerotic vascular calcifications. Mediastinum and Hyun: No enlarged lymph nodes. Esophagus: No wall thickening. No hiatal hernia. Upper Abdomen: Visualized upper abdomen solid organs and bowel loops appear normal. IMPRESSION: No pulmonary embolus. No acute cardiopulmonary process. Scattered areas of scarring as well as bronchiectasis and bronchial wall thickening. Likely dilated bronchus versus nodule within the left upper lobe measuring 1.6 cm containing a small focus of gas. Recommend follow-up chest CT in 3 months to assess stability or improvement. Dilated main pulmonary artery suggestive of pulmonary hypertension. Dilatation of the ascending thoracic aorta measuring 4.5 cm. Dictated by: Lico Kraft M.D. on 06/09/2024 at 1:06 Approved by: Lico Kraft M.D. on 06/09/2024 at 1:12
--- NOTE | 2024-06-09 03:15 | PC.NURSE ---
Pt arrived to floor via stretcher. Stand and pivot to bed. Aox4,97% on 2L NC. Denies any SOB or chest pain at this time. No edema noted. Expiratory rhonchi in lobes. Productive cough, with blood tinged sputum per patient. Skin intact. Purewick in place, due to patient sat dropping to 70s in ER on exertion. L fa PIV patent, SL. Continuous pulse ox on at 97%, telemetry placed. is at bedside, bed alarm activated. Call light is in reach.
[2024-06-09] MEDS: ALBUTEROL 2.5 MG/3 ML NEB (ADULT) INH (04:27)
--- NOTE | 2024-06-09 08:07 | P.HP_ITS ---
History of Present Illness History of Present Illness Date Patient Seen: 06/09/24 Time Patient Seen: 07:45 Chief complaint: SOB-Vomiting Blood Narrative: Pt is an 83yo woman with COPD, atrial fibrillation on chronic anticoagulation, CHF with preserved ejection fraction, and HTN who presented with cough. The pt reports that 2 days ago she began having a more severe cough. It was quite uncomfortable. She denies any associated SOB or chest pain. The cough persisted. Yesterday evening when coughing, she noted bright red blood in the sputum that she brought up. This is what prompted her to come into the ED for evaluation. The pt denies any abdominal pain, nausea, or vomiting. She states that her LE swelling has been slightly increased ever since starting Amlodipine, but not acutely worse recently. She denies any recent sick contacts, nasal congestion, sore throat, or ear pain. She states that she was feeling well up until 2 days ago. [facility] Medical History (Updated 06/09/24 @ 01:30 by Diego Zambrano DO) COVID Pulmonary edema (01/06/23) Altered mental status (01/06/23) Hypercapnic respiratory failure (01/06/23) Peripheral edema (01/06/23) Acquired clavicle deformity Asthma Gout Cataracts, bilateral (1994) Toxic goiter (1971) Hyperthyroidism (1971) Osteoporosis Essential hypertension Hyperlipidemia Chronic atrial fibrillation Family History Father No problems noted. Mother No problems noted. Social History household members: significant other Smoking Status: Never smoker alcohol intake: never substance use type: does not use Meds Home Medications and Allergies Home Medications Medication Instructions Recorded Confirmed Type losartan 100 mg tablet 100 mg PO DAILY #90 tabs 06/05/22 06/09/24 Rx furosemide 40 mg tablet 40 mg PO DAILY PRN edema/weight 09/05/23 06/09/24 Rx gain #30 tabs potassium chloride 10 mEq 10 meq PO DAILY #90 tabs 09/16/23 06/09/24 Rx tablet,extended release apixaban 5 mg tablet (Eliquis) 5 mg PO BID #180 tabs 02/26/24 06/09/24 Rx calcium carbonate (Oyster Shell 500 mg PO BID #180 tabs 02/26/24 06/09/24 Rx Calcium 500) albuterol sulfate 90 mcg/actuation 1 puff PO Q4-6H PRN for wheezing 04/20/24 06/09/24 Rx aerosol inhaler #8.5 grams amlodipine 5 mg tablet (Norvasc) 5 mg PO DAILY #90 tabs 05/14/24 06/09/24 Rx carvedilol 25 mg tablet 12.5 mg (1/2 x 25 mg) PO BID #90 05/14/24 06/09/24 Rx tabs empagliflozin 10 mg tablet 10 mg PO DAILY 05/28/24 06/09/24 History (Jardiance) inhalat.spacing dev,large mask #1 ea 05/28/24 06/09/24 Rx (BreatheRite Spacer and Mask, Adult) beclomethasone dipropionate 40 1 inh inhalation BID #10.6 grams 06/03/24 06/09/24 Rx mcg/actuation HFA breath activated aerosol (Qvar RediHaler) diazepam 5 mg tablet See Rx Instructions .Route 06/09/24 06/09/24 History .COMPLEX PRN Sleep Allergies Allergy/AdvReac Type Severity Reaction Status Date / Time No Known Drug Allergies Allergy Verified 05/28/24 12:07 Exam Vital Signs (past 8 hours): - 06/09/24 00:30 06/09/24 00:50 06/09/24 00:50 Temperature Pulse Rate 83 88 Respiratory Rate 19 16 Blood Pressure 173/81 H Pulse Oximetry 98 93 Oxygen Delivery Method Oxygen Flow Rate Fraction of Inspired Oxygen 06/09/24 01:00 06/09/24 01:00 06/09/24 01:30 Temperature Pulse Rate 78 Respiratory Rate 13 Blood Pressure 153/69 H 168/78 H Pulse Oximetry 96 Oxygen Delivery Method Oxygen Flow Rate Fraction of Inspired Oxygen 06/09/24 01:30 06/09/24 02:00 06/09/24 02:01 Temperature Pulse Rate 84 87 Respiratory Rate 21 15 Blood Pressure 146/80 H Pulse Oximetry 95 92 Oxygen Delivery Method Oxygen Flow Rate Fraction of Inspired Oxygen 06/09/24 02:01 06/09/24 02:46 06/09/24 03:05 Temperature 96.7 F L Pulse Rate 81 83 Respiratory Rate 14 20 Blood Pressure 148/75 H Pulse Oximetry 92 94 Oxygen Delivery Method Nasal Cannula Nasal Cannula Oxygen Flow Rate 2 2 Fraction of Inspired Oxygen 06/09/24 04:27 Temperature Pulse Rate 85 Respiratory Rate 20 Blood Pressure Pulse Oximetry 93 Oxygen Delivery Method Nasal Cannula Oxygen Flow Rate 2 Fraction of Inspired Oxygen 28 Fraction of Inspired Oxygen 28 SaO2/FiO2 Ratio 332 Oxygen Delivery Method Nasal Cannula Oxygen Flow Rate 2 Narrative Exam Narrative: Gen: NAD, sitting comfortably in bed, speaking easily in complete sentences, appears well HEENT: normocephalic, atraumatic, sclera clear Neck: no JVD, no LAD CV: irregularly irregular rhythm, normal rate, no murmurs Resp: clear to auscultation bilaterally, no wheezes or crackles Abd: soft, nontender, nondistended Ext: trace LE edema bilaterally Neuro: no gross deficits Objective Labs 06/08/24 23:06 06/08/24 23:06 Labs: Laboratory Results - last 24 hr 06/08/24 06/08/24 23:06 23:28 WBC 6.3 RBC 4.67 Hgb 15.0 Hct 46.3 H MCV 99.1 MCH 32.1 MCHC 32.4 RDW 14.0 Plt Count 133 L Neut % (Auto) 67.9 Lymph % (Auto) 18.7 L [place] % (Auto) 10.4 Eos % (Auto) 1.9 L Baso % (Auto) 1.1 Neut # (Auto) 4300 Lymph # (Auto) 1200 [place] # (Auto) 700 Eos # (Auto) 100 Baso # (Auto) 100 PT 15.2 H INR 1.3 APTT 43 H Sodium 135 L Potassium 4.6 Chloride 96 L Carbon Dioxide 33 H BUN 28 H Creatinine 1.09 H Estimated GFR 51 L BUN/Creatinine Ratio 25.7 H Glucose 112 H Calcium 9.1 Magnesium 2.1 Total Bilirubin 0.7 AST 37 H ALT 22 Alkaline Phosphatase 99 Total Creatine Kinase 82 Troponin I < 0.012 NT-Pro-B Natriuret Pep 859 H Total Protein 8.1 Albumin 4.3 Globulin 3.8 Albumin/Globulin Ratio 1.1 Lipase 143 Chlamy pneumoniae PCR Not detected Adenovirus (PCR) Not detected B. pertussis DNA (PCR) Not detected B.parapertussis DNA PCR Not detected Coronavirus OC43 (PCR) Not detected Coronavirus HKU1 (PCR) Not detected Coronavirus 229E (PCR) Not detected SARS-CoV-2 (PCR) Not detected Coronavirus NL63 (PCR) Not detected Human Metapneumovir PCR Not detected Influenza Type A (PCR) Not detected Influenza Type B (PCR) Not detected M. pneumoniae (PCR) Not detected Parainfluenza 1 (PCR) Not detected Parainfluenza 2 (PCR) Not detected Parainfluenza 3 (PCR) Not detected Parainfluenza 4 (PCR) Not detected RSV (PCR) Not detected Entero/Rhino (PCR) Not detected Assessment & Plan Assessment & Plan narrative: Pt is an 83yo woman with COPD, atrial fibrillation on chronic anticoagulation, CHF with preserved ejection fraction, and HTN who presented with cough and hemoptysis. Pt without evidence of pneumonia on CXR and CT, no PE on CTA. BNP mildly elevated in the ED, however no evidence of fluid overload on imaging. Did have wheezing in the ED, now resolved. Most likely cause of symptoms COPD exacerbation. 1) COPD exacerbation: Currently on 2L home O2. Saturations fell to 77% in the ED with ambulation off oxygen. No further wheezing on exam this morning. - Continue IV Methylprednisolone 60mg q12hrs - Continue oxygen supplementation, working actively on weaning - Mucinex to help with cough - Duonebs PRN - Continue Pulmicort 2) Hemoptysis: Mild. H/H stable in the ED. Most likely due to anticoagulation with hard cough and ruptured capillaries. Did have potential nodule on CT scan. - Continue to monitor, trend H/H - F/U CT in 3 months as recommended on current imaging 3) HFpEF, HTN: Stable - Continue Jardiance, Amlodipine, Carvedilol, Lasix, Losartan 4) Atrial fibrillation: Rate controlled - Continue home Xarelto for now. If hemoptysis increases will need to hold FEN: Cardiac diet Code: Full DVT ppx: On anticoagulation Dispo: Pending stabilization in respiratory status, ideally off oxygen. Hopeful for d/c tomorrow. Time-Based Coding :: [TOTAL MINUTES] spent with patient and on the chart (including review of chart, obtaining history, exam, reviewing outside data, placing orders, documenting exam and treatment plan, and counseling patient) on [DATE]. PROFEE Operations Examiner Document charge(s): Yes Charge Codes Initial inpatient/observation care: [id number]
[2024-06-09] MEDS: LOSARTAN 50 MG TABLET 100 MG PO (09:49)
[2024-06-09] MEDS: FUROSEMIDE 40 MG TABLET PO (09:49)
[2024-06-09] MEDS: APIXABAN 5 MG TABLET PO ×2 (09:49→21:32)
[2024-06-09] MEDS: AMLODIPINE 5 MG TABLET PO (09:50)
[2024-06-09] MEDS: POTASSIUM CHLORIDE 10 MEQ TAB PO (09:50)
--- NOTE | 2024-06-09 14:19 | CM.DANOTE ---
Initial DCP Assessment Note Pt is a 83 yo female, resident of [place], admitted for management of COPD exacerbation. PCP: Carlos Eduardo Eid Payer: [facility] MCR/LINNETTE Met w/patient and spouse. Patient reports that she lives independently with spouse in [place]. Spouse drives. Patient/sp have 4 adult children that live out of state. 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 No barriers identified at this time to patient's safe discharge home w/sp to assist; close outpatient f/u recommended. CM team will plan to follow clinical course closely in case any DC needs or concerns arise. WHITNEY Rolle Discharge Planning/Care Management CM Discharge Assessment Start: 06/09/24 14:08 Freq: Status: Active Protocol: Document 06/09/24 14:08 MAXIMILIANO (Rec: 06/09/24 14:19 MAXIMILIANO [id number]) Discharge Planning Assessment Assigned [employer] WHITNEY Iraheta DPOA/Assigned Designee Name Josué Bosch, spouse Contact Information [phone] Advance Directives? No History Provided By Patient,Family Member,Medical Record Prior Living Arrangements Apartment/Condo Household Members significant other Type of transporation used prior to Relies on Others admit Comment Spouse drives. Independent with ADL's Yes Is patient alert and oriented? Yes Barriers to Discharge No Comment Patient plans on discharging home. Discharge Plan Home Transportation Arrangement Spouse Referrals Initiated None needed,Other
[2024-06-09] MEDS: ALBUTEROL/IPRATROPIUM 3 ML AMPUL INH ×2 (14:31→19:48)
[2024-06-09] MEDS: guaiFENesin ER 600 MG TAB PO (17:52)
[2024-06-09] MEDS: BUDESONIDE 0.5 MG/2 ML NEB INH (19:48)
[2024-06-09] MEDS: carvediloL 12.5 MG TABLET PO (21:31)
[2024-06-09] MEDS: methylPREDNISolone 125 MG/2 ML VIAL 60 MG IV (21:32)
[2024-06-10 03:29] VITALS: BP 127/63; PULSE 80; RESP 18; TEMP 36.1; O2SAT 95
[2024-06-10 05:05] LABS: Add Manual Diff / Slide Review NO; Basophils Absolute Auto 0 /uL (0-100); Basophils Percent Auto 0.4 % (0-2); Eosinophils Absolute Auto 0 /uL (0-450); Hematocrit 44.9 % (36-46); Hemoglobin 14.8 g/dL (12.0-16.0); Lymphocytes Absolute Auto 600 /uL (1100-4500); Lymphocytes Percent Auto 9.3 % (25-40); Mean Corpuscular Hemoglobin 32.6 PG (26-34); Mean Corpuscular Volume 98.9 fL (80-100); Monocytes Absolute Auto 100 /uL (0-900); Monocytes Percent Auto 1.1 % (3-14); Neutrophils Absolute Auto 5700 /uL (1500-7000); Neutrophils Percent Auto 89.2 % (50-75); Platelet Count 126 X10^3/uL (150-400); Red Blood Cell Count 4.54 X10^6/uL (4.0-5.2); Red Cell Distribution Width 13.9 % (11.6-14.8); White Blood Cell Count 6.4 X10^3/uL (4.5-11.0)
[2024-06-10] MEDS: LOSARTAN 50 MG TABLET 100 MG PO (08:09)
[2024-06-10] MEDS: carvediloL 12.5 MG TABLET PO (08:09)
[2024-06-10] MEDS: AMLODIPINE 5 MG TABLET PO (08:09)
[2024-06-10] MEDS: POTASSIUM CHLORIDE 10 MEQ TAB PO (08:09)
[2024-06-10] MEDS: predniSONE 20 MG TABLET 40 MG PO (08:10)
[2024-06-10] MEDS: APIXABAN 5 MG TABLET PO (08:14)
[2024-06-10] MEDS: BUDESONIDE 0.5 MG/2 ML NEB INH (09:36)
[2024-06-10] MEDS: ALBUTEROL/IPRATROPIUM 3 ML AMPUL INH (09:36)
[2024-06-10 09:37] VITALS: PULSE 71; RESP 16; O2SAT 96
--- NOTE | 2024-06-10 10:06 | P.DS_ITS ---
History of Present Illness History of Present Illness Date Patient Seen: 06/10/24 Time Patient Seen: 07:45 Chief complaint: SOB-Vomiting Blood Narrative: 83yo female with asthma, atrial fibrillation on chronic anticoagulation, HFpEF, and HTN who presented to the ER with cough. The pt reports that 2 days ago she began having a more severe cough. It was quite uncomfortable. She denies any associated SOB or chest pain. The cough persisted. On the evening of her presentation she noted bright red blood in the sputum that she cough up. This is what prompted her to come into the ED for evaluation. The pt denies any abdominal pain, nausea, or vomiting. She states that her LE swelling has been slightly increased ever since starting Amlodipine, but not acutely worse recently. She denies any recent sick contacts, nasal congestion, sore throat, or ear pain. She states that she was feeling well up until 2 days ago. ER workup notable for platelets 133, PT 15.2, APTT 43, creatinine 1.09, GFR 51, NT pro BNP 859 (less than age-appropriate cut off), respiratory viral swab negative. CXR showed stable cardiomegaly with no pleural effusion or acute pulmonary process. CTA negative for PE, pneumonia, or other acute cardiopulmonary process. During evaluation she became dyspneic and CPAP was applied for increased work of breathing. She was noted to have wheezing on exam and received IV Solu-Medrol along with DuoNeb treatment. However, she remained hypoxic with O2 sat 77% on ambulation and was needed for possible asthma vs undiagnosed COPD exacerbation with persistent oxygen requirement. Discharge Providers Provider Date of admission: 06/09/24 02:01 Discharge Date: 06/10/24 Primary care physician: Carlos Eduardo Eid MD Discharge provider: Carlos Eduardo Eid MD Summary Hospital Course Discharge Diagnosis: #acute hypoxic respiratory failure #COPD exacerbation #asthma #hemoptysis #HFpEF #HTN #AFib Hospital Course: Started on IV methylprednisolone 60 mg q.12 hours and weaned from supplemental O2 over the course of her the day of her admission. Last episode of hemoptysis very mild per patient, occurring day before discharge. Road tested and maintained O2 sat > 91% on room air while ambulating. Discharge home with 5 day prednisone burst for respiratory symptoms. Status at Discharge Cognitive/behavioral status at discharge: oriented Functional status at discharge: independent ambulation Overall status at discharge: patient is back to baseline Time Spent with Patient Time spent: Less than 30 minutes Exam Vital Signs (past 8 hours): - 06/10/24 03:29 06/10/24 09:37 Temperature 97 F L Pulse Rate 80 71 Respiratory Rate 18 16 Blood Pressure 127/63 Pulse Oximetry 95 96 Oxygen Delivery Method Room Air Fraction of Inspired Oxygen 28 SaO2/FiO2 Ratio 332 Oxygen Delivery Method Room Air Oxygen Flow Rate 1 Narrative Exam Narrative: General: Pleasant, NAD HEENT: NC/AT, EOMI, moist membranes CV: Normal rate, irregularly irregular rhythm, normal S1-S2, no m/g/r Resp: CTAB, comfortable WOB, good air movement, speaking in full sentences Abd: Soft, NTND, +BS Ext: Trace edema bilaterally Skin: No rash or lesions noted Neuro: A&O x3, moves all extremities, no focal deficits Objective Labs 06/10/24 04:43 06/08/24 23:06 Labs: Laboratory Results - last 24 hr 06/10/24 04:43 WBC 6.4 RBC 4.54 Hgb 14.8 Hct 44.9 MCV 98.9 MCH 32.6 MCHC 33.0 RDW 13.9 Plt Count 126 L Neut % (Auto) 89.2 H D Lymph % (Auto) 9.3 L [place] % (Auto) 1.1 L Eos % (Auto) 0.0 L Baso % (Auto) 0.4 Neut # (Auto) 5700 Lymph # (Auto) 600 L [place] # (Auto) 100 Eos # (Auto) 0 Baso # (Auto) 0 PFSH Medical History (Updated 06/09/24 @ 01:30 by Diego Zambrano DO) COVID Pulmonary edema (01/06/23) Altered mental status (01/06/23) Hypercapnic respiratory failure (01/06/23) Peripheral edema (01/06/23) Acquired clavicle deformity Asthma Gout Cataracts, bilateral (1994) Toxic goiter (1971) Hyperthyroidism (1971) Osteoporosis Essential hypertension Hyperlipidemia Chronic atrial fibrillation Family History Father No problems noted. Mother No problems noted. Social History household members: significant other Smoking Status: Never smoker alcohol intake: never substance use type: does not use Discharge Assessment & Plan Assessment and Plan Assessment: 83-year-old female with asthma, AFib on chronic anticoagulation, HFpEF, HTN admitted for hypoxia in the context of cough with wheezing and hemoptysis. Pt without evidence of pneumonia on CXR and CT, no PE on CTA. BNP mildly elevated in the ED, however no evidence of fluid overload on imaging. Did have wheezing in the ED, now resolved. Most likely cause of symptoms COPD exacerbation. Plan of Treatment: 1) Asthma vs COPD exacerbation: Presented with cough + wheezing initially requiring supplemental O2. Currently on RA with appropriate O2 sat while ambulating. No documented PFT confirming COPD diagnosis. - Continue PO prednisone 40 mg x5 days - Continue home QVAR - Consider PFT outpatient to confirm or r/o COPD in context of known asthma 2) Hemoptysis, ?pulmonary nodule: Mild. H/H stable during admission. Most likely due to anticoagulation with hard cough and ruptured capillaries. Did have potential nodule on CT scan. - Monitor H/H outpatient - F/U CT in 3 months as recommended on current imaging 3) HFpEF, HTN: Stable - Continue Jardiance, Amlodipine, Carvedilol, Lasix, Losartan 4) Atrial fibrillation: Rate controlled - Continue home Xarelto for now - If hemoptysis increases will need to hold Discharge Plan Discharge Plan Patient Disposition: Home Discharge orders & Medications Prescriptions: New prednisone 20 mg Tablet 40 mg PO DAILY 5 Days Qty: 10 0RF Continued (DME) BreatheRite Spacer-Mask,Adult Spacer See Rx Instructions .Route Qty: 1 0RF Rx Instructions: As directed Jardiance 10 mg tablet 10 mg PO DAILY furosemide 40 mg tablet 40 mg PO DAILY PRN (Reason: edema/weight gain) Qty: 30 11RF Rx Instructions: Take 1 tab by mouth as needed for edema or more than 3lb weight gain losartan 100 mg tablet 100 mg PO DAILY Qty: 90 2RF potassium chloride 10 mEq tablet extended release 10 meq PO DAILY Qty: 90 3RF calcium carbonate [Oyster Shell Calcium 500] 500 mg calcium (1,250 mg) tablet 500 mg PO BID Qty: 180 1RF Eliquis 5 mg tablet 5 mg PO BID Qty: 180 1RF albuterol sulfate 90 mcg/actuation HFA aerosol inhaler 1 puff PO Q4-6H PRN (Reason: for wheezing) Qty: 8.5 5RF amlodipine [Norvasc] 5 mg tablet 5 mg PO DAILY Qty: 90 3RF carvedilol 25 mg tablet 12.5 mg PO BID Qty: 90 3RF Qvar RediHaler 40 mcg/actuation HFA aerosol breath activated 1 inh inhalation BID Qty: 10.6 4RF diazepam 5 mg tablet See Rx Instructions .ROUTE .COMPLEX PRN (Reason: Sleep) Rx Instructions: Take 1/2 to 1 tablet by mouth at bedtime as needed for anxiety; No Action magnesium aspart,citrate,oxide 400 mg magnesium capsule PO Follow up/Referrals: Carlos Eduardo Eid MD [Primary Care Provider] - Diet/Activity/Treatments Diet: Low-sodium Visit Report/Discharge Packet Stand Alone Forms: Patient Portal/API, Stroke Signs & Symptoms, Patient Portal/API/Survey Discharge Data Primary Care Provider: Carlos Eduardo Eid Discharges patient from system. Discharge Date/Time: 06/10/24 10:55 PROFEE Charge Codes Discharge inpatient/observation: [id number]
[2024-06-10 10:18] VITALS: BP 127/68; PULSE 89; RESP 22; TEMP 36.2; O2SAT 93
--- NOTE | 2024-06-10 10:54 | CM.DPNOTE ---
DC Note Patient is on room air this morning and has been discharged home. No needs from this CM team identified. PLan: Discharge home w/sp, spouse to transport. Close outpatient follow up recommended. PCP's office alerted. MAXIMILIANO
== END 2024-06-10 10:55 | disposition home or self-care (01) | DRG 190 ==
LOC: ED 06-09 01:41 → AC 06-09 02:02
PROVIDERS: Admitting Provider Family Medicine; Emergency Provider Student in an Organized Health Care Education/Training Program; PCP Family Medicine; Referring Provider Student in an Organized Health Care Education/Training Program; Visit Provider Family Medicine
DX: J44.1 Chronic obstructive pulmonary disease with (acute) exacerbation (principal); J96.01 Acute respiratory failure with hypoxia; R04.2 Hemoptysis; J45.901 Unspecified asthma with (acute) exacerbation; I50.30 Unspecified diastolic (congestive) heart failure; I48.91 Unspecified atrial fibrillation; I11.0 Hypertensive heart disease with heart failure; Z79.01 Long term (current) use of anticoagulants
CPT/HCPCS: 36415; 71045; 71275; 80053; 82550; 83690; 83735; 83880; 84484; 85025; 85610; 85730; 87633; 93005; 94640; 94762; 96374; 99222; 99238; 99285; J2919; J7613; Q9967

== ENCOUNTER → 2024-07-07 09:33 | Outpatient (CLI) | payer MEDICARE, MEDICAID, SELFPAY ==
[2023-01-15 14:02] VITALS: RESP 1
[2023-01-15 18:14] VITALS: PULSE 68; RESP 15; O2SAT 95
[2024-06-09 02:14] VITALS: BMI 27.6
--- NOTE | 2024-07-07 09:34 | DI.CT.S_ITS ---
PROCEDURE: CT CHEST WO CON INDICATIONS: f/u ? pulmonary nodule in L upper lobe TECHNIQUE: Noncontrast 5 mm thick sections acquired from the pulmonary apices to the posterior costophrenic angles. 1 mm lung window, 5 mm thick coronal and sagittal and 7 mm axial MIP reformats were then acquired. For radiation dose reduction, the following was used: automated exposure control, adjustment of mA and/or kV according to patient size. COMPARISON: [facility], CT, CT ANGIO CHEST PE PROTOCOL, 06/09/2024, 0:28. FINDINGS: Image quality: Diagnostic. Lower Neck: Hyperattenuating nodule anterior to the larynx measuring 1.9 x 2.0 cm, unchanged from prior (series 2, image 5). Thyroid: No thyroid nodules which require sonographic follow up, per consensus guidelines. Axillae: No enlarged lymph nodes. Chest Wall: Unremarkable. Bones: Osteoporosis. Lungs and Pleura: No pneumothorax or pleural effusions. Left upper lobe nodularity measures 1.8 x 1.3 cm, unchanged from prior. This probably represents mucous within airway. Additional linear nodularity in the right hilum measuring 1.6 x 1.0 cm, also unchanged (series 3, image 141). Moderate centrilobular emphysema. Scarring of the right lung apex and left lung base. Heart: Heart size is enlarged. No pericardial effusion. Thoracic Vessels: Dilated main pulmonary artery . Ascending aortic aneurysm measuring 4.3 cm. Mediastinum and Hyun: No enlarged lymph nodes. Esophagus: No wall thickening. No hiatal hernia. Upper Abdomen: Visualized upper abdomen solid organs and bowel loops appear normal. IMPRESSION: Stable nodules within the left upper lobe and right perihilar region. Given the linear appearance, this probably represents inspissated mucus within airways. Endobronchial malignancy is also consideration. Given size, consider PET-CT to exclude malignancy. Dilated main pulmonary artery, suggestive of pulmonary hypertension. Ascending aortic aneurysm measuring 4.3 cm. Yearly follow-up should be considered. Hyperattenuating nodule anterior to the larynx measuring 1.9 x 2.0 cm, unchanged from prior. 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 Recommend neck ultrasound for complete characterization. Osteoporosis by Hounsfield units criteria. Dictated by: Twin Nolan M.D. on 07/07/2024 at 11:26 Approved by: Twin Nolan M.D. on 07/07/2024 at 11:33
== END ==
LOC: CT 09:34
PROVIDERS: PCP Family Medicine; Referring Provider Family Medicine; Visit Provider Family Medicine
DX: J98.4 Other disorders of lung (principal); I71.21 Aneurysm of the ascending aorta, without rupture; M81.0 Age-related osteoporosis without current pathological fracture; J43.2 Centrilobular emphysema; I51.7 Cardiomegaly
CPT/HCPCS: 71250

== ENCOUNTER 2024-09-02 11:21 | Observation (INO) | payer MEDICARE, MEDICAID, SELFPAY ==
[2023-01-15 14:02] VITALS: RESP 1
[2023-01-15 18:14] VITALS: PULSE 68; RESP 15; O2SAT 95
[2024-06-09 02:14] VITALS: BMI 27.6
[2024-09-02] VITALS (15 sets, daily range): BP systolic 103–144; BP diastolic 57–79; PULSE 76–109; RESP 18–28; TEMP 36.3–37.1; O2SAT 85–97; BMI 29.0
--- NOTE | 2024-09-02 11:26 | DI.RAD.S_ITS ---
PROCEDURE: XR CHEST 1V INDICATIONS: Shortness of breath TECHNIQUE: One view of the chest was acquired. COMPARISON: [facility], CR, XR CHEST 1V, 06/08/2024, 22:58. [facility], CR, XR CHEST 1V, 09/08/2023, 16:19. FINDINGS: Surgical changes and devices: None. Lungs and pleura: Lungs are clear. No pleural effusions or pneumothorax. Mediastinum: Mediastinal contours appear normal. Heart size is enlarged, stable. Bones and chest wall: No suspicious bony lesions. Overlying soft tissues appear unremarkable. IMPRESSION: No acute cardiopulmonary abnormality is seen. Dictated by: Lico Kraft M.D. on 09/02/2024 at 11:43 Approved by: Lico Kraft M.D. on 09/02/2024 at 11:43
--- NOTE | 2024-09-02 11:52 | EKG_ITS ---
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
[2024-09-02 12:12] LABS: Add Manual Diff / Slide Review NO; Basophils Absolute Auto 0 /uL (0-100); Basophils Percent Auto 0.4 % (0-2); Eosinophils Absolute Auto 400 /uL (0-450); Eosinophils Percent Auto 4.5 % (2-4); Hematocrit 44.6 % (36-46); Hemoglobin 14.6 g/dL (12.0-16.0); Lymphocytes Absolute Auto 800 /uL (1100-4500); Lymphocytes Percent Auto 10.3 % (25-40); Mean Corpuscular HGB Conc 32.7 % (30-36); Mean Corpuscular Hemoglobin 32.8 PG (26-34); Mean Corpuscular Volume 100.4 fL (80-100); Monocytes Absolute Auto 700 /uL (0-900); Monocytes Percent Auto 8.8 % (3-14); Neutrophils Absolute Auto 6200 /uL (1500-7000); Platelet Count 142 X10^3/uL (150-400); Red Blood Cell Count 4.44 X10^6/uL (4.0-5.2); Red Cell Distribution Width 14.4 % (11.6-14.8); White Blood Cell Count 8.1 X10^3/uL (4.5-11.0)
[2024-09-02 12:19] LABS: INR 1.5 (0.9-1.3); Prothrombin Time 16.6 SECONDS (9.4-12.5)
[2024-09-02 12:24] LABS: Alanine Aminotransferase 68 IU/L (<35); Albumin 4.1 g/dL (3.5-5.0); Albumin Globulin Ratio 1.1 (1.0-2.8); Alkaline Phosphatase 141 U/L (38-126); Aspartate Aminotransferase 88 IU/L (14-36); BUN Creatinine Ratio 25.7 (6-22); Bilirubin Total 0.9 mg/dL (0.2-1.3); Blood Urea Nitrogen 26 mg/dL (7-17); Calcium 8.8 mg/dL (8.4-10.2); Carbon Dioxide 32 mmol/L (22-32); Chloride 99 mmol/L (98-107); Estimated Glomerular Filt Rate 56 mL/min (>60); Globulin 3.8 g/dL (1.7-4.1); Glucose 137 mg/dL (70-99); HEMOLYSIS 15 (0-50); Sodium 137 mmol/L (137-145); Total Protein 7.9 g/dL (6.3-8.2)
[2024-09-02 12:27] LABS: Lactate (Lactic Acid) 0.8 mmol/L (0.7-2.1)
[2024-09-02 12:35] LABS: NT-proBNP (BNP-Adult 18+) 2690 pg/mL (<450); Troponin I < 0.012 ng/mL (0.01-0.034)
[2024-09-02 12:44] LABS: Adenovirus Not Detected (Not Detect); B. parapertussis Not Detected (Not Detecte); Bordetella pertussis Not Detected (Not Detect); Chlamydophila pneumoniae Not Detected (Not Detect); Coronavirus 229E Not Detected (Not Detect); Coronavirus HKU1 Not Detected (Not Detect); Coronavirus NL 63 Not Detected (Not Detect); Coronavirus OC43 Not Detected (Not Detect); Human Metapneumovirus Not Detected (Not Detect); Human Rhinovirus/Enterovirus Not Detected (Not Detect); Influenza A Not Detected (Not Detect); Influenza B Not Detected (Not Detect); Mycoplasma pneumoniae Not Detected (Not Detect); Parainfluenza Virus 1 Not Detected (Not Detect); Parainfluenza Virus 2 Not Detected (Not Detect); Parainfluenza Virus 3 Not Detected (Not Detect); Parainfluenza Virus 4 Not Detected (Not Detect); Respiratory Syncytial Virus Not Detected (Not Detect); SARS- CoV-2 Not Detected (Not Detecte)
[2024-09-02] MEDS: ALBUTEROL 2.5 MG/3 ML NEB (ADULT) INH (13:44)
--- NOTE | 2024-09-02 15:03 | ED.GENADULT ---
HPI - General Adult General Chief complaint: Upper Respiratory Symptoms Stated complaint: Sent from [facility] has Hypoxic 3 days Time Seen by Provider: 09/02/24 14:55 Source: patient and family Mode of arrival: Wheelchair History of Present Illness HPI narrative: 83-year-old female with history atrial fibrillation on chronic Eliquis anticoagulation, history of congestive heart failure with preserved ejection fraction in the past, reactive airways, complains of shortness of breath for the last 3 days, recent cough, no fevers, not usually on oxygen, feels more short of breath. No chest pain. Heart racing or palpitation like symptoms. Denies missed doses of her chronic medications. Does not recall recent chronic medication dose changes. PCP Dr. Eid. Has area insole bottom filler Dr. Landry. Related Data Home Medications Medication Instructions Recorded Confirmed empagliflozin 10 mg tablet 10 mg PO DAILY 05/28/24 09/02/24 (Jardiance) magnesium aspart,citrate,oxide 400 mg PO 1XD 06/11/24 09/02/24 Previous Rx's Medication Instructions Recorded losartan 100 mg tablet 100 mg PO DAILY #90 tabs 06/05/22 furosemide 40 mg tablet 40 mg PO DAILY PRN edema/weight 09/05/23 gain #30 tabs potassium chloride 10 mEq 10 meq PO DAILY #90 tabs 09/16/23 tablet,extended release apixaban 5 mg tablet (Eliquis) 5 mg PO BID #180 tabs 02/26/24 calcium carbonate (Oyster Shell 500 mg PO BID #180 tabs 02/26/24 Calcium 500) albuterol sulfate 90 mcg/actuation 1 puff PO Q4-6H PRN for wheezing 04/20/24 aerosol inhaler #8.5 grams amlodipine 5 mg tablet (Norvasc) 5 mg PO DAILY #90 tabs 05/14/24 carvedilol 25 mg tablet 12.5 mg (1/2 x 25 mg) PO BID #90 05/14/24 tabs inhalat.spacing dev,large mask #1 ea 05/28/24 (BreatheRite Spacer and Mask, Adult) beclomethasone dipropionate 40 1 inh inhalation BID #10.6 grams 06/03/24 mcg/actuation HFA breath activated aerosol (Qvar RediHaler) diazepam 5 mg tablet See Rx Instructions .Route 08/07/24 .COMPLEX PRN Sleep #30 tabs Allergies Allergy/AdvReac Type Severity Reaction Status Date / Time No Known Drug Allergies Allergy Verified 09/02/24 11:08 Patient History Medical History (Updated 09/02/24 @ 16:12 by Abhinav Saucedo MD) Acute hypoxic respiratory failure COVID Pulmonary edema (01/06/23) Altered mental status (01/06/23) Hypercapnic respiratory failure (01/06/23) Peripheral edema (01/06/23) Acquired clavicle deformity Asthma Gout Cataracts, bilateral (1994) Toxic goiter (1971) Hyperthyroidism (1971) Osteoporosis Essential hypertension Hyperlipidemia Chronic atrial fibrillation Family History Father No problems noted. Mother No problems noted. Social History household members: significant other Smoking Status: Never smoker alcohol intake: never substance use type: does not use Smoking Status: Never smoker alcohol intake frequency: 0-2 drinks per day Exam Narrative Exam Narrative: GENERAL: Well-developed patient, in mild distress. HEAD: Atraumatic. Normocephalic. EYES: Pupils equal round and reactive. Extraocular motions intact. No scleral icterus. No injection or drainage. ENT: Nose without bleeding, purulent drainage. Throat without erythema, tonsillar hypertrophy or exudate. Airway patent. NECK: Trachea midline. Non tender CARDIOVASCULAR: Irregularly irregular rhythm, normal rate, without murmurs, gallops, or rubs. RESPIRATORY: Clear to auscultation. Breath sounds equal bilaterally. No wheezes, rales, or rhonchi. Some intercostal and suprasternal retractions present. Speaks just in full sentences. GASTROINTESTINAL: Abdomen soft, non-tender, nondistended. EXTREMITIES: No edema or joint tenderness. BACK: Nontender without deformity or crepitance. No flank tenderness. NEURO: AOx3. Motor functions grossly nonfocal SKIN: No rash or erythema of visible areas Initial Vital Signs Initial Vital Signs: Vital Signs Temperature 98.7 F 09/02/24 11:35 Pulse Rate 76 09/02/24 11:35 Blood Pressure 136/76 09/02/24 11:35 Pulse Oximetry 95 09/02/24 11:35 Oxygen Delivery Method Nasal Cannula 09/02/24 11:35 Oxygen Flow Rate 2 09/02/24 11:35 Course Orders Ordered: ED Orders 09/02/24 12:02 Complete Blood Count AUTO DIFF Stat Comprehensive Metabolic Panel Stat Lactate (Lactic Acid) Stat NT-proBNP (BNP-Adult 18+) Stat Prothrombin Time INR Stat Troponin I Stat Acetaminophen (Acetaminophen 325 Mg Tablet) 650 mg PO Q6H PRN PRN Reason: Fever/Mild Pain (1-3) Albuterol (Albuterol 2.5 Mg/3 Ml Neb (Adult)) 2.5 mg INH [id number] PRN PRN Reason: Shortness Of Breath Albuterol/Ipratropium (Albuterol/Ipratropium 3 Ml Ampul) 3 ml INH [id number] ANTONY Last Admin: 09/02/24 19:30 Dose: 3 ml Documented By: ALMA Amlodipine Besylate (Amlodipine 5 Mg Tablet) 5 mg PO DAILY [facility] Apixaban (Apixaban 5 Mg Tablet) 5 mg PO BID ANTONY Budesonide (Budesonide 0.5 Mg/2 Ml Neb) 0.5 mg INH RTBID [facility] Last Admin: 09/02/24 19:30 Dose: 0.5 mg Documented By: ALMA Carvedilol (Carvedilol 12.5 Mg Tablet) 12.5 mg PO BID [facility] Diazepam (Diazepam 5 Mg Tablet) 5 mg PO BEDTIME PRN PRN Reason: Anxiety Furosemide (Furosemide 20 Mg/2 Ml Vial) 20 mg IV DAILY [facility] Losartan Potassium (Losartan 50 Mg Tablet) 100 mg PO DAILY [facility] Methylprednisolone (Methylprednisolone 125 Mg/2 Ml Vial) 125 mg IV Q6HR [facility] Naloxone HCl (Naloxone 0.4 Mg/Ml Vial) 0.2 mg IV Q2MIN PRN PRN Reason: Opiate Reversal Empagliflozin [ Jardiance] 10 Mg Tablet 10 mg PO DAILY [facility] Discontinued Medications Albuterol (Albuterol 2.5 Mg/3 Ml Neb (Adult)) 2.5 mg INH NOW ONE Stop: 09/02/24 13:42 Last Admin: 09/02/24 13:44 Dose: 2.5 mg Documented By: TAMEKA Albuterol (Albuterol 2.5 Mg/3 Ml Neb (Adult)) 2.5 mg INH Q4H PRN PRN Reason: for wheezing Budesonide (Budesonide 0.5 Mg/2 Ml Neb) 0.5 mg INH RTBID ANTONY Furosemide (Furosemide 40 Mg Tablet) 40 mg PO DAILY PRN PRN Reason: edema/weight gain Influenza Virus Vaccine (Influenza Hd Vaccine 0.5 Ml Syringe) 0.5 ml IM .ONCE ONE Stop: 09/02/24 17:23 Last Admin: 09/02/24 18:41 Dose: Not Given Documented By: LAURA Vital Signs Vital signs: Vital Signs - 8 hr 09/02/24 13:25 09/02/24 13:25 09/02/24 13:30 Pulse Rate 104 H Respiratory Rate Blood Pressure 119/57 L 122/79 Pulse Oximetry 85 L Oxygen Delivery Method Oxygen Flow Rate Fraction of Inspired Oxygen 09/02/24 13:30 09/02/24 13:44 09/02/24 14:00 Pulse Rate 85 88 Respiratory Rate 28 H 20 Blood Pressure 126/57 L Pulse Oximetry 97 97 Oxygen Delivery Method Nasal Cannula Nasal Cannula Oxygen Flow Rate 4 4 Fraction of Inspired Oxygen 36 09/02/24 14:00 09/02/24 14:30 09/02/24 14:30 Pulse Rate 80 84 Respiratory Rate Blood Pressure 127/62 Pulse Oximetry 95 94 Oxygen Delivery Method Nasal Cannula Oxygen Flow Rate 2 Fraction of Inspired Oxygen 09/02/24 15:00 09/02/24 15:00 09/02/24 15:30 Pulse Rate 83 Respiratory Rate Blood Pressure 122/73 131/63 Pulse Oximetry 95 Oxygen Delivery Method Nasal Cannula Oxygen Flow Rate 2 Fraction of Inspired Oxygen 09/02/24 15:30 09/02/24 16:00 09/02/24 16:00 Pulse Rate 92 H 97 H Respiratory Rate 22 Blood Pressure 144/65 H Pulse Oximetry 95 93 Oxygen Delivery Method Nasal Cannula Nasal Cannula Oxygen Flow Rate 2 2 Fraction of Inspired Oxygen Medical Decision Making Lab Data Lab results reviewed: Yes I reviewed the patient's lab results. Lab results narrative: White blood cell count 8100, hemoglobin 14.6, platelets 142,000. Glucose 137. BUN 26 with creatinine 1.01 normal renal function. Electrolytes normal including potassium 5.0 noted. Serum CO2 32. Alkaline phosphatase and transaminases slight elevation, normal total bilirubin noted. BNP 2690. 09/02/24 12:02 09/02/24 12:02 Labs: Lab Results 09/02/24 09/02/24 Range/Units 11:45 12:02 WBC 8.1 (4.5-11.0) X10^3/uL RBC 4.44 (4.0-5.2) X10^6/uL Hgb 14.6 (12.0-16.0) g/dL Hct 44.6 (36-46) % MCV 100.4 H (80-100) fL MCH 32.8 (26-34) PG MCHC 32.7 (30-36) % RDW 14.4 (11.6-14.8) % Plt Count 142 L (150-400) X10^3/uL Neut % (Auto) 76.0 H (50-75) % Lymph % (Auto) 10.3 L (25-40) % [place] % (Auto) 8.8 (3-14) % Eos % (Auto) 4.5 H (2-4) % Baso % (Auto) 0.4 (0-2) % Neut # (Auto) 6200 (3432-5823) /uL Lymph # (Auto) 800 L (7181-5461) /uL [place] # (Auto) 700 (0-900) /uL Eos # (Auto) 400 (0-450) /uL Baso # (Auto) 0 (0-100) /uL PT 16.6 H (9.4-12.5) SECONDS INR 1.5 H (0.9-1.3) Sodium 137 (137-145) mmol/L Potassium 5.0 (3.4-5.1) mmol/L Chloride 99 (98-107) mmol/L Carbon Dioxide 32 (22-32) mmol/L BUN 26 H (7-17) mg/dL Creatinine 1.01 (0.52-1.04) mg/dL Estimated GFR 56 L (>60) mL/min BUN/Creatinine Ratio 25.7 H (6-22) Glucose 137 H (70-99) mg/dL Lactate 0.8 (0.7-2.1) mmol/L Calcium 8.8 (8.4-10.2) mg/dL Total Bilirubin 0.9 (0.2-1.3) mg/dL AST 88 H (14-36) IU/L ALT 68 H (<35) IU/L Alkaline Phosphatase 141 H (38-126) U/L Troponin I < 0.012 (0.01-0.034) ng/mL NT-Pro-B Natriuret Pep 2690 H (<450) pg/mL Total Protein 7.9 (6.3-8.2) g/dL Albumin 4.1 (3.5-5.0) g/dL Globulin 3.8 (1.7-4.1) g/dL Albumin/Globulin Ratio 1.1 (1.0-2.8) Chlamy pneumoniae PCR Not detected (Not Detect) Adenovirus (PCR) Not detected (Not Detect) B. pertussis DNA (PCR) Not detected (Not Detect) B.parapertussis DNA PCR Not detected (Not Detecte) Coronavirus OC43 (PCR) Not detected (Not Detect) Coronavirus HKU1 (PCR) Not detected (Not Detect) Coronavirus 229E (PCR) Not detected (Not Detect) SARS-CoV-2 (PCR) Not detected (Not Detecte) Coronavirus NL63 (PCR) Not detected (Not Detect) Human Metapneumovir PCR Not detected (Not Detect) Influenza Type A (PCR) Not detected (Not Detect) Influenza Type B (PCR) Not detected (Not Detect) M. pneumoniae (PCR) Not detected (Not Detect) Parainfluenza 1 (PCR) Not detected (Not Detect) Parainfluenza 2 (PCR) Not detected (Not Detect) Parainfluenza 3 (PCR) Not detected (Not Detect) Parainfluenza 4 (PCR) Not detected (Not Detect) RSV (PCR) Not detected (Not Detect) Entero/Rhino (PCR) Not detected (Not Detect) Imaging Data Chest x-ray: Radiologist's Impression: Close Chest X-Ray (Signed) Lico Kraft - 09/02/24 Launch?Image [address] [address] XRay Report Signed Patient: Wilma Jackson MR#: [id number] : 1940 Acct:[id number] Age/Sex: 83 / F Date of Service: 09/02/24 Loc: ED Accession Number: [id number] Procedure: XR chest 1V Ordering Provider: Abhinav Saucedo MD PROCEDURE: XR CHEST 1V INDICATIONS: Shortness of breath TECHNIQUE: One view of the chest was acquired. COMPARISON: [facility], CR, XR CHEST 1V, 06/08/2024, 22:58. [facility], CR, XR CHEST 1V, 09/08/2023, 16:19. FINDINGS: Surgical changes and devices: None. Lungs and pleura: Lungs are clear. No pleural effusions or pneumothorax. Mediastinum: Mediastinal contours appear normal. Heart size is enlarged, stable. Bones and chest wall: No suspicious bony lesions. Overlying soft tissues appear unremarkable. IMPRESSION: No acute cardiopulmonary abnormality is seen. Dictated by: Lico Kraft M.D. on 09/02/2024 at 11:43 Approved by: Lico Kraft M.D. on 09/02/2024 at 11:43 ECG Data Attestation: I personally reviewed and interpreted this ECG as follows: Interpretation: Atrial fibrillation with ventricular rate 84. No obvious ST segment elevation or depression changes. Wandering baseline noted however. QRS 66, QTC 413. MDM Narrative Medical decision making narrative: 83-year-old female with history of atrial fibrillation on chronic Eliquis anticoagulation, history of congestive heart failure on Lasix, use of albuterol in the past at home, recent increased shortness of breath. Slight wheeze after SVN ordered by nursing/RT, IV Solu-Medrol added. EKG shows atrial fibrillation but no rapid ventricular response, no obvious ST segment or T-wave changes. Initial troponin negative, we will repeat troponin. BNP 2690 elevated. IV Lasix. Chest x-ray no acute changes. See radiology report. Respiratory panel negative. Repeat troponin not increasing. Making urine after IV Lasix dose, feels a little bit better after IV Solu-Medrol and breathing treatment. But still labored breathing, persisting suprasternal retractions, 93% on 2 L oxygen, 88-89% room air saturations. Consider admission. Patient amenable. PCP Dr. Eid to be contacted. 1610, Case discussed with PCP Stanton who accepts patient for admission to observation. Discharge Plan Departure Patient Disposition: Admitted as Observation Clinical Impression: COPD exacerbation, Acute hypoxemic respiratory failure, Dyspnea, History of atrial fibrillation Admit Date/Time: 09/02/24 16:11 Admit Provider: Carlos Eduardo Eid
--- NOTE | 2024-09-02 18:03 | PC.NURSE ---
Patient is 90% on 2L of o2, she is not sob and denies pain. Skin check and admit are done. Lung sounds with crackles to the bases and decreased. She is tolerating dinner. Dr. Sampson will be into see patient in the am.
[2024-09-02] MEDS: BUDESONIDE 0.5 MG/2 ML NEB INH (19:30)
[2024-09-02] MEDS: ALBUTEROL/IPRATROPIUM 3 ML AMPUL INH (19:30)
[2024-09-02] MEDS: carvediloL 12.5 MG TABLET PO (21:40)
[2024-09-02] MEDS: APIXABAN 5 MG TABLET PO (21:42)
[2024-09-03] VITALS (11 sets, daily range): BP systolic 140–149; BP diastolic 71–79; PULSE 73–101; RESP 18–20; TEMP 36.3–36.9; O2SAT 91–97
[2024-09-03] MEDS: methylPREDNISolone 125 MG/2 ML VIAL IV ×3 (01:00→13:42)
[2024-09-03 05:56] LABS: Add Manual Diff / Slide Review NO; Basophils Absolute Auto 0 /uL (0-100); Basophils Percent Auto 0.3 % (0-2); Eosinophils Absolute Auto 0 /uL (0-450); Eosinophils Percent Auto 0.3 % (2-4); Hematocrit 41.9 % (36-46); Hemoglobin 13.6 g/dL (12.0-16.0); Lymphocytes Absolute Auto 600 /uL (1100-4500); Lymphocytes Percent Auto 8.9 % (25-40); Mean Corpuscular HGB Conc 32.5 % (30-36); Mean Corpuscular Hemoglobin 32.7 PG (26-34); Mean Corpuscular Volume 100.8 fL (80-100); Monocytes Absolute Auto 100 /uL (0-900); Monocytes Percent Auto 1.3 % (3-14); Neutrophils Absolute Auto 5800 /uL (1500-7000); Neutrophils Percent Auto 89.2 % (50-75); Platelet Count 138 X10^3/uL (150-400); Red Blood Cell Count 4.16 X10^6/uL (4.0-5.2); Red Cell Distribution Width 14.4 % (11.6-14.8); White Blood Cell Count 6.5 X10^3/uL (4.5-11.0)
[2024-09-03 06:10] LABS: Alanine Aminotransferase 64 IU/L (<35); Albumin 3.6 g/dL (3.5-5.0); Albumin Globulin Ratio 1.1 (1.0-2.8); Alkaline Phosphatase 140 U/L (38-126); Aspartate Aminotransferase 57 IU/L (14-36); BUN Creatinine Ratio 25.6 (6-22); Blood Urea Nitrogen 20 mg/dL (7-17); Calcium 8.5 mg/dL (8.4-10.2); Carbon Dioxide 34 mmol/L (22-32); Chloride 99 mmol/L (98-107); Estimated Glomerular Filt Rate > 60 mL/min (>60); Globulin 3.4 g/dL (1.7-4.1); Glucose 123 mg/dL (70-99); HEMOLYSIS < 15 (0-50); Potassium 5.2 mmol/L (3.4-5.1); Sodium 138 mmol/L (137-145)
[2024-09-03 06:18] LABS: NT-proBNP (BNP-Adult 18+) 3420 pg/mL (<450)
[2024-09-03] MEDS: ALBUTEROL/IPRATROPIUM 3 ML AMPUL INH ×3 (06:33→20:11)
--- NOTE | 2024-09-03 08:18 | PM.HP.IH.1 ---
History of Present Illness History of Present Illness Date Patient Seen: 09/03/24 Time Patient Seen: 07:45 Chief complaint: Sent from [facility] has Hypoxic 3 days Narrative: 83yo female with asthma, atrial fibrillation on chronic anticoagulation, HFpEF, HTN, anxiety, insomnia who presented to the ER with SOB for past 3 days, recent cough. No fever, chest pain, heart racing/palpitations, or baseline O2 requirement. Denies missing doses of prescribed medications were recent dose changes. On further questioning, she reports only taking furosemide as needed for lower extremity swelling and does not recall taking within previous 4-5 days. ER workup notable for platelets 142, INR 1.5, BUN 26, GFR 56, AST 88, ALT 68, alk phos 141, BNP 2690, respiratory viral swab negative. CXR showed stable cardiomegaly with no pleural effusion or acute pulmonary process. EKG showed atrial fibrillation but no RVR or obvious ST segment/T-wave changes. Troponin negative x2. Given IV Lasix and IV Solu-Medrol along with breathing treatment. [place] better but still labored breathing with suprasternal retractions, 93% on 2 L oxygen with desats to 88% on room air. Admitted for possible CHF vs asthma vs undiagnosed COPD exacerbation with persistent oxygen requirement. [facility] Medical History History of atrial fibrillation Acute hypoxic respiratory failure COVID Pulmonary edema (01/06/23) Altered mental status (01/06/23) Hypercapnic respiratory failure (01/06/23) Peripheral edema (01/06/23) Acquired clavicle deformity Asthma Gout Cataracts, bilateral (1994) Hyperthyroidism (1971) Toxic goiter (1971) Osteoporosis Essential hypertension Hyperlipidemia Chronic atrial fibrillation Family History Father No problems noted. Mother No problems noted. Social History household members: significant other Smoking Status: Never smoker alcohol intake: never substance use type: does not use Meds Home Medications and Allergies Home Medications Medication Instructions Recorded Confirmed Type potassium chloride 10 mEq 10 meq PO DAILY #90 tabs 09/16/23 09/02/24 Rx tablet,extended release apixaban 5 mg tablet (Eliquis) 5 mg PO BID #180 tabs 02/26/24 09/02/24 Rx calcium carbonate (Oyster Shell 500 mg PO BID #180 tabs 02/26/24 09/02/24 Rx Calcium 500) albuterol sulfate 90 mcg/actuation 1 puff PO Q4-6H PRN for wheezing 04/20/24 09/02/24 Rx aerosol inhaler #8.5 grams amlodipine 5 mg tablet (Norvasc) 5 mg PO DAILY #90 tabs 05/14/24 09/02/24 Rx carvedilol 25 mg tablet 12.5 mg (1/2 x 25 mg) PO BID #90 05/14/24 09/02/24 Rx tabs empagliflozin 10 mg tablet 10 mg PO DAILY 05/28/24 09/02/24 History (Jardiance) inhalat.spacing dev,large mask #1 ea 05/28/24 09/02/24 Rx (BreatheRite Spacer and Mask, Adult) beclomethasone dipropionate 40 1 inh inhalation BID #10.6 grams 06/03/24 09/02/24 Rx mcg/actuation HFA breath activated aerosol (Qvar RediHaler) magnesium aspart,citrate,oxide 400 mg PO 1XD 06/11/24 09/02/24 History diazepam 5 mg tablet See Rx Instructions .Route 08/07/24 09/02/24 Rx .COMPLEX PRN Sleep #30 tabs furosemide 40 mg tablet 40 mg PO DAILY edema/weight gain 09/04/24 Rx #90 tabs losartan 100 mg tablet 100 mg PO DAILY #90 tabs 09/04/24 09/03/24 Rx prednisone 20 mg tablet 10 - 40 mg (0.5 - 2 x 20 mg) PO 09/04/24 Rx DAILY #12 tabs Allergies Allergy/AdvReac Type Severity Reaction Status Date / Time No Known Drug Allergies Allergy Verified 09/02/24 11:08 Review of Systems Review of Systems ROS: Yes All systems reviewed with the patient and are negative except as otherwise documented Exam Vital Signs (past 8 hours): - 09/03/24 02:00 Temperature 98.4 F Pulse Rate 101 H Respiratory Rate 18 Blood Pressure 149/71 H Pulse Oximetry 91 Oxygen Flow Rate 2 Fraction of Inspired Oxygen 28 SaO2/FiO2 Ratio 332 Oxygen Delivery Method Nasal Cannula Oxygen Flow Rate 2 Narrative Exam Narrative: General: Pleasant, NAD HEENT: NC/AT, EOMI, moist membranes CV: Normal rate, irregularly irregular rhythm, normal S1-S2, no m/g/r Resp: Mild expieratory wheezing in b/l [place], crackles in LLL, comfortable WOB, good air movement, frequent pauses while speaking Abd: Soft, NTND, +BS Ext: Trace edema bilaterally Skin: No rash or lesions noted Neuro: A&O x3, moves all extremities, no focal deficits Objective Labs 09/03/24 05:10 09/04/24 09:37 Labs: Laboratory Results - last 24 hr 09/02/24 09/02/24 09/03/24 11:45 12:02 05:10 WBC 8.1 6.5 RBC 4.44 4.16 Hgb 14.6 13.6 Hct 44.6 41.9 MCV 100.4 H 100.8 H MCH 32.8 32.7 MCHC 32.7 32.5 RDW 14.4 14.4 Plt Count 142 L 138 L Neut % (Auto) 76.0 H 89.2 H Lymph % (Auto) 10.3 L 8.9 L [place] % (Auto) 8.8 1.3 L Eos % (Auto) 4.5 H 0.3 L Baso % (Auto) 0.4 0.3 Neut # (Auto) 6200 5800 Lymph # (Auto) 800 L 600 L [place] # (Auto) 700 100 Eos # (Auto) 400 0 Baso # (Auto) 0 0 PT 16.6 H INR 1.5 H Sodium 137 138 Potassium 5.0 5.2 H Chloride 99 99 Carbon Dioxide 32 34 H BUN 26 H 20 H Creatinine 1.01 0.78 Estimated GFR 56 L > 60 BUN/Creatinine Ratio 25.7 H 25.6 H Glucose 137 H 123 H Lactate 0.8 Calcium 8.8 8.5 Total Bilirubin 0.9 1.0 AST 88 H 57 H ALT 68 H 64 H Alkaline Phosphatase 141 H 140 H Troponin I < 0.012 NT-Pro-B Natriuret Pep 2690 H 3420 H Total Protein 7.9 7.0 Albumin 4.1 3.6 Globulin 3.8 3.4 Albumin/Globulin Ratio 1.1 1.1 Chlamy pneumoniae PCR Not detected Adenovirus (PCR) Not detected B. pertussis DNA (PCR) Not detected B.parapertussis DNA PCR Not detected Coronavirus OC43 (PCR) Not detected Coronavirus HKU1 (PCR) Not detected Coronavirus 229E (PCR) Not detected SARS-CoV-2 (PCR) Not detected Coronavirus NL63 (PCR) Not detected Human Metapneumovir PCR Not detected Influenza Type A (PCR) Not detected Influenza Type B (PCR) Not detected M. pneumoniae (PCR) Not detected Parainfluenza 1 (PCR) Not detected Parainfluenza 2 (PCR) Not detected Parainfluenza 3 (PCR) Not detected Parainfluenza 4 (PCR) Not detected RSV (PCR) Not detected Entero/Rhino (PCR) Not detected Assessment & Plan Assessment and plan (1) Acute hypoxemic respiratory failure: Status: Acute (2) Dyspnea: Qualifiers: Dyspnea type: shortness of breath Qualified Code(s): R06.02 - Shortness of breath Status: Acute (3) Asthma: Qualifiers: Asthma severity: mild Asthma persistence: intermittent Asthma complication type: uncomplicated Qualified Code(s): J45.20 - Mild intermittent asthma, uncomplicated Status: Acute (4) (HFpEF) heart failure with preserved ejection fraction: Qualifiers: Heart failure chronicity: chronic Qualified Code(s): I50.32 - Chronic diastolic (congestive) heart failure Status: Acute (5) Chronic atrial fibrillation: Status: Chronic (6) Essential hypertension: Status: Chronic (7) Generalized anxiety disorder: Status: Chronic (8) Insomnia: Qualifiers: Insomnia type: psychophysiologic Qualified Code(s): F51.04 - Psychophysiologic insomnia Status: Acute Assessment & Plan narrative: 83-year-old female with asthma, atrial fibrillation on chronic anticoagulation, CHF with preserved ejection fraction, and HTN who presented with SOB. Pt without evidence of pneumonia or pleural effusion on CXR. BNP moderately elevated, however no evidence of fluid overload on imaging. Did have wheezing in the ED, which persists. 1) SOB, Asthma Unclear picture with mixed symptoms of asthma and CHF exacerbation, with both wheezing and crackles present on exam in addition to elevated BNP. Currently on 2L O2, new from baseline. - Continue IV methylprednisolone 125mg q6hrs - Pulmicort BID - Duonebs q6h WA - Supplemental O2 PRN, wean as tolerated 2) HFpEF Clinical picture as above w/elevated BNP and crackles indicating at least mild fluid overload despite normal CXR. - Lasix 20mg IV BID - Home empalgiflozin, carvedilol 3) Atrial fibrillation Rate controlled - Home Eliquis 4) HTN - Home amlodipine, losartan 5) Anxiety, Insomnia - Home diazepam qhs PRN FEN: Cardiac diet Code: Full DVT ppx: On anticoagulation Dispo: Pending stabilization of respiratory status, ideally off oxygen. Hopeful for d/c tomorrow. Time-Based Coding :: 45 minutes spent with patient and on the chart (including review of chart, obtaining history, exam, reviewing outside data, placing orders, documenting exam and treatment plan, and counseling patient) on 09/03/2024. PROFEE Fuel Dock Attendant Document charge(s): Yes Charge Codes Initial inpatient/observation care: [id number]
[2024-09-03] MEDS: BUDESONIDE 0.5 MG/2 ML NEB INH ×2 (10:01→20:11)
[2024-09-03] MEDS: FUROSEMIDE 20 MG/2 ML VIAL IV ×2 (10:27→14:13)
[2024-09-03] MEDS: AMLODIPINE 5 MG TABLET PO (10:27)
[2024-09-03] MEDS: carvediloL 12.5 MG TABLET PO ×2 (10:27→20:32)
[2024-09-03] MEDS: APIXABAN 5 MG TABLET PO ×2 (10:27→20:33)
--- NOTE | 2024-09-03 11:58 | CM.DANOTE ---
Initial DCP Assessment Note Pt is a 83 yo female, resident of [place], arrives from the walk in clinic- hypoxic x3 days, admitted OBS for management of COPD exacerbation, Acute hypoxemic respiratory failure, Dyspnea, History of atrial fibrillation PCP: PCP Dr. Eid. 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 Landry. Payer: [facility] M[employer]/[place] Reviewed chart, pt discussed in multidisciplinary rounds this morning. Patient is likely to remain admitted this evening for medical management, SILVIO 09/04. Met w/patient and SO who explain they have an apt in [place]. Patient is indp, does not drive. Patient denies hx of HH or SNF. Patient/sp have 4 adult children that live out of state. No barriers identified at this time to patient's safe discharge home w/sp to assist as needed; close outpatient f/u recommended. CM team will plan to follow clinical course closely in case any DC needs or concerns arise. WHITNEY Rolle Discharge Planning/Care Management CM Discharge Assessment Start: 09/02/24 16:12 Freq: Status: Active Protocol: Document 09/03/24 11:56 MAXIMILIANO (Rec: 09/03/24 11:58 MAXIMILIANO [id number]) Discharge Planning Assessment Assigned Intellectual Property Paralegal WHITNEY Iraheta DPOA/Assigned Designee Name Josué Bosch DOROTHY Contact Information [phone] Advance Directives? No History Provided By Patient,Significant Other, Medical Record Has Patient been admitted in last 30 No days? Prior Living Arrangements Apartment/Condo Household Members significant other Type of transporation used prior to Relies on Others admit Independent with ADL's Yes Is patient alert and oriented? Yes Barriers to Discharge No Comment Patient plans on discharging home. Discharge Plan Home Transportation Arrangement Spouse Referrals Initiated None needed,Other
--- NOTE | 2024-09-03 19:03 | PC.NURSE ---
This nurse came to pt's room this afternoon because the bed alarm was going off. Pt was found at the end of the bed, not wearing her O2 and stating she didn't remember where she was. There was water spilled on the floor by her bed. She was escorted to the bathroom to void and had a very saturated brief. Pt was reminded that she is at the hospital and seemed to be slowly regaining her mentation. However, she continued to state that she was confused even though she was able to answer all orientation questions. She called her and requested that he return to the hospital. When her arrived, he was frustrated and confused about why he had been summoned to the hospital. This nurse explained the situation and as of now he is still sitting at the bed side keeping patient company. Pt now seems completely oriented but is still stating that she is confused.
[2024-09-03] MEDS: LOSARTAN 50 MG TABLET PO (20:33)
[2024-09-03] MEDS: diazePAM 5 MG TABLET PO (20:33)
[2024-09-04] VITALS (7 sets, daily range): BP systolic 114–137; BP diastolic 59–80; PULSE 74–104; RESP 16–24; TEMP 36.3–36.4; O2SAT 88–95
[2024-09-04] MEDS: methylPREDNISolone 125 MG/2 ML VIAL IV ×3 (00:38→11:31)
--- NOTE | 2024-09-04 01:59 | PC.NURSE ---
night supervisor Son and daughter antionette called to get update from RN about status of patient, Patient gave verbal confirmation to release information. Daughter antionette and son are in [place] and when patient gets discharged would like to get a print out of instructions to help patient with continuing treatments when at home. Matthew antionette name is Kerrie and would like to be called on her cell phone at [phone]. Email is [email or web address].
--- NOTE | 2024-09-04 02:43 | PC.NURSE ---
Addendum entered by Izabel Lucsa R.N. 09/04/24 06:49: Patient has been on room air all night oxygen levels been 89-93 % range. Patient wanted to keep nasal cannula on and her own home O2% pulse ox. Patient go up to restroom with RN and oxygen level came down to 76% with ambulation. Once patient made it back to bed without assistance, RN gave 2 liters on oxygen for 1 minute and patient's O2 rebounded to 95% within the 1 minute, RN turned of O2 so patient is back to room air and patient has stayed at 91 % for 10 minutes after ambulation. 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 RN clarified that it is no burden and that if she needed medication or anything to help with quality of sleep or improve health no Doctor would refuse a call for that. Patient still refused saying i just want the doctor to know am coughing at night. RN offered one last time to get OTC options from night pharmacy to help with cough but patient still refused.
[2024-09-04] MEDS: ALBUTEROL 2.5 MG/3 ML NEB (ADULT) INH (02:49)
[2024-09-04] MEDS: ALBUTEROL/IPRATROPIUM 3 ML AMPUL INH ×2 (07:39→13:10)
[2024-09-04] MEDS: BUDESONIDE 0.5 MG/2 ML NEB INH (07:47)
[2024-09-04] MEDS: carvediloL 12.5 MG TABLET PO (09:13)
[2024-09-04] MEDS: FUROSEMIDE 20 MG/2 ML VIAL IV ×2 (09:15→14:13)
[2024-09-04] MEDS: AMLODIPINE 5 MG TABLET PO (09:15)
[2024-09-04] MEDS: APIXABAN 5 MG TABLET PO (09:15)
--- NOTE | 2024-09-04 09:25 | P.PN_ITS ---
Subjective Subjective Date Patient Seen: 09/04/24 Time Patient Seen: : Interval history: Patient was admitted on 09/02/2024 with respiratory distress. Found to be hypoxic and he was complaining of recent cough. Upon initial presentation did have some intercostal and suprasternal retractions and some difficulty speaking in full sentences. She also was tachypneic with a respiratory rate at 28. She was given some parental diuretics and placed on treatment for an exacerbation of her reactive airways disease/COPD/asthma. She does carry a diagnose of heart failure with preserved ejection fraction, last echo was December 2022, demonstrated normal left ventricular function and severe biatrial enlargement probably consistent with her pulmonary disease At admission she was continued on IV steroids frequent nebulizers and supplemental oxygen for her COPD exacerbation and hypoxic respiratory failure. She was also started on parental diuretics for presumed acute on chronic congestive heart failure with preserved ejection fraction. Since admission she has been relatively stable. She was had adequate urine output. Still has a small oxygen requirement and still hypoxic on room air Exam Vital Signs (past 8 hours): - 09/04/24 02:05 09/04/24 07:39 09/04/24 07:39 Temperature Pulse Rate 74 86 Respiratory Rate 16 22 Blood Pressure 136/79 Pulse Oximetry 93 95 Oxygen Delivery Method Nasal Cannula Nasal Cannula Oxygen Flow Rate 1 09/04/24 07:48 09/04/24 08:00 09/04/24 09:13 Temperature 97.4 F L Pulse Rate 94 H 101 H 101 H Respiratory Rate 20 19 Blood Pressure 137/80 137/80 Pulse Oximetry 94 88 L Oxygen Delivery Method Nasal Cannula Oxygen Flow Rate 1 Fraction of Inspired Oxygen 28 SaO2/FiO2 Ratio 332 Oxygen Delivery Method Nasal Cannula Oxygen Flow Rate 1 Objective Labs 09/03/24 05:10 09/03/24 05:10 [facility] Medical History (Updated 09/03/24 @ 14:16 by Ned Villalta MD) History of atrial fibrillation Acute hypoxic respiratory failure COVID Pulmonary edema (01/06/23) Altered mental status (01/06/23) Hypercapnic respiratory failure (01/06/23) Peripheral edema (01/06/23) Acquired clavicle deformity Asthma Gout Cataracts, bilateral (1994) Hyperthyroidism (1971) Toxic goiter (1971) Osteoporosis Essential hypertension Hyperlipidemia Chronic atrial fibrillation Family History Father No problems noted. Mother No problems noted. Social History household members: significant other Smoking Status: Never smoker alcohol intake: never substance use type: does not use Assessment & Plan Assessment & Plan narrative: 1. Acute hypoxic respiratory failure-patient does seem to be improved she was showing less distress in the way of work of breathing etcetera. Still mildly hypoxic. Continue treatments as noted below for her respiratory issues 2. Acute COPD exacerbation-continue frequent nebulizers and IV corticosteroids 3. Acute on chronic congestive heart failure with preserved ejection fraction- going to obtain echocardiography and continue with IV diuresis with Lasix. Plan to check electrolytes and renal function both today and tomorrow. BNP remains elevated as further confirmation of heart failure as a source of her respiratory distress 4. Atrial fibrillation-adequate control of heart rate for now. Heart rate hovering right around 100. Continue oral anticoagulation as well for stroke risk reduction 5. Disposition-patient not improve from a respiratory status despite aggressive treatments as above. Patient will need another 24-48 hours in the hospital least until she was significantly improves hopefully to the point where she no longer has hypoxia on room air. Time-Based Coding :: [TOTAL MINUTES] spent with patient and on the chart (including review of chart, obtaining history, exam, reviewing outside data, placing orders, documenting exam and treatment plan, and counseling patient) on [DATE].
[2024-09-04 10:03] LABS: BUN Creatinine Ratio 31.3 (6-22); Blood Urea Nitrogen 25 mg/dL (7-17); Calcium 8.5 mg/dL (8.4-10.2); Carbon Dioxide 33 mmol/L (22-32); Chloride 95 mmol/L (98-107); Estimated Glomerular Filt Rate > 60 mL/min (>60); Glucose 309 mg/dL (70-99); HEMOLYSIS < 15 (0-50); Potassium 4.6 mmol/L (3.4-5.1); Sodium 136 mmol/L (137-145)
--- NOTE | 2024-09-04 10:39 | PM.DS.IH.1 ---
History of Present Illness History of Present Illness Date Patient Seen: 09/04/24 Time Patient Seen: 10:39 Chief complaint: Sent from [facility] has Hypoxic 3 days Narrative: 83yo female with asthma, atrial fibrillation on chronic anticoagulation, HFpEF, HTN, anxiety, insomnia who presented to the ER with SOB for past 3 days, recent cough. No fever, chest pain, heart racing/palpitations, or baseline O2 requirement. Denies missing doses of prescribed medications were recent dose changes. On further questioning, she reports only taking furosemide as needed for lower extremity swelling and does not recall taking within previous 4-5 days. ER workup notable for platelets 142, INR 1.5, BUN 26, GFR 56, AST 88, ALT 68, alk phos 141, BNP 2690, respiratory viral swab negative. CXR showed stable cardiomegaly with no pleural effusion or acute pulmonary process. EKG showed atrial fibrillation but no RVR or obvious ST segment/T-wave changes. Troponin negative x2. Given IV Lasix and IV Solu-Medrol along with breathing treatment. [place] better but still labored breathing with suprasternal retractions, 93% on 2 L oxygen with desats to 88% on room air. Admitted for possible CHF vs asthma vs undiagnosed COPD exacerbation with persistent oxygen requirement. {from Dr. Eid's H&P 09/03/24} Discharge Providers Provider Date of admission: 09/02/24 16:11 Discharge Date: 09/04/24 Primary care physician: Carlos Eduardo Eid MD Consults: 09/02/24 18:37 Consult to Cardio/Pulmonary Rehabilitation Routine Comment: Physician Instructions: Evaluate and treat Discharge provider: Ned Villalta MD Summary Hospital Course Discharge Diagnosis: 1. Acute hypoxic respiratory failure 2. COPD exacerbation 3. Atrial fibrillation 4. Acute on chronic congestive heart failure with preserved ejection fraction 5. Chronic congestive heart failure with preserved ejection fraction Hospital Course: As above patient presented to the hospital emergency department with respiratory distress. She was showed evidence of respiratory failure with intercostal and suprasternal retractions hypoxia tachypnea etcetera. She was admitted treated with oxygen replacement therapy, parental corticosteroids for COPD exacerbation and parental diuretics for presumed congestive heart failure as well given elevated BNP etcetera With the he was intervention she improved rather rapidly. She was able to be weaned completely off of the oxygen by the morning of the 04 of September. Given that this would appear to be more of a acute on chronic congestive heart failure presentation then COPD exacerbation. (in my opinion). She will continue on higher dose regular oral diuretics at home. May need further evaluation of cardiac function as an outpatient since last echocardiogram was in 2022. She was also would benefit from close follow-up with her PCP She also based on her clinical presentation seem to have some exacerbation of her COPD. She was did seem to respond to nebulizer treatments as well as the corticosteroids. She will be discharged home on a tapering course of oral prednisone as well Her atrial fibrillation seem to be adequately rate controlled despite her respiratory issues during this hospitalization in no changes were made regarding management of this condition By the morning of the 04 of September she was up and around in her room without oxygen felt like she was back to her baseline and anxious to go home. Therefore she was felt to be safe for discharge and was discharged home. Status at Discharge Cognitive/behavioral status at discharge: at baseline, oriented Functional status at discharge: independent ambulation Overall status at discharge: patient is progressing back to baseline Time Spent with Patient Time spent: Greater than 30 minutes Exam Vital Signs (past 8 hours): - 09/04/24 07:39 09/04/24 07:39 09/04/24 07:48 Temperature Pulse Rate 86 94 H Respiratory Rate 22 20 Blood Pressure Pulse Oximetry 95 94 Oxygen Delivery Method Nasal Cannula Nasal Cannula Nasal Cannula Oxygen Flow Rate 1 1 09/04/24 08:00 09/04/24 09:13 Temperature 97.4 F L Pulse Rate 101 H 101 H Respiratory Rate 19 Blood Pressure 137/80 137/80 Pulse Oximetry 88 L Oxygen Delivery Method Oxygen Flow Rate Fraction of Inspired Oxygen 28 SaO2/FiO2 Ratio 332 Oxygen Delivery Method Nasal Cannula Oxygen Flow Rate 1 Objective Labs 09/03/24 05:10 09/04/24 09:37 Labs: Laboratory Results - last 24 hr 09/04/24 09:37 Sodium 136 L Potassium 4.6 Chloride 95 L Carbon Dioxide 33 H BUN 25 H Creatinine 0.80 Estimated GFR > 60 BUN/Creatinine Ratio 31.3 H Glucose 309 H D Calcium 8.5 Magnesium 2.0 [facility] Medical History History of atrial fibrillation Acute hypoxic respiratory failure COVID Pulmonary edema (01/06/23) Altered mental status (01/06/23) Hypercapnic respiratory failure (01/06/23) Peripheral edema (01/06/23) Acquired clavicle deformity Asthma Gout Cataracts, bilateral (1994) Hyperthyroidism (1971) Toxic goiter (1971) Osteoporosis Essential hypertension Hyperlipidemia Chronic atrial fibrillation Family History Father No problems noted. Mother No problems noted. Social History household members: significant other Smoking Status: Never smoker alcohol intake: never substance use type: does not use Discharge Assessment & Plan Assessment and Plan Plan of Treatment: Discharge home with regular dosing of oral furosemide and tapering course of oral prednisone Continue all other usual medications Close follow up with PCP within a week Discharge Plan Discharge Plan Patient Disposition: Home Discharge orders & Medications Prescriptions: Continued (DME) BreatheRite Spacer-Mask,Adult Spacer See Rx Instructions .Route Qty: 1 0RF Patient Comments: pt would like to order sleep mask, stated that she does not have one Rx Instructions: As directed Jardiance 10 mg tablet 10 mg PO DAILY Patient Comments: pt would like to talk to the doctor about stopping this med potassium chloride 10 mEq tablet extended release 10 meq PO DAILY Qty: 90 3RF Patient Comments: takes pm calcium carbonate [Oyster Shell Calcium 500] 500 mg calcium (1,250 mg) tablet 500 mg PO BID Qty: 180 1RF Eliquis 5 mg tablet 5 mg PO BID Qty: 180 1RF albuterol sulfate 90 mcg/actuation HFA aerosol inhaler 1 puff PO Q4-6H PRN (Reason: for wheezing) Qty: 8.5 5RF amlodipine [Norvasc] 5 mg tablet 5 mg PO DAILY Qty: 90 3RF carvedilol 25 mg tablet 12.5 mg PO BID Qty: 90 3RF Qvar RediHaler 40 mcg/actuation HFA aerosol breath activated 1 inh inhalation BID Qty: 10.6 4RF diazepam 5 mg tablet See Rx Instructions .ROUTE .COMPLEX PRN (Reason: Sleep) Qty: 30 0RF Rx Instructions: Take 1/2 to 1 tablet by mouth at bedtime as needed for anxiety; magnesium aspart,citrate,oxide 400 mg magnesium capsule 400 mg PO 1XD Patient Comments: takes pm Changed losartan 100 mg tablet 100 mg PO DAILY Qty: 90 3RF furosemide 40 mg tablet 40 mg PO DAILY Qty: 90 3RF No Action prednisone 20 mg tablet 10 - 40 mg PO DAILY Qty: 12 0RF Rx Instructions: 2 tabs (40mg) daily for 3 days, then 1 tab daily for 3 days, then 1/2 tab daily for 3 days, then stop Follow up/Referrals: Carlos Eduardo Eid MD [Primary Care Provider] - 1 Week Discharge Health Status Multidrug resistant organism: No MDRO Diet/Activity/Treatments Diet: Diet as Tolerated and Low-sodium Visit Report/Discharge Packet Stand Alone Forms: Congestive Heart Failure, Patient Portal/API, Stroke Signs & Symptoms Discharge Data Primary Care Provider: Carlos Eduardo Eid Attending Provider: Carlos Eduardo Eid Admit Date/Time: 09/02/24 16:11 [facility] Charge Codes Discharge inpatient/observation: [id number]
--- NOTE | 2024-09-04 13:09 | CM.DPC ---
DCP Discharge Home Per MD, pt was able to be weaned off oxygen this morning and labs have improved and pt medically stable to d/c home today and no identified barriers to discharge. Per RN, pt wanting to discharge home today and [facility] Other to provide transport today but not until around 1600. Pt confirms that she does not feel she has any d/c needs at this time and preference is home today. SW notified TCM team for f/u appointment within a week with her PCP Dr. Eid. WHITNEY Mary
== END 2024-09-04 16:05 | disposition home or self-care (01) ==
LOC: ED 14:55 → AC 16:11
PROVIDERS: Internal Medicine; Admitting Provider Family Medicine; Emergency Provider Emergency Medicine; PCP Family Medicine; Referring Provider Emergency Medicine; Visit Provider Family Medicine
DX: J96.01 Acute respiratory failure with hypoxia (principal); J44.1 Chronic obstructive pulmonary disease with (acute) exacerbation; J45.20 Mild intermittent asthma, uncomplicated; I50.33 Acute on chronic diastolic (congestive) heart failure; I48.20 Chronic atrial fibrillation, unspecified; I11.0 Hypertensive heart disease with heart failure; F41.1 Generalized anxiety disorder; F51.04 Psychophysiologic insomnia
CPT/HCPCS: 36415; 71045; 80048; 80053; 83605; 83735; 83880; 84484; 85025; 85610; 87633; 93005; 94640; 94762; 96374; 96375; 96376; 99222; 99239; 99285; G0378; J1938; J2919; J7613

== ENCOUNTER → 2024-09-20 09:32 | Outpatient (CLI) | payer MEDICARE, MEDICAID, SELFPAY ==
[2023-01-15 14:02] VITALS: RESP 1
[2023-01-15 18:14] VITALS: PULSE 68; RESP 15; O2SAT 95
[2024-06-09 02:14] VITALS: BMI 27.6
[2024-09-07 09:36] VITALS: PULSE 68; RESP 1; RESP 15; O2SAT 95; BMI 29.0
== END ==
LOC: RESP 09:32
PROVIDERS: PCP Family Medicine; Referring Provider Family Medicine; Visit Provider Family Medicine
DX: J44.1 Chronic obstructive pulmonary disease with (acute) exacerbation (principal); R94.2 Abnormal results of pulmonary function studies
CPT/HCPCS: 94060; 94726; 94729

== ENCOUNTER → 2025-03-28 11:16 | Outpatient (CLI) | payer MEDICARE, MEDICAID, SELFPAY ==
[2024-09-07 09:36] VITALS: PULSE 68; RESP 1; RESP 15; O2SAT 95; BMI 29.0
[2025-03-28 12:45] LABS: Add Manual Diff / Slide Review NO; Hematocrit 45.3 % (36-46); Hemoglobin 15.2 g/dL (12.0-16.0); Lymphocytes Absolute Auto 1200 /uL (1100-4500); Mean Corpuscular HGB Conc 33.5 % (30-36); Mean Corpuscular Hemoglobin 33.0 PG (26-34); Mean Corpuscular Volume 98.5 fL (80-100); Platelet Count 158 X10^3/uL (150-400)
[2025-03-28 13:15] LABS: Blood Urea Nitrogen 27 mg/dL (7-17); Calcium 9.2 mg/dL (8.4-10.2); Carbon Dioxide 24 mmol/L (22-32); Chloride 101 mmol/L (98-107); Estimated Glomerular Filt Rate 49 mL/min (>60); Glucose 85 mg/dL (70-99); HEMOLYSIS < 15 (0-50); Potassium 5.4 mmol/L (3.4-5.1); Sodium 134 mmol/L (137-145)
[2025-03-28 13:22] LABS: NT-proBNP (BNP-Adult 18+) 1140 pg/mL (<450)
== END ==
PROVIDERS: PCP Family Medicine; Referring Provider Internal Medicine Cardiovascular Disease; Visit Provider Internal Medicine Cardiovascular Disease
DX: I50.32 Chronic diastolic (congestive) heart failure (principal)
CPT/HCPCS: 36415; 80048; 83880; 85025